=== PATIENT | male | born 1945 | race Caucasian/White ===

== ENCOUNTER 2017-03-04 20:18 | Inpatient (IN) | payer OTHER, MEDICARE ==
[~2017-03-04] VITALS: Ht 177.8 cm; Wt 92.3 kg
[2017-03-04] MEDS ORDERED: CLC100 PO (22:11)
[2017-03-04] MEDS ORDERED: PLV75 PO (22:11)
[2017-03-04] MEDS ORDERED: ALPR-411 PO (22:11)
[2017-03-04] MEDS ORDERED: LSN20 PO (22:11)
[2017-03-04] MEDS ORDERED: BUDE0.5S INH (22:11)
[2017-03-04] MEDS ORDERED: LEVO1INJ IV (22:11)
[2017-03-04] MEDS ORDERED: GUAISYP4 PO (22:11)
[2017-03-04] MEDS ORDERED: ISOS-11 PO (22:11)
[2017-03-04] MEDS ORDERED: HPRIS5M SQ (22:11)
[2017-03-04] MEDS ORDERED: LPR25 PO (22:11)
[2017-03-04] MEDS ORDERED: ATOR-24 PO (22:11)
[2017-03-04] MEDS ORDERED: ALPR-385 PO (22:11)
[2017-03-04] MEDS ORDERED: [UNRECOGNIZED DRUG - CODE] IV (22:11)
[2017-03-04] MEDS ORDERED: SUCR1TAB PO (22:11)
[2017-03-04] MEDS ORDERED: [UNRECOGNIZED DRUG - CODE] IV (22:11)
[2017-03-04] MEDS ORDERED: ACET325T95 PO (22:11)
[2017-03-04] MEDS ORDERED: SODI0.9S IV (22:11)
[2017-03-04] MEDS ORDERED: XPNINS INH (22:11)
[2017-03-04] MEDS ORDERED: [UNRECOGNIZED DRUG - OTHER] IV (22:11)
[2017-03-04] MEDS ORDERED: GFNSR600 PO (22:11)
[2017-03-04] MEDS ORDERED: [UNRECOGNIZED DRUG - REMARK] (22:11)
[2017-03-04] MEDS ORDERED: TAMS0.4C38 PO (22:11)
[2017-03-04] MEDS ORDERED: HYDR-5688 PO (22:11)
[2017-03-04] MEDS ORDERED: PRFINS INH (22:11)
[2017-03-04] MEDS ORDERED: FLV1 PO (22:11)
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
[2017-03-04 22:15] LABS: BASO % 0.1 %; BASO ABS # 0.01 K/uL (0-0.2); COMPLETE YES; IG% 0.3 %; LYMPH % 10.6 %; LYMPH ABS # 1.23 K/uL (1.2-3.4); MEAN CORPUSCULAR HEMOGLOBIN 28.8 pg (25-34); MEAN CORPUSCULAR HGB CONC 32.7 g/dl (32-36); MEAN PLATELET VOLUME 9.2 fL (7.4-10.4); MONO % 9.6 %; NEUT % 79.4 %; PLATELET COUNT 281 K/uL (130-400); RED BLOOD COUNT 3.75 M/uL (4.7-6.1); WHITE BLOOD COUNT 11.62 K/uL (4.8-10.8)
--- NOTE | 2017-03-04 22:16 | DIAGNOSTIC IMAGING REPORT ---
CHEST ONE VIEW PORTABLE CLINICAL HISTORY: pneumonia dyspnea COMPARISON STUDY: None FINDINGS: Parenchymal infiltrate left lung base. PICC catheters. Vena cava. Moderate chronic megaly. Small fixed lateral hernia. Otherwise are clear. IMPRESSION: Infiltrate left base. Moderate cardiomegaly. The above report was generated using voice recognition software. It may contain grammatical, syntax or spelling errors. Electronically signed by: Julien Steele M.D. 03/04/2017 10:15 PM Dictated Date/Time: 03/04/2017 10:14 PM
[2017-03-04 22:33] LABS: ALT/SGPT 12 U/L (12-78); BLOOD UREA NITROGEN 13 mg/dl (7-18); BUN/CREATININE RATIO 17.8 (10-20); CALCIUM 8.5 mg/dl (8.5-10.1); CARBON DIOXIDE 27 mmol/L (21-32); CHLORIDE 103 mmol/L (98-107); CREATININE 0.72 mg/dl (0.60-1.40); GLUCOSE 96 mg/dl (70-99); MAGNESIUM 1.9 mg/dl (1.8-2.4); POTASSIUM 3.8 mmol/L (3.5-5.1); SODIUM 136 mmol/L (136-145)
[2017-03-04 22:34] VITALS: BP 124/81; PULSE 97; TEMP 37.5; O2SAT 99; Ht 177.8 cm; Wt 92.3 kg
[2017-03-04 22:36] LABS: ALB/GLOB RATIO 0.8 (0.9-2); ALKALINE PHOSPHATASE 72 U/L (45-117); AST/SGOT 18 U/L (15-37)
[2017-03-04 22:44] LABS: INR 1.1 (0.9-1.1); PARTIAL THROMBOPLASTIN RATIO 0.9
[2017-03-04] MEDS ORDERED: ACETAMINOPHEN 325 MG TAB PO PRN (22:45)
[2017-03-04] MEDS ORDERED: LEVALBUTEROL 0.63MG/3 ML NEB INH PRN (22:45)
[2017-03-04] MEDS ORDERED: ALPRAZOLAM 0.5 MG TAB PO ONE (23:00)
[2017-03-04] MEDS ORDERED: BUDESONIDE 0.5 MG/2 ML VIAL (PULMICORT) INH ONE (23:00)
[2017-03-04 23:15] VITALS: BP 129/85; PULSE 90; TEMP 37; O2SAT 99
[2017-03-04] MEDS ORDERED: FORMOTEROL FUMA NEBULIZER SOLN 20 MCG/2 ML VIAL INH ONE (23:15)
[2017-03-04] MEDS ORDERED: METOPROLOL TARTRATE 25 MG TAB PO ONE (23:15)
[2017-03-04] MEDS ORDERED: LISINOPRIL 20 MG TAB PO ONE (23:15)
[2017-03-04] MEDS: HYDROCODONE/ACETAMOPHEN 5/325MG TAB PO PRN (23:31)
[2017-03-04] MEDS: ONDANSETRON INJ 2 MG/ML 2 ML VIAL IV PRN (23:31)
[2017-03-04] MEDS: LEVOFLOXACIN IV SCH (23:33)
[2017-03-04] MEDS: D5W IV SCH (23:33)
[2017-03-04] MEDS: [UNRECOGNIZED DRUG - OTHER] IV SCH (23:33)
[2017-03-05] VITALS (9 sets, daily range): BP systolic 110–135; BP diastolic 63–86; PULSE 70–95; TEMP 36.6–37; O2SAT 95–99
[2017-03-05] MEDS ORDERED: AMB10 PO (02:11)
[2017-03-05] MEDS ORDERED: HYDR-4332 PO (02:11)
[2017-03-05] MEDS ORDERED: SPRIN/30 INH (02:11)
[2017-03-05] MEDS ORDERED: FRS/40 PO (02:11)
[2017-03-05] MEDS ORDERED: ALPR-411 PO (02:11)
[2017-03-05] MEDS ORDERED: POTA-74 PO (02:11)
[2017-03-05] MEDS ORDERED: POLY150C4 PO (02:11)
[2017-03-05] MEDS ORDERED: PANT40TA PO (02:11)
[2017-03-05] MEDS ORDERED: RANITIDINE IV 50 MG in DEXTROSE 5% 100ML 100 ML IV SCH (02:15)
[2017-03-05] MEDS: LORAZEPAM INJ 0.5 MG in SYRINGE 0.25 ML IV PRN (03:09)
[2017-03-05] MEDS: HYDROCODONE/ACETAMOPHEN 5/325MG TAB PO PRN ×2 (05:35→14:22)
[2017-03-05 06:45] LABS: HEMATOCRIT 32.7 % (42-52); MEAN CELL VOLUME 87.7 fL (80-100); MEAN CORPUSCULAR HEMOGLOBIN 29.2 pg (25-34); MEAN CORPUSCULAR HGB CONC 33.3 g/dl (32-36); MEAN PLATELET VOLUME 9.2 fL (7.4-10.4); PLATELET COUNT 252 K/uL (130-400); RED BLOOD COUNT 3.73 M/uL (4.7-6.1); WHITE BLOOD COUNT 10.49 K/uL (4.8-10.8)
[2017-03-05] MEDS ORDERED: SUCRALFATE 1 GM TAB PO SCH (07:00)
[2017-03-05] MEDS: BUDESONIDE 0.5 MG/2 ML VIAL (PULMICORT) INH SCH ×2 (07:21→20:11)
[2017-03-05] MEDS: FORMOTEROL FUMA NEBULIZER SOLN 20 MCG/2 ML VIAL INH SCH ×2 (07:21→20:11)
[2017-03-05 07:23] LABS: BUN/CREATININE RATIO 19.4 (10-20); CREATININE 0.6 mg/dl (0.60-1.40); POTASSIUM 3.8 mmol/L (3.5-5.1)
[2017-03-05] MEDS: SUCRALFATE 1 GM TAB PO SCH ×4 (07:55→20:21)
[2017-03-05] MEDS: ONDANSETRON INJ 2 MG/ML 2 ML VIAL IV PRN ×3 (07:56→20:23)
[2017-03-05] MEDS: GUAIFENESIN/CODEINE 200MG/20MG 10ML UDC PO PRN ×2 (07:56→14:16)
[2017-03-05] MEDS: LISINOPRIL 20 MG TAB PO SCH (07:56)
[2017-03-05] MEDS: CLOPIDOGREL BISULFATE 75 MG TAB PO SCH (07:57)
[2017-03-05] MEDS: METOPROLOL TARTRATE 25 MG TAB PO SCH ×2 (07:57→20:21)
[2017-03-05] MEDS: DOCUSATE SODIUM 100 MG CAP PO SCH ×2 (07:57→20:20)
[2017-03-05] MEDS: TAMSULOSIN HCL 0.4 MG CAP PO SCH (07:58)
[2017-03-05] MEDS: ATORVASTATIN 40 MG TAB PO SCH (07:58)
[2017-03-05] MEDS: ALPRAZOLAM 0.5 MG TAB PO SCH ×3 (08:04→20:21)
[2017-03-05] MEDS: HEPARIN SOD 5000 UNIT/0.5 ML CARP SQ SCH ×2 (08:05→20:22)
[2017-03-05] MEDS ORDERED: ISOSORBIDE MONONITRATE 30 MG TABCR PO SCH (09:00)
[2017-03-05] MEDS ORDERED: PANTOprazole SOD 40 MG TAB PO SCH (09:00)
[2017-03-05] MEDS ORDERED: GUAIFENESIN 600 MG TABCR PO SCH (09:00)
[2017-03-05] MEDS ORDERED: LISINOPRIL 20 MG TAB PO SCH (09:00)
[2017-03-05] MEDS: LORAZEPAM 2 MG/ML 1 ML VIAL IV PRN (09:28)
[2017-03-05] MEDS ORDERED: CLOPIDOGREL BISULFATE 75 MG TAB PO ONE (09:30)
[2017-03-05] MEDS ORDERED: ASPEC81 PO (11:38)
[2017-03-05] MEDS ORDERED: PHARMACIST DISCHARGE MED REC CONSULT PRN (12:00)
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
[2017-03-05 13:29] LABS: ESTIMATED AVERAGE GLUCOSE 126 mg/dl; HA1C FLAG Normal (Normal)
--- NOTE | 2017-03-05 14:07 | Progress Note ---
Medicine Progress Note Date & Time of Visit: Mar 05, 2017 at 14:07. Subjective seen resting in bed, comfortable still has epigastric discomfort, nausea still has productive cough, no dyspnea while on o2 via nasal cannula no recurrence of aphasia no other symptoms Objective Last 8 Hrs Date Time Temp Pulse Resp B/P (MAP) Pulse Ox O2 Delivery O2 Flow Rate FiO2 03/05/17 12:20 37.0 88 16 129/63 (85) 95 03/05/17 08:00 Nasal Cannula 2.0 03/05/17 07:52 36.9 81 18 131/69 (89) 95 03/05/17 07:21 82 18 99 Nasal Cannula 4.0 Physical Exam: General- oriented x 3, not in distress, speaks in sentences with no effort Head- atraumatic Eyes- EOMI, anicteric ENT- oropharynx clear Neck- supple, no JVD, no adenopathy Lungs- (+) scattered rhonchi and wheezes bilaterally Heart- regular rhythm; no murmur, normal rate Abdomen- normal bowel sounds, soft, nontender Extremities- no pretibial edema, no calf tenderness; Neuro- alert, oriented x 3; PERRL, EOMI; no facial palsy; no dysarthria; motor 5 /5 bilaterally; sensation 100% Skin- warm & dry Laboratory Results: Last 24 Hours Test 03/04/17 22:03 03/05/17 06:23 03/05/17 11:30 03/05/17 11:46 White Blood Count 11.62 K/uL 10.49 K/uL Red Blood Count 3.75 M/uL 3.73 M/uL Hemoglobin 10.8 g/dL 10.9 g/dL Hematocrit 33.0 % 32.7 % Mean Corpuscular Volume 88.0 fL 87.7 fL Mean Corpuscular Hemoglobin 28.8 pg 29.2 pg Mean Corpuscular Hemoglobin Concent 32.7 g/dl 33.3 g/dl Platelet Count 281 K/uL 252 K/uL Mean Platelet Volume 9.2 fL 9.2 fL Neutrophils (%) (Auto) 79.4 % Lymphocytes (%) (Auto) 10.6 % Monocytes (%) (Auto) 9.6 % Eosinophils (%) (Auto) 0.0 % Basophils (%) (Auto) 0.1 % Neutrophils # (Auto) 9.24 K/uL Lymphocytes # (Auto) 1.23 K/uL Monocytes # (Auto) 1.11 K/uL Eosinophils # (Auto) 0.00 K/uL Basophils # (Auto) 0.01 K/uL RDW Standard Deviation 44.1 fL 44.3 fL RDW Coefficient of Variation 13.6 % 13.8 % Immature Granulocyte % (Auto) 0.3 % Immature Granulocyte # (Auto) 0.03 K/uL Prothrombin Time 12.0 SECONDS Prothromb Time International Ratio 1.1 Activated Partial Thromboplast Time 23.6 SECONDS Partial Thromboplastin Ratio 0.9 Sodium Level 136 mmol/L 137 mmol/L Potassium Level 3.8 mmol/L 3.8 mmol/L Chloride Level 103 mmol/L 105 mmol/L Carbon Dioxide Level 27 mmol/L 26 mmol/L Anion Gap 6.0 mmol/L 6.0 mmol/L Blood Urea Nitrogen 13 mg/dl 12 mg/dl Creatinine 0.72 mg/dl 0.60 mg/dl Estimated GFR () 108.8 117.2 Estimated GFR (Non- 93.9 101.2 BUN/Creatinine Ratio 17.8 19.4 Random Glucose 96 mg/dl 99 mg/dl Calcium Level 8.5 mg/dl 8.0 mg/dl Magnesium Level 1.9 mg/dl Total Bilirubin 0.5 mg/dl Aspartate Amino Transf (AST/SGOT) 18 U/L Alanine Aminotransferase (ALT/SGPT) 12 U/L Alkaline Phosphatase 72 U/L Total Protein 6.2 gm/dl Albumin 2.8 gm/dl Globulin 3.4 gm/dl Albumin/Globulin Ratio 0.8 Hepatitis C Antibody Screen NEG Est Creatinine Clear Calc Drug Dose 127.8 ml/min Estimated Average Glucose 126 mg/dl Hemoglobin A1c 6.0 % Lipase 82 U/L Bedside Glucose 98 mg/dl Assessment & Plan ABDOMINAL PAIN, POSSIBLE GASTRITIS, PUD Severe epigastric pain x several days. No apparent acute findings on CT of abdomen and pelvis at [facility] -- on PPI, Sucralfate GI consulted will need EGD PNEUMONIA, COPD EXACERBATION Episode of vomiting, but no apparent aspiration. CT of abdomen and pelvis suggested bibasilar infiltrates. -- on Levaquin add Solumedrol, Nebs q4h -- monitor NEURO SYMPTOMS 2 episodes of apparent expressive aphasia, one episode possibly associated with left facial palsy. Suspected TIA. Possible seizure (history of seizure disorder, but apparently no longer taking phenytoin). CT head negative at [facility]. MRI cannot be performed (? intrathecal pump). Carotid duplex showed < 50% stenosis of ICA's. echo: pending eeg: pending -- on Plavix avoiding ASA due to GI symptoms -- Neuro consulted CORONARY ARTERY DISEASE No anginal symptoms. No acute EKG changes. Need to get background info. CHF Apparent history of CHF. -- euvolemic Hold furosemide due to decreased oral intake. RESUSCITATION STATUS Discussed with patient. He has a living will; his daughter Buffy is an RN and is durable POA. He would like resuscitation attempted in the event of a cardiopulmonary arrest if there is a reasonable chance of a meaningful recovery, but does not want prolonged extraordinary measures if prognosis is poor. Therefore, code status = "Level 1" (full resuscitation). VTE PROPHYLAXIS High risk for VTE. SQ heparin with caution. INCOMPLETE DATA Home medications uncertain- need to verify. Records from [facility] and [facility] will be requested for background info.-- will follow up DISPOSITION Admit to Telemetry Unit. Discharge disposition to be determined. . VTE Prophylaxis VTE Risk Assessment Done? Y/N: Yes Current Inpatient Medications: Current Inpatient Medications Medications (Trade) Dose Ordered Sig/Marco A Route Start Time Stop Time Status Last Admin Dose Admin Acetaminophen (Tylenol Tab) 650 mg Q4 PRN PO 03/04/17 22:45 04/03/17 22:44 Alprazolam (Xanax Tab) 0.5 mg BID@0900,1600 PO 03/05/17 09:00 04/04/17 08:59 03/05/17 08:04 0.5 MG Alprazolam (Xanax Tab) 1 mg HS PO 03/05/17 21:00 04/04/17 20:59 Atorvastatin Calcium (Lipitor Tab) 40 mg DAILY PO 03/05/17 09:00 04/04/17 08:59 03/05/17 07:58 40 MG Budesonide (Pulmicort Respules 0.5MG/ 2ML Neb Soln) 0.5 mg BID INH 03/05/17 09:00 04/04/17 08:59 03/05/17 07:21 0.5 MG Clopidogrel Bisulfate (plAVix TAB) 75 mg DAILY PO 03/05/17 09:00 04/04/17 08:59 03/05/17 07:57 75 MG Docusate Sodium (coLACE CAP) 100 mg BID PO 03/05/17 09:00 04/04/17 08:59 03/05/17 07:57 100 MG Folic Acid (Folvite Tab) 1 mg DAILY PO 03/05/17 09:00 04/04/17 08:59 03/05/17 07:57 1 MG Formoterol Fumarate (Perforomist 20MCG/2ML Neb Soln) 20 mcg Q12 INH 03/05/17 09:00 04/04/17 08:59 03/05/17 07:21 20 MCG Codeine Phosphate/ Guaifenesin (Robitussin-AC Sugar Free Syrup) 5 ml Q4H PRN PO 03/04/17 22:45 04/03/17 22:44 03/05/17 07:56 5 ML Heparin Sodium (Porcine) (Heparin Sq 5000 Unit/0.5ml) 5,000 unit Q12 SQ 03/05/17 09:00 04/04/17 08:59 03/05/17 08:05 5,000 UNIT Acetaminophen/ Hydrocodone Bitart ([place] 5/325 Tab) 2 tab Q6 PRN PO 03/04/17 22:45 03/18/17 22:44 03/05/17 05:35 2 TAB Levalbuterol (Xopenex 0.63 Mg/ 3 Ml Neb) 0.63 mg Q6 PRN INH 03/04/17 22:45 04/03/17 22:44 Levofloxacin 750 mg/Levofloxacin 150 ml @ 100 mls/hr DAILY@2200 IV 03/04/17 23:30 03/11/17 21:59 03/04/17 23:33 100 MLS/HR Metoprolol Tartrate (Lopressor Tab) 25 mg BID PO 03/05/17 09:00 04/04/17 08:59 03/05/17 07:57 25 MG Ondansetron HCl (Zofran Inj) 4 mg Q6H PRN IV 03/04/17 22:45 04/03/17 22:44 03/05/17 07:56 4 MG Tamsulosin HCl (Flomax Cap) 0.4 mg DAILY PO 03/05/17 09:00 04/04/17 08:59 03/05/17 07:58 0.4 MG Lorazepam 0.5 mg/ Syringe 0.5 ml @ 0.5 mls/min Q6H PRN IV 03/05/17 02:15 04/04/17 02:14 03/05/17 03:09 0.5 MLS/MIN Lisinopril (Zestril Tab) 20 mg DAILY PO 03/05/17 09:00 04/04/17 08:59 03/05/17 07:56 20 MG Sucralfate (Carafate Tab) 1 gm ACHS PO 03/05/17 07:00 04/04/17 06:59 03/05/17 07:55 1 GM Lorazepam (Ativan Inj) 0.5 mg Q6H PRN IV 03/05/17 03:15 04/04/17 03:14 03/05/17 09:28 0.5 MG Tiotropium [place] (Spiriva Handihaler Inhaler) 1 puff DAILY INH 03/06/17 09:00 04/05/17 08:59 Zolpidem Tartrate (Ambien Tab) 10 mg HS PRN PO 03/05/17 09:15 04/04/17 09:14 Pantoprazole Sodium 40 mg/ Syringe 10 ml @ 5 mls/min DAILY@ IV 03/05/17 21:00 04/04/17 20:59 Miscellaneous Information (Pharmacist Discharge Med Rec Consult) 1 ea UD PRN N/A 03/05/17 12:00 04/04/17 11:59
[2017-03-05] MEDS ORDERED: LEVALBUTEROL/IPRATROPIUM NEB INH SCH (14:15)
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
[2017-03-05] MEDS ORDERED: PERFLUTREN LIPID MICROSPHERE (DEFINITY) IV ONE (15:44)
[2017-03-05] MEDS: METHYLPREDNISOLONE IV 40 MG in SYRINGE 0 ML IV SCH (16:01)
[2017-03-05] MEDS: LEVALBUTEROL 1.25MG/0.5ML NEB INH SCH ×3 (16:17→23:47)
[2017-03-05] MEDS: IPRATROPIUM BROMIDE NEB SOLN 0.02% 2.5 ML VIAL INH SCH ×3 (16:18→23:47)
--- NOTE | 2017-03-05 16:21 | ECHOCARDIOGRAM REPORT ---
*NOTICE TO RECEIVING [facility] This information is strictly Confidential and protected under [place] law. [place] law prohibits you from making any further disclosure of this information unless further disclosure is expressly permitted by the written consent of the person to whom it pertains or is authorized by law. A general authorization for the release of medical or other information is not sufficient for this purpose. Hospital accepts no responsibility if the information is made available to any other person, INCLUDING THE PATIENT. Interpretation Summary * Name: MARC ACEVES Study Date: 03/05/2017 02:53 PM BP: 129/63 mmHg * Patient Location: C.2T\S\S238\S\2 HR: 92 * : 1945 (M/d/yyy) Gender: Male Height: 70 in * Age: 71 yrs Ethnicity: DC Weight: 199 lb * Ordering Physician: Wili Rivero * Referring Physician: No Doctor, Assigned * Performed By: Rhina Lowery RCS * * Reason For Study: TIA / H/O CAD / SOB * BSA: 2.1 m2 * The study was technically difficult. * The study was technically limited. * -- Conclusions -- * There is mild concentric left ventricular hypertrophy. * There is a moderate sized septal wall motion abnormality with moderate hypokinesis of the septal segments. * Otherwise there is mild global hypokinesis * Left ventricular systolic function is moderately reduced. * The LV Ejection Fraction = 35-40%. * The right ventricle is grossly normal size. * The right ventricular systolic function is normal. * Grade I diastolic dysfunction, (abnormal relaxation pattern). Procedure Details * A complete two-dimensional transthoracic echocardiogram was performed (2D, M-mode, Doppler and color flow Doppler). * The study was technically difficult. * There were technical limitations due to patient'spoor positioning * A saline contrast injection was performed to assess for cardiac shunting. * The injection was performed through an intravenous line in the left arm. * The attending nurse who injected the saline contrast was ANNA FORTUNE CPL, RN. * A total of 20 cc of agitated saline was given. * A contrast injection of Definity was performed to improve assessment of LV function. * Contrast was injected into an intravenous site in the left arm. * One vial of Definity ultrasound contrast was diluted in normal saline to a total volume of 10 ml. A total of '3' ml of solution was administered during imaging. * Lot # [id number] of Definity utilized for procedure. * Expiration date APR 02. Left Ventricle * The left ventricle is normal in size. * There is mild concentric left ventricular hypertrophy. * Left ventricular systolic function is moderately reduced. * Ejection Fraction = 35-40%. * There is a moderate sized septal wall motion abnormality with moderate hypokinesis of the septal segments. Otherwise there is mild global hypokinesis Right Ventricle * The right ventricle is grossly normal size. * The right ventricular systolic function is normal. Atria * The left atrium is mildly dilated. * Right atrial size is normal. * The interatrial septum is intact with no evidence for an atrial septal defect. Mitral Valve * There is mild mitral annular calcification. * There is no mitral valve stenosis. * Significant mitral regurgitation is absent. Tricuspid Valve * The tricuspid valve is not well visualized, but is grossly normal. * There is no tricuspid stenosis. * Significant tricuspid regurgitation is absent. Aortic Valve * The aortic valve is not well visualized. * Aortic stenosis is absent. * There is no significant aortic regurgitation. Pulmonic Valve * The pulmonary valve is not well seen, but the Doppler examination is normal without significant regurgitation or stenosis. Pericardium/Pleural * There is an echodensity in the anterior pericardial space consistent with pericardial fat. * There is no pericardial effusion. Left Ventricular Diastolic Function * Grade I diastolic dysfunction, (abnormal relaxation pattern). MMode 2D Measurements and Calculations LVAd ap4 35.2 cm\S\2 LVLd ap4 8.1 cm EDV(MOD-sp4) 124.1 ml EDV(sp4-el) 129.6 ml LVAs ap4 19.8 cm\S\2 LVLs ap4 6.2 cm ESV(MOD-sp4) 52.4 ml ESV(sp4-el) 53.6 ml EF(MOD-sp4) 57.8 % EF(sp4-el) 58.6 % SV(MOD-sp4) 71.7 ml SI(MOD-sp4) 34.4 ml/m\S\2 SV(sp4-el) 76.0 ml SI(sp4-el) 36.5 ml/m\S\2 Doppler Measurements and Calculations MV E max ann 64.2 cm/sec MV A max ann 66.3 cm/sec MV E/A 0.97 MV P1/2t max ann 69.2 cm/sec MV P1/2t 42.8 msec MVA(P1/2t) 5.1 cm\S\2 MV dec slope 473.4 cm/sec\S\2 MV dec time 0.18 sec Ao V2 max 51.1 cm/sec Ao max PG 1.0 mmHg Ao max PG (full) -1.27 mmHg LV V1 max PG 2.3 mmHg LV V1 max 76.1 cm/sec
--- NOTE | 2017-03-05 19:39 | DIAGNOSTIC IMAGING REPORT ---
CT HEAD WITHOUT CONTRAST (CT) CLINICAL HISTORY: Stroke like symptoms COMPARISON STUDY: Outside head CT dated 03/04/2017 TECHNIQUE: Axial CT of the brain is performed from the vertex to the skull base. IV contrast was not administered for this examination. A dose lowering technique was utilized adhering to the principles of ALARA. CT DOSE: FINDINGS: No intra or extra-axial mass lesions are visualized. There is no CT evidence of acute cortical infarction. There is no evidence of midline shift. There is no acute hemorrhage. No calvarial fractures are visualized. There are mild white matter hypodensities likely on a small vessel basis. There is no evidence of pathologic ventricular dilatation. There is no evidence of acute sinusitis IMPRESSION: No acute intracranial findings Electronically signed by: Krzysztof Bryant M.D. 03/05/2017 7:38 PM Dictated Date/Time: 03/05/2017 7:37 PM
--- NOTE | 2017-03-05 19:43 | DIAGNOSTIC IMAGING REPORT ---
CT HEAD ANGIO WITH CONTRAST CLINICAL HISTORY: stroke like symptoms TECHNIQUE: CT angiography of the head was performed in a dynamic helical fashion during intravenous administration of 99 cc of Optiray 320. A dose lowering technique was utilized adhering to the principles of ALARA. CT DOSE: COMPARISON STUDY: Noncontrast CT scan dated 03/05/2017, 03/04/2017 FINDINGS: The patient was scanned in a dynamic helical fashion during intravenous administration of 99 cc Optiray 320. MIP imaging was performed. A dose lowering technique was utilized adhering to the principles of ALARA. There are no major intracranial branch occlusions. There is no evidence of significant intracranial stenosis. There are no lesion suspicious for aneurysm. There are no pathologically enhancing masses. The dural venous sinuses appear patent. IMPRESSION: Unremarkable CT angiography of the brain. Electronically signed by: Krzysztof Bryant M.D. 03/05/2017 7:42 PM Dictated Date/Time: 03/05/2017 7:38 PM
[2017-03-05] MEDS: PANTOprazole INJ 40 MG in SYRINGE 0 ML IV SCH (20:21)
[2017-03-05] MEDS: [UNRECOGNIZED DRUG - OTHER] IV SCH (21:33)
[2017-03-05] MEDS: D5W IV SCH (21:33)
[2017-03-05] MEDS: LEVOFLOXACIN IV SCH (21:33)
[2017-03-06] VITALS (12 sets, daily range): BP systolic 118–137; BP diastolic 65–83; PULSE 68–95; TEMP 36.5–37.1; O2SAT 97–99
--- NOTE | 2017-03-06 00:03 | ELECTROENCEPHALOGRAPH REPORT ---
REQUESTING: Dr. Vieyra. CLINICAL DIAGNOSIS: Pneumonia with possible transient ischemic attacks or seizures emanating from the left hemisphere. ELECTROENCEPHALOGRAM DIAGNOSIS: Essentially normal during wakefulness. DESCRIPTION OF TRACING: This EEG was done as a bedside recording and is of reasonable technical quality with a number of head movement artifacts recorded episodically particularly in the frontal leads. Photic stimulation was performed. Video analysis of patient movement and behavior was obtained. Hyperventilation was not performed and drowsiness and light sleep were not recorded. Under these conditions, there is evidence for a normal appearing background rhythm in the alpha range of up to 10 Hz of maximum frequency and of up to 30 microvolts of maximum amplitude. This is maximum posterior head regions bilaterally symmetrical. Polymorphic mid frequency theta activity is seen over all head regions without clear focal or regional predominance. Anterior head region maximum bilaterally symmetrical low voltage fast activity in the beta range is present. Photic stimulation provoked some modest driving response without a photomyogenic or photoparoxysmal component. There is episodically some slower activity over the bifrontal regions. This seems to correlate more with head movement artifacts as established by the video recording of the patient's movement. At no time during the tracing is there evidence for a clearcut potentially epileptogenic activity in the form of polyspike or spike wave bursts, focal sharp waves or focal spikes. INTERPRETATION: This EEG is essentially normal during wakefulness without evidence for focal or generalized encephalopathy and without evidence for potentially epileptogenic activity.
[2017-03-06] MEDS: ONDANSETRON INJ 2 MG/ML 2 ML VIAL IV PRN ×2 (03:00→12:54)
[2017-03-06] MEDS: LEVALBUTEROL 1.25MG/0.5ML NEB INH SCH ×4 (04:00→19:19)
[2017-03-06] MEDS: IPRATROPIUM BROMIDE NEB SOLN 0.02% 2.5 ML VIAL INH SCH ×4 (04:00→19:19)
[2017-03-06] MEDS: LORAZEPAM 2 MG/ML 1 ML VIAL IV PRN ×2 (05:12→14:19)
[2017-03-06] MEDS: METHYLPREDNISOLONE IV 40 MG in SYRINGE 0 ML IV SCH ×2 (05:12→14:21)
[2017-03-06] MEDS: FORMOTEROL FUMA NEBULIZER SOLN 20 MCG/2 ML VIAL INH SCH ×2 (07:08→19:15)
[2017-03-06] MEDS: BUDESONIDE 0.5 MG/2 ML VIAL (PULMICORT) INH SCH ×2 (07:08→19:15)
[2017-03-06 07:29] LABS: CHOLESTEROL/HDL RATIO 2.7
--- NOTE | 2017-03-06 08:56 | Gastroenterology Progress Note ---
Progress Note Date of Service: Mar 06, 2017 Subjective Pt evaluation today including: conversation w/ patient, physical exam, chart review, lab review Pt was seen and evaluated, chart reviewed. No acute events overnight. Pt tells me his abdominal pain is about 50% improved. He has had 3 episodes of emesis since he was evaluated yesterday - per pt he is unsure if this is emesis or if he is coughing up phlegm. Reports it was thick, yellow mucous. No blood. No coffee ground emesis. Denies fever, chills, CP or SOB different from yesterday. Review of Systems Constitutional: No fever, No chills Respiratory: + cough, + sputum, + shortness of breath Abdomen: + pain (improving), + nausea (improving), + vomiting (less frequent), No diarrhea, No constipation, No GI bleeding Medications Current Inpatient Medications Medications (Trade) Dose Ordered Sig/Marco A Route Start Time Stop Time Status Last Admin Dose Admin Acetaminophen (Tylenol Tab) 650 mg Q4 PRN PO 03/04/17 22:45 04/03/17 22:44 Alprazolam (Xanax Tab) 0.5 mg BID@0900,1600 PO 03/05/17 09:00 04/04/17 08:59 03/05/17 16:00 0.5 MG Alprazolam (Xanax Tab) 1 mg HS PO 03/05/17 21:00 04/04/17 20:59 03/05/17 20:21 1 MG Atorvastatin Calcium (Lipitor Tab) 40 mg DAILY PO 03/05/17 09:00 04/04/17 08:59 03/05/17 07:58 40 MG Budesonide (Pulmicort Respules 0.5MG/ 2ML Neb Soln) 0.5 mg BID INH 03/05/17 09:00 04/04/17 08:59 03/05/17 20:11 0.5 MG Clopidogrel Bisulfate (plAVix TAB) 75 mg DAILY PO 03/05/17 09:00 04/04/17 08:59 03/05/17 07:57 75 MG Docusate Sodium (coLACE CAP) 100 mg BID PO 03/05/17 09:00 04/04/17 08:59 03/05/17 20:20 100 MG Folic Acid (Folvite Tab) 1 mg DAILY PO 03/05/17 09:00 04/04/17 08:59 03/05/17 07:57 1 MG Formoterol Fumarate (Perforomist 20MCG/2ML Neb Soln) 20 mcg Q12 INH 03/05/17 09:00 04/04/17 08:59 03/05/17 20:11 20 MCG Codeine Phosphate/ Guaifenesin (Robitussin-AC Sugar Free Syrup) 5 ml Q4H PRN PO 03/04/17 22:45 04/03/17 22:44 03/05/17 14:16 5 ML Heparin Sodium (Porcine) (Heparin Sq 5000 Unit/0.5ml) 5,000 unit Q12 SQ 03/05/17 09:00 04/04/17 08:59 03/05/17 20:22 5,000 UNIT Acetaminophen/ Hydrocodone Bitart ([place] 5/325 Tab) 2 tab Q6 PRN PO 03/04/17 22:45 03/18/17 22:44 03/05/17 14:22 2 TAB Levalbuterol (Xopenex 0.63 Mg/ 3 Ml Neb) 0.63 mg Q6 PRN INH 03/04/17 22:45 04/03/17 22:44 Levofloxacin 750 mg/Levofloxacin 150 ml @ 100 mls/hr DAILY@2200 IV 03/04/17 23:30 03/11/17 21:59 03/05/17 21:33 100 MLS/HR Metoprolol Tartrate (Lopressor Tab) 25 mg BID PO 03/05/17 09:00 04/04/17 08:59 03/05/17 20:21 25 MG Ondansetron HCl (Zofran Inj) 4 mg Q6H PRN IV 03/04/17 22:45 04/03/17 22:44 03/06/17 03:00 4 MG Tamsulosin HCl (Flomax Cap) 0.4 mg DAILY PO 03/05/17 09:00 04/04/17 08:59 03/05/17 07:58 0.4 MG Lorazepam 0.5 mg/ Syringe 0.5 ml @ 0.5 mls/min Q6H PRN IV 03/05/17 02:15 04/04/17 02:14 03/05/17 03:09 0.5 MLS/MIN Lisinopril (Zestril Tab) 20 mg DAILY PO 03/05/17 09:00 04/04/17 08:59 03/05/17 07:56 20 MG Sucralfate (Carafate Tab) 1 gm ACHS PO 03/05/17 07:00 04/04/17 06:59 03/05/17 20:21 1 GM Lorazepam (Ativan Inj) 0.5 mg Q6H PRN IV 03/05/17 03:15 04/04/17 03:14 03/06/17 05:12 0.5 MG Tiotropium [place] (Spiriva Handihaler Inhaler) 1 puff DAILY INH 03/06/17 09:00 04/05/17 08:59 Zolpidem Tartrate (Ambien Tab) 10 mg HS PRN PO 03/05/17 09:15 04/04/17 09:14 Pantoprazole Sodium 40 mg/ Syringe 10 ml @ 5 mls/min DAILY@ IV 03/05/17 21:00 04/04/17 20:59 03/05/17 20:21 5 MLS/MIN Miscellaneous Information (Pharmacist Discharge Med Rec Consult) 1 ea UD PRN N/A 03/05/17 12:00 04/04/17 11:59 Methylprednisolone Sodium Succinate 40 mg/Syringe 0.64 ml @ 1.5 mls/min Q12H IV 03/05/17 15:00 04/04/17 14:14 03/06/17 05:12 1.5 MLS/MIN Ipratropium [place] (Atrovent 0.02% 0.5MG/2.5ML Neb) 0.5 mg Q4R INH 03/05/17 16:00 04/04/17 15:59 03/05/17 16:18 0.5 MG Levalbuterol (Xopenex 1.25MG/ 0.5ML Neb) 1.25 mg Q4R INH 03/05/17 16:00 04/04/17 15:59 03/05/17 16:17 1.25 MG Aspirin (Aspirin Supp) 300 mg DAILY LA 03/06/17 09:00 04/05/17 08:59 Heparin Sodium (Porcine) (Heparin 10 Unit/ ml 5 ml Flush) 5 ml PRN PRN FLUSH 03/05/17 17:15 04/04/17 17:14 Objective Vital Signs Date Time Temp Pulse Resp B/P (MAP) Pulse Ox O2 Delivery O2 Flow Rate FiO2 03/06/17 08:11 37.0 85 16 125/65 (85) 98 03/06/17 04:00 36.7 81 18 137/82 (100) 99 Nasal Cannula 2.0 03/06/17 04:00 Nasal Cannula 2.0 03/06/17 00:00 Nasal Cannula 2.0 03/05/17 23:59 36.6 70 18 119/74 (89) 99 Nasal Cannula 2.0 03/05/17 20:12 95 18 98 Nasal Cannula 2.0 03/05/17 20:11 36.7 94 20 135/86 (102) 98 Nasal Cannula 2.0 03/05/17 20:00 Nasal Cannula 2.0 03/05/17 16:21 85 18 97 Nasal Cannula 2.0 03/05/17 16:00 Nasal Cannula 2.0 03/05/17 15:45 36.9 79 18 110/71 (84) 97 Room Air 03/05/17 12:20 37.0 88 16 129/63 (85) 95 03/05/17 12:00 Nasal Cannula 2.0 95 Physical Exam General Appearance: no apparent distress (pt was sleeping prior to my examination, he woke up to his name) Eyes: PERRL ENT: hearing grossly normal Neck: no adenopathy Respiratory/Chest: lungs clear Cardiovascular: regular rate, rhythm Abdomen: normal bowel sounds, soft Neurologic/Psych: alert, normal mood/affect, oriented x 3 Skin: normal color Laboratory Results Last 24 Hours Test 03/05/17 11:30 03/06/17 06:23 Bedside Glucose 98 mg/dl Triglycerides Level 112 mg/dl Cholesterol Level 81 mg/dl HDL Cholesterol 30 mg/dl LDL Cholesterol, Calculated 29 mg/dl VLDL Cholesterol, Calculated 22 mg/dl Cholesterol/HDL Ratio 2.7 Assessment and Plan Patient is a 71 year old male transferred from [facility] for pneumonia and expressive aphasia/left sided facial palsy being followed by cardiology/ neurology w/ report of severe epigastric pain x several days with associated nausea and vomiting and report of coffee ground emesis a few days ago. He uses ASA daily, no other NSAIDs and has been on inhaled steroids and PO steroids in the past few months for complications stemming from his COPD. VSS. H&H stable, lipase WNL, LFTs WNL. Plan - IV PPI BID - Carafate QID - H.pylori - Antiemetics PRN - suppository if not tolerated PO - Clear liquid diet as tolerated - when nausea/vomiting subsided advance to GERD diet - no spicy acidic foods, smaller more frequent meals, remain upright after meals - No NSAIDs, ok for daily ASA if suggested by cardiology - Trend H&H - Monitor stools for s/s of upper GI bleeding - Transfuse PRN Attg addendum: I interviewed and examined pt, reviewed chart and labs Pt with Left sided facial dropp, aphasia, and nausea/vomiting. Sypmtoms markedly improved, although he still has mild epiagstric pain. Possible that he has dysmotility, related to narcs; acid-peptic disease; thrush ; hiatal hernia. It may also be possible that nausea was related to TIA ( [place] syndrome?). His symptoms have largely resolved. Would consider GB uls, KUB. If symptoms persist, please consider UGIS to look for evidence of hiatal hernia or PUD. Would defer endoscopy - he is a prohibitively high risk for anesthesia given recent TIA. No contra-indication to anti-plt therapy -- he has no evidence of bleeding. Will sign off, but please reconsult as needed.
[2017-03-06] MEDS: LISINOPRIL 20 MG TAB PO SCH (08:59)
[2017-03-06] MEDS ORDERED: CLOPIDOGREL BISULFATE 75 MG TAB PO SCH (09:00)
[2017-03-06] MEDS: PANTOprazole INJ 40 MG in SYRINGE 0 ML IV SCH ×2 (09:00→19:19)
[2017-03-06] MEDS: ASPIRIN 300 MG SUPP PR SCH (09:00)
[2017-03-06] MEDS: TIOTROPIUM BROMIDE 5 PUFF/90 MCG INH INH SCH (09:01)
[2017-03-06] MEDS: SUCRALFATE 1 GM TAB PO SCH ×4 (09:01→19:10)
[2017-03-06] MEDS: CLOPIDOGREL BISULFATE 75 MG TAB PO SCH (09:02)
[2017-03-06] MEDS: ATORVASTATIN 40 MG TAB PO SCH (09:02)
[2017-03-06] MEDS: TAMSULOSIN HCL 0.4 MG CAP PO SCH (09:02)
[2017-03-06] MEDS: DOCUSATE SODIUM 100 MG CAP PO SCH ×2 (09:02→19:10)
[2017-03-06] MEDS: METOPROLOL TARTRATE 25 MG TAB PO SCH ×2 (09:02→19:10)
[2017-03-06] MEDS: HEPARIN SOD 5000 UNIT/0.5 ML CARP SQ SCH ×2 (09:04→21:28)
[2017-03-06] MEDS: HYDROCODONE/ACETAMOPHEN 5/325MG TAB PO PRN ×3 (09:10→23:35)
[2017-03-06] MEDS: ALPRAZOLAM 0.5 MG TAB PO SCH ×3 (09:10→19:19)
--- NOTE | 2017-03-06 11:44 | Progress Note ---
Medicine Progress Note Date & Time of Visit: Mar 06, 2017 at 11:35. Subjective patient seen resting in bed, in good spirits remains at 2 liters NC appears brighter today states abdominal pain, nausea is improved today breathing is about the same, although able to expectorate more denies recurrence of aphasia, unresponsiveness no other symptoms Objective Last 8 Hrs Date Time Temp Pulse Resp B/P (MAP) Pulse Ox O2 Delivery O2 Flow Rate FiO2 03/06/17 11:12 68 18 97 Nasal Cannula 2.0 03/06/17 08:11 37.0 85 16 125/65 (85) 98 03/06/17 08:00 98 Nasal Cannula 2.0 03/06/17 04:00 36.7 81 18 137/82 (100) 99 Nasal Cannula 2.0 03/06/17 04:00 Nasal Cannula 2.0 Physical Exam: General- oriented x 3, not in distress, speaks in sentences with no effort Eyes- anicteric Neck- supple, no JVD Lungs- distant breath sounds bilaterally, but no rales/wheezing today Heart- regular rhythm; no murmur, normal rate Abdomen- normal bowel sounds, non distended soft, nontender Extremities- no pretibial edema, no calf tenderness; Neuro- alert, oriented x 3; PERRL, EOMI; no facial palsy; no dysarthria; motor 5 /5 bilaterally; sensation 100% Skin- warm & dry Laboratory Results: Last 24 Hours Test 03/06/17 06:23 03/06/17 08:56 03/06/17 11:06 Triglycerides Level 112 mg/dl Cholesterol Level 81 mg/dl HDL Cholesterol 30 mg/dl LDL Cholesterol, Calculated 29 mg/dl VLDL Cholesterol, Calculated 22 mg/dl Cholesterol/HDL Ratio 2.7 Date/Time Source Procedure Growth Status 03/06/17 11:08 Sputum Expectorated Sputum Gram Stain Pending Ordered 03/06/17 11:08 Sputum Expectorated Sputum Sputum Culture Pending Ordered Assessment & Plan ABDOMINAL PAIN, POSSIBLE GASTRITIS, PUD Severe epigastric pain x several days. No apparent acute findings on CT of abdomen and pelvis at [facility]. -- on PPI, Sucralfate GI consulted -- improving EGD deferred as patient having pneumonia, TIA symptoms appreciate GI input PNEUMONIA, COPD EXACERBATION Episode of vomiting, but no apparent aspiration. CT of abdomen and pelvis suggested bibasilar infiltrates. -- on Levaquin added Solumedrol, Nebs -- improved today ff up sputum cultures taper Solumedrol to daily, Nebs to q6h -- monitor NEURO SYMPTOMS 2 episodes of apparent expressive aphasia, one episode possibly associated with left facial palsy. Suspected TIA. Possible seizure (history of seizure disorder, but apparently no longer taking phenytoin). CT head negative at [facility]. MRI cannot be performed (? intrathecal pump). Carotid duplex showed < 50% stenosis of ICA's. repeat CT head: no acute process CT angio head: unrevealing Echo: -- Conclusions -- * There is mild concentric left ventricular hypertrophy. * There is a moderate sized septal wall motion abnormality with moderate hypokinesis of the septal segments. * Otherwise there is mild global hypokinesis * Left ventricular systolic function is moderately reduced. * The LV Ejection Fraction = 35-40%. * The right ventricle is grossly normal size. * The right ventricular systolic function is normal. * Grade I diastolic dysfunction, (abnormal relaxation pattern). EEG: unrevealing -- on Plavix, Aspirin monitor as patient having GI symptoms -- Neuro consulted appreciate the input CORONARY ARTERY DISEASE No anginal symptoms. No acute EKG changes. CHF -- euvolemic Hold furosemide due to decreased oral intake. monitor volume status RESUSCITATION STATUS Discussed with patient. He has a living will; his daughter Buffy is an RN and is durable POA. He would like resuscitation attempted in the event of a cardiopulmonary arrest if there is a reasonable chance of a meaningful recovery, but does not want prolonged extraordinary measures if prognosis is poor. Therefore, code status = "Level 1" (full resuscitation). VTE PROPHYLAXIS High risk for VTE. SQ heparin with caution. INCOMPLETE DATA Home medications uncertain- need to verify. Records from PCP and [facility] will be requested for background info.-- will follow up DISPOSITION pending PT/OT evals Current Inpatient Medications: Current Inpatient Medications Medications (Trade) Dose Ordered Sig/Marco A Route Start Time Stop Time Status Last Admin Dose Admin Acetaminophen (Tylenol Tab) 650 mg Q4 PRN PO 03/04/17 22:45 04/03/17 22:44 Alprazolam (Xanax Tab) 0.5 mg BID@0900,1600 PO 03/05/17 09:00 04/04/17 08:59 03/06/17 09:10 0.5 MG Alprazolam (Xanax Tab) 1 mg HS PO 03/05/17 21:00 04/04/17 20:59 03/05/17 20:21 1 MG Atorvastatin Calcium (Lipitor Tab) 40 mg DAILY PO 03/05/17 09:00 04/04/17 08:59 03/06/17 09:02 40 MG Budesonide (Pulmicort Respules 0.5MG/ 2ML Neb Soln) 0.5 mg BID INH 03/05/17 09:00 04/04/17 08:59 03/05/17 20:11 0.5 MG Clopidogrel Bisulfate (plAVix TAB) 75 mg DAILY PO 03/05/17 09:00 04/04/17 08:59 03/06/17 09:02 75 MG Docusate Sodium (coLACE CAP) 100 mg BID PO 03/05/17 09:00 04/04/17 08:59 03/06/17 09:02 100 MG Folic Acid (Folvite Tab) 1 mg DAILY PO 03/05/17 09:00 04/04/17 08:59 03/06/17 09:00 1 MG Formoterol Fumarate (Perforomist 20MCG/2ML Neb Soln) 20 mcg Q12 INH 03/05/17 09:00 04/04/17 08:59 03/05/17 20:11 20 MCG Codeine Phosphate/ Guaifenesin (Robitussin-AC Sugar Free Syrup) 5 ml Q4H PRN PO 03/04/17 22:45 04/03/17 22:44 03/05/17 14:16 5 ML Heparin Sodium (Porcine) (Heparin Sq 5000 Unit/0.5ml) 5,000 unit Q12 SQ 03/05/17 09:00 04/04/17 08:59 03/06/17 09:04 5,000 UNIT Acetaminophen/ Hydrocodone Bitart ([place] 5/325 Tab) 2 tab Q6 PRN PO 03/04/17 22:45 03/18/17 22:44 03/06/17 09:10 2 TAB Levalbuterol (Xopenex 0.63 Mg/ 3 Ml Neb) 0.63 mg Q6 PRN INH 03/04/17 22:45 04/03/17 22:44 Levofloxacin 750 mg/Levofloxacin 150 ml @ 100 mls/hr DAILY@2200 IV 03/04/17 23:30 03/11/17 21:59 03/05/17 21:33 100 MLS/HR Metoprolol Tartrate (Lopressor Tab) 25 mg BID PO 03/05/17 09:00 04/04/17 08:59 03/06/17 09:02 25 MG Ondansetron HCl (Zofran Inj) 4 mg Q6H PRN IV 03/04/17 22:45 04/03/17 22:44 03/06/17 03:00 4 MG Tamsulosin HCl (Flomax Cap) 0.4 mg DAILY PO 03/05/17 09:00 04/04/17 08:59 03/06/17 09:02 0.4 MG Lorazepam 0.5 mg/ Syringe 0.5 ml @ 0.5 mls/min Q6H PRN IV 03/05/17 02:15 04/04/17 02:14 03/05/17 03:09 0.5 MLS/MIN Lisinopril (Zestril Tab) 20 mg DAILY PO 03/05/17 09:00 04/04/17 08:59 03/06/17 08:59 20 MG Sucralfate (Carafate Tab) 1 gm ACHS PO 03/05/17 07:00 04/04/17 06:59 03/06/17 09:01 1 GM Lorazepam (Ativan Inj) 0.5 mg Q6H PRN IV 03/05/17 03:15 04/04/17 03:14 03/06/17 05:12 0.5 MG Tiotropium [place] (Spiriva Handihaler Inhaler) 1 puff DAILY INH 03/06/17 09:00 04/05/17 08:59 03/06/17 09:01 1 PUFF Zolpidem Tartrate (Ambien Tab) 10 mg HS PRN PO 03/05/17 09:15 04/04/17 09:14 Pantoprazole Sodium 40 mg/ Syringe 10 ml @ 5 mls/min DAILY@ IV 03/05/17 21:00 04/04/17 20:59 03/06/17 09:00 5 MLS/MIN Miscellaneous Information (Pharmacist Discharge Med Rec Consult) 1 ea UD PRN N/A 03/05/17 12:00 04/04/17 11:59 Methylprednisolone Sodium Succinate 40 mg/Syringe 0.64 ml @ 1.5 mls/min Q12H IV 03/05/17 15:00 04/04/17 14:14 03/06/17 05:12 1.5 MLS/MIN Ipratropium [place] (Atrovent 0.02% 0.5MG/2.5ML Neb) 0.5 mg Q4R INH 03/05/17 16:00 04/04/17 15:59 03/06/17 11:10 0.5 MG Levalbuterol (Xopenex 1.25MG/ 0.5ML Neb) 1.25 mg Q4R INH 03/05/17 16:00 04/04/17 15:59 03/06/17 11:10 1.25 MG Aspirin (Aspirin Supp) 300 mg DAILY OR 03/06/17 09:00 04/05/17 08:59 03/06/17 09:00 300 MG Heparin Sodium (Porcine) (Heparin 10 Unit/ ml 5 ml Flush) 5 ml PRN PRN FLUSH 03/05/17 17:15 04/04/17 17:14
[2017-03-06 12:29] LABS: BUN/CREATININE RATIO 18.7 (10-20); CALCIUM 8.8 mg/dl (8.5-10.1); CREATININE 0.61 mg/dl (0.60-1.40); POTASSIUM 3.6 mmol/L (3.5-5.1)
--- NOTE | 2017-03-06 13:18 | Clinical Documentation Query ---
QUERY 1 0F [address] SAH, In your clinical opinion is this patient being managed for: ( ) possible/suspected aspiration pneumonia ( ) Not Agree ( X ) Other explanation of clinical findings (Please Explain) Dysphagia Ruled out by Speech Therapist, thus Aspiration Unlikely ( ) Unable to determine (Please Define) ( ) Need to Discuss The medical record reflects the following clinical findings, treatment, and risk factors. Clinical Indicators: 71 yo male presenting with pneumonia. CXR showed L base infiltrate. Pt reportedly has had nausea as well as vomiting. Treatment: IV levaquin, O2 support, tele, consult speech therapy, HOB elevation, aspiration precautions, GI consult Risk Factors: age, vomiting, hx GERD QUERY 2 OF 2 In your clinical opinion is this patient being managed for: ( X ) Chronic combined systolic and diastolic CHF ( ) Not Agree ( ) Other explanation of clinical findings (Please Explain) ( ) Unable to determine (Please Define) ( ) Need to Discuss The medical record reflects the following clinical findings, treatment, and risk factors. Clinical Indicators: 71 yo male presenting with pneumonia and possible TIA. Noted to have CHF. ECHO performed revealed EF of 35-40% with a grade I diastolic dysfunction Treatment: lopressor, zestril, lasix is currently being held due to pt having decreased oral intake and is evolemic, tele monitoring, I/O and daily wts Risk Factors:age, CAD, COPD, Please clarify and document your clinical opinion in the progress notes and discharge summary. Terms such as "probable", "suspected", "likely", "questionable", "possible", or "still to be ruled out" are acceptable. IF IN AGREEMENT, YOU MUST DOCUMENT ABOVE DIAGNOSTIC STATEMENT IN DAILY PROGRESS NOTES AND DISCHARGE SUMMARY. This document is not part of the patient's record. Thank You, Yanni Maloney, SHAUN [phone]
--- NOTE | 2017-03-06 14:31 | Cardiology Follow-Up ---
Subjective General Date of Service: Mar 06, 2017. Chief Complaint: follow up CAD Pt evaluation today including: conversation w/ patient, physical exam History of Present Illness The patient is a 71 year old male seen in follow up. Patient denies chest discomfort. Continues with cough, but perhaps improved to some degree. No additional neurologic complaints. Still with dietary intolerance, vomited again this am. Allergies Coded Allergies: Hydralazine (Verified Allergy, Unknown, unknown, 03/04/17) Social History Smoking Status: Former Smoker Hx Tobacco Use In Past Year?: No Hx Alcohol Use - Type And Amou: No Hx Substance Use - Type And Am: No Problem List Medical Problems: (1) Bronchiectasis Status: Chronic (2) COPD (chronic obstructive pulmonary disease) Status: Chronic Physical Exam Vital Signs Last Vital Signs Documentation Date Time Temp Pulse Resp B/P (MAP) Pulse Ox O2 Delivery O2 Flow Rate FiO2 03/06/17 12:12 36.5 78 16 118/69 (85) 97 03/06/17 12:00 Nasal Cannula 2.0 03/05/17 12:00 95 Physical Exam Constitutional: Level of Distress: NAD Neck: supple Lungs: Auscultation: pertinent finding (milldy decreased BS at the bases) Cardiovascular: Heart Auscultation: RRR, no murmurs Abdomen: Inspection & Palpation: soft, non-distended Extremities: no edema Neurologic: Gait & Station: pertinent finding (no focal deficits ) Assessment and Plan Assessment and Plan Impression: 71-year-old male 1. Poor appetite, epigastric discomfort, diet intolerance 2. Bibasilar pneumonia 3. History of CAD, ischemic CM, LVEF 35-40% well compensated 4. Transient neurologic symptoms, perhaps TIA Discussion/plan: Outside records reviewed. Progress note from [facility] references echo in 2015 with LVEF 35-40% so the LVEF found this admission appears stable compared to prior. Not volume overloaded on exam. Continue clopidogrel, ASA per rectum given vomiting. Continue metoprolol , lisinopril , and atorvastatin. Stable from cardiac perspective for EGD. Would hold of on colonoscopy pending improvement in pneumonia. Pt states he has had multiple EGD procedures at [facility] in the past with "inflamation" found. DVT prophylaxis. SQ heparin. JJB Laboratory Results Last 24 Hours Test 03/06/17 06:23 03/06/17 08:56 03/06/17 11:22 03/06/17 11:30 Triglycerides Level 112 mg/dl Cholesterol Level 81 mg/dl HDL Cholesterol 30 mg/dl LDL Cholesterol, Calculated 29 mg/dl VLDL Cholesterol, Calculated 22 mg/dl Cholesterol/HDL Ratio 2.7 Bedside Glucose 129 mg/dl 183 mg/dl Test 03/06/17 11:40 Sodium Level 139 mmol/L Potassium Level 3.6 mmol/L Chloride Level 105 mmol/L Carbon Dioxide Level 28 mmol/L Anion Gap 6.0 mmol/L Blood Urea Nitrogen 11 mg/dl Creatinine 0.61 mg/dl Est Creatinine Clear Calc Drug Dose 125.7 ml/min Estimated GFR () 116.5 Estimated GFR (Non- 100.5 BUN/Creatinine Ratio 18.7 Random Glucose 122 mg/dl Calcium Level 8.8 mg/dl
--- NOTE | 2017-03-06 15:34 | DIAGNOSTIC IMAGING REPORT ---
ULTRASOUND RIGHT UPPER QUADRANT ABDOMEN CLINICAL HISTORY: Right upper quadrant abdominal pain. COMPARISON STUDY: Abdominal CT dated 03/02/2017. TECHNIQUE: Real-time, grayscale, and color flow sonography of the right upper quadrant of the abdomen was performed. Images are reviewed in the transverse and longitudinal planes. Examination is significantly degraded by poor acoustic window. FINDINGS: Liver: The liver is normal in size and demonstrates heterogeneously increased echotexture suggesting steatosis. There is mild nodularity of the surface contour. There is no intrahepatic biliary ductal dilatation. The main portal vein is patent. Gallbladder: The gallbladder is surgically absent. The common bile duct measures up to 0.5 cm in diameter. Pancreas: Not well visualized due to overlying bowel gas. Right kidney: Survey images of the right kidney demonstrate cortical atrophy. There is no hydronephrosis. Ascites: None. IMPRESSION: 1. No acute sonographic abdomen mild is identified. The gallbladder is surgically absent. 2. The liver appears echogenic suggesting steatosis. Mild nodularity of the hepatic surface contour may represent early change of cirrhosis. Clinical correlation will be required. 3. The pancreas was not visualized. Electronically signed by: Floyd Pedro M.D. 03/06/2017 3:33 PM Dictated Date/Time: 03/06/2017 3:30 PM
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
[2017-03-06] MEDS ORDERED: METOCLOPRAMIDE HCL INJ 5 MG/ML 2 ML VIAL IV PRN (17:45)
[2017-03-06] MEDS ORDERED: METOCLOPRAMIDE HCL INJ 5 MG/ML 2 ML VIAL IV ONE (18:00)
[2017-03-06] MEDS ORDERED: PROMETHAZINE HCL INJ 12.5 MG in SODIUM CHLORIDE 0.9% 50ML 50 ML IV ONE (18:15)
--- NOTE | 2017-03-06 20:00 | DIAGNOSTIC IMAGING REPORT ---
KUB CLINICAL HISTORY: 71 years-old Male presenting with ASSESS FECAL BURDEN. TECHNIQUE: Single supine view of the abdomen was obtained. COMPARISON: CT from 03/02/2017. FINDINGS: Moderate stool burden in the right and proximal half of the transverse colon. Mild gaseous distention of the distal half of the transverse colon. No significant stool burden in the left colon or rectum. Gross pneumoperitoneum. No evidence of obstruction. Distention of the bladder noted. Cholecystectomy clips. Posterior lumbar fusion hardware. Small catheter projects over the L4-5 region, presumed epidural or intrathecal catheter. Lung bases grossly clear. IMPRESSION: 1. Moderate stool burden in the right and proximal half of the transverse colon. No bowel obstruction. Electronically signed by: Boubacar Gerardo M.D. 03/06/2017 7:59 PM Dictated Date/Time: 03/06/2017 7:56 PM
[2017-03-06] MEDS: [UNRECOGNIZED DRUG - OTHER] IV SCH (21:29)
[2017-03-06] MEDS: LEVOFLOXACIN IV SCH (21:29)
[2017-03-06] MEDS: D5W IV SCH (21:29)
[2017-03-06] MEDS: DOCUSATE SODIUM/SENNA 50/8.6MG TAB PO PRN (23:35)
[2017-03-07] VITALS (10 sets, daily range): BP systolic 113–137; BP diastolic 70–88; PULSE 71–92; TEMP 36.7–37.2; O2SAT 94–100
[2017-03-07] MEDS: IPRATROPIUM BROMIDE NEB SOLN 0.02% 2.5 ML VIAL INH SCH ×4 (01:50→19:56)
[2017-03-07] MEDS: LEVALBUTEROL 1.25MG/0.5ML NEB INH SCH ×4 (01:50→19:56)
[2017-03-07] MEDS: METHYLPREDNISOLONE IV 40 MG in SYRINGE 0 ML IV SCH ×2 (03:32→13:04)
[2017-03-07] MEDS: HYDROCODONE/ACETAMOPHEN 5/325MG TAB PO PRN (05:06)
[2017-03-07] MEDS: PROMETHAZINE HCL INJ 12.5 MG in SODIUM CHLORIDE 0.9% 50ML 50 ML IV PRN (05:07)
[2017-03-07] MEDS: FORMOTEROL FUMA NEBULIZER SOLN 20 MCG/2 ML VIAL INH SCH ×2 (07:03→19:57)
[2017-03-07] MEDS: BUDESONIDE 0.5 MG/2 ML VIAL (PULMICORT) INH SCH ×2 (07:03→19:57)
[2017-03-07 07:55] LABS: HEMATOCRIT 33.9 % (42-52); IG% 0.2 %; LYMPH % 7.9 %; MEAN CELL VOLUME 87.4 fL (80-100); MEAN CORPUSCULAR HEMOGLOBIN 29.6 pg (25-34); MEAN CORPUSCULAR HGB CONC 33.9 g/dl (32-36); MEAN PLATELET VOLUME 9.8 fL (7.4-10.4); MONO % 3.9 %; PLATELET COUNT 236 K/uL (130-400); RED BLOOD COUNT 3.88 M/uL (4.7-6.1); WHITE BLOOD COUNT 8.01 K/uL (4.8-10.8)
[2017-03-07 07:56] LABS: COMPLETE YES; LYMPH ABS # 0.63 K/uL (1.2-3.4)
[2017-03-07 08:22] LABS: BUN/CREATININE RATIO 20.7 (10-20); CALCIUM 8.7 mg/dl (8.5-10.1); CREATININE 0.61 mg/dl (0.60-1.40); POTASSIUM 3.3 mmol/L (3.5-5.1)
[2017-03-07] MEDS: TIOTROPIUM BROMIDE 5 PUFF/90 MCG INH INH SCH (08:44)
[2017-03-07] MEDS: SUCRALFATE 1 GM TAB PO SCH ×4 (08:44→19:39)
[2017-03-07] MEDS: PANTOprazole INJ 40 MG in SYRINGE 0 ML IV SCH ×2 (08:45→19:39)
[2017-03-07] MEDS: DOCUSATE SODIUM 100 MG CAP PO SCH (08:45)
[2017-03-07] MEDS: TAMSULOSIN HCL 0.4 MG CAP PO SCH (08:45)
[2017-03-07] MEDS: CLOPIDOGREL BISULFATE 75 MG TAB PO SCH (08:46)
[2017-03-07] MEDS: ATORVASTATIN 40 MG TAB PO SCH (08:46)
[2017-03-07] MEDS: METOPROLOL TARTRATE 25 MG TAB PO SCH ×2 (08:46→19:40)
[2017-03-07] MEDS: LISINOPRIL 20 MG TAB PO SCH (08:46)
[2017-03-07] MEDS: HEPARIN SOD 5000 UNIT/0.5 ML CARP SQ SCH ×2 (08:48→19:41)
--- NOTE | 2017-03-07 08:49 | Gastroenterology Progress Note ---
Progress Note Date of Service: Mar 07, 2017 Subjective Pt was seen and evaluated, no acute changed over night. Pt tells me he continues to feel better from a GI standpoint but this AM with significant increase in his chronic pain, he is requesting additional medication to manage his pain. He tells me he is passing gas, no BM. KUB with moderate fecal retention. Getting a suppository. No fever, chills, CP, SOB. KUB: Moderate stool burden in the right and proximal half of the transverse colon. No bowel obstruction. RUQ US: No acute sonographic abdomen mild is identified. The gallbladder is surgically absent. The liver appears echogenic suggesting steatosis. Mild nodularity of the hepatic surface contour may represent early change of cirrhosis. Clinical correlation will be required. The pancreas was not visualized. Review of Systems Constitutional: No fever, No chills Respiratory: No cough, No shortness of breath Cardiac: No chest pain Abdomen: + nausea, + constipation, No pain, No vomiting Medications Current Inpatient Medications Medications (Trade) Dose Ordered Sig/Marco A Route Start Time Stop Time Status Last Admin Dose Admin Acetaminophen (Tylenol Tab) 650 mg Q4 PRN PO 03/04/17 22:45 04/03/17 22:44 Alprazolam (Xanax Tab) 0.5 mg BID@0900,1600 PO 03/05/17 09:00 04/04/17 08:59 03/06/17 15:27 0.5 MG Alprazolam (Xanax Tab) 1 mg HS PO 03/05/17 21:00 04/04/17 20:59 03/06/17 19:19 1 MG Atorvastatin Calcium (Lipitor Tab) 40 mg DAILY PO 03/05/17 09:00 04/04/17 08:59 03/06/17 09:02 40 MG Budesonide (Pulmicort Respules 0.5MG/ 2ML Neb Soln) 0.5 mg BID INH 03/05/17 09:00 04/04/17 08:59 03/07/17 07:03 0.5 MG Clopidogrel Bisulfate (plAVix TAB) 75 mg DAILY PO 03/05/17 09:00 04/04/17 08:59 03/06/17 09:02 75 MG Docusate Sodium (coLACE CAP) 100 mg BID PO 03/05/17 09:00 04/04/17 08:59 03/06/17 19:10 100 MG Folic Acid (Folvite Tab) 1 mg DAILY PO 03/05/17 09:00 04/04/17 08:59 03/06/17 09:00 1 MG Formoterol Fumarate (Perforomist 20MCG/2ML Neb Soln) 20 mcg Q12 INH 03/05/17 09:00 04/04/17 08:59 03/07/17 07:03 20 MCG Codeine Phosphate/ Guaifenesin (Robitussin-AC Sugar Free Syrup) 5 ml Q4H PRN PO 03/04/17 22:45 04/03/17 22:44 03/05/17 14:16 5 ML Heparin Sodium (Porcine) (Heparin Sq 5000 Unit/0.5ml) 5,000 unit Q12 SQ 03/05/17 09:00 04/04/17 08:59 03/06/17 21:28 5,000 UNIT Acetaminophen/ Hydrocodone Bitart ([place] 5/325 Tab) 2 tab Q6 PRN PO 03/04/17 22:45 03/18/17 22:44 03/07/17 05:06 2 TAB Levalbuterol (Xopenex 0.63 Mg/ 3 Ml Neb) 0.63 mg Q6 PRN INH 03/04/17 22:45 04/03/17 22:44 Levofloxacin 750 mg/Levofloxacin 150 ml @ 100 mls/hr DAILY@2200 IV 03/04/17 23:30 03/11/17 21:59 03/06/17 21:29 100 MLS/HR Metoprolol Tartrate (Lopressor Tab) 25 mg BID PO 03/05/17 09:00 04/04/17 08:59 03/06/17 19:10 25 MG Ondansetron HCl (Zofran Inj) 4 mg Q6H PRN IV 03/04/17 22:45 04/03/17 22:44 03/06/17 12:54 4 MG Tamsulosin HCl (Flomax Cap) 0.4 mg DAILY PO 03/05/17 09:00 04/04/17 08:59 03/06/17 09:02 0.4 MG Lorazepam 0.5 mg/ Syringe 0.5 ml @ 0.5 mls/min Q6H PRN IV 03/05/17 02:15 04/04/17 02:14 03/05/17 03:09 0.5 MLS/MIN Lisinopril (Zestril Tab) 20 mg DAILY PO 03/05/17 09:00 04/04/17 08:59 03/06/17 08:59 20 MG Sucralfate (Carafate Tab) 1 gm ACHS PO 03/05/17 07:00 04/04/17 06:59 03/06/17 19:10 1 GM Lorazepam (Ativan Inj) 0.5 mg Q6H PRN IV 03/05/17 03:15 04/04/17 03:14 03/06/17 14:19 0.5 MG Tiotropium [place] (Spiriva Handihaler Inhaler) 1 puff DAILY INH 03/06/17 09:00 04/05/17 08:59 03/06/17 09:01 1 PUFF Zolpidem Tartrate (Ambien Tab) 10 mg HS PRN PO 03/05/17 09:15 04/04/17 09:14 Pantoprazole Sodium 40 mg/ Syringe 10 ml @ 5 mls/min DAILY@ IV 03/05/17 21:00 04/04/17 20:59 03/06/17 19:19 5 MLS/MIN Miscellaneous Information (Pharmacist Discharge Med Rec Consult) 1 ea UD PRN N/A 03/05/17 12:00 04/04/17 11:59 Methylprednisolone Sodium Succinate 40 mg/Syringe 0.64 ml @ 1.5 mls/min Q12H IV 03/05/17 15:00 04/04/17 14:14 03/07/17 03:32 1.5 MLS/MIN Aspirin (Aspirin Supp) 300 mg DAILY [place] 03/06/17 09:00 04/05/17 08:59 03/06/17 09:00 300 MG Heparin Sodium (Porcine) (Heparin 10 Unit/ ml 5 ml Flush) 5 ml PRN PRN FLUSH 03/05/17 17:15 04/04/17 17:14 Ipratropium [place] (Atrovent 0.02% 0.5MG/2.5ML Neb) 0.5 mg Q6R INH 03/06/17 17:00 10/21/17 16:59 Levalbuterol (Xopenex 1.25MG/ 0.5ML Neb) 1.25 mg Q6R INH 03/06/17 17:00 04/05/17 16:59 Senna/Docusate Sodium (Senokot S Tab) 1 tab DAILY PRN PO 03/06/17 15:45 04/05/17 15:44 03/06/17 23:35 1 TAB Promethazine HCl 12.5 mg/Sodium Chloride 50.5 ml @ 204 mls/hr Q6H PRN IV 03/06/17 18:00 04/05/17 17:59 03/07/17 05:07 204 MLS/HR Objective Vital Signs Date Time Temp Pulse Resp B/P (MAP) Pulse Ox O2 Delivery O2 Flow Rate FiO2 03/07/17 07:46 36.9 76 22 125/85 (98) 100 Nasal Cannula 2.5 03/07/17 07:06 71 18 94 Nasal Cannula 2.5 03/07/17 05:00 98 Nasal Cannula 2.0 03/07/17 05:00 36.7 76 20 123/76 (92) 98 Nasal Cannula 2.0 03/07/17 00:00 98 Nasal Cannula 2.0 03/06/17 23:20 36.5 73 20 125/77 (93) 98 Nasal Cannula 2.0 03/06/17 20:51 98 Nasal Cannula 2.0 03/06/17 19:19 95 18 98 Nasal Cannula 2.5 03/06/17 18:59 37.0 91 20 119/72 (88) 98 Nasal Cannula 3.0 03/06/17 16:01 98 Nasal Cannula 2.0 03/06/17 15:22 37.1 83 21 128/83 (98) 98 Nasal Cannula 2.5 03/06/17 12:12 36.5 78 16 118/69 (85) 97 03/06/17 12:00 97 Nasal Cannula 2.0 03/06/17 11:12 68 18 97 Nasal Cannula 2.0 Physical Exam General Appearance: no apparent distress Eyes: PERRL ENT: hearing grossly normal Neck: supple Respiratory/Chest: lungs clear Cardiovascular: regular rate, rhythm Abdomen: normal bowel sounds, non tender, soft Neurologic/Psych: alert, normal mood/affect, oriented x 3 Laboratory Results Last 24 Hours Test 03/06/17 11:22 03/06/17 11:30 03/06/17 11:40 03/06/17 16:16 Bedside Glucose 129 mg/dl 183 mg/dl 130 mg/dl Sodium Level 139 mmol/L Potassium Level 3.6 mmol/L Chloride Level 105 mmol/L Carbon Dioxide Level 28 mmol/L Anion Gap 6.0 mmol/L Blood Urea Nitrogen 11 mg/dl Creatinine 0.61 mg/dl Est Creatinine Clear Calc Drug Dose 125.7 ml/min Estimated GFR () 116.5 Estimated GFR (Non- 100.5 BUN/Creatinine Ratio 18.7 Random Glucose 122 mg/dl Calcium Level 8.8 mg/dl Test 03/06/17 20:38 03/07/17 07:35 Bedside Glucose 157 mg/dl White Blood Count 8.01 K/uL Red Blood Count 3.88 M/uL Hemoglobin 11.5 g/dL Hematocrit 33.9 % Mean Corpuscular Volume 87.4 fL Mean Corpuscular Hemoglobin 29.6 pg Mean Corpuscular Hemoglobin Concent 33.9 g/dl Platelet Count 236 K/uL Mean Platelet Volume 9.8 fL Neutrophils (%) (Auto) 88.0 % Lymphocytes (%) (Auto) 7.9 % Monocytes (%) (Auto) 3.9 % Eosinophils (%) (Auto) 0.0 % Basophils (%) (Auto) 0.0 % Neutrophils # (Auto) 7.05 K/uL Lymphocytes # (Auto) 0.63 K/uL Monocytes # (Auto) 0.31 K/uL Eosinophils # (Auto) 0.00 K/uL Basophils # (Auto) 0.00 K/uL RDW Standard Deviation 44.0 fL RDW Coefficient of Variation 13.9 % Immature Granulocyte % (Auto) 0.2 % Immature Granulocyte # (Auto) 0.02 K/uL Sodium Level 140 mmol/L Potassium Level 3.3 mmol/L Chloride Level 105 mmol/L Carbon Dioxide Level 29 mmol/L Anion Gap 6.0 mmol/L Blood Urea Nitrogen 13 mg/dl Creatinine 0.61 mg/dl Est Creatinine Clear Calc Drug Dose 125.1 ml/min Estimated GFR () 116.5 Estimated GFR (Non- 100.5 BUN/Creatinine Ratio 20.7 Random Glucose 114 mg/dl Calcium Level 8.7 mg/dl Assessment and Plan Patient is a 71 year old male transferred from [facility] for pneumonia and expressive aphasia/left sided facial palsy being followed by cardiology/ neurology w/ report of severe epigastric pain x several days with associated nausea and vomiting and report of coffee ground emesis a few days ago. He uses ASA daily, no other NSAIDs and has been on inhaled steroids and PO steroids in the past few months for complications stemming from his COPD. VSS. H&H stable, lipase WNL, LFTs WNL. Plan - IV PPI BID - Carafate QID - H.pylori - Antiemetics PRN - suppository if not tolerated PO - Clear liquid diet as tolerated - when nausea/vomiting subsided advance to GERD diet - no spicy acidic foods, smaller more frequent meals, remain upright after meals - No NSAIDs, ok for daily ASA if suggested by cardiology - Trend H&H - Monitor stools for s/s of upper GI bleeding - Transfuse PRN - Outpatient EGD/Colonoscopy - Outpatient GI follow up for RUQ US suggestive of cirrhosis GI to sign off. ATTESTATION: I have performed a history and physical examination of this patient and reviewed the electronic record. Specifically, on physical examination there is no abdominal tenderness. I have discussed the case with CHILANGO Freitas. The above note reflects my findings, conclusions, and recommendations. Elvis Cool MD
[2017-03-07] MEDS: ALPRAZOLAM 0.5 MG TAB PO SCH ×3 (08:54→19:39)
[2017-03-07] MEDS: ASPIRIN 300 MG SUPP PR SCH (09:00)
[2017-03-07] MEDS ORDERED: POLYETHYLENE (MIRALAX) 17 GM PACK PO PRN (09:45)
[2017-03-07] MEDS ORDERED: ASPIRIN 81 MG ECTAB PO ONE (09:45)
[2017-03-07] MEDS ORDERED: POTASSIUM CHLORIDE 20 MEQ TABCR PO SCH (09:45)
--- NOTE | 2017-03-07 12:10 | Progress Note ---
Medicine Progress Note Date & Time of Visit: Mar 07, 2017 at 12:02. Subjective patient seen resting in bed states he is having increased back and generalized pain today abdominal pain and nausea still present, slightly improved breathing and cough is much better denies recurrence of aphasia or any new focal neuro deficits no other symptoms Objective Last 8 Hrs Date Time Temp Pulse Resp B/P (MAP) Pulse Ox O2 Delivery O2 Flow Rate FiO2 03/07/17 08:00 Nasal Cannula 2.5 03/07/17 07:46 36.9 76 22 125/85 (98) 100 Nasal Cannula 2.5 03/07/17 07:06 71 18 94 Nasal Cannula 2.5 03/07/17 05:00 98 Nasal Cannula 2.0 03/07/17 05:00 36.7 76 20 123/76 (92) 98 Nasal Cannula 2.0 Physical Exam: General- oriented x 3, not in distress, speaks in sentences with no effort Neck- no JVD Lungs- distant breath sounds bilaterally, but no rales/wheezing Heart- regular rhythm; no murmur, normal rate Abdomen- normal bowel sounds, non distended soft, nontender Extremities- no pretibial edema, no calf tenderness; Neuro- alert, oriented x 3; PERRL, EOMI; no facial palsy; no dysarthria; motor 5 /5 bilaterally; sensation 100% Skin- warm & dry Laboratory Results: Last 24 Hours Test 03/06/17 16:16 03/06/17 20:38 03/07/17 07:35 Bedside Glucose 130 mg/dl 157 mg/dl White Blood Count 8.01 K/uL Red Blood Count 3.88 M/uL Hemoglobin 11.5 g/dL Hematocrit 33.9 % Mean Corpuscular Volume 87.4 fL Mean Corpuscular Hemoglobin 29.6 pg Mean Corpuscular Hemoglobin Concent 33.9 g/dl Platelet Count 236 K/uL Mean Platelet Volume 9.8 fL Neutrophils (%) (Auto) 88.0 % Lymphocytes (%) (Auto) 7.9 % Monocytes (%) (Auto) 3.9 % Eosinophils (%) (Auto) 0.0 % Basophils (%) (Auto) 0.0 % Neutrophils # (Auto) 7.05 K/uL Lymphocytes # (Auto) 0.63 K/uL Monocytes # (Auto) 0.31 K/uL Eosinophils # (Auto) 0.00 K/uL Basophils # (Auto) 0.00 K/uL RDW Standard Deviation 44.0 fL RDW Coefficient of Variation 13.9 % Immature Granulocyte % (Auto) 0.2 % Immature Granulocyte # (Auto) 0.02 K/uL Sodium Level 140 mmol/L Potassium Level 3.3 mmol/L Chloride Level 105 mmol/L Carbon Dioxide Level 29 mmol/L Anion Gap 6.0 mmol/L Blood Urea Nitrogen 13 mg/dl Creatinine 0.61 mg/dl Est Creatinine Clear Calc Drug Dose 125.1 ml/min Estimated GFR () 116.5 Estimated GFR (Non- 100.5 BUN/Creatinine Ratio 20.7 Random Glucose 114 mg/dl Calcium Level 8.7 mg/dl Date/Time Source Procedure Growth Status 03/07/17 05:15 Sputum Expectorated Sputum Gram Stain - Final Resulted 03/07/17 05:15 Sputum Expectorated Sputum Sputum Culture Pending Resulted Assessment & Plan ABDOMINAL PAIN, POSSIBLE GASTRITIS, PUD Severe epigastric pain x several days. No apparent acute findings on CT of abdomen and pelvis at [facility]. -- on PPI, Sucralfate GI consulted -- improving slowely- advance diet to full liquid COPD exacerbation improved, will discuss with GI re: inpatient EGD PNEUMONIA, COPD EXACERBATION Episode of vomiting, but no apparent aspiration. CT of abdomen and pelvis suggested bibasilar infiltrates. -- on Levaquin added Solumedrol, Nebs -- further improved now 98% on room air ff up sputum cultures Solumedrol BID, Nebs q6h -- monitor NEURO SYMPTOMS 2 episodes of apparent expressive aphasia, one episode possibly associated with left facial palsy. Suspected TIA. Possible seizure (history of seizure disorder, but apparently no longer taking phenytoin). CT head negative at [facility]. MRI cannot be performed (? intrathecal pump). Carotid duplex showed < 50% stenosis of ICA's. repeat CT head: no acute process CT angio head: unrevealing Echo: -- Conclusions -- * There is mild concentric left ventricular hypertrophy. * There is a moderate sized septal wall motion abnormality with moderate hypokinesis of the septal segments. * Otherwise there is mild global hypokinesis * Left ventricular systolic function is moderately reduced. * The LV Ejection Fraction = 35-40%. * The right ventricle is grossly normal size. * The right ventricular systolic function is normal. * Grade I diastolic dysfunction, (abnormal relaxation pattern). EEG: unrevealing -- on Plavix, Aspirin monitor as patient having GI symptoms -- Neuro consulted appreciate the input CHRONIC BACK PAIN -- has an intrathecal pump with Dilaudid, Clonidine and Bupivacaine for years -- (+) breakthrough pain today discussed with Dr. Red- Pain Management SVC of patient per his request recommend PRN Morphine and Dilaudid -- monitor CORONARY ARTERY DISEASE No anginal symptoms. No acute EKG changes. CHF -- euvolemic Hold furosemide due to decreased oral intake. monitor volume status RESUSCITATION STATUS Discussed with patient. He has a living will; his daughter Buffy is an RN and is durable POA. He would like resuscitation attempted in the event of a cardiopulmonary arrest if there is a reasonable chance of a meaningful recovery, but does not want prolonged extraordinary measures if prognosis is poor. Therefore, code status = "Level 1" (full resuscitation). VTE PROPHYLAXIS High risk for VTE. SQ heparin with caution. INCOMPLETE DATA Home medications uncertain- need to verify. Records from PCP and [facility] will be requested for background info.-- will follow up DISPOSITION pending PT/OT evals Current Inpatient Medications: Current Inpatient Medications Medications (Trade) Dose Ordered Sig/Marco A Route Start Time Stop Time Status Last Admin Dose Admin Acetaminophen (Tylenol Tab) 650 mg Q4 PRN PO 03/04/17 22:45 04/03/17 22:44 Alprazolam (Xanax Tab) 0.5 mg BID@0900,1600 PO 03/05/17 09:00 04/04/17 08:59 03/07/17 08:54 0.5 MG Alprazolam (Xanax Tab) 1 mg HS PO 03/05/17 21:00 04/04/17 20:59 03/06/17 19:19 1 MG Atorvastatin Calcium (Lipitor Tab) 40 mg DAILY PO 03/05/17 09:00 04/04/17 08:59 03/07/17 08:46 40 MG Budesonide (Pulmicort Respules 0.5MG/ 2ML Neb Soln) 0.5 mg BID INH 03/05/17 09:00 04/04/17 08:59 03/07/17 07:03 0.5 MG Clopidogrel Bisulfate (plAVix TAB) 75 mg DAILY PO 03/05/17 09:00 04/04/17 08:59 03/07/17 08:46 75 MG Folic Acid (Folvite Tab) 1 mg DAILY PO 03/05/17 09:00 04/04/17 08:59 03/07/17 08:46 1 MG Formoterol Fumarate (Perforomist 20MCG/2ML Neb Soln) 20 mcg Q12 INH 03/05/17 09:00 04/04/17 08:59 03/07/17 07:03 20 MCG Codeine Phosphate/ Guaifenesin (Robitussin-AC Sugar Free Syrup) 5 ml Q4H PRN PO 03/04/17 22:45 04/03/17 22:44 03/05/17 14:16 5 ML Heparin Sodium (Porcine) (Heparin Sq 5000 Unit/0.5ml) 5,000 unit Q12 SQ 03/05/17 09:00 04/04/17 08:59 03/07/17 08:48 5,000 UNIT Acetaminophen/ Hydrocodone Bitart ([place] 5/325 Tab) 2 tab Q6 PRN PO 03/04/17 22:45 03/18/17 22:44 03/07/17 05:06 2 TAB Levalbuterol (Xopenex 0.63 Mg/ 3 Ml Neb) 0.63 mg Q6 PRN INH 03/04/17 22:45 04/03/17 22:44 Levofloxacin 750 mg/Levofloxacin 150 ml @ 100 mls/hr DAILY@2200 IV 03/04/17 23:30 03/11/17 21:59 03/06/17 21:29 100 MLS/HR Metoprolol Tartrate (Lopressor Tab) 25 mg BID PO 03/05/17 09:00 04/04/17 08:59 03/07/17 08:46 25 MG Ondansetron HCl (Zofran Inj) 4 mg Q6H PRN IV 03/04/17 22:45 04/03/17 22:44 03/06/17 12:54 4 MG Tamsulosin HCl (Flomax Cap) 0.4 mg DAILY PO 03/05/17 09:00 04/04/17 08:59 03/07/17 08:45 0.4 MG Lorazepam 0.5 mg/ Syringe 0.5 ml @ 0.5 mls/min Q6H PRN IV 03/05/17 02:15 04/04/17 02:14 03/05/17 03:09 0.5 MLS/MIN Lisinopril (Zestril Tab) 20 mg DAILY PO 03/05/17 09:00 04/04/17 08:59 03/07/17 08:46 20 MG Sucralfate (Carafate Tab) 1 gm ACHS PO 03/05/17 07:00 04/04/17 06:59 03/07/17 10:47 1 GM Lorazepam (Ativan Inj) 0.5 mg Q6H PRN IV 03/05/17 03:15 04/04/17 03:14 03/06/17 14:19 0.5 MG Tiotropium [place] (Spiriva Handihaler Inhaler) 1 puff DAILY INH 03/06/17 09:00 04/05/17 08:59 03/07/17 08:44 1 PUFF Zolpidem Tartrate (Ambien Tab) 10 mg HS PRN PO 03/05/17 09:15 04/04/17 09:14 Pantoprazole Sodium 40 mg/ Syringe 10 ml @ 5 mls/min DAILY@ IV 03/05/17 21:00 04/04/17 20:59 03/07/17 08:45 5 MLS/MIN Heparin Sodium (Porcine) (Heparin 10 Unit/ ml 5 ml Flush) 5 ml PRN PRN FLUSH 03/05/17 17:15 04/04/17 17:14 Ipratropium [place] (Atrovent 0.02% 0.5MG/2.5ML Neb) 0.5 mg Q6R INH 03/06/17 17:00 04/05/17 16:59 Levalbuterol (Xopenex 1.25MG/ 0.5ML Neb) 1.25 mg Q6R INH 03/06/17 17:00 04/05/17 16:59 Senna/Docusate Sodium (Senokot S Tab) 1 tab DAILY PRN PO 03/06/17 15:45 04/05/17 15:44 03/06/17 23:35 1 TAB Promethazine HCl 12.5 mg/Sodium Chloride 50.5 ml @ 204 mls/hr Q6H PRN IV 03/06/17 18:00 04/05/17 17:59 03/07/17 05:07 204 MLS/HR Aspirin (Ecotrin Tab) 81 mg QAM PO 03/08/17 09:00 04/07/17 08:59 Potassium Chloride (Klor-Con Tab) 40 meq ONE PO 03/07/17 09:45 04/06/17 09:44 Polyethylene (Miralax Powder Packet) 17 gm DAILY PRN PO 03/07/17 09:45 04/06/17 09:44 Morphine Sulfate (MoRPHine SULFATE INJ) 4 mg Q4H PRN IV 03/07/17 11:45 03/21/17 11:44 Hydromorphone HCl (Dilaudid Inj) 0.5 mg Q6H PRN IV 03/07/17 11:45 03/21/17 11:44 Senna/Docusate Sodium (Senokot S Tab) 1 tab QAM PO 03/08/17 09:00 04/07/17 08:59
[2017-03-07] MEDS: MoRPHine SULFATE 4 MG/ML 1 ML CARP\\VIAL IV PRN ×2 (12:26→19:36)
--- NOTE | 2017-03-07 15:04 | Cardiology Follow-Up ---
Subjective General Date of Service: Mar 07, 2017. Chief Complaint: follow up CAD Pt evaluation today including: conversation w/ patient, physical exam History of Present Illness The patient is a 71 year old male seen in follow up. Pt feeling well. Cough improving. No additional neuro symptoms. Tolerating liquids but still with upset stomach with attempts to eat. Allergies Coded Allergies: Hydralazine (Verified Allergy, Unknown, unknown, 03/04/17) Social History Smoking Status: Former Smoker Hx Tobacco Use In Past Year?: No Hx Alcohol Use - Type And Amou: No Hx Substance Use - Type And Am: No Problem List Medical Problems: (1) Bronchiectasis Status: Chronic (2) COPD (chronic obstructive pulmonary disease) Status: Chronic Physical Exam Vital Signs Last Vital Signs Documentation Date Time Temp Pulse Resp B/P (MAP) Pulse Ox O2 Delivery O2 Flow Rate FiO2 03/07/17 14:15 79 18 98 Nasal Cannula 2.5 03/07/17 12:45 37.2 125/79 (94) 03/05/17 12:00 95 Physical Exam Constitutional: Level of Distress: NAD Neck: supple Lungs: Auscultation: pertinent finding (milldy decreased BS at the bases) Cardiovascular: Heart Auscultation: RRR, no murmurs Abdomen: Inspection & Palpation: soft, non-distended Extremities: no edema Neurologic: Gait & Station: pertinent finding (no focal deficits ) Assessment and Plan Assessment and Plan Impression: 71-year-old male 1. Poor appetite, epigastric discomfort, diet intolerance 2. Bibasilar pneumonia 3. History of CAD, ischemic CM, LVEF 35-40% well compensated 4. Transient neurologic symptoms, perhaps TIA Discussion/plan: Outside records reviewed. Progress note from [facility] references echo in 2015 with LVEF 35-40% so the LVEF found this admission appears stable compared to prior. Not volume overloaded on exam. Continue clopidogrel, ASA for CAD, TIA. Continue metoprolol , lisinopril , and atorvastatin. Stable from cardiac perspective for EGD if indicated. Would hold of on colonoscopy pending improvement in pneumonia. Pt states he has had multiple EGD procedures at [facility] in the past with "inflamation" found. DVT prophylaxis. SQ heparin. JJB Laboratory Results Last 24 Hours Test 03/06/17 16:16 03/06/17 20:38 03/07/17 07:35 Bedside Glucose 130 mg/dl 157 mg/dl White Blood Count 8.01 K/uL Red Blood Count 3.88 M/uL Hemoglobin 11.5 g/dL Hematocrit 33.9 % Mean Corpuscular Volume 87.4 fL Mean Corpuscular Hemoglobin 29.6 pg Mean Corpuscular Hemoglobin Concent 33.9 g/dl Platelet Count 236 K/uL Mean Platelet Volume 9.8 fL Neutrophils (%) (Auto) 88.0 % Lymphocytes (%) (Auto) 7.9 % Monocytes (%) (Auto) 3.9 % Eosinophils (%) (Auto) 0.0 % Basophils (%) (Auto) 0.0 % Neutrophils # (Auto) 7.05 K/uL Lymphocytes # (Auto) 0.63 K/uL Monocytes # (Auto) 0.31 K/uL Eosinophils # (Auto) 0.00 K/uL Basophils # (Auto) 0.00 K/uL RDW Standard Deviation 44.0 fL RDW Coefficient of Variation 13.9 % Immature Granulocyte % (Auto) 0.2 % Immature Granulocyte # (Auto) 0.02 K/uL Sodium Level 140 mmol/L Potassium Level 3.3 mmol/L Chloride Level 105 mmol/L Carbon Dioxide Level 29 mmol/L Anion Gap 6.0 mmol/L Blood Urea Nitrogen 13 mg/dl Creatinine 0.61 mg/dl Est Creatinine Clear Calc Drug Dose 125.1 ml/min Estimated GFR () 116.5 Estimated GFR (Non- 100.5 BUN/Creatinine Ratio 20.7 Random Glucose 114 mg/dl Calcium Level 8.7 mg/dl
[2017-03-07] MEDS: HYDROmorphone INJ 0.5 MG/0.5 ML SYR IV PRN ×2 (16:06→22:03)
[2017-03-07] MEDS: ONDANSETRON INJ 2 MG/ML 2 ML VIAL IV PRN (17:38)
[2017-03-07] MEDS: D5W IV SCH (22:03)
[2017-03-07] MEDS: [UNRECOGNIZED DRUG - OTHER] IV SCH (22:03)
[2017-03-07] MEDS: LEVOFLOXACIN IV SCH (22:03)
[2017-03-08] VITALS (8 sets, daily range): BP systolic 119–137; BP diastolic 63–83; PULSE 69–89; TEMP 36.6–37; O2SAT 94–100
[2017-03-08] MEDS: METHYLPREDNISOLONE IV 40 MG in SYRINGE 0 ML IV SCH ×2 (00:07→11:51)
[2017-03-08] MEDS: MoRPHine SULFATE 4 MG/ML 1 ML CARP\\VIAL IV PRN ×7 (00:09→20:22)
[2017-03-08] MEDS: LEVALBUTEROL 1.25MG/0.5ML NEB INH SCH ×4 (01:58→19:53)
[2017-03-08] MEDS: IPRATROPIUM BROMIDE NEB SOLN 0.02% 2.5 ML VIAL INH SCH ×4 (01:58→19:53)
[2017-03-08] MEDS: HYDROCODONE/ACETAMOPHEN 5/325MG TAB PO PRN (02:19)
[2017-03-08] MEDS: GUAIFENESIN/CODEINE 200MG/20MG 10ML UDC PO PRN (02:52)
[2017-03-08] MEDS: FORMOTEROL FUMA NEBULIZER SOLN 20 MCG/2 ML VIAL INH SCH ×2 (07:03→19:57)
[2017-03-08] MEDS: BUDESONIDE 0.5 MG/2 ML VIAL (PULMICORT) INH SCH ×2 (07:03→19:57)
[2017-03-08] MEDS: SUCRALFATE 1 GM TAB PO SCH ×4 (08:19→20:23)
[2017-03-08] MEDS: TIOTROPIUM BROMIDE 5 PUFF/90 MCG INH INH SCH (08:19)
[2017-03-08] MEDS: ASPIRIN 81 MG ECTAB PO SCH (08:22)
[2017-03-08] MEDS: PANTOprazole INJ 40 MG in SYRINGE 0 ML IV SCH ×2 (08:22→20:22)
[2017-03-08] MEDS: ATORVASTATIN 40 MG TAB PO SCH (08:23)
[2017-03-08] MEDS: TAMSULOSIN HCL 0.4 MG CAP PO SCH (08:23)
[2017-03-08] MEDS: LISINOPRIL 20 MG TAB PO SCH (08:24)
[2017-03-08] MEDS: CLOPIDOGREL BISULFATE 75 MG TAB PO SCH (08:24)
[2017-03-08] MEDS: METOPROLOL TARTRATE 25 MG TAB PO SCH ×2 (08:24→20:23)
[2017-03-08] MEDS: DOCUSATE SODIUM/SENNA 50/8.6MG TAB PO SCH (08:24)
[2017-03-08] MEDS: ALPRAZOLAM 0.5 MG TAB PO SCH ×3 (08:27→20:22)
[2017-03-08] MEDS: HEPARIN SOD 5000 UNIT/0.5 ML CARP SQ SCH ×2 (08:27→20:27)
[2017-03-08] MEDS: ONDANSETRON INJ 2 MG/ML 2 ML VIAL IV PRN (12:45)
[2017-03-08] MEDS ORDERED: POLYETHYLENE (MIRALAX) 17 GM PACK ONE (12:51)
[2017-03-08] MEDS: DOCUSATE SODIUM/SENNA 50/8.6MG TAB PO PRN (12:55)
[2017-03-08 14:07] LABS: BUN/CREATININE RATIO 12.3 (10-20); CALCIUM 8.4 mg/dl (8.5-10.1); CREATININE 0.78 mg/dl (0.60-1.40); POTASSIUM 3.6 mmol/L (3.5-5.1)
[2017-03-08] MEDS: PROMETHAZINE HCL INJ 12.5 MG in SODIUM CHLORIDE 0.9% 50ML 50 ML IV PRN (18:21)
[2017-03-08] MEDS: D5W IV SCH (22:14)
[2017-03-08] MEDS: [UNRECOGNIZED DRUG - OTHER] IV SCH (22:14)
[2017-03-08] MEDS: LEVOFLOXACIN IV SCH (22:14)
--- NOTE | 2017-03-08 23:36 | Progress Note ---
Medicine Progress Note Date & Time of Visit: Mar 08, 2017 at 23:32. Subjective patient seen resting in bed states he still has abdominal pain and nausea with full liquids, would like clear liquids again no shortness of breath, still has productive cough denies TIA symptoms pain under better control denies other symptoms Objective Last 8 Hrs Date Time Temp Pulse Resp B/P (MAP) Pulse Ox O2 Delivery O2 Flow Rate FiO2 03/08/17 23:22 36.9 80 22 137/83 (101) 99 Nasal Cannula 2.0 03/08/17 20:00 Nasal Cannula 2.5 03/08/17 19:31 36.9 89 18 119/71 (87) 99 Nasal Cannula 3.0 03/08/17 16:00 98 Nasal Cannula 3.0 Physical Exam: General- oriented x 3, not in distress, speaks in sentences with no effort Neck- no JVD Lungs- distant breath sounds bilaterally, no wheezing, no rales Heart- regular rhythm; no murmur, normal rate Abdomen- normal bowel sounds, non distended soft, nontender Extremities- no pretibial edema, no calf tenderness; Neuro- alert, oriented x 3;no gross focal deficits Skin- warm & dry Laboratory Results: Last 24 Hours Test 03/08/17 06:17 03/08/17 13:31 03/08/17 16:29 03/08/17 20:08 Bedside Glucose 154 mg/dl 126 mg/dl 167 mg/dl Sodium Level 141 mmol/L Potassium Level 3.6 mmol/L Chloride Level 106 mmol/L Carbon Dioxide Level 26 mmol/L Anion Gap 9.0 mmol/L Blood Urea Nitrogen 10 mg/dl Creatinine 0.78 mg/dl Est Creatinine Clear Calc Drug Dose 99.0 ml/min Estimated GFR () 105.3 Estimated GFR (Non- 90.8 BUN/Creatinine Ratio 12.3 Random Glucose 134 mg/dl Calcium Level 8.4 mg/dl Assessment & Plan ABDOMINAL PAIN, POSSIBLE GASTRITIS, PUD Severe epigastric pain x several days. No apparent acute findings on CT of abdomen and pelvis at [facility]. -- on PPI, Sucralfate GI consulted -- downgrade to clear liquids as patient still having nausea, abd pain discussed with GI possible EGD on Friday PNEUMONIA, COPD EXACERBATION Episode of vomiting, but no apparent aspiration. CT of abdomen and pelvis suggested bibasilar infiltrates. -- on Levaquin , Solumedrol, Nebs -- further improving now 98%2 L o2 sputum cultures: gram negative bacilli Levaquin, Solumedrol BID, Nebs q6h -- monitor NEURO SYMPTOMS 2 episodes of apparent expressive aphasia, one episode possibly associated with left facial palsy. Suspected TIA. Possible seizure (history of seizure disorder, but apparently no longer taking phenytoin). CT head negative at [facility]. MRI cannot be performed (? intrathecal pump). Carotid duplex showed < 50% stenosis of ICA's. repeat CT head: no acute process CT angio head: unrevealing Echo: -- Conclusions -- * There is mild concentric left ventricular hypertrophy. * There is a moderate sized septal wall motion abnormality with moderate hypokinesis of the septal segments. * Otherwise there is mild global hypokinesis * Left ventricular systolic function is moderately reduced. * The LV Ejection Fraction = 35-40%. * The right ventricle is grossly normal size. * The right ventricular systolic function is normal. * Grade I diastolic dysfunction, (abnormal relaxation pattern). EEG: unrevealing -- on Plavix, Aspirin monitor as patient having GI symptoms -- Neuro consulted appreciate the input -- no recurrence of symptoms CHRONIC BACK PAIN -- has an intrathecal pump with Dilaudid, Clonidine and Bupivacaine for years -- (+) breakthrough pain discussed with Dr. Red- Pain Management SVC of patient per his request recommend PRN Morphine and Dilaudid--> pain much improved -- monitor CORONARY ARTERY DISEASE No anginal symptoms. No acute EKG changes. CHF -- euvolemic Hold furosemide due to decreased oral intake. monitor volume status RESUSCITATION STATUS Discussed with patient. He has a living will; his daughter Buffy is an RN and is durable POA. He would like resuscitation attempted in the event of a cardiopulmonary arrest if there is a reasonable chance of a meaningful recovery, but does not want prolonged extraordinary measures if prognosis is poor. Therefore, code status = "Level 1" (full resuscitation). VTE PROPHYLAXIS High risk for VTE. SQ heparin with caution. INCOMPLETE DATA Home medications uncertain- need to verify. Records from PCP and [facility] will be requested for background info.-- will follow up DISPOSITION pending PT/OT evals Current Inpatient Medications: Current Inpatient Medications Medications (Trade) Dose Ordered Sig/Marco A Route Start Time Stop Time Status Last Admin Dose Admin Acetaminophen (Tylenol Tab) 650 mg Q4 PRN PO 03/04/17 22:45 04/03/17 22:44 Alprazolam (Xanax Tab) 0.5 mg BID@0900,1600 PO 03/05/17 09:00 04/04/17 08:59 03/08/17 15:51 0.5 MG Alprazolam (Xanax Tab) 1 mg HS PO 03/05/17 21:00 04/04/17 20:59 03/08/17 20:22 1 MG Atorvastatin Calcium (Lipitor Tab) 40 mg DAILY PO 03/05/17 09:00 04/04/17 08:59 03/08/17 08:23 40 MG Budesonide (Pulmicort Respules 0.5MG/ 2ML Neb Soln) 0.5 mg BID INH 03/05/17 09:00 04/04/17 08:59 03/08/17 07:03 0.5 MG Clopidogrel Bisulfate (plAVix TAB) 75 mg DAILY PO 03/05/17 09:00 04/04/17 08:59 03/08/17 08:24 75 MG Folic Acid (Folvite Tab) 1 mg DAILY PO 03/05/17 09:00 04/04/17 08:59 03/08/17 08:23 1 MG Formoterol Fumarate (Perforomist 20MCG/2ML Neb Soln) 20 mcg Q12 INH 03/05/17 09:00 04/04/17 08:59 03/08/17 07:03 20 MCG Codeine Phosphate/ Guaifenesin (Robitussin-AC Sugar Free Syrup) 5 ml Q4H PRN PO 03/04/17 22:45 04/03/17 22:44 03/08/17 02:52 5 ML Heparin Sodium (Porcine) (Heparin Sq 5000 Unit/0.5ml) 5,000 unit Q12 SQ 03/05/17 09:00 04/04/17 08:59 03/08/17 20:27 5,000 UNIT Acetaminophen/ Hydrocodone Bitart ([place] 5/325 Tab) 2 tab Q6 PRN PO 03/04/17 22:45 03/18/17 22:44 03/08/17 02:19 2 TAB Levalbuterol (Xopenex 0.63 Mg/ 3 Ml Neb) 0.63 mg Q6 PRN INH 03/04/17 22:45 04/03/17 22:44 Levofloxacin 750 mg/Levofloxacin 150 ml @ 100 mls/hr DAILY@2200 IV 03/04/17 23:30 03/11/17 21:59 03/08/17 22:14 100 MLS/HR Metoprolol Tartrate (Lopressor Tab) 25 mg BID PO 03/05/17 09:00 04/04/17 08:59 03/08/17 20:23 25 MG Ondansetron HCl (Zofran Inj) 4 mg Q6H PRN IV 03/04/17 22:45 04/03/17 22:44 03/08/17 12:45 4 MG Tamsulosin HCl (Flomax Cap) 0.4 mg DAILY PO 03/05/17 09:00 04/04/17 08:59 03/08/17 08:23 0.4 MG Lorazepam 0.5 mg/ Syringe 0.5 ml @ 0.5 mls/min Q6H PRN IV 03/05/17 02:15 04/04/17 02:14 03/05/17 03:09 0.5 MLS/MIN Lisinopril (Zestril Tab) 20 mg DAILY PO 03/05/17 09:00 04/04/17 08:59 03/08/17 08:24 20 MG Sucralfate (Carafate Tab) 1 gm ACHS PO 03/05/17 07:00 04/04/17 06:59 03/08/17 20:23 1 GM Lorazepam (Ativan Inj) 0.5 mg Q6H PRN IV 03/05/17 03:15 04/04/17 03:14 03/06/17 14:19 0.5 MG Tiotropium [place] (Spiriva Handihaler Inhaler) 1 puff DAILY INH 03/06/17 09:00 04/05/17 08:59 03/08/17 08:19 1 PUFF Zolpidem Tartrate (Ambien Tab) 10 mg HS PRN PO 03/05/17 09:15 04/04/17 09:14 Pantoprazole Sodium 40 mg/ Syringe 10 ml @ 5 mls/min DAILY@ IV 03/05/17 21:00 04/04/17 20:59 03/08/17 20:22 5 MLS/MIN Heparin Sodium (Porcine) (Heparin 10 Unit/ ml 5 ml Flush) 5 ml PRN PRN FLUSH 03/05/17 17:15 04/04/17 17:14 Ipratropium [place] (Atrovent 0.02% 0.5MG/2.5ML Neb) 0.5 mg Q6R INH 03/06/17 17:00 04/05/17 16:59 03/07/17 14:13 0.5 MG Levalbuterol (Xopenex 1.25MG/ 0.5ML Neb) 1.25 mg Q6R INH 03/06/17 17:00 04/05/17 16:59 03/07/17 14:13 1.25 MG Senna/Docusate Sodium (Senokot S Tab) 1 tab DAILY PRN PO 03/06/17 15:45 04/05/17 15:44 03/08/17 12:55 1 TAB Promethazine HCl 12.5 mg/Sodium Chloride 50.5 ml @ 204 mls/hr Q6H PRN IV 03/06/17 18:00 04/05/17 17:59 03/08/17 18:21 204 MLS/HR Aspirin (Ecotrin Tab) 81 mg QAM PO 03/08/17 09:00 04/07/17 08:59 03/08/17 08:22 81 MG Potassium Chloride (Klor-Con Tab) 40 meq ONE PO 03/07/17 09:45 04/06/17 09:44 03/07/17 12:22 40 MEQ Polyethylene (Miralax Powder Packet) 17 gm DAILY PRN PO 03/07/17 09:45 04/06/17 09:44 03/07/17 13:04 17 GM Morphine Sulfate (MoRPHine SULFATE INJ) 4 mg Q4H PRN IV 03/07/17 11:45 03/21/17 11:44 03/08/17 20:22 4 MG Hydromorphone HCl (Dilaudid Inj) 0.5 mg Q6H PRN IV 03/07/17 11:45 03/21/17 11:44 03/07/17 22:03 0.5 MG Senna/Docusate Sodium (Senokot S Tab) 1 tab QAM PO 03/08/17 09:00 04/07/17 08:59 03/08/17 08:24 1 TAB Methylprednisolone Sodium Succinate 40 mg/Syringe 0.64 ml @ 1.5 mls/min Q12H IV 03/07/17 13:00 04/06/17 12:59 03/08/17 11:51 1.5 MLS/MIN Lactulose (Chronulac Syrup) 30 gm Q6H PRN PO 03/08/17 14:00 04/07/17 13:59
[2017-03-09] VITALS (11 sets, daily range): BP systolic 117–136; BP diastolic 70–91; PULSE 64–101; TEMP 36.3–36.9; O2SAT 95–100
[2017-03-09] MEDS: MoRPHine SULFATE 4 MG/ML 1 ML CARP\\VIAL IV PRN ×4 (00:19→16:48)
[2017-03-09] MEDS: METHYLPREDNISOLONE IV 40 MG in SYRINGE 0 ML IV SCH ×2 (00:37→13:02)
[2017-03-09] MEDS: LEVALBUTEROL 1.25MG/0.5ML NEB INH SCH ×4 (02:17→19:09)
[2017-03-09] MEDS: IPRATROPIUM BROMIDE NEB SOLN 0.02% 2.5 ML VIAL INH SCH ×4 (02:17→19:09)
[2017-03-09] MEDS: HYDROmorphone INJ 0.5 MG/0.5 ML SYR IV PRN ×2 (05:14→21:26)
[2017-03-09 05:48] LABS: BUN/CREATININE RATIO 13.5 (10-20); CALCIUM 8.2 mg/dl (8.5-10.1); CREATININE 0.69 mg/dl (0.60-1.40); POTASSIUM 3.6 mmol/L (3.5-5.1)
[2017-03-09] MEDS: FORMOTEROL FUMA NEBULIZER SOLN 20 MCG/2 ML VIAL INH SCH ×2 (06:58→19:07)
[2017-03-09] MEDS: BUDESONIDE 0.5 MG/2 ML VIAL (PULMICORT) INH SCH ×2 (06:58→19:08)
[2017-03-09] MEDS: TIOTROPIUM BROMIDE 5 PUFF/90 MCG INH INH SCH (08:00)
[2017-03-09] MEDS: SUCRALFATE 1 GM TAB PO SCH ×4 (08:00→20:14)
[2017-03-09] MEDS: ASPIRIN 81 MG ECTAB PO SCH (08:01)
[2017-03-09] MEDS: PANTOprazole INJ 40 MG in SYRINGE 0 ML IV SCH ×2 (08:01→20:14)
[2017-03-09] MEDS: TAMSULOSIN HCL 0.4 MG CAP PO SCH (08:02)
[2017-03-09] MEDS: ATORVASTATIN 40 MG TAB PO SCH (08:02)
[2017-03-09] MEDS: DOCUSATE SODIUM/SENNA 50/8.6MG TAB PO SCH (08:03)
[2017-03-09] MEDS: CLOPIDOGREL BISULFATE 75 MG TAB PO SCH (08:03)
[2017-03-09] MEDS: METOPROLOL TARTRATE 25 MG TAB PO SCH ×2 (08:03→20:15)
[2017-03-09] MEDS: LISINOPRIL 20 MG TAB PO SCH (08:05)
[2017-03-09] MEDS: HEPARIN SOD 5000 UNIT/0.5 ML CARP SQ SCH ×2 (08:07→20:18)
[2017-03-09] MEDS: ONDANSETRON INJ 2 MG/ML 2 ML VIAL IV PRN ×2 (08:19→16:46)
[2017-03-09] MEDS: ALPRAZOLAM 0.5 MG TAB PO SCH ×3 (08:19→20:16)
--- NOTE | 2017-03-09 08:44 | Progress Note ---
Medicine Progress Note Date & Time of Visit: Mar 09, 2017 at 08:44. Subjective sitting in bed ,in good spirits still having nausea, prefers clear liquids has productive cough, expectorating more, breathing is ok no other symptoms Objective Last 8 Hrs Date Time Temp Pulse Resp B/P (MAP) Pulse Ox O2 Delivery O2 Flow Rate FiO2 03/09/17 07:15 36.7 72 20 136/85 (102) 97 Nasal Cannula 2.0 03/09/17 06:58 79 18 98 Nasal Cannula 2.5 03/09/17 04:30 36.4 70 22 133/82 (99) 99 Nasal Cannula 2.0 03/09/17 04:00 98 Nasal Cannula 2.5 95 Physical Exam: General- oriented x 3, not in distress, speaks in sentences with no effort Neck- no JVD Lungs- (+) crackles left>right Heart- regular rhythm; no murmur, normal rate Abdomen- normal bowel sounds, non distended soft, nontender Extremities- no pretibial edema, no calf tenderness; Neuro- alert, oriented x 3;no gross focal deficits Skin- warm & dry Laboratory Results: Last 24 Hours Test 03/08/17 13:31 03/08/17 16:29 03/08/17 20:08 03/09/17 04:55 Sodium Level 141 mmol/L 141 mmol/L Potassium Level 3.6 mmol/L 3.6 mmol/L Chloride Level 106 mmol/L 107 mmol/L Carbon Dioxide Level 26 mmol/L 28 mmol/L Anion Gap 9.0 mmol/L 6.0 mmol/L Blood Urea Nitrogen 10 mg/dl 9 mg/dl Creatinine 0.78 mg/dl 0.69 mg/dl Est Creatinine Clear Calc Drug Dose 99.0 ml/min 111.9 ml/min Estimated GFR () 105.3 110.7 Estimated GFR (Non- 90.8 95.5 BUN/Creatinine Ratio 12.3 13.5 Random Glucose 134 mg/dl 138 mg/dl Calcium Level 8.4 mg/dl 8.2 mg/dl Bedside Glucose 126 mg/dl 167 mg/dl Test 03/09/17 06:43 Bedside Glucose 143 mg/dl Assessment & Plan ABDOMINAL PAIN, POSSIBLE GASTRITIS, PUD Severe epigastric pain x several days. No apparent acute findings on CT of abdomen and pelvis at [facility]. -- on PPI, Sucralfate GI consulted -- downgraded to clear liquids as patient still having nausea, abd pain discussed with GI possible EGD on Friday NPO post midnight PNEUMONIA, COPD EXACERBATION Episode of vomiting, but no apparent aspiration. CT of abdomen and pelvis suggested bibasilar infiltrates. -- on Levaquin , Solumedrol, Nebs -- further improving now 98%2 L o2 sputum cultures: E COLI, sensitive to Cefti, resistant to Levaquin -- change Levaquin to Ceftri + Azithro Day 1 continue Solumedrol BID, Nebs q6h -- monitor NEURO SYMPTOMS 2 episodes of apparent expressive aphasia, one episode possibly associated with left facial palsy. Suspected TIA. Possible seizure (history of seizure disorder, but apparently no longer taking phenytoin). CT head negative at [facility]. MRI cannot be performed (? intrathecal pump). Carotid duplex showed < 50% stenosis of ICA's. repeat CT head: no acute process CT angio head: unrevealing Echo: -- Conclusions -- * There is mild concentric left ventricular hypertrophy. * There is a moderate sized septal wall motion abnormality with moderate hypokinesis of the septal segments. * Otherwise there is mild global hypokinesis * Left ventricular systolic function is moderately reduced. * The LV Ejection Fraction = 35-40%. * The right ventricle is grossly normal size. * The right ventricular systolic function is normal. * Grade I diastolic dysfunction, (abnormal relaxation pattern). EEG: unrevealing -- on Plavix, Aspirin monitor as patient having GI symptoms -- Neuro consulted appreciate the input -- no recurrence of symptoms CHRONIC BACK PAIN -- has an intrathecal pump with Dilaudid, Clonidine and Bupivacaine for years -- (+) breakthrough pain discussed with Dr. Red- Pain Management SVC of patient per his request recommend PRN Morphine and Dilaudid--> pain much improved -- monitor CORONARY ARTERY DISEASE No anginal symptoms. No acute EKG changes. CHF -- (+) crackles -- resume Lasix monitor volume status RESUSCITATION STATUS Discussed with patient. He has a living will; his daughter Buffy is an RN and is durable POA. He would like resuscitation attempted in the event of a cardiopulmonary arrest if there is a reasonable chance of a meaningful recovery, but does not want prolonged extraordinary measures if prognosis is poor. Therefore, code status = "Level 1" (full resuscitation). VTE PROPHYLAXIS High risk for VTE. SQ heparin with caution. INCOMPLETE DATA Home medications uncertain- need to verify. Records from PCP and [facility] will be requested for background info.-- will follow up DISPOSITION pending PT/OT evals Current Inpatient Medications: Current Inpatient Medications Medications (Trade) Dose Ordered Sig/Marco A Route Start Time Stop Time Status Last Admin Dose Admin Acetaminophen (Tylenol Tab) 650 mg Q4 PRN PO 03/04/17 22:45 04/03/17 22:44 Alprazolam (Xanax Tab) 0.5 mg BID@0900,1600 PO 03/05/17 09:00 04/04/17 08:59 03/09/17 08:19 0.5 MG Alprazolam (Xanax Tab) 1 mg HS PO 03/05/17 21:00 04/04/17 20:59 03/08/17 20:22 1 MG Atorvastatin Calcium (Lipitor Tab) 40 mg DAILY PO 03/05/17 09:00 04/04/17 08:59 03/09/17 08:02 40 MG Budesonide (Pulmicort Respules 0.5MG/ 2ML Neb Soln) 0.5 mg BID INH 03/05/17 09:00 04/04/17 08:59 03/09/17 06:58 0.5 MG Clopidogrel Bisulfate (plAVix TAB) 75 mg DAILY PO 03/05/17 09:00 04/04/17 08:59 03/09/17 08:03 75 MG Folic Acid (Folvite Tab) 1 mg DAILY PO 03/05/17 09:00 04/04/17 08:59 03/09/17 08:02 1 MG Formoterol Fumarate (Perforomist 20MCG/2ML Neb Soln) 20 mcg Q12 INH 03/05/17 09:00 04/04/17 08:59 03/09/17 06:58 20 MCG Codeine Phosphate/ Guaifenesin (Robitussin-AC Sugar Free Syrup) 5 ml Q4H PRN PO 03/04/17 22:45 04/03/17 22:44 03/08/17 02:52 5 ML Heparin Sodium (Porcine) (Heparin Sq 5000 Unit/0.5ml) 5,000 unit Q12 SQ 03/05/17 09:00 04/04/17 08:59 03/09/17 08:07 5,000 UNIT Acetaminophen/ Hydrocodone Bitart ([place] 5/325 Tab) 2 tab Q6 PRN PO 03/04/17 22:45 03/18/17 22:44 03/08/17 02:19 2 TAB Levalbuterol (Xopenex 0.63 Mg/ 3 Ml Neb) 0.63 mg Q6 PRN INH 03/04/17 22:45 04/03/17 22:44 Levofloxacin 750 mg/Levofloxacin 150 ml @ 100 mls/hr DAILY@2200 IV 03/04/17 23:30 03/11/17 21:59 03/08/17 22:14 100 MLS/HR Metoprolol Tartrate (Lopressor Tab) 25 mg BID PO 03/05/17 09:00 04/04/17 08:59 03/09/17 08:03 25 MG Ondansetron HCl (Zofran Inj) 4 mg Q6H PRN IV 03/04/17 22:45 04/03/17 22:44 03/09/17 08:19 4 MG Tamsulosin HCl (Flomax Cap) 0.4 mg DAILY PO 03/05/17 09:00 04/04/17 08:59 03/09/17 08:02 0.4 MG Lorazepam 0.5 mg/ Syringe 0.5 ml @ 0.5 mls/min Q6H PRN IV 03/05/17 02:15 04/04/17 02:14 03/05/17 03:09 0.5 MLS/MIN Lisinopril (Zestril Tab) 20 mg DAILY PO 03/05/17 09:00 04/04/17 08:59 03/09/17 08:05 20 MG Sucralfate (Carafate Tab) 1 gm ACHS PO 03/05/17 07:00 04/04/17 06:59 03/09/17 08:00 1 GM Lorazepam (Ativan Inj) 0.5 mg Q6H PRN IV 03/05/17 03:15 04/04/17 03:14 03/06/17 14:19 0.5 MG Tiotropium [place] (Spiriva Handihaler Inhaler) 1 puff DAILY INH 03/06/17 09:00 04/05/17 08:59 03/09/17 08:00 1 PUFF Zolpidem Tartrate (Ambien Tab) 10 mg HS PRN PO 03/05/17 09:15 04/04/17 09:14 Pantoprazole Sodium 40 mg/ Syringe 10 ml @ 5 mls/min DAILY@ IV 03/05/17 21:00 04/04/17 20:59 03/09/17 08:01 5 MLS/MIN Heparin Sodium (Porcine) (Heparin 10 Unit/ ml 5 ml Flush) 5 ml PRN PRN FLUSH 03/05/17 17:15 04/04/17 17:14 Ipratropium [place] (Atrovent 0.02% 0.5MG/2.5ML Neb) 0.5 mg Q6R INH 03/06/17 17:00 04/05/17 16:59 03/07/17 14:13 0.5 MG Levalbuterol (Xopenex 1.25MG/ 0.5ML Neb) 1.25 mg Q6R INH 03/06/17 17:00 04/05/17 16:59 03/07/17 14:13 1.25 MG Senna/Docusate Sodium (Senokot S Tab) 1 tab DAILY PRN PO 03/06/17 15:45 04/05/17 15:44 03/08/17 12:55 1 TAB Promethazine HCl 12.5 mg/Sodium Chloride 50.5 ml @ 204 mls/hr Q6H PRN IV 03/06/17 18:00 04/05/17 17:59 03/08/17 18:21 204 MLS/HR Aspirin (Ecotrin Tab) 81 mg QAM PO 03/08/17 09:00 04/07/17 08:59 03/09/17 08:01 81 MG Potassium Chloride (Klor-Con Tab) 40 meq ONE PO 03/07/17 09:45 04/06/17 09:44 03/07/17 12:22 40 MEQ Polyethylene (Miralax Powder Packet) 17 gm DAILY PRN PO 03/07/17 09:45 04/06/17 09:44 03/07/17 13:04 17 GM Morphine Sulfate (MoRPHine SULFATE INJ) 4 mg Q4H PRN IV 03/07/17 11:45 03/21/17 11:44 03/09/17 08:20 4 MG Hydromorphone HCl (Dilaudid Inj) 0.5 mg Q6H PRN IV 03/07/17 11:45 03/21/17 11:44 03/09/17 05:14 0.5 MG Senna/Docusate Sodium (Senokot S Tab) 1 tab QAM PO 03/08/17 09:00 04/07/17 08:59 03/09/17 08:03 1 TAB Methylprednisolone Sodium Succinate 40 mg/Syringe 0.64 ml @ 1.5 mls/min Q12H IV 03/07/17 13:00 04/06/17 12:59 03/09/17 00:37 1.5 MLS/MIN Lactulose (Chronulac Syrup) 30 gm Q6H PRN PO 03/08/17 14:00 04/07/17 13:59
[2017-03-09] MEDS: LACTULOSE SYRUP 30 GM/45 ML UDP PO PRN (09:09)
[2017-03-09] MEDS ORDERED: FUROSEMIDE 40 MG TAB PO ONE (10:00)
[2017-03-09] MEDS: CEFTRIAXONE SOD INJ 1 GM in DEXTROSE 5% ADD-VANTAGE 50ML 50 ML IV SCH (10:01)
[2017-03-09] MEDS: AZITHROMYCIN IV 500 MG in DEXTROSE 5% 250ML 250 ML IV SCH (10:46)
[2017-03-09] MEDS: GUAIFENESIN/CODEINE 200MG/20MG 10ML UDC PO PRN (13:31)
[2017-03-09] MEDS: PROMETHAZINE HCL INJ 12.5 MG in SODIUM CHLORIDE 0.9% 50ML 50 ML IV PRN ×3 (13:32→19:56)
[2017-03-10] VITALS (12 sets, daily range): BP systolic 107–135; BP diastolic 67–85; PULSE 65–107; TEMP 36.5–36.8; O2SAT 96–100
[2017-03-10] MEDS: METHYLPREDNISOLONE IV 40 MG in SYRINGE 0 ML IV SCH ×2 (00:25→14:14)
[2017-03-10] MEDS: MoRPHine SULFATE 4 MG/ML 1 ML CARP\\VIAL IV PRN ×4 (01:23→22:27)
[2017-03-10] MEDS: IPRATROPIUM BROMIDE NEB SOLN 0.02% 2.5 ML VIAL INH SCH ×4 (01:51→19:21)
[2017-03-10] MEDS: LEVALBUTEROL 1.25MG/0.5ML NEB INH SCH ×4 (01:52→19:21)
[2017-03-10 05:14] LABS: BUN/CREATININE RATIO 14.6 (10-20); CALCIUM 8.1 mg/dl (8.5-10.1); CREATININE 0.73 mg/dl (0.60-1.40); POTASSIUM 3.7 mmol/L (3.5-5.1)
[2017-03-10] MEDS: HYDROmorphone INJ 0.5 MG/0.5 ML SYR IV PRN ×2 (06:33→14:15)
[2017-03-10] MEDS: FORMOTEROL FUMA NEBULIZER SOLN 20 MCG/2 ML VIAL INH SCH ×2 (07:09→19:19)
[2017-03-10] MEDS: BUDESONIDE 0.5 MG/2 ML VIAL (PULMICORT) INH SCH ×2 (07:09→19:19)
[2017-03-10] MEDS: DOCUSATE SODIUM/SENNA 50/8.6MG TAB PO SCH (07:37)
[2017-03-10] MEDS: METOPROLOL TARTRATE 25 MG TAB PO SCH ×2 (07:38→20:03)
[2017-03-10] MEDS: TAMSULOSIN HCL 0.4 MG CAP PO SCH (07:38)
[2017-03-10] MEDS: ATORVASTATIN 40 MG TAB PO SCH (07:38)
[2017-03-10] MEDS: CLOPIDOGREL BISULFATE 75 MG TAB PO SCH (07:38)
[2017-03-10] MEDS: LISINOPRIL 20 MG TAB PO SCH (07:38)
[2017-03-10] MEDS: ASPIRIN 81 MG ECTAB PO SCH (07:38)
[2017-03-10] MEDS: SUCRALFATE 1 GM TAB PO SCH ×4 (07:39→20:04)
[2017-03-10] MEDS: TIOTROPIUM BROMIDE 5 PUFF/90 MCG INH INH SCH (07:39)
[2017-03-10] MEDS: FUROSEMIDE 40 MG TAB PO SCH (07:39)
[2017-03-10] MEDS: PANTOprazole INJ 40 MG in SYRINGE 0 ML IV SCH ×2 (07:40→20:04)
[2017-03-10] MEDS: AZITHROMYCIN IV 500 MG in DEXTROSE 5% 250ML 250 ML IV SCH (07:42)
[2017-03-10] MEDS: HEPARIN SOD 5000 UNIT/0.5 ML CARP SQ SCH ×2 (07:42→20:08)
[2017-03-10] MEDS: ALPRAZOLAM 0.5 MG TAB PO SCH ×3 (07:47→21:16)
[2017-03-10] MEDS: CEFTRIAXONE SOD INJ 1 GM in DEXTROSE 5% ADD-VANTAGE 50ML 50 ML IV SCH (10:14)
--- NOTE | 2017-03-10 10:59 | Gastroenterology Progress Note ---
Progress Note Date of Service: Mar 10, 2017 Subjective Pt evaluation today including: conversation w/ patient, physical exam, chart review, lab review, review of inpatient medication list GI seen again this AM at request of primary hospitalist (Dr. Vieyra). He had been seen previously for n/v, epigastric pain. Plans for outpt EGD/colonoscopy made. Over the weekend pt continues to have n/v, epigastric pain. Diet was advanced to [place] but he can't tolerate it. He was seen by Neurology for possible TIA, also Cardiology for his chronic cardiac issues. Neurology recommend keeping pt on ASA, Plavix, Cardiology cleared him for EGD eval, but recommend waiting till pneumonia resolved before colonoscopy. Review of Systems Constitutional: No fever Respiratory: + cough, No shortness of breath Cardiac: No chest pain Abdomen: + pain, + nausea, + vomiting Medications Current Inpatient Medications Medications (Trade) Dose Ordered Sig/Marco A Route Start Time Stop Time Status Last Admin Dose Admin Acetaminophen (Tylenol Tab) 650 mg Q4 PRN PO 03/04/17 22:45 04/03/17 22:44 Alprazolam (Xanax Tab) 0.5 mg BID@0900,1600 PO 03/05/17 09:00 04/04/17 08:59 03/10/17 07:47 0.5 MG Alprazolam (Xanax Tab) 1 mg HS PO 03/05/17 21:00 04/04/17 20:59 03/09/17 20:16 1 MG Atorvastatin Calcium (Lipitor Tab) 40 mg DAILY PO 03/05/17 09:00 04/04/17 08:59 03/10/17 07:38 40 MG Budesonide (Pulmicort Respules 0.5MG/ 2ML Neb Soln) 0.5 mg BID INH 03/05/17 09:00 04/04/17 08:59 03/10/17 07:09 0.5 MG Clopidogrel Bisulfate (plAVix TAB) 75 mg DAILY PO 03/05/17 09:00 04/04/17 08:59 03/10/17 07:38 75 MG Folic Acid (Folvite Tab) 1 mg DAILY PO 03/05/17 09:00 04/04/17 08:59 03/10/17 07:38 1 MG Formoterol Fumarate (Perforomist 20MCG/2ML Neb Soln) 20 mcg Q12 INH 03/05/17 09:00 04/04/17 08:59 03/10/17 07:09 20 MCG Codeine Phosphate/ Guaifenesin (Robitussin-AC Sugar Free Syrup) 5 ml Q4H PRN PO 03/04/17 22:45 04/03/17 22:44 03/09/17 13:31 5 ML Heparin Sodium (Porcine) (Heparin Sq 5000 Unit/0.5ml) 5,000 unit Q12 SQ 03/05/17 09:00 04/04/17 08:59 03/10/17 07:42 5,000 UNIT Acetaminophen/ Hydrocodone Bitart ([place] 5/325 Tab) 2 tab Q6 PRN PO 03/04/17 22:45 03/18/17 22:44 03/08/17 02:19 2 TAB Levalbuterol (Xopenex 0.63 Mg/ 3 Ml Neb) 0.63 mg Q6 PRN INH 03/04/17 22:45 04/03/17 22:44 Metoprolol Tartrate (Lopressor Tab) 25 mg BID PO 03/05/17 09:00 04/04/17 08:59 03/10/17 07:38 25 MG Ondansetron HCl (Zofran Inj) 4 mg Q6H PRN IV 03/04/17 22:45 04/03/17 22:44 03/09/17 16:46 4 MG Tamsulosin HCl (Flomax Cap) 0.4 mg DAILY PO 03/05/17 09:00 04/04/17 08:59 03/10/17 07:38 0.4 MG Lorazepam 0.5 mg/ Syringe 0.5 ml @ 0.5 mls/min Q6H PRN IV 03/05/17 02:15 04/04/17 02:14 03/05/17 03:09 0.5 MLS/MIN Lisinopril (Zestril Tab) 20 mg DAILY PO 03/05/17 09:00 04/04/17 08:59 03/10/17 07:38 20 MG Sucralfate (Carafate Tab) 1 gm ACHS PO 03/05/17 07:00 04/04/17 06:59 03/10/17 07:39 1 GM Lorazepam (Ativan Inj) 0.5 mg Q6H PRN IV 03/05/17 03:15 04/04/17 03:14 03/06/17 14:19 0.5 MG Tiotropium [place] (Spiriva Handihaler Inhaler) 1 puff DAILY INH 03/06/17 09:00 04/05/17 08:59 03/10/17 07:39 1 PUFF Zolpidem Tartrate (Ambien Tab) 10 mg HS PRN PO 03/05/17 09:15 04/04/17 09:14 Pantoprazole Sodium 40 mg/ Syringe 10 ml @ 5 mls/min DAILY@ IV 03/05/17 21:00 04/04/17 20:59 03/10/17 07:40 5 MLS/MIN Heparin Sodium (Porcine) (Heparin 10 Unit/ ml 5 ml Flush) 5 ml PRN PRN FLUSH 03/05/17 17:15 04/04/17 17:14 Ipratropium [place] (Atrovent 0.02% 0.5MG/2.5ML Neb) 0.5 mg Q6R INH 03/06/17 17:00 04/05/17 16:59 03/09/17 14:12 0.5 MG Levalbuterol (Xopenex 1.25MG/ 0.5ML Neb) 1.25 mg Q6R INH 03/06/17 17:00 04/05/17 16:59 03/09/17 14:12 1.25 MG Senna/Docusate Sodium (Senokot S Tab) 1 tab DAILY PRN PO 03/06/17 15:45 04/05/17 15:44 03/08/17 12:55 1 TAB Promethazine HCl 12.5 mg/Sodium Chloride 50.5 ml @ 204 mls/hr Q6H PRN IV 03/06/17 18:00 04/05/17 17:59 03/09/17 19:56 204 MLS/HR Aspirin (Ecotrin Tab) 81 mg QAM PO 03/08/17 09:00 04/07/17 08:59 03/10/17 07:38 81 MG Potassium Chloride (Klor-Con Tab) 40 meq ONE PO 03/07/17 09:45 04/06/17 09:44 03/07/17 12:22 40 MEQ Polyethylene (Miralax Powder Packet) 17 gm DAILY PRN PO 03/07/17 09:45 04/06/17 09:44 03/07/17 13:04 17 GM Morphine Sulfate (MoRPHine SULFATE INJ) 4 mg Q4H PRN IV 03/07/17 11:45 03/21/17 11:44 03/10/17 10:14 4 MG Hydromorphone HCl (Dilaudid Inj) 0.5 mg Q6H PRN IV 03/07/17 11:45 03/21/17 11:44 03/10/17 06:33 0.5 MG Senna/Docusate Sodium (Senokot S Tab) 1 tab QAM PO 03/08/17 09:00 04/07/17 08:59 03/10/17 07:37 1 TAB Methylprednisolone Sodium Succinate 40 mg/Syringe 0.64 ml @ 1.5 mls/min Q12H IV 03/07/17 13:00 04/06/17 12:59 03/10/17 00:25 1.5 MLS/MIN Lactulose (Chronulac Syrup) 30 gm Q6H PRN PO 03/08/17 14:00 04/07/17 13:59 03/09/17 09:09 30 GM Ceftriaxone Sodium 1 gm/ Dextrose 50 ml @ 100 mls/hr Q24H IV 03/09/17 10:00 03/16/17 09:59 03/10/17 10:14 100 MLS/HR Azithromycin 500 mg/Dextrose 255 ml @ 125 mls/hr DAILY IV 03/09/17 11:00 03/16/17 10:59 03/10/17 07:42 125 MLS/HR Furosemide (Lasix Tab) 40 mg DAILY PO 03/10/17 09:00 04/09/17 08:59 03/10/17 07:39 40 MG Objective Vital Signs Date Time Temp Pulse Resp B/P (MAP) Pulse Ox O2 Delivery O2 Flow Rate FiO2 03/10/17 08:00 Nasal Cannula 2.5 03/10/17 07:36 76 20 99 Nasal Cannula 2.5 03/10/17 07:29 36.8 65 20 135/74 (94) 99 Nasal Cannula 2.5 03/10/17 06:12 36.5 67 14 133/77 (95) 100 Nasal Cannula 3.0 03/10/17 04:15 96 Nasal Cannula 2.5 95 03/10/17 00:36 96 Nasal Cannula 2.5 95 03/09/17 22:49 36.3 64 18 117/70 (86) 98 Nasal Cannula 2.0 03/09/17 20:00 96 Nasal Cannula 2.5 95 03/09/17 19:08 101 20 96 Nasal Cannula 2.5 03/09/17 16:00 Nasal Cannula 2.5 03/09/17 15:06 36.6 80 19 134/91 (105) 100 Nasal Cannula 3.0 03/09/17 14:22 66 18 95 Nasal Cannula 2.5 03/09/17 12:00 Nasal Cannula 2.5 Physical Exam General Appearance: WD/WN, no apparent distress Eyes: normal inspection, PERRL, EOMI Neck: supple, no JVD, trachea midline Respiratory/Chest: + decreased breath sounds, + rhonchi, + wheezing (scattered) Cardiovascular: regular rate, rhythm, no gallop, no murmur Abdomen: normal bowel sounds, non tender, soft Extremities: + pertinent finding (L BKA) Neurologic/Psych: alert, normal mood/affect, oriented x 3 Skin: normal color, no jaundice, no rash Laboratory Results Last 24 Hours Test 03/09/17 11:19 03/09/17 12:25 03/09/17 20:16 03/10/17 04:43 Bedside Glucose 118 mg/dl 102 mg/dl Sodium Level 142 mmol/L Potassium Level 3.7 mmol/L Chloride Level 106 mmol/L Carbon Dioxide Level 30 mmol/L Anion Gap 6.0 mmol/L Blood Urea Nitrogen 11 mg/dl Creatinine 0.73 mg/dl Est Creatinine Clear Calc Drug Dose 106.3 ml/min Estimated GFR () 108.2 Estimated GFR (Non- 93.3 BUN/Creatinine Ratio 14.6 Random Glucose 109 mg/dl Calcium Level 8.1 mg/dl Assessment and Plan Pt is a 71 y/o male currently admitted for pneumonia, suspected TIA, seen by GI for n/v, epigastric pain. Previously planned for outpt EGD/Colonoscopy evals though over weekend he continues to have epigastric pain, unable to tolerate FL diet w n/v. He already is on Pantoprazole 40mg BID. Discussed case w Dr. Salinas, who is agreeable on EGD evaluation today. Pls keep him NPO, will call down for EGD eval.
--- NOTE | 2017-03-10 12:29 | Endo History and Physical ---
History & Physical Date of Service: Mar 10, 2017. Chief Complaint: nausea, vomiting Referring Physician: History of Present Illness nausea, vomiting Past Surgical History Hx Cardiac Surgery: Yes (CATH WITH 2 STENTS) Hx Abdominal Surgery: No Hx Post-Op Nausea and Vomiting: No Hx Cancer Surgery: No Hx Thoracic Surgery: No Hx Orthopedic: Yes (LT BTK AMPUTATION, 20 BACK SURGERIES T10,11,12 L1) Hx Urinary Tract Surgery: No Social History Smoking Status: Former Smoker Smokeless Tobacco Use: Yes Hx Substance Use: No Hx Alcohol Use: No Allergies Coded Allergies: Hydralazine (Verified Allergy, Unknown, unknown, 03/04/17) Current Medications Reported Home Medications Medications Dose Route/Sig Max Daily Dose Days Date Category Dose Instructions Aspirin EC Low Dose (Aspirin) 81 Mg Ectab 81 Mg PO DAILY 03/05/17 Reported Potassium Chloride Er (Potassium Chloride) 10 Meq Tab 10 Meq PO DAILY 03/05/17 Reported Zolpidem Tartrate 10 Mg Tab 10 Mg PO HS PRN 03/05/17 Reported Spiriva Handihaler (Tiotropium [place]) 30 Puff/540 Mcg Aerp 1 Cap INH DAILY 03/05/17 Reported Ferrex 150 (Polysaccharide Iron Complex) 150 Mg Cap 150 Mg PO DAILY 03/05/17 Reported Alprazolam 0.5 Mg Tab 0 PO UD 03/05/17 Reported Take 1 pill at 9 a.m. and 4 p.m. Take 2 pills at bedtime. LORTAB 10-325 mg (Hydrocodone-Acetaminophen) 1 Tab Tab 1 Tab PO Q6 PRN 03/05/17 Reported Protonix (Pantoprazole Sodium) 40 Mg Tab 40 Mg PO BID 03/05/17 Reported Lasix (Furosemide) 40 Mg Tab 40 Mg PO DAILY 03/05/17 Reported Lisinopril 20 Mg Tab 20 Mg PO DAILY 03/04/17 Reported Folic Acid 1 Mg Tab 1 Mg PO DAILY 03/04/17 Reported Clopidogrel (Clopidogrel Bisulfate) 75 Mg Tab 75 Mg PO DAILY 03/04/17 Reported Lipitor (Atorvastatin Calcium) 40 Mg Tab 40 Mg PO DAILY 03/04/17 Reported Sucralfate 1 Gm Tab 1 Gm PO ACHS 03/04/17 Reported Flomax (Tamsulosin Hcl) 0.4 Mg Cap 0.4 Mg PO DAILY 03/04/17 Reported Vital Signs Weight (Kilograms): 92.000 Height (Feet): 5 Height (Inches): 10.00 Date Time Temp Pulse Resp B/P (MAP) Pulse Ox O2 Delivery O2 Flow Rate FiO2 03/10/17 12:06 37 72 24 140/68 (92) 94 Nasal Cannula 2.5 03/10/17 12:00 Nasal Cannula 2.5 03/10/17 11:21 36.7 75 18 134/85 (101) 99 2.5 03/10/17 08:00 Nasal Cannula 2.5 03/10/17 07:36 76 20 99 Nasal Cannula 2.5 03/10/17 07:29 36.8 65 20 135/74 (94) 99 Nasal Cannula 2.5 03/10/17 06:12 36.5 67 14 133/77 (95) 100 Nasal Cannula 3.0 03/10/17 04:15 96 Nasal Cannula 2.5 95 03/10/17 00:36 96 Nasal Cannula 2.5 95 03/09/17 22:49 36.3 64 18 117/70 (86) 98 Nasal Cannula 2.0 03/09/17 20:00 96 Nasal Cannula 2.5 95 03/09/17 19:08 101 20 96 Nasal Cannula 2.5 03/09/17 16:00 Nasal Cannula 2.5 03/09/17 15:06 36.6 80 19 134/91 (105) 100 Nasal Cannula 3.0 03/09/17 14:22 66 18 95 Nasal Cannula 2.5 Physical Exam General Appearance: no apparent distress Respiratory/Chest: Auscultation: deminished air movement, pertinent finding (milldy decreased BS at the bases) Cardiovascular: Heart Auscultation: RRR Abdomen: Inspection & Palpation: soft Assessment and Plan N/V - EGD
[2017-03-10] MEDS ORDERED: LIDOCAINE HCL 2% 2 ML VIAL (20MG/ML) ONE (12:43)
[2017-03-10] MEDS ORDERED: PROPOFOL IV EMULSION 10 MG/ML 20 ML VIAL IV ONE (12:43)
[2017-03-10] MEDS ORDERED: BENZOCAIN/TETRACA/BUTAM SPRAY 200 APPLN/20 GM SPRY ONE (12:43)
[2017-03-10] MEDS ORDERED: KETAMINE HCL INJ 50 MG/ML 10 ML VIAL ONE (12:44)
--- NOTE | 2017-03-10 13:01 | GI REPORT ---
Procedure Date: 03/10/2017 12:41 PM Procedure: Upper GI endoscopy Indications: Nausea with vomiting Medicines: See the Anesthesia note for documentation of the administered medications Complications: No immediate complications. Estimated Blood Loss: Estimated blood loss: none. Procedure: Pre-Anesthesia Assessment: - ASA Grade Assessment: IV - A patient with severe systemic disease that is a constant threat to life. After obtaining informed consent, the endoscope was passed under direct vision. Throughout the procedure, the patient's blood pressure, pulse, and oxygen saturations were monitored continuously. The scope was introduced through the mouth, and advanced to the second part of duodenum. The upper GI endoscopy was accomplished without difficulty. The patient tolerated the procedure well. Findings: There was a moderate sized hiatal hernia. Esophageal mucosa was normal, without thrush or esophagitis. There was a mild, non-obstructing ring at the GE jxn. There was mild antral erythema. The stomach was otherwise normal. The duodenum was normal. Impression: Hiatal hernia without esophagitis. Mild antral gastritis. Recommendation: Most likely, he has medication induced gastoparesis. Would consider short trial of Reglan 5 IV BID; would also consider Relistor if symptoms persistent. - Discharge patient to floor. Roselia Salinas M.D. Roselia Salinas MD 03/10/2017 1:01:06 PM This report has been signed electronically. Note Initiated On: 03/10/2017 12:41 PM I attest to the content of the Intraoperative Record and orders documented therein, exceptions below
--- NOTE | 2017-03-10 14:06 | Anesthesiology Progress Note ---
Anesthesia Post Op Note Date & Time Mar 10, 2017 at 14:06 Vital Signs Pain Intensity: 5.0 Vital Signs Past 12 Hours Date Time Temp Pulse Resp B/P (MAP) Pulse Ox O2 Delivery O2 Flow Rate FiO2 03/10/17 13:26 70 22 121/59 (79) 97 Nasal Cannula 2.5 03/10/17 13:11 71 24 128/68 (88) 98 Nasal Cannula 2.5 03/10/17 12:56 85 24 117/59 (78) 96 Nasal Cannula 2.5 03/10/17 12:06 37 72 24 140/68 (92) 94 Nasal Cannula 2.5 03/10/17 12:00 Nasal Cannula 2.5 03/10/17 11:21 36.7 75 18 134/85 (101) 99 2.5 03/10/17 08:00 Nasal Cannula 2.5 03/10/17 07:36 76 20 99 Nasal Cannula 2.5 03/10/17 07:29 36.8 65 20 135/74 (94) 99 Nasal Cannula 2.5 03/10/17 06:12 36.5 67 14 133/77 (95) 100 Nasal Cannula 3.0 03/10/17 04:15 96 Nasal Cannula 2.5 95 Notes Mental Status: alert / awake / arousable, participated in evaluation Pt Amnestic to Procedure: Yes Nausea / Vomiting: adequately controlled Pain: adequately controlled Airway Patency, RR, SpO2: stable & adequate BP & HR: stable & adequate Hydration State: stable & adequate Anesthetic Complications: no major complications apparent
[2017-03-10] MEDS: ONDANSETRON INJ 2 MG/ML 2 ML VIAL IV PRN (16:19)
--- NOTE | 2017-03-10 18:41 | Progress Note ---
Medicine Progress Note Date & Time of Visit: Mar 10, 2017 at 18:41. Subjective s/p EGD today continues to have nausea, requests to maintain clear liquid diet, no abdominal pain, no BMs yet states breathing is ok, productive cough improving no recurrence of TIA symptoms pain under control, RN noticed beeping sounds emanating from pain medicine pump no other symptoms Objective Last 8 Hrs Date Time Temp Pulse Resp B/P (MAP) Pulse Ox O2 Delivery O2 Flow Rate FiO2 03/10/17 16:00 Nasal Cannula 2.5 03/10/17 15:38 36.6 94 20 107/67 (80) 100 Room Air 2.0 03/10/17 14:11 78 17 98 Nasal Cannula 2.5 03/10/17 13:26 70 22 121/59 (79) 97 Nasal Cannula 2.5 03/10/17 13:11 71 24 128/68 (88) 98 Nasal Cannula 2.5 03/10/17 12:56 85 24 117/59 (78) 96 Nasal Cannula 2.5 03/10/17 12:06 37 72 24 140/68 (92) 94 Nasal Cannula 2.5 03/10/17 12:00 Nasal Cannula 2.5 03/10/17 11:21 36.7 75 18 134/85 (101) 99 2.5 Physical Exam: General- oriented x 3, not in distress, speaks in sentences with no effort Neck- no JVD Lungs- (+) crackles left>right: improved, no wheezing Heart- regular rhythm; no murmur, normal rate Abdomen- normal bowel sounds, non distended soft, nontender Extremities- no pretibial edema, no calf tenderness; Neuro- alert, oriented x 3;no gross focal deficits Skin- warm & dry Laboratory Results: Last 24 Hours Test 03/09/17 20:16 03/10/17 04:43 03/10/17 15:58 Bedside Glucose 102 mg/dl 114 mg/dl Sodium Level 142 mmol/L Potassium Level 3.7 mmol/L Chloride Level 106 mmol/L Carbon Dioxide Level 30 mmol/L Anion Gap 6.0 mmol/L Blood Urea Nitrogen 11 mg/dl Creatinine 0.73 mg/dl Est Creatinine Clear Calc Drug Dose 106.3 ml/min Estimated GFR () 108.2 Estimated GFR (Non- 93.3 BUN/Creatinine Ratio 14.6 Random Glucose 109 mg/dl Calcium Level 8.1 mg/dl Assessment & Plan ABDOMINAL PAIN, POSSIBLE GASTRITIS, PUD Severe epigastric pain x several days. No apparent acute findings on CT of abdomen and pelvis at [facility]. -- s/p EGD 03/09/[address] Salinas (+) hiatal hernia with gastritis -- on PPI, Sucralfate -- added Reglan IV BID, if with no response trial of Relistor will monitor appreciate GI SVC consult PNEUMONIA, COPD EXACERBATION Episode of vomiting, but no apparent aspiration. CT of abdomen and pelvis suggested bibasilar infiltrates. -- on Levaquin , Solumedrol, Nebs -- further improving now 98%2 L o2 sputum cultures: E COLI, sensitive to Cefti, resistant to Levaquin -- changed Levaquin to Ceftri + Azithro Day 2 taper Solumedrol, Nebs q6h -- monitor NEURO SYMPTOMS 2 episodes of apparent expressive aphasia, one episode possibly associated with left facial palsy. Suspected TIA. Possible seizure (history of seizure disorder, but apparently no longer taking phenytoin). CT head negative at [facility]. MRI cannot be performed (? intrathecal pump). Carotid duplex showed < 50% stenosis of ICA's. repeat CT head: no acute process CT angio head: unrevealing Echo: -- Conclusions -- * There is mild concentric left ventricular hypertrophy. * There is a moderate sized septal wall motion abnormality with moderate hypokinesis of the septal segments. * Otherwise there is mild global hypokinesis * Left ventricular systolic function is moderately reduced. * The LV Ejection Fraction = 35-40%. * The right ventricle is grossly normal size. * The right ventricular systolic function is normal. * Grade I diastolic dysfunction, (abnormal relaxation pattern). EEG: unrevealing -- on Plavix, Aspirin monitor as patient having GI symptoms -- Neuro consulted appreciate the input -- no recurrence of symptoms CHRONIC BACK PAIN -- has an intrathecal pump with Dilaudid, Clonidine and Bupivacaine for years -- few days ago, (+) breakthrough pain discussed with Dr. Red- Pain Management SVC of patient per his request recommend PRN Morphine and Dilaudid--> pain much improved -- (+) alarm sound heard from site of pain medicine pump will consult Pain Management SVC re: possible change of battery CORONARY ARTERY DISEASE No anginal symptoms. No acute EKG changes. CHF -- Lasix resumed euvolemic monitor volume status RESUSCITATION STATUS Discussed with patient. He has a living will; his daughter Buffy is an RN and is durable POA. He would like resuscitation attempted in the event of a cardiopulmonary arrest if there is a reasonable chance of a meaningful recovery, but does not want prolonged extraordinary measures if prognosis is poor. Therefore, code status = "Level 1" (full resuscitation). VTE PROPHYLAXIS High risk for VTE. SQ heparin with caution. INCOMPLETE DATA Home medications uncertain- need to verify. Records from PCP and [facility] will be requested for background info.-- will follow up DISPOSITION pending PT/OT evals Current Inpatient Medications: Current Inpatient Medications Medications (Trade) Dose Ordered Sig/Marco A Route Start Time Stop Time Status Last Admin Dose Admin Acetaminophen (Tylenol Tab) 650 mg Q4 PRN PO 03/04/17 22:45 04/03/17 22:44 Alprazolam (Xanax Tab) 0.5 mg BID@0900,1600 PO 03/05/17 09:00 04/04/17 08:59 03/10/17 14:14 0.5 MG Alprazolam (Xanax Tab) 1 mg HS PO 03/05/17 21:00 04/04/17 20:59 03/09/17 20:16 1 MG Atorvastatin Calcium (Lipitor Tab) 40 mg DAILY PO 03/05/17 09:00 04/04/17 08:59 03/10/17 07:38 40 MG Budesonide (Pulmicort Respules 0.5MG/ 2ML Neb Soln) 0.5 mg BID INH 03/05/17 09:00 04/04/17 08:59 03/10/17 07:09 0.5 MG Clopidogrel Bisulfate (plAVix TAB) 75 mg DAILY PO 03/05/17 09:00 04/04/17 08:59 03/10/17 07:38 75 MG Folic Acid (Folvite Tab) 1 mg DAILY PO 03/05/17 09:00 04/04/17 08:59 03/10/17 07:38 1 MG Formoterol Fumarate (Perforomist 20MCG/2ML Neb Soln) 20 mcg Q12 INH 03/05/17 09:00 04/04/17 08:59 03/10/17 07:09 20 MCG Codeine Phosphate/ Guaifenesin (Robitussin-AC Sugar Free Syrup) 5 ml Q4H PRN PO 03/04/17 22:45 04/03/17 22:44 03/09/17 13:31 5 ML Heparin Sodium (Porcine) (Heparin Sq 5000 Unit/0.5ml) 5,000 unit Q12 SQ 03/05/17 09:00 04/04/17 08:59 03/10/17 07:42 5,000 UNIT Acetaminophen/ Hydrocodone Bitart ([place] 5/325 Tab) 2 tab Q6 PRN PO 03/04/17 22:45 03/18/17 22:44 03/08/17 02:19 2 TAB Levalbuterol (Xopenex 0.63 Mg/ 3 Ml Neb) 0.63 mg Q6 PRN INH 03/04/17 22:45 04/03/17 22:44 Metoprolol Tartrate (Lopressor Tab) 25 mg BID PO 03/05/17 09:00 04/04/17 08:59 03/10/17 07:38 25 MG Ondansetron HCl (Zofran Inj) 4 mg Q6H PRN IV 03/04/17 22:45 04/03/17 22:44 03/10/17 16:19 4 MG Tamsulosin HCl (Flomax Cap) 0.4 mg DAILY PO 03/05/17 09:00 04/04/17 08:59 03/10/17 07:38 0.4 MG Lorazepam 0.5 mg/ Syringe 0.5 ml @ 0.5 mls/min Q6H PRN IV 03/05/17 02:15 04/04/17 02:14 03/05/17 03:09 0.5 MLS/MIN Lisinopril (Zestril Tab) 20 mg DAILY PO 03/05/17 09:00 04/04/17 08:59 03/10/17 07:38 20 MG Sucralfate (Carafate Tab) 1 gm ACHS PO 03/05/17 07:00 04/04/17 06:59 03/10/17 16:19 1 GM Lorazepam (Ativan Inj) 0.5 mg Q6H PRN IV 03/05/17 03:15 04/04/17 03:14 03/06/17 14:19 0.5 MG Tiotropium [place] (Spiriva Handihaler Inhaler) 1 puff DAILY INH 03/06/17 09:00 04/05/17 08:59 03/10/17 07:39 1 PUFF Zolpidem Tartrate (Ambien Tab) 10 mg HS PRN PO 03/05/17 09:15 04/04/17 09:14 Pantoprazole Sodium 40 mg/ Syringe 10 ml @ 5 mls/min DAILY@ IV 03/05/17 21:00 04/04/17 20:59 03/10/17 07:40 5 MLS/MIN Heparin Sodium (Porcine) (Heparin 10 Unit/ ml 5 ml Flush) 5 ml PRN PRN FLUSH 03/05/17 17:15 04/04/17 17:14 03/10/17 13:24 5 ML Ipratropium [place] (Atrovent 0.02% 0.5MG/2.5ML Neb) 0.5 mg Q6R INH 03/06/17 17:00 04/05/17 16:59 03/10/17 14:09 0.5 MG Levalbuterol (Xopenex 1.25MG/ 0.5ML Neb) 1.25 mg Q6R INH 03/06/17 17:00 04/05/17 16:59 03/10/17 14:09 1.25 MG Senna/Docusate Sodium (Senokot S Tab) 1 tab DAILY PRN PO 03/06/17 15:45 04/05/17 15:44 03/08/17 12:55 1 TAB Promethazine HCl 12.5 mg/Sodium Chloride 50.5 ml @ 204 mls/hr Q6H PRN IV 03/06/17 18:00 04/05/17 17:59 03/09/17 19:56 204 MLS/HR Aspirin (Ecotrin Tab) 81 mg QAM PO 03/08/17 09:00 04/07/17 08:59 03/10/17 07:38 81 MG Potassium Chloride (Klor-Con Tab) 40 meq ONE PO 03/07/17 09:45 04/06/17 09:44 03/07/17 12:22 40 MEQ Polyethylene (Miralax Powder Packet) 17 gm DAILY PRN PO 03/07/17 09:45 04/06/17 09:44 03/07/17 13:04 17 GM Morphine Sulfate (MoRPHine SULFATE INJ) 4 mg Q4H PRN IV 03/07/17 11:45 03/21/17 11:44 03/10/17 18:22 4 MG Hydromorphone HCl (Dilaudid Inj) 0.5 mg Q6H PRN IV 03/07/17 11:45 03/21/17 11:44 03/10/17 14:15 0.5 MG Senna/Docusate Sodium (Senokot S Tab) 1 tab QAM PO 03/08/17 09:00 04/07/17 08:59 03/10/17 07:37 1 TAB Methylprednisolone Sodium Succinate 40 mg/Syringe 0.64 ml @ 1.5 mls/min Q12H IV 03/07/17 13:00 04/06/17 12:59 03/10/17 14:14 1.5 MLS/MIN Lactulose (Chronulac Syrup) 30 gm Q6H PRN PO 03/08/17 14:00 04/07/17 13:59 03/09/17 09:09 30 GM Ceftriaxone Sodium 1 gm/ Dextrose 50 ml @ 100 mls/hr Q24H IV 03/09/17 10:00 03/16/17 09:59 03/10/17 10:14 100 MLS/HR Azithromycin 500 mg/Dextrose 255 ml @ 125 mls/hr DAILY IV 03/09/17 11:00 03/16/17 10:59 03/10/17 07:42 125 MLS/HR Furosemide (Lasix Tab) 40 mg DAILY PO 03/10/17 09:00 04/09/17 08:59 03/10/17 07:39 40 MG Metoclopramide HCl (Reglan Inj) 5 mg BID IV. 03/10/17 21:00 04/09/17 20:59
[2017-03-10] MEDS: METOCLOPRAMIDE HCL INJ 5 MG/ML 2 ML VIAL IV. SCH (20:04)
[2017-03-11] VITALS (8 sets, daily range): BP systolic 100–163; BP diastolic 60–81; PULSE 61–102; TEMP 36.4–36.9; O2SAT 95–100
[2017-03-11] MEDS: LEVALBUTEROL 1.25MG/0.5ML NEB INH SCH ×4 (02:06→19:51)
[2017-03-11] MEDS: IPRATROPIUM BROMIDE NEB SOLN 0.02% 2.5 ML VIAL INH SCH ×4 (02:06→19:51)
[2017-03-11] MEDS: MoRPHine SULFATE 4 MG/ML 1 ML CARP\\VIAL IV PRN ×5 (04:32→22:16)
[2017-03-11 04:59] LABS: BUN/CREATININE RATIO 20.4 (10-20); CREATININE 0.66 mg/dl (0.60-1.40); POTASSIUM 3.4 mmol/L (3.5-5.1)
[2017-03-11] MEDS: FORMOTEROL FUMA NEBULIZER SOLN 20 MCG/2 ML VIAL INH SCH ×2 (07:08→19:48)
[2017-03-11] MEDS: BUDESONIDE 0.5 MG/2 ML VIAL (PULMICORT) INH SCH ×2 (07:08→19:48)
[2017-03-11] MEDS: PANTOprazole INJ 40 MG in SYRINGE 0 ML IV SCH ×2 (08:25→20:35)
[2017-03-11] MEDS: METHYLPREDNISOLONE IV 40 MG in SYRINGE 0 ML IV SCH (08:25)
[2017-03-11] MEDS: CLOPIDOGREL BISULFATE 75 MG TAB PO SCH (08:26)
[2017-03-11] MEDS: LISINOPRIL 20 MG TAB PO SCH (08:26)
[2017-03-11] MEDS: TAMSULOSIN HCL 0.4 MG CAP PO SCH (08:26)
[2017-03-11] MEDS: ASPIRIN 81 MG ECTAB PO SCH (08:26)
[2017-03-11] MEDS: METOPROLOL TARTRATE 25 MG TAB PO SCH ×2 (08:26→20:36)
[2017-03-11] MEDS: ATORVASTATIN 40 MG TAB PO SCH (08:26)
[2017-03-11] MEDS: FUROSEMIDE 40 MG TAB PO SCH (08:26)
[2017-03-11] MEDS: DOCUSATE SODIUM/SENNA 50/8.6MG TAB PO SCH (08:27)
[2017-03-11] MEDS: SUCRALFATE 1 GM TAB PO SCH ×4 (08:27→20:36)
[2017-03-11] MEDS: METOCLOPRAMIDE HCL INJ 5 MG/ML 2 ML VIAL IV. SCH ×2 (08:27→20:35)
[2017-03-11] MEDS: HEPARIN SOD 5000 UNIT/0.5 ML CARP SQ SCH ×2 (08:29→20:39)
[2017-03-11] MEDS: ALPRAZOLAM 0.5 MG TAB PO SCH ×3 (08:30→20:35)
[2017-03-11] MEDS: AZITHROMYCIN IV 500 MG in DEXTROSE 5% 250ML 250 ML IV SCH (08:44)
[2017-03-11] MEDS: TIOTROPIUM BROMIDE 5 PUFF/90 MCG INH INH SCH (10:13)
[2017-03-11] MEDS: CEFTRIAXONE SOD INJ 1 GM in DEXTROSE 5% ADD-VANTAGE 50ML 50 ML IV SCH (10:13)
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
[2017-03-11] MEDS: ONDANSETRON INJ 2 MG/ML 2 ML VIAL IV PRN ×2 (11:55→20:35)
--- NOTE | 2017-03-11 12:31 | Gastroenterology Progress Note ---
Progress Note Date of Service: Mar 11, 2017 Subjective Pt evaluation today including: conversation w/ patient, physical exam, chart review, lab review, review of inpatient medication list Review of Systems Constitutional: No fever, No chills Respiratory: No cough, No shortness of breath Abdomen: + nausea, + constipation, No pain, No vomiting Medications Current Inpatient Medications Medications (Trade) Dose Ordered Sig/Marco A Route Start Time Stop Time Status Last Admin Dose Admin Acetaminophen (Tylenol Tab) 650 mg Q4 PRN PO 03/04/17 22:45 04/03/17 22:44 Alprazolam (Xanax Tab) 0.5 mg BID@0900,1600 PO 03/05/17 09:00 04/04/17 08:59 03/11/17 08:30 0.5 MG Alprazolam (Xanax Tab) 1 mg HS PO 03/05/17 21:00 04/04/17 20:59 03/10/17 21:16 1 MG Atorvastatin Calcium (Lipitor Tab) 40 mg DAILY PO 03/05/17 09:00 04/04/17 08:59 03/11/17 08:26 40 MG Budesonide (Pulmicort Respules 0.5MG/ 2ML Neb Soln) 0.5 mg BID INH 03/05/17 09:00 04/04/17 08:59 03/10/17 19:19 0.5 MG Clopidogrel Bisulfate (plAVix TAB) 75 mg DAILY PO 03/05/17 09:00 04/04/17 08:59 03/11/17 08:26 75 MG Folic Acid (Folvite Tab) 1 mg DAILY PO 03/05/17 09:00 04/04/17 08:59 03/11/17 08:26 1 MG Formoterol Fumarate (Perforomist 20MCG/2ML Neb Soln) 20 mcg Q12 INH 03/05/17 09:00 04/04/17 08:59 03/10/17 19:19 20 MCG Codeine Phosphate/ Guaifenesin (Robitussin-AC Sugar Free Syrup) 5 ml Q4H PRN PO 03/04/17 22:45 04/03/17 22:44 03/09/17 13:31 5 ML Heparin Sodium (Porcine) (Heparin Sq 5000 Unit/0.5ml) 5,000 unit Q12 SQ 03/05/17 09:00 04/04/17 08:59 03/11/17 08:29 5,000 UNIT Levalbuterol (Xopenex 0.63 Mg/ 3 Ml Neb) 0.63 mg Q6 PRN INH 03/04/17 22:45 04/03/17 22:44 Metoprolol Tartrate (Lopressor Tab) 25 mg BID PO 03/05/17 09:00 04/04/17 08:59 03/11/17 08:26 25 MG Ondansetron HCl (Zofran Inj) 4 mg Q6H PRN IV 03/04/17 22:45 04/03/17 22:44 03/11/17 11:55 4 MG Tamsulosin HCl (Flomax Cap) 0.4 mg DAILY PO 03/05/17 09:00 04/04/17 08:59 03/11/17 08:26 0.4 MG Lorazepam 0.5 mg/ Syringe 0.5 ml @ 0.5 mls/min Q6H PRN IV 03/05/17 02:15 04/04/17 02:14 03/05/17 03:09 0.5 MLS/MIN Lisinopril (Zestril Tab) 20 mg DAILY PO 03/05/17 09:00 04/04/17 08:59 03/11/17 08:26 20 MG Sucralfate (Carafate Tab) 1 gm ACHS PO 03/05/17 07:00 04/04/17 06:59 03/11/17 11:11 1 GM Lorazepam (Ativan Inj) 0.5 mg Q6H PRN IV 03/05/17 03:15 04/04/17 03:14 03/06/17 14:19 0.5 MG Tiotropium Barnhart (Spiriva Handihaler Inhaler) 1 puff DAILY INH 03/06/17 09:00 04/05/17 08:59 03/11/17 10:13 1 PUFF Zolpidem Tartrate (Ambien Tab) 10 mg HS PRN PO 03/05/17 09:15 04/04/17 09:14 Pantoprazole Sodium 40 mg/ Syringe 10 ml @ 5 mls/min DAILY@ IV 03/05/17 21:00 04/04/17 20:59 03/11/17 08:25 5 MLS/MIN Heparin Sodium (Porcine) (Heparin 10 Unit/ ml 5 ml Flush) 5 ml PRN PRN FLUSH 03/05/17 17:15 04/04/17 17:14 03/11/17 04:31 5 ML Ipratropium Barnhart (Atrovent 0.02% 0.5MG/2.5ML Neb) 0.5 mg Q6R INH 03/06/17 17:00 04/05/17 16:59 03/10/17 14:09 0.5 MG Levalbuterol (Xopenex 1.25MG/ 0.5ML Neb) 1.25 mg Q6R INH 03/06/17 17:00 04/05/17 16:59 03/10/17 14:09 1.25 MG Senna/Docusate Sodium (Senokot S Tab) 1 tab DAILY PRN PO 03/06/17 15:45 04/05/17 15:44 03/08/17 12:55 1 TAB Promethazine HCl 12.5 mg/Sodium Chloride 50.5 ml @ 204 mls/hr Q6H PRN IV 03/06/17 18:00 04/05/17 17:59 03/09/17 19:56 204 MLS/HR Aspirin (Ecotrin Tab) 81 mg QAM PO 03/08/17 09:00 04/07/17 08:59 03/11/17 08:26 81 MG Potassium Chloride (Klor-Con Tab) 40 meq ONE PO 03/07/17 09:45 04/06/17 09:44 03/07/17 12:22 40 MEQ Polyethylene (Miralax Powder Packet) 17 gm DAILY PRN PO 03/07/17 09:45 04/06/17 09:44 03/07/17 13:04 17 GM Morphine Sulfate (MoRPHine SULFATE INJ) 4 mg Q4H PRN IV 03/07/17 11:45 03/21/17 11:44 03/11/17 08:31 4 MG Senna/Docusate Sodium (Senokot S Tab) 1 tab QAM PO 03/08/17 09:00 04/07/17 08:59 03/11/17 08:27 1 TAB Lactulose (Chronulac Syrup) 30 gm Q6H PRN PO 03/08/17 14:00 04/07/17 13:59 03/09/17 09:09 30 GM Ceftriaxone Sodium 1 gm/ Dextrose 50 ml @ 100 mls/hr Q24H IV 03/09/17 10:00 03/16/17 09:59 03/11/17 10:13 100 MLS/HR Azithromycin 500 mg/Dextrose 255 ml @ 125 mls/hr DAILY IV 03/09/17 11:00 03/16/17 10:59 03/11/17 08:44 125 MLS/HR Furosemide (Lasix Tab) 40 mg DAILY PO 03/10/17 09:00 04/09/17 08:59 03/11/17 08:26 40 MG Metoclopramide HCl (Reglan Inj) 5 mg BID IV. 03/10/17 21:00 04/09/17 20:59 03/11/17 08:27 5 MG Methylprednisolone Sodium Succinate 40 mg/Syringe 0.64 ml @ 1.5 mls/min DAILY IV 03/11/17 09:00 04/06/17 12:59 03/11/17 08:25 1.5 MLS/MIN Morphine Sulfate (Ms Contin Tab) 60 mg TID PO 03/11/17 14:00 03/25/17 13:59 Objective Vital Signs Date Time Temp Pulse Resp B/P (MAP) Pulse Ox O2 Delivery O2 Flow Rate FiO2 03/11/17 12:00 Nasal Cannula 3.0 03/11/17 10:52 36.9 75 20 135/76 (95) 97 Nasal Cannula 2.0 03/11/17 08:00 Nasal Cannula 3.0 03/11/17 07:34 36.6 61 19 154/81 (105) 99 Nasal Cannula 2.0 03/11/17 04:00 36.4 67 20 163/79 (107) 100 Nasal Cannula 2.0 03/11/17 04:00 Nasal Cannula 3.0 03/11/17 00:01 Nasal Cannula 3.0 03/10/17 23:43 36.6 107 20 111/69 (83) 97 Nasal Cannula 2.0 03/10/17 20:00 97 Nasal Cannula 3.0 03/10/17 19:21 87 18 98 Nasal Cannula 2.5 03/10/17 19:12 36.7 95 18 133/74 (93) 97 Nasal Cannula 3.0 03/10/17 16:00 Nasal Cannula 2.5 03/10/17 15:38 36.6 94 20 107/67 (80) 100 Room Air 2.0 03/10/17 14:11 78 17 98 Nasal Cannula 2.5 03/10/17 13:26 70 22 121/59 (79) 97 Nasal Cannula 2.5 03/10/17 13:11 71 24 128/68 (88) 98 Nasal Cannula 2.5 03/10/17 12:56 85 24 117/59 (78) 96 Nasal Cannula 2.5 Physical Exam General Appearance: WD/WN, no apparent distress Eyes: normal inspection, PERRL, EOMI Neck: supple, no JVD, trachea midline Respiratory/Chest: no respiratory distress, no accessory muscle use, + decreased breath sounds, + rhonchi Cardiovascular: regular rate, rhythm, no gallop, no murmur Abdomen: normal bowel sounds, non tender, soft Extremities: + pertinent finding (L BKA) Neurologic/Psych: alert, normal mood/affect, oriented x 3 Skin: normal color, no jaundice, no rash Laboratory Results Last 24 Hours Test 03/10/17 15:58 03/10/17 20:00 03/11/17 04:26 Bedside Glucose 114 mg/dl 156 mg/dl Sodium Level 143 mmol/L Potassium Level 3.4 mmol/L Chloride Level 106 mmol/L Carbon Dioxide Level 32 mmol/L Anion Gap 5.0 mmol/L Blood Urea Nitrogen 13 mg/dl Creatinine 0.66 mg/dl Est Creatinine Clear Calc Drug Dose 117.0 ml/min Estimated GFR () 112.7 Estimated GFR (Non- 97.3 BUN/Creatinine Ratio 20.4 Random Glucose 96 mg/dl Calcium Level 8.0 mg/dl Assessment and Plan Pt is a 71 y/o male currently admitted for pneumonia, suspected TIA, seen by GI for n/v, epigastric pain. EGD on 03/10 showed antral gastritis, hiatal hernia. Suspected symptoms related to gastroparesis given meds he's on. He was started on Reglan 5mg IV BID x 2 days. He was also seen by Pain Management yesterday, pain pump interrogated, showed that it's malfunctioned. Suspected he was having narcotic withdrawal symptoms. He is c/o nausea, but no vomiting, on CL diet still, denies abd pain. Is having constipation - Continue Reglan 5mg IV till tomorrow. - Add Relistor 12mg x1 dose Attg addendum: I interviewed and examined pt, reviewed chart and labs. Pt cruz clears, but hadvomiting with advancement of his diet. He otherwise feels well. Suspect narcotic bowel. Management as above.
[2017-03-11] MEDS ORDERED: METHYLNALTREXONE BROMIDE INJ 12 MG/0.6 ML SYR SQ ONE (13:15)
[2017-03-11] MEDS: MoRPHine SULFATE CR 60 MG TAB (MS CONTIN) PO SCH ×2 (13:59→20:35)
--- NOTE | 2017-03-11 17:52 | Progress Note ---
Medicine Progress Note Date & Time of Visit: Mar 11, 2017 at 17:52. Subjective sitting up in bed, having dinner daughter Buffy at bedside states he feels slightly better today tolerating full liquids so far denies dyspnea, still has productive cough but improving denies other symptoms Objective Last 8 Hrs Date Time Temp Pulse Resp B/P (MAP) Pulse Ox O2 Delivery O2 Flow Rate FiO2 03/11/17 16:00 Nasal Cannula 3.0 03/11/17 15:34 36.8 91 22 134/79 (97) 95 Nasal Cannula 3.0 03/11/17 14:23 102 20 98 Nasal Cannula 2.5 03/11/17 12:00 Nasal Cannula 3.0 03/11/17 10:52 36.9 75 20 135/76 (95) 97 Nasal Cannula 2.0 Physical Exam: General- oriented x 3, not in distress, speaks in sentences with no effort Neck- no JVD Lungs- (+) crackles left>right: improving, no wheezing Heart- regular rhythm; no murmur, normal rate Abdomen- normal bowel sounds, non distended soft, nontender Extremities- no pretibial edema, no calf tenderness; Neuro- alert, oriented x 3;no gross focal deficits Skin- warm & dry Laboratory Results: Last 24 Hours Test 03/10/17 20:00 03/11/17 04:26 Bedside Glucose 156 mg/dl Sodium Level 143 mmol/L Potassium Level 3.4 mmol/L Chloride Level 106 mmol/L Carbon Dioxide Level 32 mmol/L Anion Gap 5.0 mmol/L Blood Urea Nitrogen 13 mg/dl Creatinine 0.66 mg/dl Est Creatinine Clear Calc Drug Dose 117.0 ml/min Estimated GFR () 112.7 Estimated GFR (Non- 97.3 BUN/Creatinine Ratio 20.4 Random Glucose 96 mg/dl Calcium Level 8.0 mg/dl Assessment & Plan ABDOMINAL PAIN, POSSIBLE GASTRITIS, PUD Severe epigastric pain x several days. No apparent acute findings on CT of abdomen and pelvis at [facility]. -- s/p EGD 03/10/[address] Salinas (+) hiatal hernia with gastritis -- on PPI, Sucralfate -- added Reglan IV BID 03/10 added Relistor 03/11 -- full liquids ordered will monitor appreciate GI SVC consult PNEUMONIA, COPD EXACERBATION Episode of vomiting, but no apparent aspiration. CT of abdomen and pelvis suggested bibasilar infiltrates. -- further improving now 98%2 L o2 sputum cultures: E COLI, sensitive to Cefti, resistant to Levaquin -- changed Levaquin to Ceftri + Azithro Day 3 taper Solumedrol, Nebs q6h -- patient requesting referral to [facility] upon discharge -- follow Speech therapy evaluation 1. Clear liquids diet. Advance to "slippery" as tolerated. 2. Aspiration and GERD precautions, straws OK. Fully upright for meals and for 30 minutes after meals. Head of bed to be elevated to 30 degrees at all times, to include while asleep. NEURO SYMPTOMS 2 episodes of apparent expressive aphasia, one episode possibly associated with left facial palsy. Suspected TIA. Possible seizure (history of seizure disorder, but apparently no longer taking phenytoin). CT head negative at [facility]. MRI cannot be performed (? intrathecal pump). Carotid duplex showed < 50% stenosis of ICA's. repeat CT head: no acute process CT angio head: unrevealing Echo: -- Conclusions -- * There is mild concentric left ventricular hypertrophy. * There is a moderate sized septal wall motion abnormality with moderate hypokinesis of the septal segments. * Otherwise there is mild global hypokinesis * Left ventricular systolic function is moderately reduced. * The LV Ejection Fraction = 35-40%. * The right ventricle is grossly normal size. * The right ventricular systolic function is normal. * Grade I diastolic dysfunction, (abnormal relaxation pattern). EEG: unrevealing -- on Plavix, Aspirin monitor as patient having GI symptoms -- Neuro consulted appreciate the input -- no recurrence of symptoms CHRONIC BACK PAIN -- has an intrathecal pump with Dilaudid, Clonidine and Bupivacaine for years -- few days ago, (+) breakthrough pain discussed with Dr. 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 Red patient and daughter inquiring with painting department supervisor if they can change battery here, will discuss with pain management SVC CORONARY ARTERY DISEASE No anginal symptoms. No acute EKG changes. CHF -- Lasix resumed euvolemic monitor volume status RESUSCITATION STATUS Discussed with patient. He has a living will; his daughter Buffy is an RN and is durable POA. He would like resuscitation attempted in the event of a cardiopulmonary arrest if there is a reasonable chance of a meaningful recovery, but does not want prolonged extraordinary measures if prognosis is poor. Therefore, code status = "Level 1" (full resuscitation). VTE PROPHYLAXIS High risk for VTE. SQ heparin with caution. MEDICAL RECONCILIATION Home medications uncertain- need to verify. Records from PCP and [facility] requested please confirm medication list prior to discharge DISPOSITION lives at home PT/OT anticipate d/c home when medically stable Current Inpatient Medications: Current Inpatient Medications Medications (Trade) Dose Ordered Sig/Marco A Route Start Time Stop Time Status Last Admin Dose Admin Acetaminophen (Tylenol Tab) 650 mg Q4 PRN PO 03/04/17 22:45 04/03/17 22:44 Alprazolam (Xanax Tab) 0.5 mg BID@0900,1600 PO 03/05/17 09:00 04/04/17 08:59 03/11/17 15:45 0.5 MG Alprazolam (Xanax Tab) 1 mg HS PO 03/05/17 21:00 04/04/17 20:59 03/10/17 21:16 1 MG Atorvastatin Calcium (Lipitor Tab) 40 mg DAILY PO 03/05/17 09:00 04/04/17 08:59 03/11/17 08:26 40 MG Budesonide (Pulmicort Respules 0.5MG/ 2ML Neb Soln) 0.5 mg BID INH 03/05/17 09:00 04/04/17 08:59 03/10/17 19:19 0.5 MG Clopidogrel Bisulfate (plAVix TAB) 75 mg DAILY PO 03/05/17 09:00 04/04/17 08:59 03/11/17 08:26 75 MG Folic Acid (Folvite Tab) 1 mg DAILY PO 03/05/17 09:00 04/04/17 08:59 03/11/17 08:26 1 MG Formoterol Fumarate (Perforomist 20MCG/2ML Neb Soln) 20 mcg Q12 INH 03/05/17 09:00 04/04/17 08:59 03/10/17 19:19 20 MCG Codeine Phosphate/ Guaifenesin (Robitussin-AC Sugar Free Syrup) 5 ml Q4H PRN PO 03/04/17 22:45 04/03/17 22:44 03/09/17 13:31 5 ML Heparin Sodium (Porcine) (Heparin Sq 5000 Unit/0.5ml) 5,000 unit Q12 SQ 03/05/17 09:00 04/04/17 08:59 03/11/17 08:29 5,000 UNIT Levalbuterol (Xopenex 0.63 Mg/ 3 Ml Neb) 0.63 mg Q6 PRN INH 03/04/17 22:45 04/03/17 22:44 Metoprolol Tartrate (Lopressor Tab) 25 mg BID PO 03/05/17 09:00 04/04/17 08:59 03/11/17 08:26 25 MG Ondansetron HCl (Zofran Inj) 4 mg Q6H PRN IV 03/04/17 22:45 04/03/17 22:44 03/11/17 11:55 4 MG Tamsulosin HCl (Flomax Cap) 0.4 mg DAILY PO 03/05/17 09:00 04/04/17 08:59 03/11/17 08:26 0.4 MG Lorazepam 0.5 mg/ Syringe 0.5 ml @ 0.5 mls/min Q6H PRN IV 03/05/17 02:15 04/04/17 02:14 03/05/17 03:09 0.5 MLS/MIN Lisinopril (Zestril Tab) 20 mg DAILY PO 03/05/17 09:00 04/04/17 08:59 03/11/17 08:26 20 MG Sucralfate (Carafate Tab) 1 gm ACHS PO 03/05/17 07:00 04/04/17 06:59 03/11/17 15:43 1 GM Lorazepam (Ativan Inj) 0.5 mg Q6H PRN IV 03/05/17 03:15 04/04/17 03:14 03/06/17 14:19 0.5 MG Tiotropium Carlton (Spiriva Handihaler Inhaler) 1 puff DAILY INH 03/06/17 09:00 04/05/17 08:59 03/11/17 10:13 1 PUFF Zolpidem Tartrate (Ambien Tab) 10 mg HS PRN PO 03/05/17 09:15 04/04/17 09:14 Pantoprazole Sodium 40 mg/ Syringe 10 ml @ 5 mls/min DAILY@ IV 03/05/17 21:00 04/04/17 20:59 03/11/17 08:25 5 MLS/MIN Heparin Sodium (Porcine) (Heparin 10 Unit/ ml 5 ml Flush) 5 ml PRN PRN FLUSH 03/05/17 17:15 04/04/17 17:14 03/11/17 04:31 5 ML Ipratropium Carlton (Atrovent 0.02% 0.5MG/2.5ML Neb) 0.5 mg Q6R INH 03/06/17 17:00 04/05/17 16:59 03/11/17 14:18 0.5 MG Levalbuterol (Xopenex 1.25MG/ 0.5ML Neb) 1.25 mg Q6R INH 03/06/17 17:00 04/05/17 16:59 03/11/17 14:18 1.25 MG Senna/Docusate Sodium (Senokot S Tab) 1 tab DAILY PRN PO 03/06/17 15:45 04/05/17 15:44 03/08/17 12:55 1 TAB Promethazine HCl 12.5 mg/Sodium Chloride 50.5 ml @ 204 mls/hr Q6H PRN IV 03/06/17 18:00 04/05/17 17:59 03/09/17 19:56 204 MLS/HR Aspirin (Ecotrin Tab) 81 mg QAM PO 03/08/17 09:00 04/07/17 08:59 03/11/17 08:26 81 MG Potassium Chloride (Klor-Con Tab) 40 meq ONE PO 03/07/17 09:45 04/06/17 09:44 03/07/17 12:22 40 MEQ Polyethylene (Miralax Powder Packet) 17 gm DAILY PRN PO 03/07/17 09:45 04/06/17 09:44 03/07/17 13:04 17 GM Morphine Sulfate (MoRPHine SULFATE INJ) 4 mg Q4H PRN IV 03/07/17 11:45 03/21/17 11:44 03/11/17 12:45 4 MG Senna/Docusate Sodium (Senokot S Tab) 1 tab QAM PO 03/08/17 09:00 04/07/17 08:59 03/11/17 08:27 1 TAB Lactulose (Chronulac Syrup) 30 gm Q6H PRN PO 03/08/17 14:00 04/07/17 13:59 03/09/17 09:09 30 GM Ceftriaxone Sodium 1 gm/ Dextrose 50 ml @ 100 mls/hr Q24H IV 03/09/17 10:00 03/16/17 09:59 03/11/17 10:13 100 MLS/HR Azithromycin 500 mg/Dextrose 255 ml @ 125 mls/hr DAILY IV 03/09/17 11:00 03/16/17 10:59 03/11/17 08:44 125 MLS/HR Furosemide (Lasix Tab) 40 mg DAILY PO 03/10/17 09:00 04/09/17 08:59 03/11/17 08:26 40 MG Metoclopramide HCl (Reglan Inj) 5 mg BID IV. 03/10/17 21:00 04/09/17 20:59 03/11/17 08:27 5 MG Methylprednisolone Sodium Succinate 40 mg/Syringe 0.64 ml @ 1.5 mls/min DAILY IV 03/11/17 09:00 04/06/17 12:59 03/11/17 08:25 1.5 MLS/MIN Morphine Sulfate (Ms Contin Tab) 60 mg TID PO 03/11/17 14:00 03/25/17 13:59 03/11/17 13:59 60 MG
[2017-03-12] VITALS (9 sets, daily range): BP systolic 120–143; BP diastolic 71–89; PULSE 72–96; TEMP 36.4–36.8; O2SAT 94–99
[2017-03-12] MEDS: LACTULOSE SYRUP 30 GM/45 ML UDP PO PRN (00:23)
[2017-03-12] MEDS: PROMETHAZINE HCL INJ 12.5 MG in SODIUM CHLORIDE 0.9% 50ML 50 ML IV PRN ×2 (00:23→09:04)
[2017-03-12] MEDS: IPRATROPIUM BROMIDE NEB SOLN 0.02% 2.5 ML VIAL INH SCH ×4 (01:57→19:18)
[2017-03-12] MEDS: LEVALBUTEROL 1.25MG/0.5ML NEB INH SCH ×4 (01:57→19:18)
[2017-03-12] MEDS: MoRPHine SULFATE 4 MG/ML 1 ML CARP\\VIAL IV PRN ×5 (02:36→23:58)
[2017-03-12 04:44] LABS: BUN/CREATININE RATIO 16.4 (10-20); CREATININE 0.67 mg/dl (0.60-1.40); POTASSIUM 2.9 mmol/L (3.5-5.1)
[2017-03-12] MEDS ORDERED: POTASSIUM CHLORIDE 10 MEQ TABCR PO STA (05:30)
[2017-03-12] MEDS: BUDESONIDE 0.5 MG/2 ML VIAL (PULMICORT) INH SCH ×2 (07:15→19:18)
[2017-03-12] MEDS: FORMOTEROL FUMA NEBULIZER SOLN 20 MCG/2 ML VIAL INH SCH ×2 (07:16→19:18)
[2017-03-12] MEDS ORDERED: POTASSIUM CHLORIDE 10 MEQ TABCR PO ONE (07:30)
[2017-03-12] MEDS: SUCRALFATE 1 GM TAB PO SCH ×4 (07:47→21:40)
[2017-03-12] MEDS: METOCLOPRAMIDE HCL INJ 5 MG/ML 2 ML VIAL IV. SCH ×2 (07:49→21:40)
[2017-03-12] MEDS: TIOTROPIUM BROMIDE 5 PUFF/90 MCG INH INH SCH (07:50)
[2017-03-12] MEDS: TAMSULOSIN HCL 0.4 MG CAP PO SCH (07:50)
[2017-03-12] MEDS: ASPIRIN 81 MG ECTAB PO SCH (07:50)
[2017-03-12] MEDS: METOPROLOL TARTRATE 25 MG TAB PO SCH ×2 (07:51→21:39)
[2017-03-12] MEDS: ATORVASTATIN 40 MG TAB PO SCH (07:51)
[2017-03-12] MEDS: CLOPIDOGREL BISULFATE 75 MG TAB PO SCH (07:51)
[2017-03-12] MEDS: FUROSEMIDE 40 MG TAB PO SCH (07:51)
[2017-03-12] MEDS: LISINOPRIL 20 MG TAB PO SCH (07:52)
[2017-03-12] MEDS: HEPARIN SOD 5000 UNIT/0.5 ML CARP SQ SCH ×2 (07:53→21:41)
[2017-03-12] MEDS: AZITHROMYCIN IV 500 MG in DEXTROSE 5% 250ML 250 ML IV SCH (07:54)
[2017-03-12] MEDS: METHYLPREDNISOLONE IV 40 MG in SYRINGE 0 ML IV SCH (07:55)
[2017-03-12] MEDS: PANTOprazole INJ 40 MG in SYRINGE 0 ML IV SCH ×2 (07:55→21:38)
[2017-03-12] MEDS: MoRPHine SULFATE CR 60 MG TAB (MS CONTIN) PO SCH ×3 (07:59→21:38)
[2017-03-12] MEDS: ALPRAZOLAM 0.5 MG TAB PO SCH ×3 (07:59→21:46)
[2017-03-12] MEDS ORDERED: BISACODYL 10 MG SUPP PR ONE (09:00)
[2017-03-12] MEDS: DOCUSATE SODIUM/SENNA 50/8.6MG TAB PO SCH (09:04)
[2017-03-12] MEDS: CEFTRIAXONE SOD INJ 1 GM in DEXTROSE 5% ADD-VANTAGE 50ML 50 ML IV SCH (09:09)
[2017-03-12] MEDS: MoRPHine SULFATE IR 15 MG TAB (IMMEDIATE RELEASE) PO PRN ×3 (10:00→21:40)
--- NOTE | 2017-03-12 10:20 | Pain Management Progress Note ---
Pain Management Progress Note Date of Service Mar 12, 2017. Subjective Mr. Sanon is a 71-year-old male who was admitted with initial abdominal pain, diagnosed with pneumonia currently on antibiotic therapy and found to have an alarming intrathecal pump which has been chronic use due to intractable back pain status post multiple surgical procedures with Akhtar rods. Patient likely experienced an acute withdrawal episode potentially leading to his admission at [facility] prior to being transferred to our facility. Patient has been utilizing IV morphine during this admission with moderate pain control and has been transitioned to MS Contin 60 mg 3 times a day yesterday. He is not experiencing any withdrawal type symptoms at this time. His intrathecal pump is in a minimal rate state due to end-of-life battery in which she is receiving hydromorphone 0.062 mg per day compared to his prior dose of 5 mg per day. Case has been discussed with his pain provider who cares for his intrathecal pump-Dr. Red. Patient indicates his axial back pain as ranging between a 4-8/10. He reports intrathecal pump had been providing improved pain control compared to his current oral/IV meds although has only been on MS Contin over the past 12 hours in an attempt to transition away from IV medications. Patient has discussed his care with his daughter and community director yesterday and they're wishing to assume ongoing care of his pump with potential replacement in the [place] area. Patient has no further constitutional complaints at this time. Plan of care discussed with Dr. Michelle Dumont. Objective Vital Signs: Last Vital Signs Documentation Date Time Temp Pulse Resp B/P (MAP) Pulse Ox O2 Delivery O2 Flow Rate FiO2 03/12/17 07:50 36.4 72 18 140/71 (94) 98 2.0 03/12/17 07:16 Nasal Cannula 03/10/17 04:15 95 Physical Exam: Gen.: Patient sitting quietly in exam room upon entering in no acute distress. Speech and thought process appropriate. Mood and affect appropriate. Cognition intact. Abdomen: Pump present in the left lower quadrant. Nontender to palpation. Neurologic: Cranial nerves grossly intact. Laboratory Laboratory Findings 03/07/17 07:35 Red Blood Count 3.88 L, Mean Corpuscular Volume 87.4, Mean Corpuscular Hemoglobin 29.6, Mean Corpuscular Hemoglobin Concent 33.9, Mean Platelet Volume 9.8, Neutrophils (%) (Auto) 88.0, Lymphocytes (%) (Auto) 7.9, Monocytes (%) ( Auto) 3.9, Eosinophils (%) (Auto) 0.0, Basophils (%) (Auto) 0.0, Neutrophils # ( Auto) 7.05 H, Lymphocytes # (Auto) 0.63 L, Monocytes # (Auto) 0.31, Eosinophils # (Auto) 0.00, Basophils # (Auto) 0.00 Assessment 1. Chronic intractable thoracolumbar back pain with history of intrathecal pump and catheter delivery system implantation with current intrathecal pump function 2. History of multiple thoracolumbar back surgeries 20+ with Akhtar luly placement 3. History of opiate dependency 4. Opiate induced constipation 5. Pneumonia/COPD exacerbation 6. CAD 7. Abdominal pain seconded to gastritis/PUD Recommendations 1. Will maintain MS Contin at 60 mg 3 times a day 2. Will initiate MSIR 15 mg every 4 hours for when necessary breakthrough pain and an attempt transition away from IV morphine for discharge planning 3. Will attempt to obtain records from Dr. Red for review. Initial plan would be to have the patient return to Dr. Red for pump implantation once the patient is medically stable. Case will be discussed further with Dr. Dumont/ Yoni prior to definitive decision making process at this time. 4. Will continue to follow
--- NOTE | 2017-03-12 12:38 | Gastroenterology Progress Note ---
Progress Note Date of Service: Mar 12, 2017 Subjective Pt evaluation today including: conversation w/ patient, physical exam, chart review, lab review, review of inpatient medication list Pt is having nausea and some vomiting today. Mild epigastric abd pain. He starting passing more flatus but no BMs yet. He noticed IV medication is helping most w his nausea (checked w RN, it's the phenergan). Review of Systems Constitutional: No fever, No chills Respiratory: No cough, No shortness of breath Abdomen: + see HPI, + pain, + nausea, + vomiting, + constipation Medications Current Inpatient Medications Medications (Trade) Dose Ordered Sig/Marco A Route Start Time Stop Time Status Last Admin Dose Admin Acetaminophen (Tylenol Tab) 650 mg Q4 PRN PO 03/04/17 22:45 04/03/17 22:44 Alprazolam (Xanax Tab) 0.5 mg BID@0900,1600 PO 03/05/17 09:00 04/04/17 08:59 03/12/17 07:59 0.5 MG Alprazolam (Xanax Tab) 1 mg HS PO 03/05/17 21:00 04/04/17 20:59 03/11/17 20:35 1 MG Atorvastatin Calcium (Lipitor Tab) 40 mg DAILY PO 03/05/17 09:00 04/04/17 08:59 03/12/17 07:51 40 MG Budesonide (Pulmicort Respules 0.5MG/ 2ML Neb Soln) 0.5 mg BID INH 03/05/17 09:00 04/04/17 08:59 03/12/17 07:15 0.5 MG Clopidogrel Bisulfate (plAVix TAB) 75 mg DAILY PO 03/05/17 09:00 04/04/17 08:59 03/12/17 07:51 75 MG Folic Acid (Folvite Tab) 1 mg DAILY PO 03/05/17 09:00 04/04/17 08:59 03/12/17 09:04 1 MG Formoterol Fumarate (Perforomist 20MCG/2ML Neb Soln) 20 mcg Q12 INH 03/05/17 09:00 04/04/17 08:59 03/12/17 07:16 20 MCG Codeine Phosphate/ Guaifenesin (Robitussin-AC Sugar Free Syrup) 5 ml Q4H PRN PO 03/04/17 22:45 04/03/17 22:44 03/09/17 13:31 5 ML Heparin Sodium (Porcine) (Heparin Sq 5000 Unit/0.5ml) 5,000 unit Q12 SQ 03/05/17 09:00 04/04/17 08:59 03/12/17 07:53 5,000 UNIT Levalbuterol (Xopenex 0.63 Mg/ 3 Ml Neb) 0.63 mg Q6 PRN INH 03/04/17 22:45 04/03/17 22:44 Metoprolol Tartrate (Lopressor Tab) 25 mg BID PO 03/05/17 09:00 04/04/17 08:59 03/12/17 07:51 25 MG Ondansetron HCl (Zofran Inj) 4 mg Q6H PRN IV 03/04/17 22:45 04/03/17 22:44 03/11/17 20:35 4 MG Tamsulosin HCl (Flomax Cap) 0.4 mg DAILY PO 03/05/17 09:00 04/04/17 08:59 03/12/17 07:50 0.4 MG Lorazepam 0.5 mg/ Syringe 0.5 ml @ 0.5 mls/min Q6H PRN IV 03/05/17 02:15 04/04/17 02:14 03/05/17 03:09 0.5 MLS/MIN Lisinopril (Zestril Tab) 20 mg DAILY PO 03/05/17 09:00 04/04/17 08:59 03/12/17 07:52 20 MG Sucralfate (Carafate Tab) 1 gm ACHS PO 03/05/17 07:00 04/04/17 06:59 03/12/17 11:04 1 GM Lorazepam (Ativan Inj) 0.5 mg Q6H PRN IV 03/05/17 03:15 04/04/17 03:14 03/06/17 14:19 0.5 MG Tiotropium [place] (Spiriva Handihaler Inhaler) 1 puff DAILY INH 03/06/17 09:00 04/05/17 08:59 03/12/17 07:50 1 PUFF Zolpidem Tartrate (Ambien Tab) 10 mg HS PRN PO 03/05/17 09:15 04/04/17 09:14 Pantoprazole Sodium 40 mg/ Syringe 10 ml @ 5 mls/min DAILY@ IV 03/05/17 21:00 04/04/17 20:59 03/12/17 07:55 5 MLS/MIN Heparin Sodium (Porcine) (Heparin 10 Unit/ ml 5 ml Flush) 5 ml PRN PRN FLUSH 03/05/17 17:15 04/04/17 17:14 03/12/17 11:40 10 ML Ipratropium [place] (Atrovent 0.02% 0.5MG/2.5ML Neb) 0.5 mg Q6R INH 03/06/17 17:00 04/05/17 16:59 03/12/17 07:15 0.5 MG Levalbuterol (Xopenex 1.25MG/ 0.5ML Neb) 1.25 mg Q6R INH 03/06/17 17:00 04/05/17 16:59 03/12/17 07:15 1.25 MG Senna/Docusate Sodium (Senokot S Tab) 1 tab DAILY PRN PO 03/06/17 15:45 04/05/17 15:44 03/08/17 12:55 1 TAB Promethazine HCl 12.5 mg/Sodium Chloride 50.5 ml @ 204 mls/hr Q6H PRN IV 03/06/17 18:00 04/05/17 17:59 03/12/17 09:04 204 MLS/HR Aspirin (Ecotrin Tab) 81 mg QAM PO 03/08/17 09:00 04/07/17 08:59 03/12/17 07:50 81 MG Potassium Chloride (Klor-Con Tab) 40 meq ONE PO 03/07/17 09:45 04/06/17 09:44 03/07/17 12:22 40 MEQ Polyethylene (Miralax Powder Packet) 17 gm DAILY PRN PO 03/07/17 09:45 04/06/17 09:44 03/07/17 13:04 17 GM Morphine Sulfate (MoRPHine SULFATE INJ) 4 mg Q4H PRN IV 03/07/17 11:45 03/21/17 11:44 03/12/17 11:42 4 MG Senna/Docusate Sodium (Senokot S Tab) 1 tab QAM PO 03/08/17 09:00 04/07/17 08:59 03/12/17 09:04 1 TAB Lactulose (Chronulac Syrup) 30 gm Q6H PRN PO 03/08/17 14:00 04/07/17 13:59 03/12/17 00:23 30 GM Ceftriaxone Sodium 1 gm/ Dextrose 50 ml @ 100 mls/hr Q24H IV 03/09/17 10:00 03/16/17 09:59 03/12/17 09:09 100 MLS/HR Azithromycin 500 mg/Dextrose 255 ml @ 125 mls/hr DAILY IV 03/09/17 11:00 03/16/17 10:59 03/12/17 07:54 125 MLS/HR Furosemide (Lasix Tab) 40 mg DAILY PO 03/10/17 09:00 04/09/17 08:59 03/12/17 07:51 40 MG Metoclopramide HCl (Reglan Inj) 5 mg BID IV. 03/10/17 21:00 04/09/17 20:59 03/12/17 07:49 5 MG Methylprednisolone Sodium Succinate 40 mg/Syringe 0.64 ml @ 1.5 mls/min DAILY IV 03/11/17 09:00 04/06/17 12:59 03/12/17 07:55 1.5 MLS/MIN Morphine Sulfate (Ms Contin Tab) 60 mg TID PO 03/11/17 14:00 03/25/17 13:59 03/12/17 07:59 60 MG Potassium Chloride (Klor-Con Tab) 20 meq BID17 PO 03/13/17 09:00 04/12/17 08:59 Morphine Sulfate (MoRPHine SULFATE IR TAB) 15 mg Q4H PRN PO 03/12/17 07:45 03/26/17 07:44 03/12/17 10:00 15 MG Objective Vital Signs Date Time Temp Pulse Resp B/P (MAP) Pulse Ox O2 Delivery O2 Flow Rate FiO2 03/12/17 11:37 36.8 82 18 138/72 (94) 96 2.0 03/12/17 08:00 Nasal Cannula 2.5 03/12/17 07:50 36.4 72 18 140/71 (94) 98 2.0 03/12/17 07:16 78 18 99 Nasal Cannula 2.5 03/12/17 04:00 Nasal Cannula 2.0 03/12/17 03:55 36.5 76 20 120/76 (91) 98 Nasal Cannula 2.0 03/11/17 23:59 Nasal Cannula 2.0 03/11/17 23:40 36.5 74 20 120/75 (90) 98 Nasal Cannula 2.0 03/11/17 20:00 Nasal Cannula 3.0 03/11/17 19:52 87 18 98 Nasal Cannula 2.5 03/11/17 19:14 36.6 96 21 100/60 (73) 96 Nasal Cannula 3.0 03/11/17 16:00 Nasal Cannula 3.0 03/11/17 15:34 36.8 91 22 134/79 (97) 95 Nasal Cannula 3.0 03/11/17 14:23 102 20 98 Nasal Cannula 2.5 Physical Exam General Appearance: WD/WN, no apparent distress Eyes: normal inspection, PERRL, EOMI Neck: supple, no JVD, trachea midline Respiratory/Chest: + decreased breath sounds, + rhonchi Cardiovascular: regular rate, rhythm, no gallop, no murmur Abdomen: soft, + abnormal bowel sounds (hypoactive), + tenderness (epigastric ) Extremities: no pedal edema, + pertinent finding (L BKA) Neurologic/Psych: alert, normal mood/affect, oriented x 3 Skin: normal color, no jaundice, no rash Laboratory Results Last 24 Hours Test 03/12/17 04:14 Sodium Level 142 mmol/L Potassium Level 2.9 mmol/L Chloride Level 103 mmol/L Carbon Dioxide Level 34 mmol/L Anion Gap 5.0 mmol/L Blood Urea Nitrogen 11 mg/dl Creatinine 0.67 mg/dl Est Creatinine Clear Calc Drug Dose 115.6 ml/min Estimated GFR () 112.0 Estimated GFR (Non- 96.7 BUN/Creatinine Ratio 16.4 Random Glucose 103 mg/dl Calcium Level 8.0 mg/dl Magnesium Level 2.1 mg/dl Assessment and Plan Pt is a 71 y/o male currently admitted for pneumonia, suspected TIA, seen by GI for n/v, epigastric pain. EGD on 03/10 showed antral gastritis, hiatal hernia. Suspected symptoms related to gastroparesis given meds he's on. He was started on Reglan 5mg IV BID x 2 days. He was also seen by Pain Management yesterday, pain pump interrogated, showed that it's malfunctioned. Suspected he was having narcotic withdrawal symptoms. He is c/o nausea, but no vomiting, on CL diet still, denies abd pain. Is having constipation - Continue Reglan 5mg IV till today - May repeat Relistor again tomorrow if no BMs. Will add Bisacodyl 10mg OH today. - Will sign off, call if new questions/concerns arise. Attg add: I reviewed chart and labs. His nausea is improved, although still present. Suspect narcotic bowel - Cont current regimen as above.
--- NOTE | 2017-03-12 18:54 | Progress Note ---
Subjective Date of Service: Mar 12, 2017. Subjective Pt evaluation today including: conversation w/ patient, physical exam, lab review, review of studies, review of inpatient medication list Saw/examined the patient in room 238 He is doing okay today; pain persists, pain medications adjusted and he is stating that that is helping somewhat Tells me about his pump malfunctioning +constipation Problem List Medical Problems: (1) Bronchiectasis Status: Chronic (2) COPD (chronic obstructive pulmonary disease) Status: Chronic Review of Systems Constitutional: No fever, No chills Abdomen: + constipation, No pain, No nausea, No vomiting, No diarrhea Musculoskeletal: + joint pain, + muscle pain (back pain) Medications Current Inpatient Medications Medications (Trade) Dose Ordered Sig/Marco A Route Start Time Stop Time Status Last Admin Dose Admin Acetaminophen (Tylenol Tab) 650 mg Q4 PRN PO 03/04/17 22:45 04/03/17 22:44 Alprazolam (Xanax Tab) 0.5 mg BID@0900,1600 PO 03/05/17 09:00 04/04/17 08:59 03/12/17 16:33 0.5 MG Alprazolam (Xanax Tab) 1 mg HS PO 03/05/17 21:00 04/04/17 20:59 03/11/17 20:35 1 MG Atorvastatin Calcium (Lipitor Tab) 40 mg DAILY PO 03/05/17 09:00 04/04/17 08:59 03/12/17 07:51 40 MG Budesonide (Pulmicort Respules 0.5MG/ 2ML Neb Soln) 0.5 mg BID INH 03/05/17 09:00 04/04/17 08:59 03/12/17 07:15 0.5 MG Clopidogrel Bisulfate (plAVix TAB) 75 mg DAILY PO 03/05/17 09:00 04/04/17 08:59 03/12/17 07:51 75 MG Folic Acid (Folvite Tab) 1 mg DAILY PO 03/05/17 09:00 04/04/17 08:59 03/12/17 09:04 1 MG Formoterol Fumarate (Perforomist 20MCG/2ML Neb Soln) 20 mcg Q12 INH 03/05/17 09:00 04/04/17 08:59 03/12/17 07:16 20 MCG Codeine Phosphate/ Guaifenesin (Robitussin-AC Sugar Free Syrup) 5 ml Q4H PRN PO 03/04/17 22:45 04/03/17 22:44 03/09/17 13:31 5 ML Heparin Sodium (Porcine) (Heparin Sq 5000 Unit/0.5ml) 5,000 unit Q12 SQ 03/05/17 09:00 04/04/17 08:59 03/12/17 07:53 5,000 UNIT Levalbuterol (Xopenex 0.63 Mg/ 3 Ml Neb) 0.63 mg Q6 PRN INH 03/04/17 22:45 04/03/17 22:44 Metoprolol Tartrate (Lopressor Tab) 25 mg BID PO 03/05/17 09:00 04/04/17 08:59 03/12/17 07:51 25 MG Ondansetron HCl (Zofran Inj) 4 mg Q6H PRN IV 03/04/17 22:45 04/03/17 22:44 03/11/17 20:35 4 MG Tamsulosin HCl (Flomax Cap) 0.4 mg DAILY PO 03/05/17 09:00 04/04/17 08:59 03/12/17 07:50 0.4 MG Lorazepam 0.5 mg/ Syringe 0.5 ml @ 0.5 mls/min Q6H PRN IV 03/05/17 02:15 04/04/17 02:14 03/05/17 03:09 0.5 MLS/MIN Lisinopril (Zestril Tab) 20 mg DAILY PO 03/05/17 09:00 04/04/17 08:59 03/12/17 07:52 20 MG Sucralfate (Carafate Tab) 1 gm ACHS PO 03/05/17 07:00 04/04/17 06:59 03/12/17 16:34 1 GM Lorazepam (Ativan Inj) 0.5 mg Q6H PRN IV 03/05/17 03:15 04/04/17 03:14 03/06/17 14:19 0.5 MG Tiotropium [place] (Spiriva Handihaler Inhaler) 1 puff DAILY INH 03/06/17 09:00 04/05/17 08:59 03/12/17 07:50 1 PUFF Zolpidem Tartrate (Ambien Tab) 10 mg HS PRN PO 03/05/17 09:15 04/04/17 09:14 Pantoprazole Sodium 40 mg/ Syringe 10 ml @ 5 mls/min DAILY@ IV 03/05/17 21:00 04/04/17 20:59 03/12/17 07:55 5 MLS/MIN Heparin Sodium (Porcine) (Heparin 10 Unit/ ml 5 ml Flush) 5 ml PRN PRN FLUSH 03/05/17 17:15 04/04/17 17:14 03/12/17 11:40 10 ML Ipratropium [place] (Atrovent 0.02% 0.5MG/2.5ML Neb) 0.5 mg Q6R INH 03/06/17 17:00 04/05/17 16:59 03/12/17 14:17 0.5 MG Levalbuterol (Xopenex 1.25MG/ 0.5ML Neb) 1.25 mg Q6R INH 03/06/17 17:00 04/05/17 16:59 03/12/17 14:17 1.25 MG Senna/Docusate Sodium (Senokot S Tab) 1 tab DAILY PRN PO 03/06/17 15:45 04/05/17 15:44 03/08/17 12:55 1 TAB Promethazine HCl 12.5 mg/Sodium Chloride 50.5 ml @ 204 mls/hr Q6H PRN IV 03/06/17 18:00 04/05/17 17:59 03/12/17 09:04 204 MLS/HR Aspirin (Ecotrin Tab) 81 mg QAM PO 03/08/17 09:00 04/07/17 08:59 03/12/17 07:50 81 MG Potassium Chloride (Klor-Con Tab) 40 meq ONE PO 03/07/17 09:45 04/06/17 09:44 03/07/17 12:22 40 MEQ Polyethylene (Miralax Powder Packet) 17 gm DAILY PRN PO 03/07/17 09:45 04/06/17 09:44 03/07/17 13:04 17 GM Morphine Sulfate (MoRPHine SULFATE INJ) 4 mg Q4H PRN IV 03/07/17 11:45 03/21/17 11:44 03/12/17 11:42 4 MG Senna/Docusate Sodium (Senokot S Tab) 1 tab QAM PO 03/08/17 09:00 04/07/17 08:59 03/12/17 09:04 1 TAB Lactulose (Chronulac Syrup) 30 gm Q6H PRN PO 03/08/17 14:00 04/07/17 13:59 03/12/17 00:23 30 GM Ceftriaxone Sodium 1 gm/ Dextrose 50 ml @ 100 mls/hr Q24H IV 03/09/17 10:00 03/16/17 09:59 03/12/17 09:09 100 MLS/HR Azithromycin 500 mg/Dextrose 255 ml @ 125 mls/hr DAILY IV 03/09/17 11:00 03/16/17 10:59 03/12/17 07:54 125 MLS/HR Furosemide (Lasix Tab) 40 mg DAILY PO 03/10/17 09:00 04/09/17 08:59 03/12/17 07:51 40 MG Metoclopramide HCl (Reglan Inj) 5 mg BID IV. 03/10/17 21:00 04/09/17 20:59 03/12/17 07:49 5 MG Methylprednisolone Sodium Succinate 40 mg/Syringe 0.64 ml @ 1.5 mls/min DAILY IV 03/11/17 09:00 04/06/17 12:59 03/12/17 07:55 1.5 MLS/MIN Morphine Sulfate (Ms Contin Tab) 60 mg TID PO 03/11/17 14:00 03/25/17 13:59 03/12/17 14:08 60 MG Potassium Chloride (Klor-Con Tab) 20 meq BID17 PO 03/13/17 09:00 04/12/17 08:59 Morphine Sulfate (MoRPHine SULFATE IR TAB) 15 mg Q4H PRN PO 03/12/17 07:45 03/26/17 07:44 03/12/17 16:33 15 MG Objective Vital Signs Date Time Temp Pulse Resp B/P (MAP) Pulse Ox O2 Delivery O2 Flow Rate FiO2 03/12/17 16:00 Nasal Cannula 2.5 03/12/17 15:50 36.8 96 18 143/76 (98) 96 2.0 03/12/17 14:17 78 18 96 Nasal Cannula 2.5 03/12/17 12:00 Nasal Cannula 2.5 03/12/17 11:37 36.8 82 18 138/72 (94) 96 2.0 03/12/17 08:00 Nasal Cannula 2.5 03/12/17 07:50 36.4 72 18 140/71 (94) 98 2.0 03/12/17 07:16 78 18 99 Nasal Cannula 2.5 03/12/17 04:00 Nasal Cannula 2.0 03/12/17 03:55 36.5 76 20 120/76 (91) 98 Nasal Cannula 2.0 03/11/17 23:59 Nasal Cannula 2.0 03/11/17 23:40 36.5 74 20 120/75 (90) 98 Nasal Cannula 2.0 03/11/17 20:00 Nasal Cannula 3.0 03/11/17 19:52 87 18 98 Nasal Cannula 2.5 03/11/17 19:14 36.6 96 21 100/60 (73) 96 Nasal Cannula 3.0 Physical Exam General Appearance: no apparent distress Respiratory/Chest: lungs clear, normal breath sounds, no respiratory distress, no accessory muscle use Cardiovascular: regular rate, rhythm, no edema, no murmur Abdomen: + distended, + pertinent finding Extremities: no pedal edema Laboratory Results Last 24 Hours Test 03/12/17 04:14 Sodium Level 142 mmol/L Potassium Level 2.9 mmol/L Chloride Level 103 mmol/L Carbon Dioxide Level 34 mmol/L Anion Gap 5.0 mmol/L Blood Urea Nitrogen 11 mg/dl Creatinine 0.67 mg/dl Est Creatinine Clear Calc Drug Dose 115.6 ml/min Estimated GFR () 112.0 Estimated GFR (Non- 96.7 BUN/Creatinine Ratio 16.4 Random Glucose 103 mg/dl Calcium Level 8.0 mg/dl Magnesium Level 2.1 mg/dl Assessment and Plan ABDOMINAL PAIN, POSSIBLE GASTRITIS, PUD 03/12 likely narcotic bowel Relistor in AM continue Reglan and other medications as per GI appreciate input from GI Severe epigastric pain x several days. No apparent acute findings on CT of abdomen and pelvis at [facility]. -- s/p EGD 03/10/[address] Salinas (+) hiatal hernia with gastritis -- on PPI, Sucralfate -- added Reglan IV BID 03/10 added Relistor 03/11 -- full liquids ordered will monitor appreciate GI SVC consult PNEUMONIA, COPD EXACERBATION 03/12 continue abx. for now, he feels better, no breathing issues today Episode of vomiting, but no apparent aspiration. CT of abdomen and pelvis suggested bibasilar infiltrates. -- further improving now 98%2 L o2 sputum cultures: E COLI, sensitive to Cefti, resistant to Levaquin -- changed Levaquin to Ceftri + Azithro Day 3 taper Solumedrol, Nebs q6h -- patient requesting referral to [facility] upon discharge -- follow Speech therapy evaluation 1. Clear liquids diet. Advance to "slippery" as tolerated. 2. Aspiration and GERD precautions, straws OK. Fully upright for meals and for 30 minutes after meals. Head of bed to be elevated to 30 degrees at all times, to include while asleep. NEURO SYMPTOMS 2 episodes of apparent expressive aphasia, one episode possibly associated with left facial palsy. Suspected TIA. Possible seizure (history of seizure disorder, but apparently no longer taking phenytoin). CT head negative at [facility]. MRI cannot be performed (? intrathecal pump). Carotid duplex showed < 50% stenosis of ICA's. repeat CT head: no acute process CT angio head: unrevealing Echo: -- Conclusions -- * There is mild concentric left ventricular hypertrophy. * There is a moderate sized septal wall motion abnormality with moderate hypokinesis of the septal segments. * Otherwise there is mild global hypokinesis * Left ventricular systolic function is moderately reduced. * The LV Ejection Fraction = 35-40%. * The right ventricle is grossly normal size. * The right ventricular systolic function is normal. * Grade I diastolic dysfunction, (abnormal relaxation pattern). EEG: unrevealing -- on Plavix, Aspirin monitor as patient having GI symptoms -- Neuro consulted appreciate the input -- no recurrence of symptoms CHRONIC BACK PAIN -- has an intrathecal pump with Dilaudid, Clonidine and Bupivacaine for years -- few days ago, (+) breakthrough pain discussed with Dr. Red- Pain Management SVC of patient per his request recommend PRN Morphine and Dilaudid--> pain much improved -- (+) alarm sound heard from site of pain medicine pump consulted Pain Management SVC pain medicine pump operating on safe mode due to low batter, delivering decreased doses they discussed with patient's spray painter Dr Clark in [place], plan is to transition to MS contin for now, then change battery as an outpatient with Dr. Red patient and daughter inquiring with spray painter if they can change battery here, will discuss with pain management SVC CORONARY ARTERY DISEASE No anginal symptoms. No acute EKG changes. CHF -- Lasix resumed euvolemic monitor volume status RESUSCITATION STATUS Discussed with patient. He has a living will; his daughter Buffy is an RN and is durable POA. He would like resuscitation attempted in the event of a cardiopulmonary arrest if there is a reasonable chance of a meaningful recovery, but does not want prolonged extraordinary measures if prognosis is poor. Therefore, code status = "Level 1" (full resuscitation). VTE PROPHYLAXIS High risk for VTE. SQ heparin with caution. MEDICAL RECONCILIATION Home medications uncertain- need to verify. Records from PCP and [facility] requested please confirm medication list prior to discharge DISPOSITION lives at home PT/OT anticipate d/c home when medically stable
[2017-03-12] MEDS: ZOLPIDEM TARTRATE 10 MG TAB PO PRN (23:57)
[2017-03-13] VITALS (10 sets, daily range): BP systolic 105–172; BP diastolic 58–83; PULSE 81–105; TEMP 36.5–37.1; O2SAT 95–100
[2017-03-13] MEDS: PROMETHAZINE HCL INJ 12.5 MG in SODIUM CHLORIDE 0.9% 50ML 50 ML IV PRN ×3 (03:26→19:01)
[2017-03-13] MEDS: MoRPHine SULFATE 4 MG/ML 1 ML CARP\\VIAL IV PRN ×3 (04:12→16:56)
[2017-03-13 04:32] LABS: HEMATOCRIT 33.9 % (42-52); MEAN CELL VOLUME 88.7 fL (80-100); MEAN CORPUSCULAR HEMOGLOBIN 28.3 pg (25-34); MEAN CORPUSCULAR HGB CONC 31.9 g/dl (32-36); PLATELET COUNT 204 K/uL (130-400); RED BLOOD COUNT 3.82 M/uL (4.7-6.1); WHITE BLOOD COUNT 9.36 K/uL (4.8-10.8)
[2017-03-13 04:47] LABS: BUN/CREATININE RATIO 11.9 (10-20); CALCIUM 7.9 mg/dl (8.5-10.1); CREATININE 0.62 mg/dl (0.60-1.40); POTASSIUM 3.1 mmol/L (3.5-5.1)
[2017-03-13] MEDS ORDERED: POTASSIUM CHLORIDE 10 MEQ TABCR PO STA (05:57)
[2017-03-13] MEDS: FORMOTEROL FUMA NEBULIZER SOLN 20 MCG/2 ML VIAL INH SCH ×2 (07:38→20:20)
[2017-03-13] MEDS: IPRATROPIUM BROMIDE NEB SOLN 0.02% 2.5 ML VIAL INH SCH ×3 (07:38→20:20)
[2017-03-13] MEDS: LEVALBUTEROL 1.25MG/0.5ML NEB INH SCH ×3 (07:38→20:21)
[2017-03-13] MEDS: BUDESONIDE 0.5 MG/2 ML VIAL (PULMICORT) INH SCH ×2 (07:38→20:00)
[2017-03-13] MEDS ORDERED: POTASSIUM CHLR 20 MEQ / WTR 20 MEQ in PREMIXED WATER 100 ML IV STA (07:50)
[2017-03-13] MEDS: SUCRALFATE 1 GM TAB PO SCH ×4 (08:42→20:33)
[2017-03-13] MEDS: PANTOprazole INJ 40 MG in SYRINGE 0 ML IV SCH ×2 (08:42→20:47)
[2017-03-13] MEDS: METHYLPREDNISOLONE IV 40 MG in SYRINGE 0 ML IV SCH (08:42)
[2017-03-13] MEDS: FUROSEMIDE 40 MG TAB PO SCH (08:43)
[2017-03-13] MEDS: POTASSIUM CHLORIDE 20 MEQ TABCR PO SCH ×2 (08:43→16:55)
[2017-03-13] MEDS: CLOPIDOGREL BISULFATE 75 MG TAB PO SCH (08:44)
[2017-03-13] MEDS: TIOTROPIUM BROMIDE 5 PUFF/90 MCG INH INH SCH (08:44)
[2017-03-13] MEDS: TAMSULOSIN HCL 0.4 MG CAP PO SCH (08:44)
[2017-03-13] MEDS: LISINOPRIL 20 MG TAB PO SCH (08:44)
[2017-03-13] MEDS: ASPIRIN 81 MG ECTAB PO SCH (08:45)
[2017-03-13] MEDS: ATORVASTATIN 40 MG TAB PO SCH (08:45)
[2017-03-13] MEDS: DOCUSATE SODIUM/SENNA 50/8.6MG TAB PO SCH (08:45)
[2017-03-13] MEDS: METOPROLOL TARTRATE 25 MG TAB PO SCH ×2 (08:45→20:32)
[2017-03-13] MEDS: LACTULOSE SYRUP 30 GM/45 ML UDP PO PRN (08:46)
[2017-03-13] MEDS: HEPARIN SOD 5000 UNIT/0.5 ML CARP SQ SCH ×2 (08:52→20:58)
[2017-03-13] MEDS: ALPRAZOLAM 0.5 MG TAB PO SCH ×3 (08:55→20:33)
[2017-03-13] MEDS: MoRPHine SULFATE CR 60 MG TAB (MS CONTIN) PO SCH (09:01)
[2017-03-13] MEDS: CEFTRIAXONE SOD INJ 1 GM in DEXTROSE 5% ADD-VANTAGE 50ML 50 ML IV SCH (09:15)
[2017-03-13] MEDS: MoRPHine SULFATE IR 15 MG TAB (IMMEDIATE RELEASE) PO PRN ×2 (09:15→19:08)
[2017-03-13] MEDS: AZITHROMYCIN IV 500 MG in DEXTROSE 5% 250ML 250 ML IV SCH (09:16)
[2017-03-13] MEDS: METOCLOPRAMIDE HCL INJ 5 MG/ML 2 ML VIAL IV. SCH ×2 (09:16→20:32)
--- NOTE | 2017-03-13 10:00 | Pain Management Progress Note ---
Pain Management Progress Note Date of Service Mar 13, 2017. Subjective Mr. Sanon is a 71 year old white male that has been diagnosed with pneumonia and acute intrathecal pump failure. Patient is receiving ABX for pneumonia. He does continue to experience shortness of breath today and occasional coughing. He is still reporting thoracolumbar pain that is not well controlled with the current MS Contin 60mg TID and MS IR 15mg x 4 hrs. He does continue to use IV Morphine as it is providing longer relief than the oral medications. There is difficulty with ambulation due to the pain. Patient denies any leg weakness, bowel/bladder incontinence. + mild nausea this morning. Case discussed with Dr. Dumont Objective Vital Signs: Last Vital Signs Documentation Date Time Temp Pulse Resp B/P (MAP) Pulse Ox O2 Delivery O2 Flow Rate FiO2 03/13/17 07:38 105 18 95 Nasal Cannula 2.5 03/13/17 07:37 36.5 135/71 (92) 03/10/17 04:15 95 Physical Exam: GENERAL: Mr. Sanon is a 78-year-old white male that appears his stated age. Speech and cognition is intact. Mood and affect is appropriate. He is lying in the hospital bed, in no acute distress. NEURO: Cranial nerves grossly intact. Gait not observed. Laboratory Laboratory Findings 03/13/17 04:10 Assessment 1. Chronic intractable thoracolumbar back pain with history of intrathecal pump and catheter delivery system implantation with current intrathecal pump function 2. History of multiple thoracolumbar back surgeries 20+ with Akhtar luly placement 3. History of opiate dependency 4. Opiate induced constipation 5. Pneumonia/COPD exacerbation 6. CAD 7. Abdominal pain seconded to gastritis/PUD Recommendations 1. Will increase MS Contin to 90mg TID for increased pain relief. 2. Maintain MS IR 15mg x 4 hours PRN breakthrough pain. 3. Patient will follow up with Dr. Red on an outpatient basis regarding intrathecal pump replacement. 4. Continue IV Morphine for breakthrough pain relief.
[2017-03-13] MEDS: MoRPHine SULFATE CR 15 MG TAB (MS CONTIN) PO SCH ×2 (13:51→20:33)
--- NOTE | 2017-03-13 14:27 | Progress Note ---
Progress Note Date of Service Mar 13, 2017. Progress Note Chart reviewed - per nursing notes, pt consumed 100% of lunch, currently receiving normal diet. Suspect narcotic bowel. Symptoms appear improved. Please continue Reglan PO twice daily for 2-3 weeks course, then d.c. Please continue bowel regimen. No need for f/u in GI clinic - can f/u with PCP, but please reconsult if needed. Will sign off.
[2017-03-13] MEDS: ZOLPIDEM TARTRATE 10 MG TAB PO PRN (20:33)
[2017-03-14] VITALS (9 sets, daily range): BP systolic 105–154; BP diastolic 61–101; PULSE 73–151; TEMP 36.4–36.8; O2SAT 95–100
[2017-03-14] MEDS: MoRPHine SULFATE 4 MG/ML 1 ML CARP\\VIAL IV PRN (00:17)
[2017-03-14] MEDS: IPRATROPIUM BROMIDE NEB SOLN 0.02% 2.5 ML VIAL INH SCH ×4 (02:06→20:03)
[2017-03-14] MEDS: LEVALBUTEROL 1.25MG/0.5ML NEB INH SCH ×4 (02:06→20:04)
[2017-03-14] MEDS: MoRPHine SULFATE IR 15 MG TAB (IMMEDIATE RELEASE) PO PRN ×2 (02:27→15:28)
[2017-03-14] MEDS: BUDESONIDE 0.5 MG/2 ML VIAL (PULMICORT) INH SCH ×2 (07:01→20:03)
[2017-03-14] MEDS: FORMOTEROL FUMA NEBULIZER SOLN 20 MCG/2 ML VIAL INH SCH ×2 (07:01→20:03)
[2017-03-14] MEDS: SUCRALFATE 1 GM TAB PO SCH ×4 (07:33→21:07)
--- NOTE | 2017-03-14 07:48 | Progress Note ---
Subjective Date of Service: Mar 13, 2017. Subjective Pt evaluation today including: conversation w/ patient, physical exam, lab review, review of studies, review of inpatient medication list Saw/examined the patient in room 238 He's doing okay Pain controlled Nausea persists Problem List Medical Problems: (1) Bronchiectasis Status: Chronic (2) COPD (chronic obstructive pulmonary disease) Status: Chronic Review of Systems Respiratory: No shortness of breath Cardiac: No chest pain Abdomen: + pain, + nausea, + vomiting, No diarrhea, No constipation, No GI bleeding Medications Current Inpatient Medications Medications (Trade) Dose Ordered Sig/Marco A Route Start Time Stop Time Status Last Admin Dose Admin Acetaminophen (Tylenol Tab) 650 mg Q4 PRN PO 03/04/17 22:45 04/03/17 22:44 Alprazolam (Xanax Tab) 0.5 mg BID@0900,1600 PO 03/05/17 09:00 04/04/17 08:59 03/13/17 16:55 0.5 MG Alprazolam (Xanax Tab) 1 mg HS PO 03/05/17 21:00 04/04/17 20:59 03/13/17 20:33 1 MG Atorvastatin Calcium (Lipitor Tab) 40 mg DAILY PO 03/05/17 09:00 04/04/17 08:59 03/13/17 08:45 40 MG Budesonide (Pulmicort Respules 0.5MG/ 2ML Neb Soln) 0.5 mg BID INH 03/05/17 09:00 04/04/17 08:59 03/14/17 07:01 0.5 MG Clopidogrel Bisulfate (plAVix TAB) 75 mg DAILY PO 03/05/17 09:00 04/04/17 08:59 03/13/17 08:44 75 MG Folic Acid (Folvite Tab) 1 mg DAILY PO 03/05/17 09:00 04/04/17 08:59 03/13/17 08:44 1 MG Formoterol Fumarate (Perforomist 20MCG/2ML Neb Soln) 20 mcg Q12 INH 03/05/17 09:00 04/04/17 08:59 03/14/17 07:01 20 MCG Codeine Phosphate/ Guaifenesin (Robitussin-AC Sugar Free Syrup) 5 ml Q4H PRN PO 03/04/17 22:45 04/03/17 22:44 03/09/17 13:31 5 ML Heparin Sodium (Porcine) (Heparin Sq 5000 Unit/0.5ml) 5,000 unit Q12 SQ 03/05/17 09:00 04/04/17 08:59 03/13/17 20:58 5,000 UNIT Levalbuterol (Xopenex 0.63 Mg/ 3 Ml Neb) 0.63 mg Q6 PRN INH 03/04/17 22:45 04/03/17 22:44 Metoprolol Tartrate (Lopressor Tab) 25 mg BID PO 03/05/17 09:00 04/04/17 08:59 03/13/17 20:32 25 MG Ondansetron HCl (Zofran Inj) 4 mg Q6H PRN IV 03/04/17 22:45 04/03/17 22:44 03/11/17 20:35 4 MG Tamsulosin HCl (Flomax Cap) 0.4 mg DAILY PO 03/05/17 09:00 04/04/17 08:59 03/13/17 08:44 0.4 MG Lorazepam 0.5 mg/ Syringe 0.5 ml @ 0.5 mls/min Q6H PRN IV 03/05/17 02:15 04/04/17 02:14 03/05/17 03:09 0.5 MLS/MIN Lisinopril (Zestril Tab) 20 mg DAILY PO 03/05/17 09:00 04/04/17 08:59 03/13/17 08:44 20 MG Sucralfate (Carafate Tab) 1 gm ACHS PO 03/05/17 07:00 04/04/17 06:59 03/14/17 07:33 1 GM Lorazepam (Ativan Inj) 0.5 mg Q6H PRN IV 03/05/17 03:15 04/04/17 03:14 03/06/17 14:19 0.5 MG Tiotropium [place] (Spiriva Handihaler Inhaler) 1 puff DAILY INH 03/06/17 09:00 04/05/17 08:59 03/13/17 08:44 1 PUFF Zolpidem Tartrate (Ambien Tab) 10 mg HS PRN PO 03/05/17 09:15 04/04/17 09:14 03/13/17 20:33 10 MG Pantoprazole Sodium 40 mg/ Syringe 10 ml @ 5 mls/min DAILY@ IV 03/05/17 21:00 04/04/17 20:59 03/13/17 20:47 5 MLS/MIN Heparin Sodium (Porcine) (Heparin 10 Unit/ ml 5 ml Flush) 5 ml PRN PRN FLUSH 03/05/17 17:15 04/04/17 17:14 03/14/17 00:20 5 ML Ipratropium [place] (Atrovent 0.02% 0.5MG/2.5ML Neb) 0.5 mg Q6R INH 03/06/17 17:00 04/05/17 16:59 03/14/17 02:06 0.5 MG Levalbuterol (Xopenex 1.25MG/ 0.5ML Neb) 1.25 mg Q6R INH 03/06/17 17:00 04/05/17 16:59 03/14/17 02:06 1.25 MG Senna/Docusate Sodium (Senokot S Tab) 1 tab DAILY PRN PO 03/06/17 15:45 04/05/17 15:44 03/08/17 12:55 1 TAB Promethazine HCl 12.5 mg/Sodium Chloride 50.5 ml @ 204 mls/hr Q6H PRN IV 03/06/17 18:00 04/05/17 17:59 03/13/17 19:01 204 MLS/HR Aspirin (Ecotrin Tab) 81 mg QAM PO 03/08/17 09:00 04/07/17 08:59 03/13/17 08:45 81 MG Potassium Chloride (Klor-Con Tab) 40 meq ONE PO 03/07/17 09:45 04/06/17 09:44 03/07/17 12:22 40 MEQ Polyethylene (Miralax Powder Packet) 17 gm DAILY PRN PO 03/07/17 09:45 04/06/17 09:44 03/07/17 13:04 17 GM Morphine Sulfate (MoRPHine SULFATE INJ) 4 mg Q4H PRN IV 03/07/17 11:45 03/21/17 11:44 03/14/17 00:17 4 MG Senna/Docusate Sodium (Senokot S Tab) 1 tab QAM PO 03/08/17 09:00 04/07/17 08:59 03/13/17 08:45 1 TAB Lactulose (Chronulac Syrup) 30 gm Q6H PRN PO 03/08/17 14:00 04/07/17 13:59 03/13/17 08:46 30 GM Ceftriaxone Sodium 1 gm/ Dextrose 50 ml @ 100 mls/hr Q24H IV 03/09/17 10:00 03/16/17 09:59 03/13/17 09:15 100 MLS/HR Azithromycin 500 mg/Dextrose 255 ml @ 125 mls/hr DAILY IV 03/09/17 11:00 03/16/17 10:59 03/13/17 09:16 125 MLS/HR Furosemide (Lasix Tab) 40 mg DAILY PO 03/10/17 09:00 04/09/17 08:59 03/13/17 08:43 40 MG Metoclopramide HCl (Reglan Inj) 5 mg BID IV. 03/10/17 21:00 04/09/17 20:59 03/13/17 20:32 5 MG Methylprednisolone Sodium Succinate 40 mg/Syringe 0.64 ml @ 1.5 mls/min DAILY IV 03/11/17 09:00 04/06/17 12:59 03/13/17 08:42 1.5 MLS/MIN Potassium Chloride (Klor-Con Tab) 20 meq BID17 PO 03/13/17 09:00 04/12/17 08:59 03/13/17 16:55 20 MEQ Morphine Sulfate (MoRPHine SULFATE IR TAB) 15 mg Q4H PRN PO 03/12/17 07:45 03/26/17 07:44 03/14/17 02:27 15 MG Morphine Sulfate (Oramorph Sr Tab) 90 mg TID PO 03/13/17 14:00 03/25/17 13:59 03/13/17 20:33 90 MG Objective Vital Signs Date Time Temp Pulse Resp B/P (MAP) Pulse Ox O2 Delivery O2 Flow Rate FiO2 03/14/17 07:03 74 18 95 Nasal Cannula 2.5 03/14/17 02:07 73 18 99 Nasal Cannula 2.5 03/14/17 00:00 Nasal Cannula 2.5 03/13/17 23:20 37.0 81 16 105/68 (80) 98 Nasal Cannula 3.0 03/13/17 20:21 103 18 97 Nasal Cannula 2.5 03/13/17 20:09 37.1 98 20 172/83 (112) 97 Room Air 03/13/17 19:25 36.8 91 20 96 2.0 03/13/17 16:00 Nasal Cannula 2.0 03/13/17 15:30 36.8 91 20 111/58 (75) 96 Nasal Cannula 2.0 03/13/17 14:21 99 18 96 Nasal Cannula 2.5 03/13/17 12:00 Nasal Cannula 2.0 03/13/17 11:16 36.7 84 20 134/75 (94) 98 Nasal Cannula 3.0 03/13/17 08:00 Nasal Cannula 2.0 03/13/17 07:38 105 18 95 Nasal Cannula 2.5 Physical Exam General Appearance: no apparent distress Respiratory/Chest: lungs clear, normal breath sounds, no respiratory distress, no accessory muscle use Cardiovascular: regular rate, rhythm, no edema, no murmur Abdomen: + abnormal bowel sounds (decrease bowel sounds), + hernia Extremities: normal inspection, no pedal edema Assessment and Plan ABDOMINAL PAIN, Narcotic Bowel 03/13 doing okay, nausea persists will try Zofran PRN and Reglan for 2-3 weeks 03/12 likely narcotic bowel Relistor in AM continue Reglan and other medications as per GI appreciate input from GI Severe epigastric pain x several days. No apparent acute findings on CT of abdomen and pelvis at [facility]. -- s/p EGD 03/10/[address] Salinas (+) hiatal hernia with gastritis -- on PPI, Sucralfate -- added Reglan IV BID 03/10 added Relistor 03/11 -- full liquids ordered will monitor appreciate GI SVC consult PNEUMONIA, COPD EXACERBATION 03/13 breathing status is improved continue antibiotics 03/12 continue abx. for now, he feels better, no breathing issues today Episode of vomiting, but no apparent aspiration. CT of abdomen and pelvis suggested bibasilar infiltrates. -- further improving now 98%2 L o2 sputum cultures: E COLI, sensitive to Cefti, resistant to Levaquin -- changed Levaquin to Ceftri + Azithro Day 3 taper Solumedrol, Nebs q6h -- patient requesting referral to [facility] upon discharge -- follow Speech therapy evaluation 1. Clear liquids diet. Advance to "slippery" as tolerated. 2. Aspiration and GERD precautions, straws OK. Fully upright for meals and for 30 minutes after meals. Head of bed to be elevated to 30 degrees at all times, to include while asleep. NEURO SYMPTOMS 2 episodes of apparent expressive aphasia, one episode possibly associated with left facial palsy. Suspected TIA. Possible seizure (history of seizure disorder, but apparently no longer taking phenytoin). CT head negative at [facility]. MRI cannot be performed (? intrathecal pump). Carotid duplex showed < 50% stenosis of ICA's. repeat CT head: no acute process CT angio head: unrevealing Echo: -- Conclusions -- * There is mild concentric left ventricular hypertrophy. * There is a moderate sized septal wall motion abnormality with moderate hypokinesis of the septal segments. * Otherwise there is mild global hypokinesis * Left ventricular systolic function is moderately reduced. * The LV Ejection Fraction = 35-40%. * The right ventricle is grossly normal size. * The right ventricular systolic function is normal. * Grade I diastolic dysfunction, (abnormal relaxation pattern). EEG: unrevealing -- on Plavix, Aspirin monitor as patient having GI symptoms -- Neuro consulted appreciate the input -- no recurrence of symptoms CHRONIC BACK PAIN 03/13 pain seems to be improved with the new regimen continue pain management medications outpatient pain mgt for pump management -- has an intrathecal pump with Dilaudid, Clonidine and Bupivacaine for years -- few days ago, (+) breakthrough pain discussed with Dr. Red- Pain Management SV of patient per his request recommend PRN Morphine and Dilaudid--> pain much improved -- (+) alarm sound heard from site of pain medicine pump consulted Pain Management SVC pain medicine pump operating on safe mode due to low batter, delivering decreased doses they discussed with patient's painter apprentice Dr Clark in [place], plan is to transition to MS contin for now, then change battery as an outpatient with Dr. Red patient and daughter inquiring with painter apprentice if they can change battery here, will discuss with pain management SVC CORONARY ARTERY DISEASE No anginal symptoms. No acute EKG changes. CHF -- Lasix resumed euvolemic monitor volume status RESUSCITATION STATUS Discussed with patient. He has a living will; his daughter Buffy is an RN and is durable POA. He would like resuscitation attempted in the event of a cardiopulmonary arrest if there is a reasonable chance of a meaningful recovery, but does not want prolonged extraordinary measures if prognosis is poor. Therefore, code status = "Level 1" (full resuscitation). VTE PROPHYLAXIS High risk for VTE. SQ heparin with caution. MEDICAL RECONCILIATION Home medications uncertain- need to verify. Records from PCP and [facility] requested please confirm medication list prior to discharge DISPOSITION lives at home PT/OT anticipate d/c home when medically stable
[2017-03-14] MEDS: FUROSEMIDE 40 MG TAB PO SCH (07:54)
[2017-03-14] MEDS: DOCUSATE SODIUM/SENNA 50/8.6MG TAB PO SCH (07:54)
[2017-03-14] MEDS: METOCLOPRAMIDE HCL INJ 5 MG/ML 2 ML VIAL IV. SCH ×2 (07:54→21:07)
[2017-03-14] MEDS: METOPROLOL TARTRATE 25 MG TAB PO SCH ×2 (07:55→21:07)
[2017-03-14] MEDS: TIOTROPIUM BROMIDE 5 PUFF/90 MCG INH INH SCH (07:55)
[2017-03-14] MEDS: ATORVASTATIN 40 MG TAB PO SCH (07:56)
[2017-03-14] MEDS: LISINOPRIL 20 MG TAB PO SCH (07:56)
[2017-03-14] MEDS: CLOPIDOGREL BISULFATE 75 MG TAB PO SCH (07:56)
[2017-03-14] MEDS: ASPIRIN 81 MG ECTAB PO SCH (07:56)
[2017-03-14] MEDS: TAMSULOSIN HCL 0.4 MG CAP PO SCH (07:57)
[2017-03-14] MEDS: MoRPHine SULFATE CR 15 MG TAB (MS CONTIN) PO SCH ×3 (08:13→21:15)
[2017-03-14] MEDS: ALPRAZOLAM 0.5 MG TAB PO SCH ×3 (08:27→21:07)
[2017-03-14] MEDS: HEPARIN SOD 5000 UNIT/0.5 ML CARP SQ SCH ×2 (08:30→21:10)
[2017-03-14] MEDS: PROMETHAZINE HCL INJ 12.5 MG in SODIUM CHLORIDE 0.9% 50ML 50 ML IV PRN ×2 (09:36→17:56)
--- NOTE | 2017-03-14 09:36 | Pain Management Progress Note ---
Pain Management Progress Note Date of Service Mar 14, 2017. Subjective Mr. Sanon is admitted with pneumonia and an acute pump malfunction. Patient has been increased to 90mg TID of MS Contin and states that it is moderately efficacious. He has taken MS IR 15mg tablets twice yesterday. Patient does continue to use Morphine IV for breakthrough pain which is the most effective. He continues to experience low back pain but states that it is getting better controlled today. He c/o increased SOB and cough today. No lethargy or nausea today. Case discussed with Dr. Dumont Objective Vital Signs: Last Vital Signs Documentation Date Time Temp Pulse Resp B/P (MAP) Pulse Ox O2 Delivery O2 Flow Rate FiO2 03/14/17 07:48 36.4 76 22 154/101 (118) 100 Nasal Cannula 2.5 03/10/17 04:15 95 Physical Exam: GENERAL: Mr. Sanon is a 71-year-old white male that appears his stated age. Speech and cognition is intact. Mood and affect is appropriate. He is lying in the hospital bed, in no acute distress. NEURO: Cranial nerves grossly intact. Gait not observed. Laboratory Laboratory Findings 03/13/17 04:10 Assessment 1. Chronic intractable thoracolumbar back pain with history of intrathecal pump and catheter delivery system implantation with current intrathecal pump malfunction 2. History of multiple thoracolumbar back surgeries 20+ with Akhtar luly placement 3. History of opiate dependency 4. Opiate induced constipation 5. Pneumonia/COPD exacerbation 6. CAD Recommendations 1. Continue MS Contin 90mg TID. 2. Continue MS IR 15mg x 4 hours PRN pain. 3. Morphine IV if the above are not effective. 4. I have written down the medication regimen that he is ordered. He will take the MS IR closer to every 4 hours and use the IV Morphine only if the MS Contin and MS IR are not effective. He is understanding. 5. Patient will follow up with Dr. Red' office on an outpatient basis for an intrathecal pump replacement.
[2017-03-14] MEDS: POTASSIUM CHLORIDE 20 MEQ TABCR PO SCH ×2 (09:39→16:17)
[2017-03-14] MEDS: METHYLPREDNISOLONE IV 40 MG in SYRINGE 0 ML IV SCH (09:39)
[2017-03-14] MEDS: PANTOprazole INJ 40 MG in SYRINGE 0 ML IV SCH (09:39)
[2017-03-14] MEDS: CEFTRIAXONE SOD INJ 1 GM in DEXTROSE 5% ADD-VANTAGE 50ML 50 ML IV SCH (09:41)
[2017-03-14] MEDS: AZITHROMYCIN IV 500 MG in DEXTROSE 5% 250ML 250 ML IV SCH (09:42)
[2017-03-14 14:34] LABS: HEMATOCRIT 38.4 % (42-52); MEAN CELL VOLUME 89.9 fL (80-100); MEAN CORPUSCULAR HEMOGLOBIN 28.6 pg (25-34); MEAN CORPUSCULAR HGB CONC 31.8 g/dl (32-36); MEAN PLATELET VOLUME 9.9 fL (7.4-10.4); PLATELET COUNT 222 K/uL (130-400); RED BLOOD COUNT 4.27 M/uL (4.7-6.1); WHITE BLOOD COUNT 12.87 K/uL (4.8-10.8)
[2017-03-14 15:09] LABS: BUN/CREATININE RATIO 12.3 (10-20); CREATININE 0.81 mg/dl (0.60-1.40); MAGNESIUM 1.9 mg/dl (1.8-2.4); POTASSIUM 4.3 mmol/L (3.5-5.1)
--- NOTE | 2017-03-14 18:28 | Progress Note ---
Subjective Date of Service: Mar 14, 2017. Subjective Pt evaluation today including: conversation w/ patient, physical exam, lab review, review of studies, review of inpatient medication list Saw/examined the patient in room 453 He is doing okay - pain controlled some nausea persists Problem List Medical Problems: (1) Bronchiectasis Status: Chronic (2) COPD (chronic obstructive pulmonary disease) Status: Chronic Review of Systems Respiratory: No shortness of breath Cardiac: No chest pain Abdomen: + nausea, + vomiting, No pain, No diarrhea, No constipation, No GI bleeding Medications Current Inpatient Medications Medications (Trade) Dose Ordered Sig/Marco A Route Start Time Stop Time Status Last Admin Dose Admin Acetaminophen (Tylenol Tab) 650 mg Q4 PRN PO 03/04/17 22:45 04/03/17 22:44 Alprazolam (Xanax Tab) 0.5 mg BID@0900,1600 PO 03/05/17 09:00 04/04/17 08:59 03/14/17 16:16 0.5 MG Alprazolam (Xanax Tab) 1 mg HS PO 03/05/17 21:00 04/04/17 20:59 03/13/17 20:33 1 MG Atorvastatin Calcium (Lipitor Tab) 40 mg DAILY PO 03/05/17 09:00 04/04/17 08:59 03/14/17 07:56 40 MG Budesonide (Pulmicort Respules 0.5MG/ 2ML Neb Soln) 0.5 mg BID INH 03/05/17 09:00 04/04/17 08:59 03/14/17 07:01 0.5 MG Clopidogrel Bisulfate (plAVix TAB) 75 mg DAILY PO 03/05/17 09:00 04/04/17 08:59 03/14/17 07:56 75 MG Folic Acid (Folvite Tab) 1 mg DAILY PO 03/05/17 09:00 04/04/17 08:59 03/14/17 07:56 1 MG Formoterol Fumarate (Perforomist 20MCG/2ML Neb Soln) 20 mcg Q12 INH 03/05/17 09:00 04/04/17 08:59 03/14/17 07:01 20 MCG Codeine Phosphate/ Guaifenesin (Robitussin-AC Sugar Free Syrup) 5 ml Q4H PRN PO 03/04/17 22:45 04/03/17 22:44 03/09/17 13:31 5 ML Heparin Sodium (Porcine) (Heparin Sq 5000 Unit/0.5ml) 5,000 unit Q12 SQ 03/05/17 09:00 04/04/17 08:59 03/14/17 08:30 5,000 UNIT Levalbuterol (Xopenex 0.63 Mg/ 3 Ml Neb) 0.63 mg Q6 PRN INH 03/04/17 22:45 04/03/17 22:44 Metoprolol Tartrate (Lopressor Tab) 25 mg BID PO 03/05/17 09:00 04/04/17 08:59 03/14/17 07:55 25 MG Ondansetron HCl (Zofran Inj) 4 mg Q6H PRN IV 03/04/17 22:45 04/03/17 22:44 03/11/17 20:35 4 MG Tamsulosin HCl (Flomax Cap) 0.4 mg DAILY PO 03/05/17 09:00 04/04/17 08:59 03/14/17 07:57 0.4 MG Lorazepam 0.5 mg/ Syringe 0.5 ml @ 0.5 mls/min Q6H PRN IV 03/05/17 02:15 04/04/17 02:14 03/05/17 03:09 0.5 MLS/MIN Lisinopril (Zestril Tab) 20 mg DAILY PO 03/05/17 09:00 04/04/17 08:59 03/14/17 07:56 20 MG Sucralfate (Carafate Tab) 1 gm ACHS PO 03/05/17 07:00 04/04/17 06:59 03/14/17 16:17 1 GM Lorazepam (Ativan Inj) 0.5 mg Q6H PRN IV 03/05/17 03:15 04/04/17 03:14 03/06/17 14:19 0.5 MG Tiotropium [place] (Spiriva Handihaler Inhaler) 1 puff DAILY INH 03/06/17 09:00 04/05/17 08:59 03/14/17 07:55 1 PUFF Zolpidem Tartrate (Ambien Tab) 10 mg HS PRN PO 03/05/17 09:15 04/04/17 09:14 03/13/17 20:33 10 MG Heparin Sodium (Porcine) (Heparin 10 Unit/ ml 5 ml Flush) 5 ml PRN PRN FLUSH 03/05/17 17:15 04/04/17 17:14 03/14/17 13:51 5 ML Ipratropium [place] (Atrovent 0.02% 0.5MG/2.5ML Neb) 0.5 mg Q6R INH 03/06/17 17:00 04/05/17 16:59 03/14/17 14:21 0.5 MG Levalbuterol (Xopenex 1.25MG/ 0.5ML Neb) 1.25 mg Q6R INH 03/06/17 17:00 04/05/17 16:59 03/14/17 14:21 1.25 MG Senna/Docusate Sodium (Senokot S Tab) 1 tab DAILY PRN PO 03/06/17 15:45 04/05/17 15:44 03/08/17 12:55 1 TAB Promethazine HCl 12.5 mg/Sodium Chloride 50.5 ml @ 204 mls/hr Q6H PRN IV 03/06/17 18:00 04/05/17 17:59 03/14/17 17:56 204 MLS/HR Aspirin (Ecotrin Tab) 81 mg QAM PO 03/08/17 09:00 04/07/17 08:59 03/14/17 07:56 81 MG Potassium Chloride (Klor-Con Tab) 40 meq ONE PO 03/07/17 09:45 04/06/17 09:44 03/07/17 12:22 40 MEQ Polyethylene (Miralax Powder Packet) 17 gm DAILY PRN PO 03/07/17 09:45 04/06/17 09:44 03/07/17 13:04 17 GM Morphine Sulfate (MoRPHine SULFATE INJ) 4 mg Q4H PRN IV 03/07/17 11:45 03/21/17 11:44 03/14/17 00:17 4 MG Senna/Docusate Sodium (Senokot S Tab) 1 tab QAM PO 03/08/17 09:00 04/07/17 08:59 03/14/17 07:54 1 TAB Lactulose (Chronulac Syrup) 30 gm Q6H PRN PO 03/08/17 14:00 04/07/17 13:59 03/13/17 08:46 30 GM Ceftriaxone Sodium 1 gm/ Dextrose 50 ml @ 100 mls/hr Q24H IV 03/09/17 10:00 03/16/17 09:59 03/14/17 09:41 100 MLS/HR Furosemide (Lasix Tab) 40 mg DAILY PO 03/10/17 09:00 04/09/17 08:59 03/14/17 07:54 40 MG Metoclopramide HCl (Reglan Inj) 5 mg BID IV. 03/10/17 21:00 04/09/17 20:59 03/14/17 07:54 5 MG Methylprednisolone Sodium Succinate 40 mg/Syringe 0.64 ml @ 1.5 mls/min DAILY IV 03/11/17 09:00 04/06/17 12:59 03/14/17 09:39 1.5 MLS/MIN Potassium Chloride (Klor-Con Tab) 20 meq BID17 PO 03/13/17 09:00 04/12/17 08:59 03/14/17 16:17 20 MEQ Morphine Sulfate (MoRPHine SULFATE IR TAB) 15 mg Q4H PRN PO 03/12/17 07:45 03/26/17 07:44 03/14/17 15:28 15 MG Morphine Sulfate (Oramorph Sr Tab) 90 mg TID PO 03/13/17 14:00 03/25/17 13:59 03/14/17 13:11 90 MG Pantoprazole Sodium (Protonix Tab) 40 mg BID PO 03/14/17 20:00 04/13/17 19:59 Azithromycin (Zithromax Tab) 500 mg DAILY PO 03/15/17 08:00 03/15/17 08:01 Objective Vital Signs Date Time Temp Pulse Resp B/P (MAP) Pulse Ox O2 Delivery O2 Flow Rate FiO2 03/14/17 16:00 Nasal Cannula 2.5 03/14/17 15:41 36.7 151 18 111/61 (78) 96 Nasal Cannula 2.5 03/14/17 14:21 83 18 97 Nasal Cannula 2.5 03/14/17 08:00 Nasal Cannula 2.5 03/14/17 07:48 36.4 76 22 154/101 (118) 100 Nasal Cannula 2.5 03/14/17 07:03 74 18 95 Nasal Cannula 2.5 03/14/17 02:07 73 18 99 Nasal Cannula 2.5 03/14/17 00:00 Nasal Cannula 2.5 03/13/17 23:20 37.0 81 16 105/68 (80) 98 Nasal Cannula 3.0 03/13/17 20:21 103 18 97 Nasal Cannula 2.5 03/13/17 20:09 37.1 98 20 172/83 (112) 97 Room Air 03/13/17 19:25 36.8 91 20 96 2.0 Physical Exam General Appearance: no apparent distress Respiratory/Chest: lungs clear, normal breath sounds, no respiratory distress, no accessory muscle use Cardiovascular: regular rate, rhythm, no murmur Extremities: + pertinent finding (L BKA) Laboratory Results Last 24 Hours Test 03/14/17 14:25 White Blood Count 12.87 K/uL Red Blood Count 4.27 M/uL Hemoglobin 12.2 g/dL Hematocrit 38.4 % Mean Corpuscular Volume 89.9 fL Mean Corpuscular Hemoglobin 28.6 pg Mean Corpuscular Hemoglobin Concent 31.8 g/dl RDW Standard Deviation 48.0 fL RDW Coefficient of Variation 14.6 % Platelet Count 222 K/uL Mean Platelet Volume 9.9 fL Sodium Level 139 mmol/L Potassium Level 4.3 mmol/L Chloride Level 99 mmol/L Carbon Dioxide Level 33 mmol/L Anion Gap 7.0 mmol/L Blood Urea Nitrogen 10 mg/dl Creatinine 0.81 mg/dl Est Creatinine Clear Calc Drug Dose 95.5 ml/min Estimated GFR () 103.6 Estimated GFR (Non- 89.4 BUN/Creatinine Ratio 12.3 Random Glucose 151 mg/dl Calcium Level 9.0 mg/dl Magnesium Level 1.9 mg/dl Assessment and Plan ABDOMINAL PAIN, Narcotic Bowel 03/14 continue Reglan advance diet as tolerated smaller meals would help plan to d/c home in AM 03/13 doing okay, nausea persists will try Zofran PRN and Reglan for 2-3 weeks 03/12 likely narcotic bowel Relistor in AM continue Reglan and other medications as per GI appreciate input from GI Severe epigastric pain x several days. No apparent acute findings on CT of abdomen and pelvis at [facility]. -- s/p EGD 03/10/[address] Salinas (+) hiatal hernia with gastritis -- on PPI, Sucralfate -- added Reglan IV BID 03/10 added Relistor 03/11 -- full liquids ordered will monitor appreciate GI SVC consult PNEUMONIA, COPD EXACERBATION 03/13 breathing status is improved continue antibiotics 03/12 continue abx. for now, he feels better, no breathing issues today Episode of vomiting, but no apparent aspiration. CT of abdomen and pelvis suggested bibasilar infiltrates. -- further improving now 98%2 L o2 sputum cultures: E COLI, sensitive to Cefti, resistant to Levaquin -- changed Levaquin to Ceftri + Azithro Day 3 taper Solumedrol, Nebs q6h -- patient requesting referral to [facility] upon discharge -- follow Speech therapy evaluation 1. Clear liquids diet. Advance to "slippery" as tolerated. 2. Aspiration and GERD precautions, straws OK. Fully upright for meals and for 30 minutes after meals. Head of bed to be elevated to 30 degrees at all times, to include while asleep. NEURO SYMPTOMS 2 episodes of apparent expressive aphasia, one episode possibly associated with left facial palsy. Suspected TIA. Possible seizure (history of seizure disorder, but apparently no longer taking phenytoin). CT head negative at [facility]. MRI cannot be performed (? intrathecal pump). Carotid duplex showed < 50% stenosis of ICA's. repeat CT head: no acute process CT angio head: unrevealing Echo: -- Conclusions -- * There is mild concentric left ventricular hypertrophy. * There is a moderate sized septal wall motion abnormality with moderate hypokinesis of the septal segments. * Otherwise there is mild global hypokinesis * Left ventricular systolic function is moderately reduced. * The LV Ejection Fraction = 35-40%. * The right ventricle is grossly normal size. * The right ventricular systolic function is normal. * Grade I diastolic dysfunction, (abnormal relaxation pattern). EEG: unrevealing -- on Plavix, Aspirin monitor as patient having GI symptoms -- Neuro consulted appreciate the input -- no recurrence of symptoms CHRONIC BACK PAIN 03/13 pain seems to be improved with the new regimen continue pain management medications outpatient pain mgt for pump management -- has an intrathecal pump with Dilaudid, Clonidine and Bupivacaine for years -- few days ago, (+) breakthrough pain discussed with Dr. Red- Pain Management SVC of patient per his request recommend PRN Morphine and Dilaudid--> pain much improved -- (+) alarm sound heard from site of pain medicine pump consulted Pain Management SVC pain medicine pump operating on safe mode due to low batter, delivering decreased doses they discussed with patient's painter hand Dr Clark in [place], plan is to transition to MS contin for now, then change battery as an outpatient with Dr. Red patient and daughter inquiring with painter hand if they can change battery here, will discuss with pain management [facility]ERY [place]EASE No anginal symptoms. No acute EKG changes. CHF -- Lasix resumed euvolemic monitor volume status RESUSCITATION STATUS Discussed with patient. He has a living will; his daughter Buffy is an RN and is durable POA. He would like resuscitation attempted in the event of a cardiopulmonary arrest if there is a reasonable chance of a meaningful recovery, but does not want prolonged extraordinary measures if prognosis is poor. Therefore, code status = "Level 1" (full resuscitation). VTE PROPHYLAXIS High risk for VTE. SQ heparin with caution. MEDICAL RECONCILIATION Home medications uncertain- need to verify. Records from PCP and [facility] requested please confirm medication list prior to discharge DISPOSITION lives at home PT/OT anticipate d/c home when medically stable
[2017-03-14] MEDS: PANTOprazole SOD 40 MG TAB PO SCH (21:07)
[2017-03-14] MEDS: ZOLPIDEM TARTRATE 10 MG TAB PO PRN (23:38)
[2017-03-15] MEDS: LEVALBUTEROL 1.25MG/0.5ML NEB INH SCH ×4 (01:48→20:40)
[2017-03-15] MEDS: IPRATROPIUM BROMIDE NEB SOLN 0.02% 2.5 ML VIAL INH SCH ×4 (01:48→20:40)
[2017-03-15] MEDS: MoRPHine SULFATE IR 15 MG TAB (IMMEDIATE RELEASE) PO PRN ×2 (04:52→12:57)
[2017-03-15] MEDS: SUCRALFATE 1 GM TAB PO SCH ×4 (06:13→21:29)
[2017-03-15] MEDS: MoRPHine SULFATE CR 60 MG TAB (MS CONTIN) PO SCH ×3 (06:14→21:29)
[2017-03-15] MEDS: MoRPHine SULFATE CR 15 MG TAB (MS CONTIN) PO SCH ×3 (06:14→21:30)
[2017-03-15 06:33] LABS: HEMATOCRIT 33.9 % (42-52); MEAN CELL VOLUME 89.4 fL (80-100); MEAN CORPUSCULAR HEMOGLOBIN 28.8 pg (25-34); MEAN CORPUSCULAR HGB CONC 32.2 g/dl (32-36); MEAN PLATELET VOLUME 10.2 fL (7.4-10.4); PLATELET COUNT 193 K/uL (130-400); RED BLOOD COUNT 3.79 M/uL (4.7-6.1); WHITE BLOOD COUNT 10.66 K/uL (4.8-10.8)
[2017-03-15 06:59] VITALS: PULSE 64; O2SAT 99
[2017-03-15] MEDS: BUDESONIDE 0.5 MG/2 ML VIAL (PULMICORT) INH SCH ×2 (06:59→20:43)
[2017-03-15] MEDS: FORMOTEROL FUMA NEBULIZER SOLN 20 MCG/2 ML VIAL INH SCH ×2 (06:59→20:43)
[2017-03-15 07:24] LABS: BUN/CREATININE RATIO 14.7 (10-20); CALCIUM 8.9 mg/dl (8.5-10.1); CREATININE 0.64 mg/dl (0.60-1.40); MAGNESIUM 2.1 mg/dl (1.8-2.4); POTASSIUM 4.1 mmol/L (3.5-5.1)
[2017-03-15 07:46] VITALS: BP 125/66; PULSE 68; TEMP 36.5; O2SAT 98
[2017-03-15] MEDS ORDERED: AZITHROMYCIN 250 MG TAB PO SCH (08:00)
[2017-03-15] MEDS: METHYLPREDNISOLONE IV 40 MG in SYRINGE 0 ML IV SCH (08:41)
[2017-03-15] MEDS: HEPARIN SOD 5000 UNIT/0.5 ML CARP SQ SCH ×2 (08:44→21:33)
[2017-03-15] MEDS: TIOTROPIUM BROMIDE 5 PUFF/90 MCG INH INH SCH (08:45)
[2017-03-15] MEDS: METOCLOPRAMIDE HCL INJ 5 MG/ML 2 ML VIAL IV. SCH ×2 (08:49→19:12)
[2017-03-15] MEDS: PROMETHAZINE HCL INJ 12.5 MG in SODIUM CHLORIDE 0.9% 50ML 50 ML IV PRN ×2 (08:56→17:52)
[2017-03-15] MEDS: FUROSEMIDE 40 MG TAB PO SCH (09:49)
[2017-03-15] MEDS: DOCUSATE SODIUM/SENNA 50/8.6MG TAB PO SCH (09:50)
[2017-03-15] MEDS: METOPROLOL TARTRATE 25 MG TAB PO SCH ×2 (09:50→21:29)
[2017-03-15] MEDS: POTASSIUM CHLORIDE 20 MEQ TABCR PO SCH ×2 (09:50→17:03)
[2017-03-15] MEDS: LISINOPRIL 20 MG TAB PO SCH (09:51)
[2017-03-15] MEDS: ASPIRIN 81 MG ECTAB PO SCH (09:51)
[2017-03-15] MEDS: ATORVASTATIN 40 MG TAB PO SCH (09:51)
[2017-03-15] MEDS: PANTOprazole SOD 40 MG TAB PO SCH ×2 (09:51→21:29)
[2017-03-15] MEDS: TAMSULOSIN HCL 0.4 MG CAP PO SCH (09:52)
[2017-03-15] MEDS: CEFTRIAXONE SOD INJ 1 GM in DEXTROSE 5% ADD-VANTAGE 50ML 50 ML IV SCH (09:53)
[2017-03-15] MEDS: ALPRAZOLAM 0.5 MG TAB PO SCH ×3 (09:56→21:30)
[2017-03-15] MEDS: CLOPIDOGREL BISULFATE 75 MG TAB PO SCH (10:46)
[2017-03-15] MEDS: METHYLNALTREXONE BROMIDE INJ 12 MG/0.6 ML SYR SQ SCH (10:46)
[2017-03-15] MEDS: ONDANSETRON INJ 2 MG/ML 2 ML VIAL IV PRN (12:55)
[2017-03-15 14:17] VITALS: PULSE 75; O2SAT 98
[2017-03-15 15:19] VITALS: BP 108/65; PULSE 72; TEMP 36.7; O2SAT 96
--- NOTE | 2017-03-15 18:05 | Progress Note ---
Subjective Date of Service: Mar 15, 2017. Subjective Pt evaluation today including: conversation w/ patient, physical exam, lab review, review of studies, review of inpatient medication list Saw/examined the patient in room 453 Doing better still on clears would like to advance diet; but nausea persists Problem List Medical Problems: (1) Bronchiectasis Status: Chronic (2) COPD (chronic obstructive pulmonary disease) Status: Chronic Review of Systems Constitutional: No fever, No chills Respiratory: No shortness of breath Cardiac: No chest pain Abdomen: + nausea, + vomiting, + constipation, No pain, No diarrhea Musculoskeletal: + joint pain Medications Current Inpatient Medications Medications (Trade) Dose Ordered Sig/Marco A Route Start Time Stop Time Status Last Admin Dose Admin Acetaminophen (Tylenol Tab) 650 mg Q4 PRN PO 03/04/17 22:45 04/03/17 22:44 Alprazolam (Xanax Tab) 0.5 mg BID@0900,1600 PO 03/05/17 09:00 04/04/17 08:59 03/15/17 17:03 0.5 MG Alprazolam (Xanax Tab) 1 mg HS PO 03/05/17 21:00 04/04/17 20:59 03/14/17 21:07 1 MG Atorvastatin Calcium (Lipitor Tab) 40 mg DAILY PO 03/05/17 09:00 04/04/17 08:59 03/15/17 09:51 40 MG Budesonide (Pulmicort Respules 0.5MG/ 2ML Neb Soln) 0.5 mg BID INH 03/05/17 09:00 04/04/17 08:59 03/15/17 06:59 0.5 MG Clopidogrel Bisulfate (plAVix TAB) 75 mg DAILY PO 03/05/17 09:00 04/04/17 08:59 03/15/17 10:46 75 MG Folic Acid (Folvite Tab) 1 mg DAILY PO 03/05/17 09:00 04/04/17 08:59 03/15/17 09:52 1 MG Formoterol Fumarate (Perforomist 20MCG/2ML Neb Soln) 20 mcg Q12 INH 03/05/17 09:00 04/04/17 08:59 03/15/17 06:59 20 MCG Codeine Phosphate/ Guaifenesin (Robitussin-AC Sugar Free Syrup) 5 ml Q4H PRN PO 03/04/17 22:45 04/03/17 22:44 03/09/17 13:31 5 ML Heparin Sodium (Porcine) (Heparin Sq 5000 Unit/0.5ml) 5,000 unit Q12 SQ 03/05/17 09:00 04/04/17 08:59 03/15/17 08:44 5,000 UNIT Levalbuterol (Xopenex 0.63 Mg/ 3 Ml Neb) 0.63 mg Q6 PRN INH 03/04/17 22:45 04/03/17 22:44 Metoprolol Tartrate (Lopressor Tab) 25 mg BID PO 03/05/17 09:00 04/04/17 08:59 03/15/17 09:50 25 MG Ondansetron HCl (Zofran Inj) 4 mg Q6H PRN IV 03/04/17 22:45 04/03/17 22:44 03/15/17 12:55 4 MG Tamsulosin HCl (Flomax Cap) 0.4 mg DAILY PO 03/05/17 09:00 04/04/17 08:59 03/15/17 09:52 0.4 MG Lorazepam 0.5 mg/ Syringe 0.5 ml @ 0.5 mls/min Q6H PRN IV 03/05/17 02:15 04/04/17 02:14 03/05/17 03:09 0.5 MLS/MIN Lisinopril (Zestril Tab) 20 mg DAILY PO 03/05/17 09:00 04/04/17 08:59 03/15/17 09:51 20 MG Sucralfate (Carafate Tab) 1 gm ACHS PO 03/05/17 07:00 04/04/17 06:59 03/15/17 17:03 1 GM Lorazepam (Ativan Inj) 0.5 mg Q6H PRN IV 03/05/17 03:15 04/04/17 03:14 03/06/17 14:19 0.5 MG Tiotropium [place] (Spiriva Handihaler Inhaler) 1 puff DAILY INH 03/06/17 09:00 04/05/17 08:59 03/15/17 08:45 1 PUFF Zolpidem Tartrate (Ambien Tab) 10 mg HS PRN PO 03/05/17 09:15 04/04/17 09:14 03/14/17 23:38 10 MG Heparin Sodium (Porcine) (Heparin 10 Unit/ ml 5 ml Flush) 5 ml PRN PRN FLUSH 03/05/17 17:15 04/04/17 17:14 03/15/17 13:01 5 ML Ipratropium [place] (Atrovent 0.02% 0.5MG/2.5ML Neb) 0.5 mg Q6R INH 03/06/17 17:00 04/05/17 16:59 03/15/17 14:17 0.5 MG Levalbuterol (Xopenex 1.25MG/ 0.5ML Neb) 1.25 mg Q6R INH 03/06/17 17:00 04/05/17 16:59 03/15/17 14:17 1.25 MG Senna/Docusate Sodium (Senokot S Tab) 1 tab DAILY PRN PO 03/06/17 15:45 04/05/17 15:44 03/08/17 12:55 1 TAB Promethazine HCl 12.5 mg/Sodium Chloride 50.5 ml @ 204 mls/hr Q6H PRN IV 03/06/17 18:00 04/05/17 17:59 03/15/17 08:56 204 MLS/HR Aspirin (Ecotrin Tab) 81 mg QAM PO 03/08/17 09:00 04/07/17 08:59 03/15/17 09:51 81 MG Polyethylene (Miralax Powder Packet) 17 gm DAILY PRN PO 03/07/17 09:45 04/06/17 09:44 03/07/17 13:04 17 GM Morphine Sulfate (MoRPHine SULFATE INJ) 4 mg Q4H PRN IV 03/07/17 11:45 03/21/17 11:44 03/14/17 00:17 4 MG Senna/Docusate Sodium (Senokot S Tab) 1 tab QAM PO 03/08/17 09:00 04/07/17 08:59 03/15/17 09:50 1 TAB Lactulose (Chronulac Syrup) 30 gm Q6H PRN PO 03/08/17 14:00 04/07/17 13:59 03/13/17 08:46 30 GM Ceftriaxone Sodium 1 gm/ Dextrose 50 ml @ 100 mls/hr Q24H IV 03/09/17 10:00 03/16/17 09:59 03/15/17 09:53 100 MLS/HR Furosemide (Lasix Tab) 40 mg DAILY PO 03/10/17 09:00 04/09/17 08:59 03/15/17 09:49 40 MG Metoclopramide HCl (Reglan Inj) 5 mg BID IV. 03/10/17 21:00 04/09/17 20:59 03/15/17 08:49 5 MG Methylprednisolone Sodium Succinate 40 mg/Syringe 0.64 ml @ 1.5 mls/min DAILY IV 03/11/17 09:00 04/06/17 12:59 03/15/17 08:41 1.5 MLS/MIN Potassium Chloride (Klor-Con Tab) 20 meq BID17 PO 03/13/17 09:00 04/12/17 08:59 03/15/17 17:03 20 MEQ Morphine Sulfate (MoRPHine SULFATE IR TAB) 15 mg Q4H PRN PO 03/12/17 07:45 03/26/17 07:44 03/15/17 12:57 15 MG Pantoprazole Sodium (Protonix Tab) 40 mg BID PO 03/14/17 20:00 04/13/17 19:59 03/15/17 09:51 40 MG Morphine Sulfate (Oramorph Sr Tab) 30 mg Q8H PO 03/15/17 06:00 03/29/17 05:59 03/15/17 15:03 30 MG Morphine Sulfate (Ms Contin Tab) 60 mg Q8H PO 03/15/17 06:00 03/29/17 05:59 03/15/17 15:03 60 MG Methylnaltrexone [place] (Relistor Inj) 12 mg Q2D SQ 03/15/17 11:00 04/14/17 10:59 03/15/17 10:46 12 MG Objective Vital Signs Date Time Temp Pulse Resp B/P (MAP) Pulse Ox O2 Delivery O2 Flow Rate FiO2 03/15/17 16:00 Nasal Cannula 2.5 03/15/17 15:19 36.7 72 18 108/65 (79) 96 Nasal Cannula 2.5 03/15/17 14:17 75 18 98 Nasal Cannula 2.5 03/15/17 08:00 Nasal Cannula 2.5 03/15/17 07:46 36.5 68 18 125/66 (85) 98 Nasal Cannula 2.5 03/15/17 06:59 64 18 99 Nasal Cannula 2.5 03/15/17 00:53 Nasal Cannula 2.5 03/14/17 23:29 36.8 86 18 105/68 (80) 97 Room Air 03/14/17 22:03 97 Nasal Cannula 2.5 95 03/14/17 20:07 83 18 97 Nasal Cannula 2.5 Physical Exam General Appearance: no apparent distress Respiratory/Chest: lungs clear, normal breath sounds, no respiratory distress, no accessory muscle use Cardiovascular: regular rate, rhythm, no edema, no murmur Extremities: + pertinent finding (L BKA) Laboratory Results Last 24 Hours Test 03/15/17 05:45 White Blood Count 10.66 K/uL Red Blood Count 3.79 M/uL Hemoglobin 10.9 g/dL Hematocrit 33.9 % Mean Corpuscular Volume 89.4 fL Mean Corpuscular Hemoglobin 28.8 pg Mean Corpuscular Hemoglobin Concent 32.2 g/dl RDW Standard Deviation 48.2 fL RDW Coefficient of Variation 14.7 % Platelet Count 193 K/uL Mean Platelet Volume 10.2 fL Sodium Level 140 mmol/L Potassium Level 4.1 mmol/L Chloride Level 99 mmol/L Carbon Dioxide Level 34 mmol/L Anion Gap 7.0 mmol/L Blood Urea Nitrogen 9 mg/dl Creatinine 0.64 mg/dl Est Creatinine Clear Calc Drug Dose 120.9 ml/min Estimated GFR () 114.2 Estimated GFR (Non- 98.5 BUN/Creatinine Ratio 14.7 Random Glucose 83 mg/dl Calcium Level 8.9 mg/dl Magnesium Level 2.1 mg/dl Assessment and Plan ABDOMINAL PAIN, Narcotic Bowel 03/15 one dose of Relistor today Reglan PRN advance diet; smaller meals d/c planning in 1-2 days 03/14 continue Reglan advance diet as tolerated smaller meals would help plan to d/c home in AM 03/13 doing okay, nausea persists will try Zofran PRN and Reglan for 2-3 weeks 03/12 likely narcotic bowel Relistor in AM continue Reglan and other medications as per GI appreciate input from GI Severe epigastric pain x several days. No apparent acute findings on CT of abdomen and pelvis at [facility]. -- s/p EGD 03/10/[address] Salinas (+) hiatal hernia with gastritis -- on PPI, Sucralfate -- added Reglan IV BID 03/10 added Relistor 03/11 -- full liquids ordered will monitor appreciate GI SVC consult PNEUMONIA, COPD EXACERBATION 03/13 breathing status is improved continue antibiotics 03/12 continue abx. for now, he feels better, no breathing issues today Episode of vomiting, but no apparent aspiration. CT of abdomen and pelvis suggested bibasilar infiltrates. -- further improving now 98%2 L o2 sputum cultures: E COLI, sensitive to Cefti, resistant to Levaquin -- changed Levaquin to Ceftri + Azithro Day 3 taper Solumedrol, Nebs q6h -- patient requesting referral to [facility] upon discharge -- follow Speech therapy evaluation 1. Clear liquids diet. Advance to "slippery" as tolerated. 2. Aspiration and GERD precautions, straws OK. Fully upright for meals and for 30 minutes after meals. Head of bed to be elevated to 30 degrees at all times, to include while asleep. NEURO SYMPTOMS 2 episodes of apparent expressive aphasia, one episode possibly associated with left facial palsy. Suspected TIA. Possible seizure (history of seizure disorder, but apparently no longer taking phenytoin). CT head negative at [facility]. MRI cannot be performed (? intrathecal pump). Carotid duplex showed < 50% stenosis of ICA's. repeat CT head: no acute process CT angio head: unrevealing Echo: -- Conclusions -- * There is mild concentric left ventricular hypertrophy. * There is a moderate sized septal wall motion abnormality with moderate hypokinesis of the septal segments. * Otherwise there is mild global hypokinesis * Left ventricular systolic function is moderately reduced. * The LV Ejection Fraction = 35-40%. * The right ventricle is grossly normal size. * The right ventricular systolic function is normal. * Grade I diastolic dysfunction, (abnormal relaxation pattern). EEG: unrevealing -- on Plavix, Aspirin monitor as patient having GI symptoms -- Neuro consulted appreciate the input -- no recurrence of symptoms CHRONIC BACK PAIN 03/13 pain seems to be improved with the new regimen continue pain management medications outpatient pain mgt for pump management -- has an intrathecal pump with Dilaudid, Clonidine and Bupivacaine for years -- few days ago, (+) breakthrough pain discussed with Dr. 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 Red patient and daughter inquiring with paint striping machine operator if they can change battery here, will discuss with pain management SV CORONARY ARTERY DISEASE No anginal symptoms. No acute EKG changes. CHF -- Lasix resumed euvolemic monitor volume status RESUSCITATION STATUS Discussed with patient. He has a living will; his daughter Buffy is an RN and is durable POA. He would like resuscitation attempted in the event of a cardiopulmonary arrest if there is a reasonable chance of a meaningful recovery, but does not want prolonged extraordinary measures if prognosis is poor. Therefore, code status = "Level 1" (full resuscitation). VTE PROPHYLAXIS High risk for VTE. SQ heparin with caution. MEDICAL RECONCILIATION Home medications uncertain- need to verify. Records from PCP and [facility] requested please confirm medication list prior to discharge DISPOSITION lives at home PT/OT anticipate d/c home when medically stable
[2017-03-15 20:44] VITALS: PULSE 101; O2SAT 94
[2017-03-15] MEDS: LACTULOSE SYRUP 30 GM/45 ML UDP PO PRN (21:29)
[2017-03-16] VITALS (7 sets, daily range): BP systolic 101–116; BP diastolic 65–71; PULSE 75–98; TEMP 36.3–36.6; O2SAT 91–99
[2017-03-16] MEDS: ZOLPIDEM TARTRATE 10 MG TAB PO PRN (00:05)
[2017-03-16] MEDS: IPRATROPIUM BROMIDE NEB SOLN 0.02% 2.5 ML VIAL INH SCH ×4 (01:42→19:00)
[2017-03-16] MEDS: LEVALBUTEROL 1.25MG/0.5ML NEB INH SCH ×4 (01:42→19:00)
[2017-03-16] MEDS: MoRPHine SULFATE IR 15 MG TAB (IMMEDIATE RELEASE) PO PRN (01:47)
[2017-03-16] MEDS: SUCRALFATE 1 GM TAB PO SCH ×4 (06:04→20:50)
[2017-03-16] MEDS: MoRPHine SULFATE CR 60 MG TAB (MS CONTIN) PO SCH ×3 (06:04→20:51)
[2017-03-16] MEDS: MoRPHine SULFATE CR 15 MG TAB (MS CONTIN) PO SCH ×3 (06:05→20:51)
[2017-03-16] MEDS: BUDESONIDE 0.5 MG/2 ML VIAL (PULMICORT) INH SCH ×2 (07:16→19:00)
[2017-03-16] MEDS: FORMOTEROL FUMA NEBULIZER SOLN 20 MCG/2 ML VIAL INH SCH ×2 (07:16→19:00)
[2017-03-16] MEDS: POTASSIUM CHLORIDE 20 MEQ TABCR PO SCH ×2 (08:14→17:39)
[2017-03-16] MEDS: METOPROLOL TARTRATE 25 MG TAB PO SCH ×2 (08:14→20:52)
[2017-03-16] MEDS: CLOPIDOGREL BISULFATE 75 MG TAB PO SCH (08:14)
[2017-03-16] MEDS: DOCUSATE SODIUM/SENNA 50/8.6MG TAB PO SCH (08:14)
[2017-03-16] MEDS: METHYLPREDNISOLONE IV 40 MG in SYRINGE 0 ML IV SCH (08:14)
[2017-03-16] MEDS: ASPIRIN 81 MG ECTAB PO SCH (08:14)
[2017-03-16] MEDS: PANTOprazole SOD 40 MG TAB PO SCH ×2 (08:14→20:50)
[2017-03-16] MEDS: LISINOPRIL 20 MG TAB PO SCH (08:15)
[2017-03-16] MEDS: FUROSEMIDE 40 MG TAB PO SCH (08:15)
[2017-03-16] MEDS: ATORVASTATIN 40 MG TAB PO SCH (08:15)
[2017-03-16] MEDS: TAMSULOSIN HCL 0.4 MG CAP PO SCH (08:16)
[2017-03-16] MEDS: TIOTROPIUM BROMIDE 5 PUFF/90 MCG INH INH SCH (08:16)
[2017-03-16] MEDS: ALPRAZOLAM 0.5 MG TAB PO SCH ×3 (08:22→20:51)
[2017-03-16] MEDS: METOCLOPRAMIDE HCL INJ 5 MG/ML 2 ML VIAL IV. SCH ×2 (08:23→20:50)
[2017-03-16] MEDS: HEPARIN SOD 5000 UNIT/0.5 ML CARP SQ SCH ×2 (08:26→20:40)
[2017-03-16] MEDS: PROMETHAZINE HCL INJ 12.5 MG in SODIUM CHLORIDE 0.9% 50ML 50 ML IV PRN ×2 (08:33→17:44)
[2017-03-16] MEDS: LACTULOSE SYRUP 30 GM/45 ML UDP PO PRN (10:08)
--- NOTE | 2017-03-16 10:52 | Progress Note ---
Subjective Date of Service: Mar 16, 2017. Subjective Pt evaluation today including: conversation w/ patient, physical exam, lab review, review of studies, review of inpatient medication list Saw/examined the patient in room 453 He states his pain is controlled Nausea and vomiting are still present, but improving He is tolerating small amounts of solids now No fevers/chills +cough, sputum Problem List Medical Problems: (1) Bronchiectasis Status: Chronic (2) COPD (chronic obstructive pulmonary disease) Status: Chronic Review of Systems Constitutional: No fever, No chills Respiratory: + cough, + sputum, No wheezing, No shortness of breath, No dyspnea on exertion, No dyspnea at rest, No hemoptysis Cardiac: No chest pain Abdomen: + nausea, + vomiting, No pain, No diarrhea, No constipation, No GI bleeding Medications Current Inpatient Medications Medications (Trade) Dose Ordered Sig/Marco A Route Start Time Stop Time Status Last Admin Dose Admin Acetaminophen (Tylenol Tab) 650 mg Q4 PRN PO 03/04/17 22:45 04/03/17 22:44 Alprazolam (Xanax Tab) 0.5 mg BID@0900,1600 PO 03/05/17 09:00 04/04/17 08:59 03/16/17 08:22 0.5 MG Alprazolam (Xanax Tab) 1 mg HS PO 03/05/17 21:00 04/04/17 20:59 03/15/17 21:30 1 MG Atorvastatin Calcium (Lipitor Tab) 40 mg DAILY PO 03/05/17 09:00 04/04/17 08:59 03/16/17 08:15 40 MG Budesonide (Pulmicort Respules 0.5MG/ 2ML Neb Soln) 0.5 mg BID INH 03/05/17 09:00 04/04/17 08:59 03/16/17 07:16 0.5 MG Clopidogrel Bisulfate (plAVix TAB) 75 mg DAILY PO 03/05/17 09:00 04/04/17 08:59 03/16/17 08:14 75 MG Folic Acid (Folvite Tab) 1 mg DAILY PO 03/05/17 09:00 04/04/17 08:59 03/16/17 08:16 1 MG Formoterol Fumarate (Perforomist 20MCG/2ML Neb Soln) 20 mcg Q12 INH 03/05/17 09:00 04/04/17 08:59 03/16/17 07:16 20 MCG Codeine Phosphate/ Guaifenesin (Robitussin-AC Sugar Free Syrup) 5 ml Q4H PRN PO 03/04/17 22:45 04/03/17 22:44 03/09/17 13:31 5 ML Heparin Sodium (Porcine) (Heparin Sq 5000 Unit/0.5ml) 5,000 unit Q12 SQ 03/05/17 09:00 04/04/17 08:59 03/16/17 08:26 5,000 UNIT Levalbuterol (Xopenex 0.63 Mg/ 3 Ml Neb) 0.63 mg Q6 PRN INH 03/04/17 22:45 04/03/17 22:44 Metoprolol Tartrate (Lopressor Tab) 25 mg BID PO 03/05/17 09:00 04/04/17 08:59 03/16/17 08:14 25 MG Ondansetron HCl (Zofran Inj) 4 mg Q6H PRN IV 03/04/17 22:45 04/03/17 22:44 03/15/17 12:55 4 MG Tamsulosin HCl (Flomax Cap) 0.4 mg DAILY PO 03/05/17 09:00 04/04/17 08:59 03/16/17 08:16 0.4 MG Lorazepam 0.5 mg/ Syringe 0.5 ml @ 0.5 mls/min Q6H PRN IV 03/05/17 02:15 04/04/17 02:14 03/05/17 03:09 0.5 MLS/MIN Lisinopril (Zestril Tab) 20 mg DAILY PO 03/05/17 09:00 04/04/17 08:59 03/16/17 08:15 20 MG Sucralfate (Carafate Tab) 1 gm ACHS PO 03/05/17 07:00 04/04/17 06:59 03/16/17 06:04 1 GM Lorazepam (Ativan Inj) 0.5 mg Q6H PRN IV 03/05/17 03:15 04/04/17 03:14 03/06/17 14:19 0.5 MG Tiotropium [place] (Spiriva Handihaler Inhaler) 1 puff DAILY INH 03/06/17 09:00 04/05/17 08:59 03/16/17 08:16 1 PUFF Zolpidem Tartrate (Ambien Tab) 10 mg HS PRN PO 03/05/17 09:15 04/04/17 09:14 03/16/17 00:05 10 MG Heparin Sodium (Porcine) (Heparin 10 Unit/ ml 5 ml Flush) 5 ml PRN PRN FLUSH 03/05/17 17:15 04/04/17 17:14 03/16/17 08:30 5 ML Ipratropium [place] (Atrovent 0.02% 0.5MG/2.5ML Neb) 0.5 mg Q6R INH 03/06/17 17:00 04/05/17 16:59 03/16/17 01:42 0.5 MG Levalbuterol (Xopenex 1.25MG/ 0.5ML Neb) 1.25 mg Q6R INH 03/06/17 17:00 04/05/17 16:59 03/16/17 01:42 1.25 MG Senna/Docusate Sodium (Senokot S Tab) 1 tab DAILY PRN PO 03/06/17 15:45 04/05/17 15:44 03/08/17 12:55 1 TAB Promethazine HCl 12.5 mg/Sodium Chloride 50.5 ml @ 204 mls/hr Q6H PRN IV 03/06/17 18:00 04/05/17 17:59 03/16/17 08:33 204 MLS/HR Aspirin (Ecotrin Tab) 81 mg QAM PO 03/08/17 09:00 04/07/17 08:59 03/16/17 08:14 81 MG Polyethylene (Miralax Powder Packet) 17 gm DAILY PRN PO 03/07/17 09:45 04/06/17 09:44 03/07/17 13:04 17 GM Morphine Sulfate (MoRPHine SULFATE INJ) 4 mg Q4H PRN IV 03/07/17 11:45 03/21/17 11:44 03/14/17 00:17 4 MG Senna/Docusate Sodium (Senokot S Tab) 1 tab QAM PO 03/08/17 09:00 04/07/17 08:59 03/16/17 08:14 1 TAB Lactulose (Chronulac Syrup) 30 gm Q6H PRN PO 03/08/17 14:00 04/07/17 13:59 03/16/17 10:08 30 GM Furosemide (Lasix Tab) 40 mg DAILY PO 03/10/17 09:00 04/09/17 08:59 03/16/17 08:15 40 MG Metoclopramide HCl (Reglan Inj) 5 mg BID IV. 03/10/17 21:00 04/09/17 20:59 03/16/17 08:23 5 MG Methylprednisolone Sodium Succinate 40 mg/Syringe 0.64 ml @ 1.5 mls/min DAILY IV 03/11/17 09:00 04/06/17 12:59 03/16/17 08:14 1.5 MLS/MIN Potassium Chloride (Klor-Con Tab) 20 meq BID17 PO 03/13/17 09:00 04/12/17 08:59 03/16/17 08:14 20 MEQ Morphine Sulfate (MoRPHine SULFATE IR TAB) 15 mg Q4H PRN PO 03/12/17 07:45 03/26/17 07:44 03/16/17 01:47 15 MG Pantoprazole Sodium (Protonix Tab) 40 mg BID PO 03/14/17 20:00 04/13/17 19:59 03/16/17 08:14 40 MG Morphine Sulfate (Oramorph Sr Tab) 30 mg Q8H PO 03/15/17 06:00 03/29/17 05:59 03/16/17 06:05 30 MG Morphine Sulfate (Ms Contin Tab) 60 mg Q8H PO 03/15/17 06:00 03/29/17 05:59 03/16/17 06:04 60 MG Methylnaltrexone [place] (Relistor Inj) 12 mg Q2D SQ 03/15/17 11:00 04/14/17 10:59 03/15/17 10:46 12 MG Objective Vital Signs Date Time Temp Pulse Resp B/P (MAP) Pulse Ox O2 Delivery O2 Flow Rate FiO2 03/16/17 08:00 Nasal Cannula 2.5 03/16/17 07:17 36.3 80 18 116/71 (86) 99 Nasal Cannula 2.0 03/16/17 07:16 75 18 98 Nasal Cannula 2.5 03/16/17 01:42 88 18 98 Nasal Cannula 2.5 03/16/17 00:23 36.6 97 20 101/65 (77) 91 Room Air 03/16/17 00:16 Nasal Cannula 2.5 03/15/17 20:44 101 18 94 Room Air 03/15/17 20:41 Nasal Cannula 2.5 03/15/17 16:00 Nasal Cannula 2.5 03/15/17 15:19 36.7 72 18 108/65 (79) 96 Nasal Cannula 2.5 03/15/17 14:17 75 18 98 Nasal Cannula 2.5 Physical Exam General Appearance: no apparent distress Respiratory/Chest: lungs clear, normal breath sounds, no respiratory distress, no accessory muscle use Cardiovascular: regular rate, rhythm, no edema, no murmur Abdomen: normal bowel sounds, non tender, soft Assessment and Plan ABDOMINAL PAIN, Narcotic Bowel 03/16 Reglan PRN continue to advance diet Relistor q2 days likely d/c home on 03/17 03/15 one dose of Relistor today Reglan PRN advance diet; smaller meals d/c planning in 1-2 days 03/14 continue Reglan advance diet as tolerated smaller meals would help plan to d/c home in AM 03/13 doing okay, nausea persists will try Zofran PRN and Reglan for 2-3 weeks 03/12 likely narcotic bowel Relistor in AM continue Reglan and other medications as per GI appreciate input from GI Severe epigastric pain x several days. No apparent acute findings on CT of abdomen and pelvis at [facility]. -- s/p EGD 03/10/[address] Salinas (+) hiatal hernia with gastritis -- on PPI, Sucralfate -- added Reglan IV BID 03/10 added Relistor 03/11 -- full liquids ordered will monitor appreciate GI SVC consult PNEUMONIA, COPD EXACERBATION 03/16 check CXR to f/u on PNA 03/13 breathing status is improved continue antibiotics 03/12 continue abx. for now, he feels better, no breathing issues today Episode of vomiting, but no apparent aspiration. CT of abdomen and pelvis suggested bibasilar infiltrates. -- further improving now 98%2 L o2 sputum cultures: E COLI, sensitive to Cefti, resistant to Levaquin -- changed Levaquin to Ceftri + Azithro Day 3 taper Solumedrol, Nebs q6h -- patient requesting referral to [facility] upon discharge -- follow Speech therapy evaluation 1. Clear liquids diet. Advance to "slippery" as tolerated. 2. Aspiration and GERD precautions, straws OK. Fully upright for meals and for 30 minutes after meals. Head of bed to be elevated to 30 degrees at all times, to include while asleep. NEURO SYMPTOMS 2 episodes of apparent expressive aphasia, one episode possibly associated with left facial palsy. Suspected TIA. Possible seizure (history of seizure disorder, but apparently no longer taking phenytoin). CT head negative at [facility]. MRI cannot be performed (? intrathecal pump). Carotid duplex showed < 50% stenosis of ICA's. repeat CT head: no acute process CT angio head: unrevealing Echo: -- Conclusions -- * There is mild concentric left ventricular hypertrophy. * There is a moderate sized septal wall motion abnormality with moderate hypokinesis of the septal segments. * Otherwise there is mild global hypokinesis * Left ventricular systolic function is moderately reduced. * The LV Ejection Fraction = 35-40%. * The right ventricle is grossly normal size. * The right ventricular systolic function is normal. * Grade I diastolic dysfunction, (abnormal relaxation pattern). EEG: unrevealing -- on Plavix, Aspirin monitor as patient having GI symptoms -- Neuro consulted appreciate the input -- no recurrence of symptoms CHRONIC BACK PAIN 03/13 pain seems to be improved with the new regimen continue pain management medications outpatient pain mgt for pump management -- has an intrathecal pump with Dilaudid, Clonidine and Bupivacaine for years -- few days ago, (+) breakthrough pain discussed with Dr. 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 Red patient and daughter inquiring with painter apprentice if they can change battery here, will discuss with pain management SV CORONARY ARTERY DISEASE No anginal symptoms. No acute EKG changes. CHF -- Lasix resumed euvolemic monitor volume status RESUSCITATION STATUS Discussed with patient. He has a living will; his daughter Buffy is an RN and is durable POA. He would like resuscitation attempted in the event of a cardiopulmonary arrest if there is a reasonable chance of a meaningful recovery, but does not want prolonged extraordinary measures if prognosis is poor. Therefore, code status = "Level 1" (full resuscitation). VTE PROPHYLAXIS High risk for VTE. SQ heparin with caution. MEDICAL RECONCILIATION Home medications uncertain- need to verify. Records from PCP and [facility] requested please confirm medication list prior to discharge DISPOSITION lives at home PT/OT anticipate d/c home when medically stable
--- NOTE | 2017-03-16 12:14 | DIAGNOSTIC IMAGING REPORT ---
CHEST ONE VIEW PORTABLE HISTORY: 71 years-old Male +cough, congestion; r/o PNA acute cough and congestion. COMPARISON: Chest radiograph 03/04/2017 TECHNIQUE: Portable upright AP view of the chest FINDINGS: Cardiac silhouette is moderately enlarged, unchanged. There is no pneumothorax or pleural effusion. Subsegmental bibasilar opacities appear somewhat linear suggesting atelectasis. Left-sided PICC is seen with distal tip terminating within the region of the superior cavoatrial junction. Fusion hardware of the thoracolumbar spine is noted. Patient obesity noted. IMPRESSION: 1. Cardiomegaly and subsegmental bibasilar atelectasis/scarring without acute cardiopulmonary process. 2. Left-sided PICC terminates in the region of the superior cavoatrial junction. The above report was generated using voice recognition software. It may contain grammatical, syntax or spelling errors. Electronically signed by: Eric Maddox M.D. 03/16/2017 12:13 PM Dictated Date/Time: 03/16/2017 12:10 PM
[2017-03-17] VITALS (9 sets, daily range): BP systolic 94–118; BP diastolic 61–76; PULSE 76–108; TEMP 36.4–36.8; O2SAT 95–98
[2017-03-17] MEDS: ZOLPIDEM TARTRATE 10 MG TAB PO PRN ×2 (00:03→23:20)
[2017-03-17] MEDS: LEVALBUTEROL 1.25MG/0.5ML NEB INH SCH ×4 (01:55→19:54)
[2017-03-17] MEDS: IPRATROPIUM BROMIDE NEB SOLN 0.02% 2.5 ML VIAL INH SCH ×4 (01:55→19:54)
[2017-03-17] MEDS: MoRPHine SULFATE IR 15 MG TAB (IMMEDIATE RELEASE) PO PRN (02:40)
[2017-03-17] MEDS: LACTULOSE SYRUP 30 GM/45 ML UDP PO PRN ×2 (05:02→19:25)
[2017-03-17 05:49] LABS: HEMATOCRIT 36.6 % (42-52); RED BLOOD COUNT 4.06 M/uL (4.7-6.1); WHITE BLOOD COUNT 16.81 K/uL (4.8-10.8)
[2017-03-17 05:50] LABS: MEAN CELL VOLUME 90.1 fL (80-100); MEAN CORPUSCULAR HEMOGLOBIN 29.3 pg (25-34); MEAN CORPUSCULAR HGB CONC 32.5 g/dl (32-36); MEAN PLATELET VOLUME 9.9 fL (7.4-10.4); PLATELET COUNT 227 K/uL (130-400)
[2017-03-17] MEDS: SUCRALFATE 1 GM TAB PO SCH ×4 (05:58→21:41)
[2017-03-17] MEDS: MoRPHine SULFATE CR 60 MG TAB (MS CONTIN) PO SCH ×3 (05:58→21:37)
[2017-03-17] MEDS: MoRPHine SULFATE CR 15 MG TAB (MS CONTIN) PO SCH ×3 (05:58→21:37)
[2017-03-17 06:23] LABS: BUN/CREATININE RATIO 26.2 (10-20); CALCIUM 9.2 mg/dl (8.5-10.1); CREATININE 0.9 mg/dl (0.60-1.40); POTASSIUM 4.2 mmol/L (3.5-5.1)
[2017-03-17] MEDS: FORMOTEROL FUMA NEBULIZER SOLN 20 MCG/2 ML VIAL INH SCH ×2 (07:07→19:54)
[2017-03-17] MEDS: BUDESONIDE 0.5 MG/2 ML VIAL (PULMICORT) INH SCH ×2 (07:07→19:54)
[2017-03-17] MEDS: LISINOPRIL 20 MG TAB PO SCH (08:00)
[2017-03-17] MEDS: METOPROLOL TARTRATE 25 MG TAB PO SCH ×2 (08:00→21:43)
[2017-03-17] MEDS: METHYLPREDNISOLONE IV 40 MG in SYRINGE 0 ML IV SCH (08:08)
[2017-03-17] MEDS: TIOTROPIUM BROMIDE 5 PUFF/90 MCG INH INH SCH (08:08)
[2017-03-17] MEDS: POTASSIUM CHLORIDE 20 MEQ TABCR PO SCH ×2 (08:09→16:36)
[2017-03-17] MEDS: CLOPIDOGREL BISULFATE 75 MG TAB PO SCH (08:10)
[2017-03-17] MEDS: ATORVASTATIN 40 MG TAB PO SCH (08:10)
[2017-03-17] MEDS: PANTOprazole SOD 40 MG TAB PO SCH ×2 (08:10→21:38)
[2017-03-17] MEDS: ASPIRIN 81 MG ECTAB PO SCH (08:11)
[2017-03-17] MEDS: TAMSULOSIN HCL 0.4 MG CAP PO SCH (08:12)
[2017-03-17] MEDS: DOCUSATE SODIUM/SENNA 50/8.6MG TAB PO SCH (08:14)
[2017-03-17] MEDS: ALPRAZOLAM 0.5 MG TAB PO SCH ×3 (08:17→21:38)
[2017-03-17] MEDS: METOCLOPRAMIDE HCL INJ 5 MG/ML 2 ML VIAL IV. SCH ×2 (08:17→21:37)
[2017-03-17] MEDS: HEPARIN SOD 5000 UNIT/0.5 ML CARP SQ SCH ×2 (08:21→21:39)
[2017-03-17] MEDS: PROMETHAZINE HCL INJ 12.5 MG in SODIUM CHLORIDE 0.9% 50ML 50 ML IV PRN ×2 (08:22→16:25)
[2017-03-17] MEDS: FUROSEMIDE 40 MG TAB PO SCH (08:32)
[2017-03-17] MEDS: METHYLNALTREXONE BROMIDE INJ 12 MG/0.6 ML SYR SQ SCH (10:28)
[2017-03-17] MEDS ORDERED: BISACODYL 5 MG TABEC PO ONE (11:30)
[2017-03-17] MEDS ORDERED: MAGNESIUM HYDROXIDE SUSP 30 ML UDC PO ONE (11:30)
[2017-03-17] MEDS ORDERED: INFLUENZA VACCINE HIGH DOSE 65+ 0.5 ML SYR IM. ONE (12:00)
[2017-03-17] MEDS ORDERED: INFLUENZA ADMINISTRATION CHARGE ONE (12:00)
[2017-03-17] MEDS: MoRPHine SULFATE 4 MG/ML 1 ML CARP\\VIAL IV PRN (16:40)
--- NOTE | 2017-03-17 16:44 | Progress Note ---
Subjective Date of Service: Mar 17, 2017. Subjective Pt evaluation today including: conversation w/ patient, physical exam, lab review, review of studies, review of inpatient medication list Saw/examined the patient in room 453 He's doing okay, +nausea, +vomiting persists Pain improved Problem List Medical Problems: (1) Bronchiectasis Status: Chronic (2) COPD (chronic obstructive pulmonary disease) Status: Chronic Review of Systems Constitutional: No fever, No chills Respiratory: No shortness of breath Cardiac: No chest pain Abdomen: + nausea, + vomiting, No pain, No diarrhea Musculoskeletal: + joint pain Medications Current Inpatient Medications Medications (Trade) Dose Ordered Sig/Marco A Route Start Time Stop Time Status Last Admin Dose Admin Acetaminophen (Tylenol Tab) 650 mg Q4 PRN PO 03/04/17 22:45 04/03/17 22:44 Alprazolam (Xanax Tab) 0.5 mg BID@0900,1600 PO 03/05/17 09:00 04/04/17 08:59 03/17/17 16:31 0.5 MG Alprazolam (Xanax Tab) 1 mg HS PO 03/05/17 21:00 04/04/17 20:59 03/16/17 20:51 1 MG Atorvastatin Calcium (Lipitor Tab) 40 mg DAILY PO 03/05/17 09:00 04/04/17 08:59 03/17/17 08:10 40 MG Budesonide (Pulmicort Respules 0.5MG/ 2ML Neb Soln) 0.5 mg BID INH 03/05/17 09:00 04/04/17 08:59 03/17/17 07:07 0.5 MG Clopidogrel Bisulfate (plAVix TAB) 75 mg DAILY PO 03/05/17 09:00 04/04/17 08:59 03/17/17 08:10 75 MG Folic Acid (Folvite Tab) 1 mg DAILY PO 03/05/17 09:00 04/04/17 08:59 03/17/17 08:12 1 MG Formoterol Fumarate (Perforomist 20MCG/2ML Neb Soln) 20 mcg Q12 INH 03/05/17 09:00 04/04/17 08:59 03/17/17 07:07 20 MCG Codeine Phosphate/ Guaifenesin (Robitussin-AC Sugar Free Syrup) 5 ml Q4H PRN PO 03/04/17 22:45 04/03/17 22:44 03/09/17 13:31 5 ML Heparin Sodium (Porcine) (Heparin Sq 5000 Unit/0.5ml) 5,000 unit Q12 SQ 03/05/17 09:00 04/04/17 08:59 03/17/17 08:21 5,000 UNIT Levalbuterol (Xopenex 0.63 Mg/ 3 Ml Neb) 0.63 mg Q6 PRN INH 03/04/17 22:45 04/03/17 22:44 Metoprolol Tartrate (Lopressor Tab) 25 mg BID PO 03/05/17 09:00 04/04/17 08:59 03/16/17 20:52 25 MG Ondansetron HCl (Zofran Inj) 4 mg Q6H PRN IV 03/04/17 22:45 04/03/17 22:44 03/15/17 12:55 4 MG Tamsulosin HCl (Flomax Cap) 0.4 mg DAILY PO 03/05/17 09:00 04/04/17 08:59 03/17/17 08:12 0.4 MG Lorazepam 0.5 mg/ Syringe 0.5 ml @ 0.5 mls/min Q6H PRN IV 03/05/17 02:15 04/04/17 02:14 03/05/17 03:09 0.5 MLS/MIN Lisinopril (Zestril Tab) 20 mg DAILY PO 03/05/17 09:00 04/04/17 08:59 03/16/17 08:15 20 MG Sucralfate (Carafate Tab) 1 gm ACHS PO 03/05/17 07:00 04/04/17 06:59 03/17/17 16:36 1 GM Lorazepam (Ativan Inj) 0.5 mg Q6H PRN IV 03/05/17 03:15 04/04/17 03:14 03/06/17 14:19 0.5 MG Tiotropium Locust (Spiriva Handihaler Inhaler) 1 puff DAILY INH 03/06/17 09:00 04/05/17 08:59 03/17/17 08:08 1 PUFF Zolpidem Tartrate (Ambien Tab) 10 mg HS PRN PO 03/05/17 09:15 04/04/17 09:14 03/17/17 00:03 10 MG Heparin Sodium (Porcine) (Heparin 10 Unit/ ml 5 ml Flush) 5 ml PRN PRN FLUSH 03/05/17 17:15 04/04/17 17:14 03/17/17 10:28 5 ML Ipratropium Locust (Atrovent 0.02% 0.5MG/2.5ML Neb) 0.5 mg Q6R INH 03/06/17 17:00 04/05/17 16:59 03/17/17 13:56 0.5 MG Levalbuterol (Xopenex 1.25MG/ 0.5ML Neb) 1.25 mg Q6R INH 03/06/17 17:00 04/05/17 16:59 03/17/17 13:56 1.25 MG Senna/Docusate Sodium (Senokot S Tab) 1 tab DAILY PRN PO 03/06/17 15:45 04/05/17 15:44 03/08/17 12:55 1 TAB Promethazine HCl 12.5 mg/Sodium Chloride 50.5 ml @ 204 mls/hr Q6H PRN IV 03/06/17 18:00 04/05/17 17:59 03/17/17 16:25 204 MLS/HR Aspirin (Ecotrin Tab) 81 mg QAM PO 03/08/17 09:00 04/07/17 08:59 03/17/17 08:11 81 MG Polyethylene (Miralax Powder Packet) 17 gm DAILY PRN PO 03/07/17 09:45 04/06/17 09:44 03/07/17 13:04 17 GM Morphine Sulfate (MoRPHine SULFATE INJ) 4 mg Q4H PRN IV 03/07/17 11:45 03/21/17 11:44 03/17/17 16:40 4 MG Senna/Docusate Sodium (Senokot S Tab) 1 tab QAM PO 03/08/17 09:00 04/07/17 08:59 03/17/17 08:14 1 TAB Lactulose (Chronulac Syrup) 30 gm Q6H PRN PO 03/08/17 14:00 04/07/17 13:59 03/17/17 05:02 30 GM Furosemide (Lasix Tab) 40 mg DAILY PO 03/10/17 09:00 04/09/17 08:59 03/17/17 08:32 40 MG Metoclopramide HCl (Reglan Inj) 5 mg BID IV. 03/10/17 21:00 04/09/17 20:59 03/17/17 08:17 5 MG Potassium Chloride (Klor-Con Tab) 20 meq BID17 PO 03/13/17 09:00 04/12/17 08:59 03/17/17 16:36 20 MEQ Morphine Sulfate (MoRPHine SULFATE IR TAB) 15 mg Q4H PRN PO 03/12/17 07:45 03/26/17 07:44 03/17/17 02:40 15 MG Pantoprazole Sodium (Protonix Tab) 40 mg BID PO 03/14/17 20:00 04/13/17 19:59 03/17/17 08:10 40 MG Morphine Sulfate (Oramorph Sr Tab) 30 mg Q8H PO 03/15/17 06:00 03/29/17 05:59 03/17/17 13:26 30 MG Morphine Sulfate (Ms Contin Tab) 60 mg Q8H PO 03/15/17 06:00 03/29/17 05:59 03/17/17 13:26 60 MG Methylnaltrexone Locust (Relistor Inj) 12 mg Q2D SQ 03/15/17 11:00 04/14/17 10:59 03/17/17 10:28 12 MG Prednisone (PredniSONE TAB) 40 mg DAILY PO 03/18/17 08:00 04/17/17 07:59 Objective Vital Signs Date Time Temp Pulse Resp B/P (MAP) Pulse Ox O2 Delivery O2 Flow Rate FiO2 03/17/17 15:14 36.4 101 18 108/75 (86) 95 3.0 03/17/17 13:56 104 16 97 Nasal Cannula 2.5 03/17/17 08:30 86 118/73 (88) 03/17/17 08:00 Nasal Cannula 2.5 03/17/17 07:05 36.5 77 20 94/61 (72) 98 Nasal Cannula 2.5 03/17/17 07:05 76 16 98 Nasal Cannula 2.5 03/17/17 00:23 Nasal Cannula 2.5 03/17/17 00:11 36.8 108 20 109/70 (83) 98 Nasal Cannula 2.5 03/16/17 19:52 Nasal Cannula 2.5 03/16/17 19:04 98 18 95 Nasal Cannula 2.5 Physical Exam General Appearance: no apparent distress Respiratory/Chest: lungs clear, normal breath sounds, no respiratory distress, no accessory muscle use Extremities: + pertinent finding (L BKA) Laboratory Results Last 24 Hours Test 03/17/17 05:41 White Blood Count 16.81 K/uL Red Blood Count 4.06 M/uL Hemoglobin 11.9 g/dL Hematocrit 36.6 % Mean Corpuscular Volume 90.1 fL Mean Corpuscular Hemoglobin 29.3 pg Mean Corpuscular Hemoglobin Concent 32.5 g/dl RDW Standard Deviation 50.0 fL RDW Coefficient of Variation 15.2 % Platelet Count 227 K/uL Mean Platelet Volume 9.9 fL Sodium Level 138 mmol/L Potassium Level 4.2 mmol/L Chloride Level 98 mmol/L Carbon Dioxide Level 33 mmol/L Anion Gap 7.0 mmol/L Blood Urea Nitrogen 24 mg/dl Creatinine 0.90 mg/dl Est Creatinine Clear Calc Drug Dose 86.0 ml/min Estimated GFR () 99.2 Estimated GFR (Non- 85.6 BUN/Creatinine Ratio 26.2 Random Glucose 104 mg/dl Calcium Level 9.2 mg/dl Assessment and Plan ABDOMINAL PAIN, Narcotic Bowel 03/17 continue Reglan and Relistor 03/16 Reglan PRN continue to advance diet Relistor q2 days likely d/c home on 03/17 03/15 one dose of Relistor today Reglan PRN advance diet; smaller meals d/c planning in 1-2 days 03/14 continue Reglan advance diet as tolerated smaller meals would help plan to d/c home in AM 03/13 doing okay, nausea persists will try Zofran PRN and Reglan for 2-3 weeks 03/12 likely narcotic bowel Relistor in AM continue Reglan and other medications as per GI appreciate input from GI Severe epigastric pain x several days. No apparent acute findings on CT of abdomen and pelvis at [facility]. -- s/p EGD 03/10/[address] Salinas (+) hiatal hernia with gastritis -- on PPI, Sucralfate -- added Reglan IV BID 03/10 added Relistor 03/11 -- full liquids ordered will monitor appreciate GI SVC consult PNEUMONIA, COPD EXACERBATION 03/16 check CXR to f/u on PNA 03/13 breathing status is improved continue antibiotics 03/12 continue abx. for now, he feels better, no breathing issues today Episode of vomiting, but no apparent aspiration. CT of abdomen and pelvis suggested bibasilar infiltrates. -- further improving now 98%2 L o2 sputum cultures: E COLI, sensitive to Cefti, resistant to Levaquin -- changed Levaquin to Ceftri + Azithro Day 3 taper Solumedrol, Nebs q6h -- patient requesting referral to [facility] upon discharge -- follow Speech therapy evaluation 1. Clear liquids diet. Advance to "slippery" as tolerated. 2. Aspiration and GERD precautions, straws OK. Fully upright for meals and for 30 minutes after meals. Head of bed to be elevated to 30 degrees at all times, to include while asleep. NEURO SYMPTOMS 2 episodes of apparent expressive aphasia, one episode possibly associated with left facial palsy. Suspected TIA. Possible seizure (history of seizure disorder, but apparently no longer taking phenytoin). CT head negative at [facility]. MRI cannot be performed (? intrathecal pump). Carotid duplex showed < 50% stenosis of ICA's. repeat CT head: no acute process CT angio head: unrevealing Echo: -- Conclusions -- * There is mild concentric left ventricular hypertrophy. * There is a moderate sized septal wall motion abnormality with moderate hypokinesis of the septal segments. * Otherwise there is mild global hypokinesis * Left ventricular systolic function is moderately reduced. * The LV Ejection Fraction = 35-40%. * The right ventricle is grossly normal size. * The right ventricular systolic function is normal. * Grade I diastolic dysfunction, (abnormal relaxation pattern). EEG: unrevealing -- on Plavix, Aspirin monitor as patient having GI symptoms -- Neuro consulted appreciate the input -- no recurrence of symptoms CHRONIC BACK PAIN 03/13 pain seems to be improved with the new regimen continue pain management medications outpatient pain mgt for pump management -- has an intrathecal pump with Dilaudid, Clonidine and Bupivacaine for years -- few days ago, (+) breakthrough pain discussed with Dr. Red- Pain Management [facility] of patient per his request recommend PRN Morphine and Dilaudid--> pain much improved -- (+) alarm sound heard from site of pain medicine pump consulted Pain Management [facility] operating on safe mode due to low batter, delivering decreased doses they discussed with patient's sign painter helper Dr Clark in [place], plan is to transition to MS contin for now, then change battery as an outpatient with Dr. Red patient and daughter inquiring with sign painter helper if they can change battery here, will discuss with pain management [facility] CORONARY ARTERY DISEASE No anginal symptoms. No acute EKG changes. CHF -- Lasix resumed euvolemic monitor volume status RESUSCITATION STATUS Discussed with patient. He has a living will; his daughter Buffy is an RN and is durable POA. He would like resuscitation attempted in the event of a cardiopulmonary arrest if there is a reasonable chance of a meaningful recovery, but does not want prolonged extraordinary measures if prognosis is poor. Therefore, code status = "Level 1" (full resuscitation). VTE PROPHYLAXIS High risk for VTE. SQ heparin with caution. MEDICAL RECONCILIATION Home medications uncertain- need to verify. Records from PCP and [facility] requested please confirm medication list prior to discharge DISPOSITION lives at home PT/OT anticipate d/c home when medically stable
[2017-03-17] MEDS: ONDANSETRON INJ 2 MG/ML 2 ML VIAL IV PRN (18:04)
[2017-03-18] VITALS (7 sets, daily range): BP systolic 105–119; BP diastolic 67–78; PULSE 68–114; TEMP 36.3–36.7; O2SAT 94–99
[2017-03-18] MEDS: IPRATROPIUM BROMIDE NEB SOLN 0.02% 2.5 ML VIAL INH SCH ×4 (02:06→19:35)
[2017-03-18] MEDS: LEVALBUTEROL 1.25MG/0.5ML NEB INH SCH ×4 (02:07→19:35)
[2017-03-18] MEDS: GUAIFENESIN/CODEINE 200MG/20MG 10ML UDC PO PRN ×2 (02:09→23:28)
[2017-03-18] MEDS: LACTULOSE SYRUP 30 GM/45 ML UDP PO PRN (04:49)
[2017-03-18 05:39] LABS: HEMATOCRIT 39.8 % (42-52); MEAN CELL VOLUME 90.7 fL (80-100); MEAN CORPUSCULAR HEMOGLOBIN 28.5 pg (25-34); MEAN CORPUSCULAR HGB CONC 31.4 g/dl (32-36); MEAN PLATELET VOLUME 9.8 fL (7.4-10.4); PLATELET COUNT 238 K/uL (130-400); RED BLOOD COUNT 4.39 M/uL (4.7-6.1); WHITE BLOOD COUNT 22.75 K/uL (4.8-10.8)
[2017-03-18] MEDS: MoRPHine SULFATE CR 15 MG TAB (MS CONTIN) PO SCH ×3 (05:56→22:13)
[2017-03-18] MEDS: MoRPHine SULFATE CR 60 MG TAB (MS CONTIN) PO SCH ×3 (05:57→22:13)
[2017-03-18] MEDS: SUCRALFATE 1 GM TAB PO SCH ×4 (05:57→22:13)
[2017-03-18 06:05] LABS: CALCIUM 9.1 mg/dl (8.5-10.1); CREATININE 0.88 mg/dl (0.60-1.40); MAGNESIUM 2.1 mg/dl (1.8-2.4); POTASSIUM 4.3 mmol/L (3.5-5.1)
[2017-03-18] MEDS: FORMOTEROL FUMA NEBULIZER SOLN 20 MCG/2 ML VIAL INH SCH ×2 (06:54→19:35)
[2017-03-18] MEDS: BUDESONIDE 0.5 MG/2 ML VIAL (PULMICORT) INH SCH ×2 (06:54→19:36)
[2017-03-18] MEDS: METOCLOPRAMIDE HCL INJ 5 MG/ML 2 ML VIAL IV. SCH ×2 (08:12→21:05)
[2017-03-18] MEDS: PROMETHAZINE HCL INJ 12.5 MG in SODIUM CHLORIDE 0.9% 50ML 50 ML IV PRN ×2 (08:12→16:26)
[2017-03-18] MEDS: ALPRAZOLAM 0.5 MG TAB PO SCH ×3 (08:14→22:13)
[2017-03-18] MEDS: METOPROLOL TARTRATE 25 MG TAB PO SCH ×2 (08:21→21:14)
[2017-03-18] MEDS: PANTOprazole SOD 40 MG TAB PO SCH ×2 (08:21→21:15)
[2017-03-18] MEDS: FUROSEMIDE 40 MG TAB PO SCH (08:22)
[2017-03-18] MEDS: ASPIRIN 81 MG ECTAB PO SCH (08:22)
[2017-03-18] MEDS: TAMSULOSIN HCL 0.4 MG CAP PO SCH (08:22)
[2017-03-18] MEDS: POTASSIUM CHLORIDE 20 MEQ TABCR PO SCH ×2 (08:22→16:22)
[2017-03-18] MEDS: TIOTROPIUM BROMIDE 5 PUFF/90 MCG INH INH SCH (08:23)
[2017-03-18] MEDS: HEPARIN SOD 5000 UNIT/0.5 ML CARP SQ SCH ×2 (08:32→21:17)
[2017-03-18] MEDS: CLOPIDOGREL BISULFATE 75 MG TAB PO SCH (09:16)
[2017-03-18] MEDS: LISINOPRIL 20 MG TAB PO SCH (09:16)
[2017-03-18] MEDS: DOCUSATE SODIUM/SENNA 50/8.6MG TAB PO SCH (09:16)
[2017-03-18] MEDS: ATORVASTATIN 40 MG TAB PO SCH (10:03)
[2017-03-18] MEDS ORDERED: SOD PHOSPHATE/SOD BIPHOSPHATE ENEMA 132 ML BTL PR STA (10:44)
[2017-03-18] MEDS: MoRPHine SULFATE 4 MG/ML 1 ML CARP\\VIAL IV PRN ×2 (16:24→23:28)
[2017-03-18] MEDS: ONDANSETRON INJ 2 MG/ML 2 ML VIAL IV PRN (21:05)
[2017-03-18] MEDS: ZOLPIDEM TARTRATE 10 MG TAB PO PRN (23:17)
[2017-03-19 01:39] VITALS: PULSE 96; O2SAT 96
[2017-03-19] MEDS: IPRATROPIUM BROMIDE NEB SOLN 0.02% 2.5 ML VIAL INH SCH ×4 (01:39→19:25)
[2017-03-19] MEDS: LEVALBUTEROL 1.25MG/0.5ML NEB INH SCH ×4 (01:39→19:25)
[2017-03-19] MEDS: SUCRALFATE 1 GM TAB PO SCH ×4 (05:47→21:55)
[2017-03-19] MEDS: MoRPHine SULFATE CR 60 MG TAB (MS CONTIN) PO SCH ×3 (05:47→21:54)
[2017-03-19] MEDS: MoRPHine SULFATE CR 15 MG TAB (MS CONTIN) PO SCH ×3 (05:47→21:54)
[2017-03-19 07:07] VITALS: BP 106/72; PULSE 69; TEMP 36.3; O2SAT 93
[2017-03-19] MEDS: BUDESONIDE 0.5 MG/2 ML VIAL (PULMICORT) INH SCH ×2 (07:17→19:25)
[2017-03-19] MEDS: FORMOTEROL FUMA NEBULIZER SOLN 20 MCG/2 ML VIAL INH SCH ×2 (07:17→19:25)
[2017-03-19 07:20] VITALS: PULSE 97; O2SAT 98
[2017-03-19] MEDS: TIOTROPIUM BROMIDE 5 PUFF/90 MCG INH INH SCH (08:40)
[2017-03-19] MEDS: PANTOprazole SOD 40 MG TAB PO SCH ×2 (08:40→21:55)
[2017-03-19] MEDS: DOCUSATE SODIUM/SENNA 50/8.6MG TAB PO SCH (08:41)
[2017-03-19] MEDS: FUROSEMIDE 40 MG TAB PO SCH (08:42)
[2017-03-19] MEDS: LISINOPRIL 20 MG TAB PO SCH (08:42)
[2017-03-19] MEDS: POTASSIUM CHLORIDE 20 MEQ TABCR PO SCH ×2 (08:42→16:29)
[2017-03-19] MEDS: TAMSULOSIN HCL 0.4 MG CAP PO SCH (08:42)
[2017-03-19] MEDS: ASPIRIN 81 MG ECTAB PO SCH (08:43)
[2017-03-19] MEDS: METOPROLOL TARTRATE 25 MG TAB PO SCH ×2 (08:43→20:00)
[2017-03-19] MEDS: ATORVASTATIN 40 MG TAB PO SCH (08:43)
[2017-03-19] MEDS: CLOPIDOGREL BISULFATE 75 MG TAB PO SCH (08:43)
[2017-03-19] MEDS: ALPRAZOLAM 0.5 MG TAB PO SCH ×3 (08:45→21:54)
[2017-03-19] MEDS: MoRPHine SULFATE IR 15 MG TAB (IMMEDIATE RELEASE) PO PRN ×2 (08:46→16:31)
[2017-03-19] MEDS: METOCLOPRAMIDE HCL INJ 5 MG/ML 2 ML VIAL IV. SCH ×2 (08:46→21:54)
[2017-03-19] MEDS: HEPARIN SOD 5000 UNIT/0.5 ML CARP SQ SCH ×2 (08:49→22:06)
[2017-03-19] MEDS: PROMETHAZINE HCL INJ 12.5 MG in SODIUM CHLORIDE 0.9% 50ML 50 ML IV PRN ×2 (08:53→18:15)
[2017-03-19] MEDS ORDERED: SOD PHOSPHATE/SOD BIPHOSPHATE ENEMA 132 ML BTL PR STA ×2 (11:10→14:09)
--- NOTE | 2017-03-19 11:19 | Progress Note ---
Internal Med Progress Note Date of Service: Mar 19, 2017. Provider Documentation: This is a bill for 03/18/17 SUBJECTIVE: The patient was seen and examined Bowel not moved for the last week or so Abdominal discomfort with nausea ,no vomiting OBJECTIVE: Vital Signs-as noted below Exam: General-Moderate distress at rest Eyes-normal ENT-normal Neck-supple Lungs-clear to ausucltate bilaterally Heart-Regular,no murmur Abdomen-Benign,mildly tender Bowel sound sluggish Extremities-Negative for any edema on right Neuro-AAOx3 Lab data as noted below. ASSESSMENT & PLAN: ABDOMINAL PAIN, Narcotic Bowel Admitted with severe epigastric pain x several days. No apparent acute findings on CT of abdomen and pelvis at [facility]. S/p EGD 03/10/[address] Salinas (+) hiatal hernia with gastritis On PPI, Sucralfate Added Reglan IV BID 03/10 And later on Relistor 03/11 Bowel moved yesterday Will give more Fleet Enema PNEUMONIA, COPD EXACERBATION CT of abdomen and pelvis suggested bibasilar infiltrates. Sputum cultures: E COLI, sensitive to Cefti, resistant to Levaquin Patient requesting referral to [facility] upon discharge Follow Speech therapy evaluation 1. Clear liquids diet. Advance to "slippery" as tolerated. 2. Aspiration and GERD precautions, straws OK. Fully upright for meals and for 30 minutes after meals. Head of bed to be elevated to 30 degrees at all times, to include while asleep. NEURO SYMPTOMS 2 episodes of apparent expressive aphasia, one episode possibly associated with left facial palsy. Suspected TIA. Possible seizure (history of seizure disorder, but apparently no longer taking phenytoin). CT head negative at [facility]. MRI cannot be performed (? intrathecal pump). Carotid duplex showed < 50% stenosis of ICA's. Repeat CT head: no acute process CT angio head: unrevealing Echo: -- Conclusions -- * There is mild concentric left ventricular hypertrophy. * There is a moderate sized septal wall motion abnormality with moderate hypokinesis of the septal segments. * Otherwise there is mild global hypokinesis * Left ventricular systolic function is moderately reduced. * The LV Ejection Fraction = 35-40%. * The right ventricle is grossly normal size. * The right ventricular systolic function is normal. * Grade I diastolic dysfunction, (abnormal relaxation pattern). EEG: unrevealing On Plavix, Aspirin monitor as patient having GI symptoms Neuro consulted appreciate the input No recurrence of symptoms CHRONIC BACK PAIN Has an intrathecal pump with Dilaudid, Clonidine and Bupivacaine for years A few days ago, (+) breakthrough pain ,the case was discussed with Dr. Red- Pain Management [facility] per his request Consulted Pain Management [facility] pain medicine pump operating on safe mode due to low batter, delivering decreased doses they discussed with patient's size painter Dr Clark in [place], plan is to transition to MS contin for now, then change battery as an outpatient with Dr. Red patient and daughter inquiring with size painter if they can change battery here, will discuss with pain management [facility] [place] CORONARY ARTERY DISEASE No anginal symptoms. No acute EKG changes. CHF -- Lasix resumed euvolemic monitor volume status RESUSCITATION STATUS Discussed with patient. He has a living will; his daughter Buffy is an RN and is durable POA. He would like resuscitation attempted in the event of a cardiopulmonary arrest if there is a reasonable chance of a meaningful recovery, but does not want prolonged extraordinary measures if prognosis is poor. Therefore, code status = "Level 1" (full resuscitation). VTE PROPHYLAXIS High risk for VTE. SQ heparin with caution. DISPOSITION lives at home PT/OT anticipate d/c home when medically stable Vital Signs: Date Time Temp Pulse Resp B/P (MAP) Pulse Ox O2 Delivery O2 Flow Rate FiO2 03/19/17 09:00 Nasal Cannula 2.5 03/19/17 07:20 97 20 98 Nasal Cannula 2.5 03/19/17 07:07 36.3 69 20 106/72 (83) 93 03/19/17 01:39 96 20 96 Nasal Cannula 2.5 03/19/17 00:35 Nasal Cannula 2.5 03/18/17 23:05 36.7 97 20 113/77 (89) 95 Nasal Cannula 2.5 03/18/17 21:04 68 105/76 (86) 03/18/17 16:00 94 Nasal Cannula 2.5 03/18/17 14:47 36.5 85 16 106/67 (80) 94 2.0
[2017-03-19] MEDS: METHYLNALTREXONE BROMIDE INJ 12 MG/0.6 ML SYR SQ SCH (11:30)
[2017-03-19] MEDS: MoRPHine SULFATE 4 MG/ML 1 ML CARP\\VIAL IV PRN (11:32)
[2017-03-19 13:54] VITALS: PULSE 82; O2SAT 97
--- NOTE | 2017-03-19 14:02 | Progress Note ---
Internal Med Progress Note Date of Service: Mar 19, 2017. Provider Documentation: SUBJECTIVE: The patient was seen and examined Bowel not moved for the last week or so Abdominal discomfort with nausea ,no vomiting Continues to have abdominal discomfort OBJECTIVE: Vital Signs-as noted below Exam: General-Moderate distress at rest Eyes-normal ENT-normal Neck-supple Lungs-clear to ausucltate bilaterally Heart-Regular,no murmur Abdomen-Benign,mildly tender Bowel sound sluggish Extremities-Negative for any edema on right Neuro-AAOx3 Lab data as noted below. ASSESSMENT & PLAN: ABDOMINAL PAIN, Narcotic Bowel Admitted with severe epigastric pain x several days. No apparent acute findings on CT of abdomen and pelvis at [facility]. S/p EGD 03/10/[address] Salinas (+) hiatal hernia with gastritis On PPI, Sucralfate Added Reglan IV BID 03/10 And later on Relistor 03/11 Bowel moved yesterday Will give more Fleet Enema again today PNEUMONIA, COPD EXACERBATION CT of abdomen and pelvis suggested bibasilar infiltrates. Sputum cultures: E COLI, sensitive to Cefti, resistant to Levaquin Patient requesting referral to [facility] upon discharge Follow Speech therapy evaluation 1. Clear liquids diet. Advance to "slippery" as tolerated. 2. Aspiration and GERD precautions, straws OK. Fully upright for meals and for 30 minutes after meals. Head of bed to be elevated to 30 degrees at all times, to include while asleep. Finished Antibiotic NEURO SYMPTOMS 2 episodes of apparent expressive aphasia, one episode possibly associated with left facial palsy. Suspected TIA. Possible seizure (history of seizure disorder, but apparently no longer taking phenytoin). CT head negative at [facility]. MRI cannot be performed (? intrathecal pump). Carotid duplex showed < 50% stenosis of ICA's. Repeat CT head: no acute process CT angio head: unrevealing Echo: -- Conclusions -- * There is mild concentric left ventricular hypertrophy. * There is a moderate sized septal wall motion abnormality with moderate hypokinesis of the septal segments. * Otherwise there is mild global hypokinesis * Left ventricular systolic function is moderately reduced. * The LV Ejection Fraction = 35-40%. * The right ventricle is grossly normal size. * The right ventricular systolic function is normal. * Grade I diastolic dysfunction, (abnormal relaxation pattern). EEG: unrevealing On Plavix, Aspirin monitor as patient having GI symptoms Neuro consulted,appreciate the input No recurrence of symptoms CHRONIC BACK PAIN Has an intrathecal pump with Dilaudid, Clonidine and Bupivacaine for years A few days ago, (+) breakthrough pain ,the case was discussed with Dr. Red- Pain Management [facility] of patient per his request Consulted Pain Management [facility] Pain medicine pump operating on safe mode due to low batter, delivering decreased doses They discussed with patient's painter plate Dr Clark in [place], plan is to transition to MS contin,for now, then change battery as an outpatient with Dr. Red Patient and daughter inquiring with painter plate if they can change battery here, will discuss with pain management [facility] CORONARY ARTERY DISEASE No anginal symptoms. No acute EKG changes. CHF -- Lasix resumed euvolemic monitor volume status RESUSCITATION STATUS Discussed with patient. He has a living will; his daughter Buffy is an RN and is durable POA. He would like resuscitation attempted in the event of a cardiopulmonary arrest if there is a reasonable chance of a meaningful recovery, but does not want prolonged extraordinary measures if prognosis is poor. Therefore, code status = "Level 1" (full resuscitation). VTE PROPHYLAXIS High risk for VTE. SQ heparin with caution. DISPOSITION lives at home PT/OT-continue Anticipate d/c home when medically stable Vital Signs: Date Time Temp Pulse Resp B/P (MAP) Pulse Ox O2 Delivery O2 Flow Rate FiO2 03/19/17 13:54 82 22 97 Nasal Cannula 2.5 03/19/17 09:00 Nasal Cannula 2.5 03/19/17 07:20 97 20 98 Nasal Cannula 2.5 03/19/17 07:07 36.3 69 20 106/72 (83) 93 03/19/17 01:39 96 20 96 Nasal Cannula 2.5 03/19/17 00:35 Nasal Cannula 2.5 03/18/17 23:05 36.7 97 20 113/77 (89) 95 Nasal Cannula 2.5 03/18/17 21:04 68 105/76 (86) 03/18/17 16:00 94 Nasal Cannula 2.5 03/18/17 14:47 36.5 85 16 106/67 (80) 94 2.0
[2017-03-19 15:13] VITALS: BP 90/61; PULSE 91; TEMP 36.4; O2SAT 98
[2017-03-19] MEDS: ONDANSETRON INJ 2 MG/ML 2 ML VIAL IV PRN (19:05)
[2017-03-19 20:00] VITALS: O2SAT 98
[2017-03-19] MEDS: ALUM HYDROX/MAG TRISILICATE CHEW PO PRN (21:51)
[2017-03-19] MEDS: LORAZEPAM INJ 0.5 MG in SYRINGE 0.25 ML IV PRN (21:53)
[2017-03-19] MEDS: ZOLPIDEM TARTRATE 10 MG TAB PO PRN (23:33)
[2017-03-20] VITALS (8 sets, daily range): BP systolic 91–117; BP diastolic 58–64; PULSE 75–88; TEMP 36.5–36.7; O2SAT 94–98
[2017-03-20] MEDS: LEVALBUTEROL 1.25MG/0.5ML NEB INH SCH ×4 (01:56→19:24)
[2017-03-20] MEDS: IPRATROPIUM BROMIDE NEB SOLN 0.02% 2.5 ML VIAL INH SCH ×4 (01:56→19:24)
[2017-03-20] MEDS: MoRPHine SULFATE CR 60 MG TAB (MS CONTIN) PO SCH ×3 (05:09→21:21)
[2017-03-20] MEDS: MoRPHine SULFATE CR 15 MG TAB (MS CONTIN) PO SCH ×3 (05:09→21:21)
[2017-03-20] MEDS: SUCRALFATE 1 GM TAB PO SCH ×4 (05:11→21:20)
[2017-03-20] MEDS: MoRPHine SULFATE IR 15 MG TAB (IMMEDIATE RELEASE) PO PRN ×2 (06:45→15:57)
[2017-03-20] MEDS: BUDESONIDE 0.5 MG/2 ML VIAL (PULMICORT) INH SCH ×2 (07:13→19:24)
[2017-03-20] MEDS: FORMOTEROL FUMA NEBULIZER SOLN 20 MCG/2 ML VIAL INH SCH ×2 (07:13→19:24)
[2017-03-20] MEDS: ALPRAZOLAM 0.5 MG TAB PO SCH ×3 (07:47→21:22)
[2017-03-20] MEDS: CLOPIDOGREL BISULFATE 75 MG TAB PO SCH (07:48)
[2017-03-20] MEDS: LISINOPRIL 20 MG TAB PO SCH (07:48)
[2017-03-20] MEDS: ASPIRIN 81 MG ECTAB PO SCH (07:48)
[2017-03-20] MEDS: METOPROLOL TARTRATE 25 MG TAB PO SCH ×2 (07:48→21:20)
[2017-03-20] MEDS: PANTOprazole SOD 40 MG TAB PO SCH ×2 (07:48→21:20)
[2017-03-20] MEDS: TIOTROPIUM BROMIDE 5 PUFF/90 MCG INH INH SCH (07:49)
[2017-03-20] MEDS: ALUM HYDROX/MAG TRISILICATE CHEW PO PRN (07:49)
[2017-03-20] MEDS: FUROSEMIDE 40 MG TAB PO SCH (07:50)
[2017-03-20] MEDS: DOCUSATE SODIUM/SENNA 50/8.6MG TAB PO SCH (07:50)
[2017-03-20] MEDS: ATORVASTATIN 40 MG TAB PO SCH (07:51)
[2017-03-20] MEDS: TAMSULOSIN HCL 0.4 MG CAP PO SCH (07:51)
[2017-03-20] MEDS: POTASSIUM CHLORIDE 20 MEQ TABCR PO SCH ×2 (07:51→16:23)
[2017-03-20] MEDS: METOCLOPRAMIDE HCL INJ 5 MG/ML 2 ML VIAL IV. SCH ×3 (07:52→21:15)
[2017-03-20] MEDS: HEPARIN SOD 5000 UNIT/0.5 ML CARP SQ SCH ×2 (07:59→21:14)
[2017-03-20] MEDS: PROMETHAZINE HCL INJ 12.5 MG in SODIUM CHLORIDE 0.9% 50ML 50 ML IV PRN ×2 (10:20→19:58)
[2017-03-20] MEDS ORDERED: MoRPHine SULFATE 4 MG/ML 1 ML CARP\\VIAL IV PRN (13:30)
--- NOTE | 2017-03-20 15:05 | Progress Note ---
Internal Med Progress Note Date of Service: Mar 20, 2017. Provider Documentation: SUBJECTIVE: The patient was seen and examined Bowel not moved for the last week or so Abdominal discomfort with nausea ,no vomiting Continues to have abdominal discomfort Has had some issue last night Has had diarrhea Feels better now OBJECTIVE: Vital Signs-as noted below Exam: General-Moderate distress at rest Eyes-normal ENT-normal Neck-supple Lungs-clear to ausucltate bilaterally Heart-Regular,no murmur Abdomen-Benign,mildly tender Bowel sound sluggish Extremities-Negative for any edema on right Neuro-AAOx3 Lab data as noted below. ASSESSMENT & PLAN: Diarrhea One episode Check C Diff toxin ABDOMINAL PAIN, Narcotic Bowel Admitted with severe epigastric pain x several days. No apparent acute findings on CT of abdomen and pelvis at [facility]. S/p EGD 03/10/[address] Salinas (+) hiatal hernia with gastritis On PPI, Sucralfate Added Reglan IV BID 03/10 And later on Relistor 03/11 Bowel moved yesterday Will give more Fleet Enema again today Has had Diarrhea-will send stool for C Diff toxin PNEUMONIA, COPD EXACERBATION CT of abdomen and pelvis suggested bibasilar infiltrates. Sputum cultures: E COLI, sensitive to Cefti, resistant to Levaquin Patient requesting referral to [facility] upon discharge Follow Speech therapy evaluation 1. Clear liquids diet. Advance to "slippery" as tolerated. 2. Aspiration and GERD precautions, straws OK. Fully upright for meals and for 30 minutes after meals. Head of bed to be elevated to 30 degrees at all times, to include while asleep. Finished Antibiotic No more symptoms NEURO SYMPTOMS 2 episodes of apparent expressive aphasia, one episode possibly associated with left facial palsy. Suspected TIA. Possible seizure (history of seizure disorder, but apparently no longer taking phenytoin). CT head negative at [facility]. MRI cannot be performed (? intrathecal pump). Carotid duplex showed < 50% stenosis of ICA's. Repeat CT head: no acute process CT angio head: unrevealing Echo: -- Conclusions -- * There is mild concentric left ventricular hypertrophy. * There is a moderate sized septal wall motion abnormality with moderate hypokinesis of the septal segments. * Otherwise there is mild global hypokinesis * Left ventricular systolic function is moderately reduced. * The LV Ejection Fraction = 35-40%. * The right ventricle is grossly normal size. * The right ventricular systolic function is normal. * Grade I diastolic dysfunction, (abnormal relaxation pattern). EEG: unrevealing On Plavix, Aspirin Neuro consulted,appreciate the input No recurrence of symptoms CHRONIC BACK PAIN Has an intrathecal pump with Dilaudid, Clonidine and Bupivacaine for years A few days ago, (+) breakthrough pain ,the case was discussed with Dr. Red- Pain Management SVC of patient per his request Consulted Pain Management SVC Pain medicine pump operating on safe mode due to low batter, delivering decreased doses They discussed with patient's animated cartoons painter Dr Clark in [place], plan is to transition to MS contin,for now, then change battery as an outpatient with Dr. Red Patient and daughter inquiring with animated cartoons painter if they can change battery here, will discuss with pain management SVC OP appointment with Dr Red to change the Pain pump CORONARY ARTERY DISEASE No anginal symptoms. No acute EKG changes. CHF -- Lasix resumed euvolemic monitor volume status RESUSCITATION STATUS Discussed with patient. He has a living will; his daughter Buffy is an RN and is durable POA. He would like resuscitation attempted in the event of a cardiopulmonary arrest if there is a reasonable chance of a meaningful recovery, but does not want prolonged extraordinary measures if prognosis is poor. Therefore, code status = "Level 1" (full resuscitation). VTE PROPHYLAXIS High risk for VTE. SQ heparin with caution. DISPOSITION lives at home PT/OT-continue Awaiting to go to rehab Vital Signs: Date Time Temp Pulse Resp B/P (MAP) Pulse Ox O2 Delivery O2 Flow Rate FiO2 03/20/17 14:21 83 20 98 Nasal Cannula 2.5 03/20/17 08:00 Room Air 03/20/17 07:29 36.7 76 18 117/61 (79) 98 Room Air 03/20/17 07:16 75 20 94 Nasal Cannula 2.5 03/20/17 00:04 36.7 88 20 91/64 (73) 97 Nasal Cannula 2.5 03/20/17 00:00 98 Nasal Cannula 2.5 03/19/17 20:00 98 Nasal Cannula 2.5 03/19/17 16:00 Nasal Cannula 2.5 03/19/17 15:13 36.4 91 18 90/61 (71) 98 2.0
[2017-03-20] MEDS: ZOLPIDEM TARTRATE 10 MG TAB PO PRN (23:06)
[2017-03-21] VITALS (11 sets, daily range): BP systolic 84–121; BP diastolic 51–69; PULSE 77–89; TEMP 36.4–36.7; O2SAT 95–100
[2017-03-21] MEDS: MoRPHine SULFATE IR 15 MG TAB (IMMEDIATE RELEASE) PO PRN ×2 (01:42→06:35)
[2017-03-21] MEDS: IPRATROPIUM BROMIDE NEB SOLN 0.02% 2.5 ML VIAL INH SCH ×4 (01:45→19:07)
[2017-03-21] MEDS: LEVALBUTEROL 1.25MG/0.5ML NEB INH SCH ×4 (01:45→19:07)
[2017-03-21] MEDS: MoRPHine SULFATE CR 15 MG TAB (MS CONTIN) PO SCH ×3 (05:25→21:52)
[2017-03-21] MEDS: MoRPHine SULFATE CR 60 MG TAB (MS CONTIN) PO SCH ×3 (05:25→21:53)
[2017-03-21] MEDS: SUCRALFATE 1 GM TAB PO SCH ×4 (05:27→21:57)
[2017-03-21] MEDS: BUDESONIDE 0.5 MG/2 ML VIAL (PULMICORT) INH SCH ×2 (07:04→19:06)
[2017-03-21] MEDS: FORMOTEROL FUMA NEBULIZER SOLN 20 MCG/2 ML VIAL INH SCH ×2 (07:04→19:07)
[2017-03-21] MEDS: TAMSULOSIN HCL 0.4 MG CAP PO SCH (07:30)
[2017-03-21] MEDS: POTASSIUM CHLORIDE 20 MEQ TABCR PO SCH ×2 (07:31→17:06)
[2017-03-21] MEDS: METOPROLOL TARTRATE 25 MG TAB PO SCH ×3 (07:31→20:45)
[2017-03-21] MEDS: PANTOprazole SOD 40 MG TAB PO SCH ×2 (07:32→20:38)
[2017-03-21] MEDS: FUROSEMIDE 40 MG TAB PO SCH (07:32)
[2017-03-21] MEDS: ASPIRIN 81 MG ECTAB PO SCH (07:32)
[2017-03-21] MEDS: CLOPIDOGREL BISULFATE 75 MG TAB PO SCH (07:32)
[2017-03-21] MEDS: ATORVASTATIN 40 MG TAB PO SCH (07:32)
[2017-03-21] MEDS: DOCUSATE SODIUM/SENNA 50/8.6MG TAB PO SCH (07:32)
[2017-03-21] MEDS: ALUM HYDROX/MAG TRISILICATE CHEW PO PRN (07:33)
[2017-03-21] MEDS: LISINOPRIL 20 MG TAB PO SCH (07:34)
[2017-03-21] MEDS: ALPRAZOLAM 0.5 MG TAB PO SCH ×3 (07:45→21:54)
[2017-03-21] MEDS: HEPARIN SOD 5000 UNIT/0.5 ML CARP SQ SCH ×2 (07:46→22:00)
[2017-03-21] MEDS: TIOTROPIUM BROMIDE 5 PUFF/90 MCG INH INH SCH (07:53)
[2017-03-21] MEDS: METOCLOPRAMIDE HCL INJ 5 MG/ML 2 ML VIAL IV. SCH ×2 (07:54→21:55)
[2017-03-21] MEDS: METHYLNALTREXONE BROMIDE INJ 12 MG/0.6 ML SYR SQ SCH (13:46)
[2017-03-21] MEDS ORDERED: SOD PHOSPHATE/SOD BIPHOSPHATE ENEMA 132 ML BTL PR STA (17:11)
--- NOTE | 2017-03-21 17:14 | Progress Note ---
Internal Med Progress Note Date of Service: Mar 21, 2017. Provider Documentation: SUBJECTIVE: The patient was seen and examined Bowel not moved for the last week or so Abdominal discomfort with nausea ,no vomiting Continues to have abdominal discomfort Has had some issue last night Has had diarrhea Feels better now Awaiting placement OBJECTIVE: Vital Signs-as noted below Exam: General-Moderate distress at rest Eyes-normal ENT-normal Neck-supple Lungs-clear to ausucltate bilaterally Heart-Regular,no murmur Abdomen-Benign,mildly tender Bowel sound sluggish Extremities-Negative for any edema on right Neuro-AAOx3 Lab data as noted below. ASSESSMENT & PLAN: Diarrhea One episode Check C Diff toxin No more diarrhea ABDOMINAL PAIN, Narcotic Bowel Admitted with severe epigastric pain x several days. No apparent acute findings on CT of abdomen and pelvis at [facility]. S/p EGD 03/10/[address] Salinas (+) hiatal hernia with gastritis On PPI, Sucralfate Added Reglan IV BID 03/10 And later on Relistor 03/11 Bowel moved yesterday Will give more Fleet Enema again today Has had Diarrhea-will send stool for C Diff toxin Pain is reasonably controlled PNEUMONIA, COPD EXACERBATION CT of abdomen and pelvis suggested bibasilar infiltrates. Sputum cultures: E COLI, sensitive to Cefti, resistant to Levaquin Patient requesting referral to [facility] upon discharge Follow Speech therapy evaluation 1. Clear liquids diet. Advance to "slippery" as tolerated. 2. Aspiration and GERD precautions, straws OK. Fully upright for meals and for 30 minutes after meals. Head of bed to be elevated to 30 degrees at all times, to include while asleep. Finished Antibiotic No more symptoms NEURO SYMPTOMS 2 episodes of apparent expressive aphasia, one episode possibly associated with left facial palsy. Suspected TIA. Possible seizure (history of seizure disorder, but apparently no longer taking phenytoin). CT head negative at [facility]. MRI cannot be performed (? intrathecal pump). Carotid duplex showed < 50% stenosis of ICA's. Repeat CT head: no acute process CT angio head: unrevealing Echo: -- Conclusions -- * There is mild concentric left ventricular hypertrophy. * There is a moderate sized septal wall motion abnormality with moderate hypokinesis of the septal segments. * Otherwise there is mild global hypokinesis * Left ventricular systolic function is moderately reduced. * The LV Ejection Fraction = 35-40%. * The right ventricle is grossly normal size. * The right ventricular systolic function is normal. * Grade I diastolic dysfunction, (abnormal relaxation pattern). EEG: unrevealing On Plavix, Aspirin Neuro consulted,appreciate the input No recurrence of symptoms CHRONIC BACK PAIN Has an intrathecal pump with Dilaudid, Clonidine and Bupivacaine for years A few days ago, (+) breakthrough pain ,the case was discussed with Dr. Red- Pain Management SVC of patient per his request Consulted Pain Management SVC Pain medicine pump operating on safe mode due to low batter, delivering decreased doses They discussed with patient's maintenance painter Dr Clark in [place], plan is to transition to MS contin,for now, then change battery as an outpatient with Dr. Red Patient and daughter inquiring with maintenance painter if they can change battery here, will discuss with pain management SVC OP appointment with Dr Red to change the Pain pump CORONARY ARTERY DISEASE No anginal symptoms. No acute EKG changes. CHF -- Lasix resumed euvolemic monitor volume status RESUSCITATION STATUS Discussed with patient. He has a living will; his daughter Buffy is an RN and is durable POA. He would like resuscitation attempted in the event of a cardiopulmonary arrest if there is a reasonable chance of a meaningful recovery, but does not want prolonged extraordinary measures if prognosis is poor. Therefore, code status = "Level 1" (full resuscitation). VTE PROPHYLAXIS High risk for VTE. SQ heparin with caution. DISPOSITION lives at home PT/OT-continue Awaiting to go to rehab Awaiting placement -remains stable Vital Signs: Date Time Temp Pulse Resp B/P (MAP) Pulse Ox O2 Delivery O2 Flow Rate FiO2 03/21/17 16:48 Nasal Cannula 2.0 03/21/17 15:56 36.6 82 18 114/69 (84) 96 2.0 03/21/17 14:25 79 16 98 Nasal Cannula 2.5 03/21/17 10:50 95 03/21/17 08:00 Nasal Cannula 2.0 03/21/17 07:46 36.4 77 22 98/61 (73) 100 03/21/17 07:05 79 16 97 Room Air 03/21/17 01:47 81 16 98 Nasal Cannula 2.5 03/21/17 00:57 36.5 89 18 114/69 (84) 98 03/21/17 00:00 Nasal Cannula 2.0 03/20/17 21:18 84 18 101/63 (76) 97 Room Air 03/20/17 20:00 Nasal Cannula 2.0 03/20/17 19:27 86 18 98 Nasal Cannula 2.5
[2017-03-21] MEDS: PROMETHAZINE HCL INJ 12.5 MG in SODIUM CHLORIDE 0.9% 50ML 50 ML IV PRN (19:40)
[2017-03-21] MEDS ORDERED: SOD PHOSPHATE/SOD BIPHOSPHATE ENEMA 132 ML BTL PR SCH (22:30)
[2017-03-22] VITALS (8 sets, daily range): BP systolic 94–111; BP diastolic 62–71; PULSE 80–97; TEMP 36.4–36.5; O2SAT 95–98
[2017-03-22] MEDS: ZOLPIDEM TARTRATE 10 MG TAB PO PRN (00:13)
[2017-03-22] MEDS: LEVALBUTEROL 1.25MG/0.5ML NEB INH SCH ×4 (01:46→19:00)
[2017-03-22] MEDS: IPRATROPIUM BROMIDE NEB SOLN 0.02% 2.5 ML VIAL INH SCH ×4 (01:46→18:59)
[2017-03-22] MEDS: MoRPHine SULFATE IR 15 MG TAB (IMMEDIATE RELEASE) PO PRN ×3 (02:39→16:26)
[2017-03-22] MEDS: MoRPHine SULFATE CR 15 MG TAB (MS CONTIN) PO SCH ×3 (06:06→22:09)
[2017-03-22] MEDS: MoRPHine SULFATE CR 60 MG TAB (MS CONTIN) PO SCH ×3 (06:06→22:09)
[2017-03-22] MEDS: SUCRALFATE 1 GM TAB PO SCH ×4 (06:08→22:14)
[2017-03-22 06:16] LABS: HEMATOCRIT 32.4 % (42-52); MEAN CELL VOLUME 88.5 fL (80-100); MEAN CORPUSCULAR HGB CONC 32.7 g/dl (32-36); MEAN PLATELET VOLUME 9.7 fL (7.4-10.4); PLATELET COUNT 180 K/uL (130-400); RED BLOOD COUNT 3.66 M/uL (4.7-6.1); WHITE BLOOD COUNT 12.22 K/uL (4.8-10.8)
[2017-03-22 06:53] LABS: BUN/CREATININE RATIO 32.9 (10-20); CALCIUM 9.2 mg/dl (8.5-10.1); CREATININE 0.89 mg/dl (0.60-1.40); MAGNESIUM 1.9 mg/dl (1.8-2.4); PHOSPHORUS 3.2 mg/dl (2.5-4.9); POTASSIUM 3.9 mmol/L (3.5-5.1)
[2017-03-22] MEDS: FORMOTEROL FUMA NEBULIZER SOLN 20 MCG/2 ML VIAL INH SCH ×2 (07:31→18:59)
[2017-03-22] MEDS: BUDESONIDE 0.5 MG/2 ML VIAL (PULMICORT) INH SCH ×2 (07:31→19:00)
[2017-03-22] MEDS: HEPARIN SOD 5000 UNIT/0.5 ML CARP SQ SCH ×2 (09:00→20:44)
[2017-03-22] MEDS: ASPIRIN 81 MG ECTAB PO SCH (09:36)
[2017-03-22] MEDS: TAMSULOSIN HCL 0.4 MG CAP PO SCH (09:37)
[2017-03-22] MEDS: METOPROLOL TARTRATE 25 MG TAB PO SCH ×2 (09:39→20:00)
[2017-03-22] MEDS: FUROSEMIDE 40 MG TAB PO SCH (09:39)
[2017-03-22] MEDS: ATORVASTATIN 40 MG TAB PO SCH (09:39)
[2017-03-22] MEDS: CLOPIDOGREL BISULFATE 75 MG TAB PO SCH (09:40)
[2017-03-22] MEDS: LISINOPRIL 20 MG TAB PO SCH (09:41)
[2017-03-22] MEDS: PANTOprazole SOD 40 MG TAB PO SCH ×2 (09:41→20:44)
[2017-03-22] MEDS: DOCUSATE SODIUM/SENNA 50/8.6MG TAB PO SCH (09:41)
[2017-03-22] MEDS: POTASSIUM CHLORIDE 20 MEQ TABCR PO SCH ×2 (09:42→16:28)
[2017-03-22] MEDS: PROMETHAZINE HCL INJ 12.5 MG in SODIUM CHLORIDE 0.9% 50ML 50 ML IV PRN ×2 (09:49→18:56)
[2017-03-22] MEDS: ALPRAZOLAM 0.5 MG TAB PO SCH ×3 (09:52→22:13)
[2017-03-22] MEDS: METOCLOPRAMIDE HCL INJ 5 MG/ML 2 ML VIAL IV. SCH ×2 (09:56→20:44)
[2017-03-22] MEDS: TIOTROPIUM BROMIDE 5 PUFF/90 MCG INH INH SCH (11:43)
[2017-03-22] MEDS: ALUM HYDROX/MAG TRISILICATE CHEW PO PRN (13:16)
--- NOTE | 2017-03-22 14:44 | Progress Note ---
Internal Med Progress Note Date of Service: Mar 22, 2017. Provider Documentation: SUBJECTIVE: The patient was seen and examined Feeling a lot better Bowel moved last night Denies any complaints OBJECTIVE: Vital Signs-as noted below Exam: General-Moderate distress at rest Eyes-normal ENT-normal Neck-supple Lungs-clear to ausucltate bilaterally Heart-Regular,no murmur Abdomen-Benign,mildly tender Bowel sound sluggish Extremities-Negative for any edema on right Neuro-AAOx3 Lab data as noted below. ASSESSMENT & PLAN: Diarrhea One episode Check C Diff toxin No more diarrhea Usually constipated and will need occasional Fleet Enema to move bowel ABDOMINAL PAIN, Narcotic Bowel Admitted with severe epigastric pain x several days. No apparent acute findings on CT of abdomen and pelvis at [facility]. S/p EGD 03/10/[address] Salinas (+) hiatal hernia with gastritis On PPI, Sucralfate Added Reglan IV BID 03/10 And later on Relistor 03/11 Bowel moved yesterday Will give more Fleet Enema again today Has had Diarrhea-will send stool for C Diff toxin Pain is reasonably controlled with current medication PNEUMONIA, COPD EXACERBATION CT of abdomen and pelvis suggested bibasilar infiltrates. Sputum cultures: E COLI, sensitive to Cefti, resistant to Levaquin Patient requesting referral to [facility] upon discharge Follow Speech therapy evaluation 1. Clear liquids diet. Advance to "slippery" as tolerated. 2. Aspiration and GERD precautions, straws OK. Fully upright for meals and for 30 minutes after meals. Head of bed to be elevated to 30 degrees at all times, to include while asleep. Finished Antibiotic No more symptoms NEURO SYMPTOMS 2 episodes of apparent expressive aphasia, one episode possibly associated with left facial palsy. Suspected TIA. Possible seizure (history of seizure disorder, but apparently no longer taking phenytoin). CT head negative at [facility]. MRI cannot be performed (? intrathecal pump). Carotid duplex showed < 50% stenosis of ICA's. Repeat CT head: no acute process CT angio head: unrevealing Echo: -- Conclusions -- * There is mild concentric left ventricular hypertrophy. * There is a moderate sized septal wall motion abnormality with moderate hypokinesis of the septal segments. * Otherwise there is mild global hypokinesis * Left ventricular systolic function is moderately reduced. * The LV Ejection Fraction = 35-40%. * The right ventricle is grossly normal size. * The right ventricular systolic function is normal. * Grade I diastolic dysfunction, (abnormal relaxation pattern). EEG: unrevealing On Plavix, Aspirin Neuro consulted,appreciate the input No recurrence of symptoms CHRONIC BACK PAIN Has an intrathecal pump with Dilaudid, Clonidine and Bupivacaine for years A few days ago, (+) breakthrough pain ,the case was discussed with Dr. Red- Pain Management SVC of patient per his request Consulted Pain Management SVC Pain medicine pump operating on safe mode due to low batter, delivering decreased doses They discussed with patient's paint prep technician Dr Clark in [place], plan is to transition to MS contin,for now, then change battery as an outpatient with Dr. Red Patient and daughter inquiring with paint prep technician if they can change battery here, will discuss with pain management SVC OP appointment with Dr Red to change the Pain pump-patient is aware CORONARY ARTERY DISEASE No anginal symptoms. No acute EKG changes. CHF -- Lasix resumed euvolemic monitor volume status RESUSCITATION STATUS Discussed with patient. He has a living will; his daughter Buffy is an RN and is durable POA. He would like resuscitation attempted in the event of a cardiopulmonary arrest if there is a reasonable chance of a meaningful recovery, but does not want prolonged extraordinary measures if prognosis is poor. Therefore, code status = "Level 1" (full resuscitation). VTE PROPHYLAXIS High risk for VTE. SQ heparin with caution. DISPOSITION lives at home PT/OT-continue Awaiting to go to rehab Awaiting placement -remains stable Vital Signs: Date Time Temp Pulse Resp B/P (MAP) Pulse Ox O2 Delivery O2 Flow Rate FiO2 03/22/17 08:30 98 Nasal Cannula 2.0 95 03/22/17 08:01 36.4 93 18 102/66 (78) 98 2.0 03/22/17 07:33 97 16 95 Nasal Cannula 2.5 03/22/17 01:47 80 16 98 Nasal Cannula 2.5 03/22/17 00:00 Nasal Cannula 2.0 03/21/17 23:54 80 100/62 (75) 03/21/17 23:06 36.7 88 18 84/51 (62) 98 Nasal Cannula 3.0 03/21/17 21:00 82 121/68 (85) 03/21/17 19:07 80 16 98 Nasal Cannula 2.5 03/21/17 16:48 Nasal Cannula 2.0 03/21/17 15:56 36.6 82 18 114/69 (36) 96 2.0 Lab Results: Results Past 24 Hours Test 03/22/17 05:31 Range/Units White Blood Count 12.22 4.8-10.8 K/uL Red Blood Count 3.66 4.7-6.1 M/uL Hemoglobin 10.6 14.0-18.0 g/dL Hematocrit 32.4 42-52 % Mean Corpuscular Volume 88.5 80-100 fL Mean Corpuscular Hemoglobin 29.0 25-34 pg Mean Corpuscular Hemoglobin Concent 32.7 32-36 g/dl RDW Standard Deviation 50.3 36.4-46.3 fL RDW Coefficient of Variation 15.4 11.5-14.5 % Platelet Count 180 130-400 K/uL Mean Platelet Volume 9.7 7.4-10.4 fL Sodium Level 136 136-145 mmol/L Potassium Level 3.9 3.5-5.1 mmol/L Chloride Level 98 98-107 mmol/L Carbon Dioxide Level 30 21-32 mmol/L Anion Gap 7.0 3-11 mmol/L Blood Urea Nitrogen 29 7-18 mg/dl Creatinine 0.89 0.60-1.40 mg/dl Est Creatinine Clear Calc Drug Dose 86.9 ml/min Estimated GFR () 99.7 Estimated GFR (Non- 86.0 BUN/Creatinine Ratio 32.9 10-20 Random Glucose 93 70-99 mg/dl Calcium Level 9.2 8.5-10.1 mg/dl Phosphorus Level 3.2 2.5-4.9 mg/dl Magnesium Level 1.9 1.8-2.4 mg/dl
[2017-03-22] MEDS: LACTULOSE SYRUP 30 GM/45 ML UDP PO PRN (16:33)
[2017-03-23] MEDS: ZOLPIDEM TARTRATE 10 MG TAB PO PRN ×2 (00:03→23:07)
[2017-03-23] MEDS: MoRPHine SULFATE IR 15 MG TAB (IMMEDIATE RELEASE) PO PRN ×4 (00:03→15:43)
[2017-03-23] MEDS: IPRATROPIUM BROMIDE NEB SOLN 0.02% 2.5 ML VIAL INH SCH ×4 (01:18→19:03)
[2017-03-23] MEDS: LEVALBUTEROL 1.25MG/0.5ML NEB INH SCH ×3 (01:18→19:02)
[2017-03-23 01:19] VITALS: PULSE 78; O2SAT 96
[2017-03-23] MEDS: MoRPHine SULFATE CR 60 MG TAB (MS CONTIN) PO SCH ×3 (06:11→21:44)
[2017-03-23] MEDS: SUCRALFATE 1 GM TAB PO SCH ×4 (06:12→21:44)
[2017-03-23] MEDS: MoRPHine SULFATE CR 15 MG TAB (MS CONTIN) PO SCH ×3 (06:12→21:44)
[2017-03-23 07:16] VITALS: BP 105/60; PULSE 79; TEMP 36.6; O2SAT 97
[2017-03-23 07:35] VITALS: PULSE 75; O2SAT 97
[2017-03-23] MEDS: BUDESONIDE 0.5 MG/2 ML VIAL (PULMICORT) INH SCH ×2 (07:35→19:03)
[2017-03-23] MEDS: FORMOTEROL FUMA NEBULIZER SOLN 20 MCG/2 ML VIAL INH SCH ×2 (07:35→19:03)
[2017-03-23] MEDS: TIOTROPIUM BROMIDE 5 PUFF/90 MCG INH INH SCH (07:42)
[2017-03-23] MEDS: ASPIRIN 81 MG ECTAB PO SCH (07:42)
[2017-03-23] MEDS: CLOPIDOGREL BISULFATE 75 MG TAB PO SCH (07:43)
[2017-03-23] MEDS: LISINOPRIL 20 MG TAB PO SCH (07:43)
[2017-03-23] MEDS: ATORVASTATIN 40 MG TAB PO SCH (07:43)
[2017-03-23] MEDS: PANTOprazole SOD 40 MG TAB PO SCH ×2 (07:43→20:24)
[2017-03-23] MEDS: FUROSEMIDE 40 MG TAB PO SCH (07:44)
[2017-03-23] MEDS: DOCUSATE SODIUM/SENNA 50/8.6MG TAB PO SCH (07:44)
[2017-03-23] MEDS: METOPROLOL TARTRATE 25 MG TAB PO SCH ×2 (07:45→20:00)
[2017-03-23] MEDS: POTASSIUM CHLORIDE 20 MEQ TABCR PO SCH ×2 (07:46→16:38)
[2017-03-23] MEDS: TAMSULOSIN HCL 0.4 MG CAP PO SCH (07:46)
[2017-03-23] MEDS: ALPRAZOLAM 0.5 MG TAB PO SCH ×3 (07:51→21:45)
[2017-03-23] MEDS: METOCLOPRAMIDE HCL INJ 5 MG/ML 2 ML VIAL IV. SCH ×2 (07:52→20:27)
[2017-03-23] MEDS: HEPARIN SOD 5000 UNIT/0.5 ML CARP SQ SCH ×2 (07:53→20:25)
[2017-03-23] MEDS: LACTULOSE SYRUP 30 GM/45 ML UDP PO PRN (07:58)
[2017-03-23] MEDS: PROMETHAZINE HCL INJ 12.5 MG in SODIUM CHLORIDE 0.9% 50ML 50 ML IV PRN ×2 (09:11→18:29)
[2017-03-23] MEDS: METHYLNALTREXONE BROMIDE INJ 12 MG/0.6 ML SYR SQ SCH (11:38)
[2017-03-23 14:18] VITALS: PULSE 85; O2SAT 95
[2017-03-23 15:22] VITALS: BP 94/58; PULSE 85; TEMP 36.6; O2SAT 97
[2017-03-23] MEDS ORDERED: SOD PHOSPHATE/SOD BIPHOSPHATE ENEMA 132 ML BTL PR STA (15:29)
[2017-03-23] MEDS: ALUM HYDROX/MAG TRISILICATE CHEW PO PRN (16:39)
--- NOTE | 2017-03-23 17:42 | Progress Note ---
Internal Med Progress Note Date of Service: Mar 23, 2017. Provider Documentation: SUBJECTIVE: The patient was seen and examined Feeling a lot better Bowel moved last night Denies any complaints Complains of more productive cough OBJECTIVE: Vital Signs-as noted below Exam: General-Moderate distress at rest Eyes-normal ENT-normal Neck-supple Lungs-clear to ausucltate bilaterally Minimal crackles at the bases Heart-Regular,no murmur Abdomen-Benign,mildly tender Bowel sound sluggish Extremities-Negative for any edema on right Neuro-AAOx3 Lab data as noted below. ASSESSMENT & PLAN: Diarrhea-One episode Check C Diff toxin No more diarrhea Usually constipated and will need occasional Fleet Enema to move bowel Needs Fleet Enema for bowel movement ABDOMINAL PAIN, Narcotic Bowel Admitted with severe epigastric pain x several days. No apparent acute findings on CT of abdomen and pelvis at [facility]. S/p EGD 03/10/[address] Salinas (+) hiatal hernia with gastritis On PPI, Sucralfate Added Reglan IV BID 03/10 And later on Relistor 03/11 Bowel moved with Fleet Enema Minimal discomfort in Abdomen PNEUMONIA, COPD EXACERBATION CT of abdomen and pelvis suggested bibasilar infiltrates. Sputum cultures: E COLI, sensitive to Cefti, resistant to Levaquin Patient requesting referral to [facility] upon discharge Follow Speech therapy evaluation 1. Clear liquids diet. Advance to "slippery" as tolerated. 2. Aspiration and GERD precautions, straws OK. Fully upright for meals and for 30 minutes after meals. Head of bed to be elevated to 30 degrees at all times, to include while asleep. Finished Antibiotic No more symptoms except some cough NEURO SYMPTOMS 2 episodes of apparent expressive aphasia, one episode possibly associated with left facial palsy. Suspected TIA. Possible seizure (history of seizure disorder, but apparently no longer taking phenytoin). CT head negative at [facility]. MRI cannot be performed (? intrathecal pump). Carotid duplex showed < 50% stenosis of ICA's. Repeat CT head: no acute process CT angio head: unrevealing Echo: -- Conclusions -- * There is mild concentric left ventricular hypertrophy. * There is a moderate sized septal wall motion abnormality with moderate hypokinesis of the septal segments. * Otherwise there is mild global hypokinesis * Left ventricular systolic function is moderately reduced. * The LV Ejection Fraction = 35-40%. * The right ventricle is grossly normal size. * The right ventricular systolic function is normal. * Grade I diastolic dysfunction, (abnormal relaxation pattern). EEG: unrevealing On Plavix, Aspirin Neuro consulted,appreciate the input No recurrence of symptoms CHRONIC BACK PAIN Has an intrathecal pump with Dilaudid, Clonidine and Bupivacaine for years A few days ago, (+) breakthrough pain ,the case was discussed with Dr. Red- Pain Management SVC of patient per his request Consulted Pain Management -appreciate Input Pain medicine pump operating on safe mode due to low batter, delivering decreased doses They discussed with patient's pain coordinator Dr Clark in [place], plan is to transition to [place] [facility] [place],for now, then change battery as an outpatient with Dr. Red Patient and daughter inquiring with pain coordinator if they can change battery here, will discuss with pain management SVC OP appointment with Dr Red to change the Pain pump-patient is aware Pain is controlled with the current regimen CORONARY ARTERY DISEASE No anginal symptoms. No acute EKG changes. CHF -- Lasix resumed euvolemic monitor volume status RESUSCITATION STATUS Discussed with patient. He has a living will; his daughter Buffy is an RN and is durable POA. He would like resuscitation attempted in the event of a cardiopulmonary arrest if there is a reasonable chance of a meaningful recovery, but does not want prolonged extraordinary measures if prognosis is poor. Therefore, code status = "Level 1" (full resuscitation). VTE PROPHYLAXIS High risk for VTE. SQ heparin with caution. DISPOSITION lives at home PT/OT-continue Awaiting to go to rehab Awaiting placement -remains stable Vital Signs: Date Time Temp Pulse Resp B/P (MAP) Pulse Ox O2 Delivery O2 Flow Rate FiO2 03/23/17 15:22 36.6 85 18 94/58 (70) 97 Nasal Cannula 2.0 03/23/17 14:18 85 16 95 Nasal Cannula 2.5 03/23/17 08:00 Nasal Cannula 2.0 03/23/17 07:35 75 16 97 Nasal Cannula 2.5 03/23/17 07:16 36.6 79 18 105/60 (75) 97 Nasal Cannula 2.0 03/23/17 01:19 78 16 96 Nasal Cannula 2.5 03/23/17 00:00 Nasal Cannula 2.0 10/7/17 23:15 36.5 82 18 98/64 (75) 96 Nasal Cannula 2.0 03/22/17 21:00 88 94/62 (73) 03/22/17 20:00 Nasal Cannula 2.0
[2017-03-23 20:20] VITALS: BP 99/65; PULSE 82
[2017-03-24 00:03] VITALS: BP 118/80; PULSE 98; TEMP 36.7; O2SAT 97
[2017-03-24 01:39] VITALS: PULSE 88; O2SAT 97
[2017-03-24] MEDS: IPRATROPIUM BROMIDE NEB SOLN 0.02% 2.5 ML VIAL INH SCH ×3 (01:39→14:27)
[2017-03-24] MEDS: LEVALBUTEROL 1.25MG/0.5ML NEB INH SCH ×3 (01:39→14:28)
[2017-03-24] MEDS: ALUM HYDROX/MAG TRISILICATE CHEW PO PRN (02:35)
[2017-03-24] MEDS: MoRPHine SULFATE IR 15 MG TAB (IMMEDIATE RELEASE) PO PRN ×2 (02:37→10:30)
[2017-03-24] MEDS: MoRPHine SULFATE CR 60 MG TAB (MS CONTIN) PO SCH ×2 (06:00→13:32)
[2017-03-24] MEDS: MoRPHine SULFATE CR 15 MG TAB (MS CONTIN) PO SCH ×2 (06:00→13:32)
[2017-03-24] MEDS: SUCRALFATE 1 GM TAB PO SCH ×2 (06:00→11:00)
[2017-03-24] MEDS: FORMOTEROL FUMA NEBULIZER SOLN 20 MCG/2 ML VIAL INH SCH (07:01)
[2017-03-24 07:02] VITALS: PULSE 95; O2SAT 98
[2017-03-24] MEDS: BUDESONIDE 0.5 MG/2 ML VIAL (PULMICORT) INH SCH (07:02)
[2017-03-24 07:19] VITALS: BP 116/67; PULSE 90; TEMP 36.7; O2SAT 97
[2017-03-24] MEDS: LISINOPRIL 20 MG TAB PO SCH (07:38)
[2017-03-24] MEDS: METOPROLOL TARTRATE 25 MG TAB PO SCH (07:38)
[2017-03-24] MEDS: ATORVASTATIN 40 MG TAB PO SCH (07:39)
[2017-03-24] MEDS: ASPIRIN 81 MG ECTAB PO SCH (07:39)
[2017-03-24] MEDS: POTASSIUM CHLORIDE 20 MEQ TABCR PO SCH (07:39)
[2017-03-24] MEDS: CLOPIDOGREL BISULFATE 75 MG TAB PO SCH (07:39)
[2017-03-24] MEDS: FUROSEMIDE 40 MG TAB PO SCH (07:40)
[2017-03-24] MEDS: PANTOprazole SOD 40 MG TAB PO SCH (07:40)
[2017-03-24] MEDS: DOCUSATE SODIUM/SENNA 50/8.6MG TAB PO SCH (07:40)
[2017-03-24] MEDS: TIOTROPIUM BROMIDE 5 PUFF/90 MCG INH INH SCH (07:41)
[2017-03-24] MEDS: TAMSULOSIN HCL 0.4 MG CAP PO SCH (07:43)
[2017-03-24] MEDS: HEPARIN SOD 5000 UNIT/0.5 ML CARP SQ SCH (07:43)
[2017-03-24] MEDS: ALPRAZOLAM 0.5 MG TAB PO SCH (07:46)
[2017-03-24] MEDS: METOCLOPRAMIDE HCL INJ 5 MG/ML 2 ML VIAL IV. SCH (07:47)
[2017-03-24] MEDS: PROMETHAZINE HCL INJ 12.5 MG in SODIUM CHLORIDE 0.9% 50ML 50 ML IV PRN (09:44)
--- NOTE | 2017-03-24 14:37 | Progress Note ---
Internal Med Progress Note Date of Service: Mar 24, 2017. Provider Documentation: SUBJECTIVE: The patient was seen and examined Feeling a lot better Bowel has been moving with enema at times Denies any complaints OBJECTIVE: Vital Signs-as noted below Exam: General-Moderate distress at rest Eyes-normal ENT-normal Neck-supple Lungs-clear to ausucltate bilaterally Minimal crackles at the bases Heart-Regular,no murmur Abdomen-Benign,mildly tender Bowel sound sluggish Extremities-Negative for any edema on right Neuro-AAOx3 Lab data as noted below. ASSESSMENT & PLAN: Diarrhea-One episode Check C Diff toxin No more diarrhea Usually constipated and will need occasional Fleet Enema to move bowel Needs Fleet Enema for bowel movement ABDOMINAL PAIN, Narcotic Bowel Admitted with severe epigastric pain x several days. No apparent acute findings on CT of abdomen and pelvis at [facility]. S/p EGD 03/10/[address] Salinas (+) hiatal hernia with gastritis On PPI, Sucralfate Added Reglan IV BID 03/10 And later on Relistor 03/11 Bowel is moving with Fleet enema PNEUMONIA, COPD EXACERBATION CT of abdomen and pelvis suggested bibasilar infiltrates. Sputum cultures: E COLI, sensitive to Cefti, resistant to Levaquin Patient requesting referral to [facility] upon discharge Follow Speech therapy evaluation 1. Clear liquids diet. Advance to "slippery" as tolerated. 2. Aspiration and GERD precautions, straws OK. Fully upright for meals and for 30 minutes after meals. Head of bed to be elevated to 30 degrees at all times, to include while asleep. Finished Antibiotic No more symptoms except some cough no signs of Pneumonia NEURO SYMPTOMS 2 episodes of apparent expressive aphasia, one episode possibly associated with left facial palsy. Suspected TIA. Possible seizure (history of seizure disorder, but apparently no longer taking phenytoin). CT head negative at [facility]. MRI cannot be performed (? intrathecal pump). Carotid duplex showed < 50% stenosis of ICA's. Repeat CT head: no acute process CT angio head: unrevealing Echo: -- Conclusions -- * There is mild concentric left ventricular hypertrophy. * There is a moderate sized septal wall motion abnormality with moderate hypokinesis of the septal segments. * Otherwise there is mild global hypokinesis * Left ventricular systolic function is moderately reduced. * The LV Ejection Fraction = 35-40%. * The right ventricle is grossly normal size. * The right ventricular systolic function is normal. * Grade I diastolic dysfunction, (abnormal relaxation pattern). EEG: unrevealing On Plavix, Aspirin Neuro consulted,appreciate the input No recurrence of symptoms CHRONIC BACK PAIN Has an intrathecal pump with Dilaudid, Clonidine and Bupivacaine for years A few days ago, (+) breakthrough pain ,the case was discussed with Dr. Red- Pain Management SVC of patient per his request Consulted Pain Management -appreciate Input Pain medicine pump operating on safe mode due to low batter, delivering decreased doses They discussed with patient's painter barrel Dr Clark in [place], plan is to transition to [facility],for now, then change battery as an outpatient with Dr. Red Patient and daughter inquiring with painter barrel if they can change battery here, will discuss with pain management SVC OP appointment with Dr Red to change the Pain pump-patient is aware Pain is controlled with the current regimen Discussed with Dr Red --will change the pump as an OP As Soon As feasible [facility] will need to contact him CORONARY ARTERY DISEASE No anginal symptoms. No acute EKG changes. CHF -- Lasix resumed euvolemic monitor volume status RESUSCITATION STATUS Discussed with patient. He has a living will; his daughter Buffy is an RN and is durable POA. He would like resuscitation attempted in the event of a cardiopulmonary arrest if there is a reasonable chance of a meaningful recovery, but does not want prolonged extraordinary measures if prognosis is poor. Therefore, code status = "Level 1" (full resuscitation). VTE PROPHYLAXIS High risk for VTE. SQ heparin with caution. DISPOSITION lives at home PT/OT-continue Awaiting to go to rehab Awaiting placement -remains stable Will go to [facility] today Discussed with the Daughter Vital Signs: Date Time Temp Pulse Resp B/P (MAP) Pulse Ox O2 Delivery O2 Flow Rate FiO2 03/24/17 08:00 Nasal Cannula 2.0 03/24/17 07:19 36.7 90 20 116/67 (83) 97 Nasal Cannula 3.0 03/24/17 07:02 95 16 98 Nasal Cannula 2.5 03/24/17 01:39 88 16 97 Nasal Cannula 2.5 03/24/17 00:03 36.7 98 16 118/80 (93) 97 Nasal Cannula 3.0 03/24/17 00:00 Nasal Cannula 2.0 03/23/17 20:20 82 99/65 (76) 03/23/17 20:00 Nasal Cannula 2.0 03/23/17 16:00 Nasal Cannula 2.0 03/23/17 15:22 36.6 85 18 94/58 (70) 97 Nasal Cannula 2.0
[2017-03-24] MEDS ORDERED: SENN8.6T7 PO (14:46)
[2017-03-24] MEDS ORDERED: MRPSR15 PO (14:46)
[2017-03-24] MEDS ORDERED: PRED10TA PO (14:46)
[2017-03-24] MEDS ORDERED: LPR25 PO (14:46)
[2017-03-24] MEDS ORDERED: LCTL45 PO (14:46)
[2017-03-24] MEDS ORDERED: MRPSR60 PO (14:46)
[2017-03-24] MEDS ORDERED: MRP15 PO (14:46)
[2017-03-24] MEDS ORDERED: PLMINS INH (14:46)
--- NOTE | 2017-03-24 14:54 | Discharge Instructions ---
Discharge Instructions Date of Service Mar 24, 2017. Admission Reason for Admission: Pneumonia, Possible Tia Discharge Discharge Diagnosis / Problem: Chronic back pain,COPD with Pneumpnia,Narcotic bowel Discharge Goals Goal(s): Prevent Disease Progression Activity Recommendations Activity Level: Assistance Required Therapies: Physical Therapy, Occupational Therapy . Additional Information Patient informed of condition: Yes Advance Directives: No DNR: No Level of Care: Skilled Communicable Disease: No Prognosis: Stable Oxygen at (LPM): 2 liters via [place] Catheter: No Instructions / Follow-Up Instructions / Follow-Up Please Call Dr Red ,Pain therapist in [place] to make an appointment to change the pain pump.I spoke to him on 03/24/17.PCP follow up in 1 week following discharge from the facility.The PICC line can be removed in 1 to 2 week(kept in place as per patient request) Current Hospital Diet Patient's current hospital diet: AHA Diet (Heart Healthy) Discharge Diet Recommended Diet: AHA Diet (Heart Healthy) Procedures Procedures Performed: EGD Pending Studies Studies pending at discharge: no Laboratory Results Hemoglobin A1c Test 03/05/17 06:23 Range/Units Estimated Average Glucose 126 mg/dl Hemoglobin A1c 6.0 H 4.5-5.6 % Lipid Panel Test 03/06/17 06:23 Range/Units Triglycerides Level 112 0-150 mg/dl Cholesterol Level 81 0-200 mg/dl HDL Cholesterol 30 mg/dl Cholesterol/HDL Ratio 2.7 LDL Cholesterol, Calculated 29 mg/dl Medical Emergencies . Who to Call and When: Medical Emergencies: If at any time you feel your situation is an emergency, please call 911 immediately. . Non-Emergent Contact Non-Emergency issues call your: Primary Care Provider . Past History Medical & Surgical History: (1) Opioid dependence (2) COPD (chronic obstructive pulmonary disease) (3) Bronchiectasis (4) Coronary artery disease (5) Depression (6) Hypertension (7) Paraplegia (8) Seizure disorder (9) Abdominal pain (10) Altered mental status (11) Pneumonia (12) Status post below knee amputation of left lower extremity (13) Status post cholecystectomy (14) Status post insertion of intrathecal pump . "Provider Documentation" section prepared by Maggie Manzo. . Core Measure Problem Core Measures: None
[2017-03-24 15:00] VITALS: BP 116/67; PULSE 90; TEMP 36.7; O2SAT 97
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
== END 2017-03-24 15:35 | DRG 190 ==
LOC: UNDOADMIN 21:24 → C.2T 21:24 → ENRESERV 03-13 19:07 → C.MS4W 03-13 19:35
PROVIDERS: ADMIT Hospitalist; ATTEND Internal Medicine
PROC: 0DJ08ZZ Inspection of Upper Intestinal Tract, Via Natural or Artificial Opening Endoscopic (ICD-10-PCS; principal; 2017-03-10 11:59)
DX: J44.1 Chronic obstructive pulmonary disease with (acute) exacerbation (principal); J18.9 Pneumonia, unspecified organism; G82.20 Paraplegia, unspecified; G45.9 Transient cerebral ischemic attack, unspecified; T85.610A Breakdown (mechanical) of cranial or spinal infusion catheter, initial encounter; I11.0 Hypertensive heart disease with heart failure; I25.10 Atherosclerotic heart disease of native coronary artery without angina pectoris; F32.9 Major depressive disorder, single episode, unspecified; E78.5 Hyperlipidemia, unspecified; G40.909 Epilepsy, unspecified, not intractable, without status epilepticus; G89.29 Other chronic pain; M54.9 Dorsalgia, unspecified; K31.84 Gastroparesis; Z87.891 Personal history of nicotine dependence; Z90.49 Acquired absence of other specified parts of digestive tract; G51.0 Bell's palsy; Z82.49 Family history of ischemic heart disease and other diseases of the circulatory system; Z79.82 Long term (current) use of aspirin; T40.605A Adverse effect of unspecified narcotics, initial encounter

== ENCOUNTER 2022-06-24 15:10 | Inpatient (IN) ==
[2022-06-24] MEDS ORDERED: SODIUM CHLORIDE 0.9% 1000ML 1,000 ML IV SCH (15:15)
[2022-06-24] MEDS ORDERED: CEFEPIME 2,000 MG/20 ML VIAL IV STA (15:27)
--- NOTE | 2022-06-24 15:27 | Emergency Department Note ---
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 06/24/22 19:38 Dose: 0 mls/hr Documented By: Infusion: 06/24/22 16:31 Dose: 100 mls/hr Documented By: Admin: 06/24/22 15:57 Dose: 999 mls/hr Documented By: ROMMEL Cefepime HCl (Maxipime) 2,000 mg in 20 mls @ 5 mls/min IV NOW STA; Protocol Stop: 06/24/22 15:30 Last Admin: 06/24/22 15:57 Dose: 5 mls/min Documented By: ROMMEL Vancomycin HCl 2,000 mg/ (Sodium Chloride) 540 mls @ 200 mls/hr IV NOW ONE; Protocol Stop: 06/26/22 17:41 Last Infusion: 06/26/22 18:10 Dose: 0 mls/hr Documented By: Admin: 06/26/22 15:25 Dose: 200 mls/hr Documented By: VILMA Vancomycin HCl 1,000 mg/ (Sodium Chloride) 270 mls @ 200 mls/hr IV Q12H [facility]; Protocol Stop: 07/02/22 07:59 Last Infusion: 06/28/22 10:37 Dose: 0 mls/hr Documented By: Admin: 06/28/22 09:16 Dose: 200 mls/hr Documented By: Infusion: 06/27/22 23:01 Dose: 0 mls/hr Documented By: Admin: 06/27/22 21:37 Dose: 200 mls/hr Documented By: Infusion: 06/27/22 11:10 Dose: 0 mls/hr Documented By: Admin: 06/27/22 09:03 Dose: 200 mls/hr Documented By: DEONDRE Cefepime HCl 2,000 mg/ Syringe 20 mls @ 5 mls/min IV Q8H [facility]; Protocol Stop: 07/04/22 13:59 Last Admin: 06/28/22 14:41 Dose: 5 mls/min Documented By: Admin: 06/28/22 05:26 Dose: 5 mls/min Documented By: Admin: 06/27/22 21:14 Dose: 5 mls/min Documented By: Admin: 06/27/22 15:27 Dose: 5 mls/min Documented By: DEONDRE Lorazepam (Lorazepam 1 Mg Tab) 1 mg PO Q4 [facility] Stop: 06/26/22 07:00 Last Admin: 06/26/22 04:48 Dose: 1 mg Documented By: Admin: 06/26/22 00:38 Dose: 1 mg Documented By: Admin: 06/25/22 20:24 Dose: 1 mg Documented By: Admin: 06/25/22 17:58 Dose: 1 mg Documented By: Admin: 06/25/22 13:07 Dose: 1 mg Documented By: Admin: 06/25/22 08:52 Dose: 1 mg Documented By: Admin: 06/25/22 03:30 Dose: 1 mg Documented By: Admin: 06/24/22 22:15 Dose: 1 mg Documented By: OO Lorazepam (Lorazepam 1 Mg Tab) 1 mg PO TID [facility] Stop: 07/26/22 08:59 Last Admin: 06/28/22 14:41 Dose: 1 mg Documented By: Admin: 06/28/22 09:16 Dose: 1 mg Documented By: Admin: 06/27/22 21:14 Dose: 1 mg Documented By: AMJoan Admin: 06/27/22 15:35 Dose: 1 mg Documented By: Admin: 06/27/22 09:03 Dose: 1 mg Documented By: Admin: 06/26/22 20:09 Dose: 1 mg Documented By: Admin: 06/26/22 13:31 Dose: 1 mg Documented By: Admin: 06/26/22 09:10 Dose: 1 mg Documented By: JILLIAN Magnesium Oxide (Magnesium Oxide 400 Mg Tab) 400 mg PO QAM [facility] Stop: 07/26/22 08:59 Last Admin: 06/28/22 09:22 Dose: 400 mg Documented By: Admin: 06/27/22 09:00 Dose: 400 mg Documented By: Admin: 06/26/22 09:04 Dose: 400 mg Documented By: JILLIAN Metoprolol Succinate (Metoprolol Succ 25mg Ext Rel Tab) [facility] Stop: 07/27/22 14:29 Last Admin: 06/28/22 09:21 Dose: 12.5 mg Documented By: Admin: 06/27/22 15:31 Dose: 12.5 mg Documented By: DEONDRE Mirabegron (Mirabegron Er 25 Mg Tab) 50 mg PO DAILY [facility] Stop: 07/25/22 08:59 Last Admin: 06/28/22 09:24 Dose: 50 mg Documented By: Admin: 06/27/22 09:00 Dose: 50 mg Documented By: Admin: 06/26/22 09:04 Dose: 50 mg Documented By: Admin: 06/25/22 08:54 Dose: 50 mg Documented By: GARCIA Ondansetron HCl (Ondansetron Inj 2 Mg/Ml 2 Ml Vial) 4 mg IV Q4H PRN PRN Reason: Nausea Stop: 07/28/22 08:21 Last Admin: 06/28/22 08:33 Dose: 4 mg Documented By: TIRSO Pantoprazole Sodium (Pantoprazole 40 Mg Tab) 40 mg PO BID [facility] Stop: 07/24/22 21:00 Last Admin: 06/28/22 09:21 Dose: 40 mg Documented By: Admin: 06/27/22 21:15 Dose: 40 mg Documented By: AMJoan Admin: 06/27/22 11:07 Dose: 40 mg Documented By: Admin: 06/26/22 20:05 Dose: 40 mg Documented By: Admin: 06/26/22 09:03 Dose: 40 mg Documented By: Admin: 06/25/22 20:24 Dose: 40 mg Documented By: Admin: 06/25/22 08:53 Dose: 40 mg Documented By: Admin: 06/24/22 22:12 Dose: 40 mg Documented By: OJud Potassium Chloride (Potassium Chloride Pwd 20 Meq Pack) 20 meq PO BID [facility] Stop: 07/27/22 20:59 Last Admin: 06/28/22 09:26 Dose: 20 meq Documented By: Admin: 06/27/22 21:15 Dose: 20 meq Documented By: BLANCA Quetiapine Fumarate (Quetiapine Fumarate 25 Mg Tablet) 50 mg PO HS [facility] Stop: 07/24/22 21:00 Last Admin: 06/27/22 21:13 Dose: 50 mg Documented By: AMJoan Admin: 06/26/22 20:08 Dose: 50 mg Documented By: Admin: 06/25/22 20:25 Dose: 50 mg Documented By: Admin: 06/24/22 22:13 Dose: 50 mg Documented By: KIANNA Roflumilast (Roflumilast 500 Mcg Tab) 500 mcg PO QAM [facility] Stop: 07/27/22 14:29 Last Admin: 06/28/22 09:23 Dose: 500 mcg Documented By: Admin: 06/27/22 15:30 Dose: 500 mcg Documented By: DEONDRE Sacubitril/Valsartan (Valsartan/Sacubitril 26/24mg Tab) 1 tab PO BID [facility] Stop: 07/27/22 20:59 Last Admin: 06/28/22 09:23 Dose: 1 tab Documented By: Admin: 06/27/22 21:14 Dose: 1 tab Documented By: BLANCA Sertraline HCl (Sertraline Hcl 50 Mg Tablet) 75 mg PO DAILY [facility] Stop: 07/25/22 08:59 Last Admin: 06/25/22 08:53 Dose: 75 mg Documented By: GARCIA Sertraline HCl (Sertraline Hcl 100 Mg Tablet) 100 mg PO DAILY [facility] Stop: 07/26/22 08:59 Last Admin: 06/28/22 09:23 Dose: 100 mg Documented By: Admin: 06/27/22 09:00 Dose: 100 mg Documented By: Admin: 06/26/22 09:03 Dose: 100 mg Documented By: JILLIAN Imaging Data Radiologist's Impression: Chest X-Ray 06/24/22 15:14 XR chest 1V portable HISTORY: Sepsis COMPARISON: Chest 07/14/2021. FINDINGS: There are low lung volumes. No pneumothorax. The heart remains enlarged. There is mild central pulmonary vascular congestion without overt edema. Trace left pleural effusion and left basilar densities persist. Thoracolumbar spinal rods are again noted. IMPRESSION: 1. Cardiomegaly with mild congestive change. 2. Trace left pleural effusion and left basilar densities persist. ACT 112: Negative or not required by law. Electronically signed by: Sven Mantilla M.D. 06/24/2022 3:42 PM Blood Pressure Blood Pressure Findings: Low blood pressure Blood Pressure Disposition: further management by hospitalist Discharge Plan Visit Data Chief Complaint: Illness ED Provider: Ann Marie Rowley Discharge Problem: Acute hypotension, Suprapubic catheter, Tachycardia, Acute UTI Patient Disposition: Admitted As Inpatient Discharge Instructions Interventions: ED Discharge Assessment Last Done: 06/24/22 20:32
--- NOTE | 2022-06-24 15:43 | XRay Report ---
XR chest 1V portable HISTORY: Sepsis COMPARISON: Chest 07/14/2021. FINDINGS: There are low lung volumes. No pneumothorax. The heart remains enlarged. There is mild cent ral pulmonary vascular congestion without overt edema. Trace left pleural effusion and left basilar d ensities persist. Thoracolumbar spinal rods are again noted. IMPRESSION: 1. Cardiomegaly with mild congestive change. 2. Trace left pleural effusion and left basilar densities persist. ACT 112: Negative or not required by law. Electronically signed by: Sven Mantilla M.D. 06/24/2022 3:42 PM
[2022-06-24 16:16] LABS: Troponin I High Sensitivity 12.4 pg/ml (0-20)
[2022-06-24 16:18] LABS: Hematocrit (blood only) 36.3 % (40.1-51.0); Hemoglobin 11.2 g/dl (14.0-18.0); Mean Corpuscular Hemoglobin 28.3 pg (25.0-34.0); Mean Corpuscular Hgb Conc 30.9 g/dL (32.0-36.0); Mean Corpuscular Volume 91.7 fL (80.0-100.0); Mean Platelet Volume 9.9 fL (9.4-12.4); Platelet Count 269 K/uL (130-400); RDW Coefficient of Variation 15.1 % (11.5-14.5); RDW Standard Deviation 50.6 fL (36.4-46.3); Red Blood Count 3.96 M/uL (4.63-6.08)
[2022-06-24 16:22] LABS: Basophils # (auto) 0.03 K/uL (0-0.2); Basophils % (auto) 0.3 %; Eosinophils # (auto) 0.22 K/uL (0-0.50); Eosinophils % (auto) 2.2 %; Immature Granulocytes # (auto) 0.03 K/uL (0.00-0.02); Immature Granulocytes % (auto) 0.3 %; Lymphocytes # (auto) 0.96 K/uL (1.2-3.4); Lymphocytes % (auto) 9.5 %; Monocytes # (auto) 0.67 K/uL (0.24-0.82); Monocytes % (auto) 6.6 %; Neutrophils # (auto) 8.19 K/uL (1.4-6.5); Neutrophils % (auto) 81.1 %
[2022-06-24 16:31] LABS: Albumin Level 3.4 gm/dl (3.4-5.0); BUN Creatinine Ratio 25.5 (10-20); Bilirubin Direct 0.1 mg/dl (0-0.2); Bilirubin,Total 0.4 mg/dl (0.2-1.0); Creatinine Clr Calc Pharmacy 73.8 ml/min; Est GFR (African American) 85.8 ml/min; Est GFR (Non-African American) 74.1 ml/min; Magnesium 1.6 mg/dl (1.7-2.4); Phosphorus 5.7 mg/dl (2.5-4.9); Potassium 4.7 mmol/L (3.5-5.1); Total Protein 8.1 gm/dl (6.0-8.3)
[2022-06-24 16:32] LABS: Influenza A virus by PCR Negative (Neg); Influenza B virus by PCR Negative (Neg); RSV by PCR Negative (Neg); SARS CoV2 RNA(COVID-19) Ceph NEGATIVE (Negative)
--- NOTE | 2022-06-24 16:37 | Electrocardiogram Report ---
Test Reason : Blood Pressure : / mmHG Vent. Rate : 111 BPM Atrial Rate : 111 BPM P-R Int : 198 ms QRS Dur : 068 ms QT Int : 318 ms P-R-T Axes : 001 007 053 degrees QTc Int : 432 ms Poor data quality, interpretation may be adversely affected Sinus tachycardia Possible Old Inferior infarct , age undetermined Possible Old Anteroseptal infarct (cited on or before 01-MAR-2018) Abnormal ECG When compared with ECG of 14-JUL-2021 11:31, Borderline criteria for Inferior infarct are now Present Confirmed by Yordy Mcginnis ([id number]) on 06/24/2022 4:37:24 PM Referred By: REFERRED SELF Confirmed By:Yordy Mcginnis
[2022-06-24 16:45] LABS: Appearance Urine Clear (Clear); Bacteria Urine Automated Negative (Negative); Bilirubin Urine Negative (Negative); Blood Urine 3+ (Negative); Color Urine Yellow; Epithelial Cell Urine Auto >30 /lpf (0-5); Glucose Urine UA Negative (Negative); Ketones Urine Negative (Negative); Leukocyte Esterase Urine 2+ (Negative); Nitrite Urine Negative (Negative); Protein Urine Trace (Negative); RBC Urine Automated >30 /hpf (0-4); Specific Gravity Urine 1.007 (1.000-1.030); Urobilinogen Urine Negative (Negative); WBC Urine Automated >30 /hpf (0-5)
[2022-06-24 17:07] LABS: Calcium Oxalate Crystals Urine Present (None Prsent)
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
[2022-06-24] MEDS ORDERED: LORazepam 2 MG/1 ML VIAL IV PRN (19:07)
[2022-06-24] MEDS ORDERED: bisacodyL 10 MG SUPP PR PRN (21:01)
[2022-06-24] MEDS ORDERED: ACETAMINOPHEN 325 MG TAB PO PRN (21:01)
[2022-06-24] MEDS ORDERED: MICONAZOLE NITRATE POWDER 43 GM EXT PRN (21:32)
[2022-06-24] MEDS: busPIRone 5 MG TAB PO SCH (22:12)
[2022-06-24] MEDS: PANTOprazole 40 MG TAB PO SCH (22:12)
[2022-06-24] MEDS: ATORVASTATIN 40 MG TAB PO SCH (22:12)
[2022-06-24] MEDS: CALCIUM 600MG + VIT D 400 IU TAB PO SCH (22:13)
[2022-06-24] MEDS: HEPARIN SOD 5,000 UNIT/0.5 ML VIAL SQ SCH (22:13)
[2022-06-24] MEDS: QUEtiapine FUMARATE 25 MG TABLET PO SCH (22:13)
[2022-06-24] MEDS: LORazepam 1 MG TAB PO SCH (22:15)
[2022-06-25] MEDS: LORazepam 1 MG TAB PO SCH ×5 (03:30→20:24)
[2022-06-25] MEDS: HEPARIN SOD 5,000 UNIT/0.5 ML VIAL SQ SCH ×3 (05:56→20:24)
[2022-06-25 07:28] LABS: Basophils # (auto) 0.03 K/uL (0-0.2); Basophils % (auto) 0.5 %; Eosinophils # (auto) 0.18 K/uL (0-0.50); Eosinophils % (auto) 2.8 %; Hematocrit (blood only) 29.8 % (40.1-51.0); Hemoglobin 9.3 g/dl (14.0-18.0); Immature Granulocytes # (auto) 0.02 K/uL (0.00-0.02); Immature Granulocytes % (auto) 0.3 %; Lymphocytes # (auto) 1.15 K/uL (1.2-3.4); Mean Corpuscular Hemoglobin 28.3 pg (25.0-34.0); Mean Corpuscular Hgb Conc 31.2 g/dL (32.0-36.0); Mean Corpuscular Volume 90.6 fL (80.0-100.0); Mean Platelet Volume 9.9 fL (9.4-12.4); Monocytes # (auto) 0.54 K/uL (0.24-0.82); Monocytes % (auto) 8.5 %; Neutrophils # (auto) 4.47 K/uL (1.4-6.5); Neutrophils % (auto) 69.9 %; Platelet Count 212 K/uL (130-400); RDW Coefficient of Variation 15.3 % (11.5-14.5); RDW Standard Deviation 50.8 fL (36.4-46.3); Red Blood Count 3.29 M/uL (4.63-6.08); White Blood Count 6.39 K/ul (4.8-10.8)
[2022-06-25] MEDS ORDERED: GABAPENTIN 300 MG CAP PO SCH (08:00)
[2022-06-25 08:01] LABS: BUN Creatinine Ratio 23.8 (10-20); Creatinine Clr Calc Pharmacy 58.4 ml/min; Est GFR (African American) 65.9 ml/min; Est GFR (Non-African American) 56.8 ml/min; Magnesium 1.6 mg/dl (1.7-2.4); Potassium 3.9 mmol/L (3.5-5.1)
[2022-06-25] MEDS: busPIRone 5 MG TAB PO SCH ×2 (08:52→13:07)
[2022-06-25] MEDS: PANTOprazole 40 MG TAB PO SCH ×2 (08:53→20:24)
[2022-06-25] MEDS: CETIRIZINE HCL 10 MG TABLET PO SCH (08:54)
[2022-06-25] MEDS: MIRABEGRON ER 25 MG TAB PO SCH (08:54)
[2022-06-25] MEDS: CALCIUM 600MG + VIT D 400 IU TAB PO SCH ×2 (08:55→20:25)
[2022-06-25] MEDS: FLUTICASONE/VILANTEROL 100/25MCG 14 PUFFS/INHALER INH SCH (08:55)
[2022-06-25] MEDS ORDERED: SERTRALINE HCL 50 MG TABLET PO SCH (09:00)
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
[2022-06-25] MEDS: GABAPENTIN 600 MG TAB PO SCH ×2 (13:07→17:58)
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
--- NOTE | 2022-06-25 15:22 | XRay Report ---
XR chest 1V portable CLINICAL HISTORY: hypoxia, ?pulm edema TECHNIQUE: Single frontal radiograph of the chest was obtained. Comparison: Comparison is made to chest radiograph 06/24/[address] abdomen pelvis 08/27/2020 FINDINGS: Posterior fixation hardware is seen in the spine. Calcified aortic knob is seen. Atelectasis is seen in the lower lobes bilaterally and interstitial thickening is comparable to prior exams.. No evidence of pleural effusion or pneumothorax. IMPRESSION: No significant pulmonary edema is seen. ACT 112: Negative or not required by law. Electronically signed by: Irvin Rangel M.D. 06/25/2022 3:21 PM
[2022-06-25] MEDS: ATORVASTATIN 40 MG TAB PO SCH (20:25)
[2022-06-25] MEDS: QUEtiapine FUMARATE 25 MG TABLET PO SCH (20:25)
[2022-06-26] MEDS: LORazepam 1 MG TAB PO SCH ×5 (00:38→20:09)
[2022-06-26] MEDS: HEPARIN SOD 5,000 UNIT/0.5 ML VIAL SQ SCH ×3 (04:47→20:09)
[2022-06-26 08:21] LABS: Basophils # (auto) 0.02 K/uL (0-0.2); Basophils % (auto) 0.4 %; Eosinophils # (auto) 0.23 K/uL (0-0.50); Eosinophils % (auto) 4.1 %; Hematocrit (blood only) 30.5 % (40.1-51.0); Hemoglobin 9.5 g/dl (14.0-18.0); Immature Granulocytes # (auto) 0.01 K/uL (0.00-0.02); Immature Granulocytes % (auto) 0.2 %; Lymphocytes # (auto) 1.02 K/uL (1.2-3.4); Lymphocytes % (auto) 18.1 %; Mean Corpuscular Hgb Conc 31.1 g/dL (32.0-36.0); Monocytes # (auto) 0.43 K/uL (0.24-0.82); Monocytes % (auto) 7.6 %; Neutrophils # (auto) 3.94 K/uL (1.4-6.5); Neutrophils % (auto) 69.6 %; Platelet Count 211 K/uL (130-400); RDW Coefficient of Variation 15.1 % (11.5-14.5); RDW Standard Deviation 49.3 fL (36.4-46.3); Red Blood Count 3.39 M/uL (4.63-6.08); White Blood Count 5.65 K/ul (4.8-10.8)
[2022-06-26] MEDS: CETIRIZINE HCL 10 MG TABLET PO SCH (09:03)
[2022-06-26] MEDS: SERTRALINE HCL 100 MG TABLET PO SCH (09:03)
[2022-06-26] MEDS: CALCIUM 600MG + VIT D 400 IU TAB PO SCH ×2 (09:03→20:08)
[2022-06-26] MEDS: PANTOprazole 40 MG TAB PO SCH ×2 (09:03→20:05)
[2022-06-26] MEDS: GABAPENTIN 600 MG TAB PO SCH ×3 (09:03→16:25)
[2022-06-26] MEDS: MAGNESIUM OXIDE 400 MG TAB PO SCH (09:04)
[2022-06-26] MEDS: FLUTICASONE/VILANTEROL 100/25MCG 14 PUFFS/INHALER INH SCH (09:04)
[2022-06-26] MEDS: MIRABEGRON ER 25 MG TAB PO SCH (09:04)
[2022-06-26 09:08] LABS: BUN Creatinine Ratio 29.4 (10-20); Calcium 9.2 mg/dl (8.5-10.1); Creatinine Clr Calc Pharmacy 70.3 ml/min; Est GFR (African American) 81.8 ml/min; Est GFR (Non-African American) 70.6 ml/min; Potassium 4.1 mmol/L (3.5-5.1)
[2022-06-26] MEDS ORDERED: VANCOMYCIN CONSULT ACTIVE PRN (14:44)
[2022-06-26] MEDS ORDERED: VANCOMYCIN HCL 2,000 MG in SODIUM CHLORIDE 0.9% 500 ML IV ONE ×2 (14:44→15:00)
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
--- NOTE | 2022-06-26 16:08 | Pharmacy Report ---
Pharmacy PK ABX Note - Date of Service June 26, 2022 - Assessment and Plan Assessment 77 year old M with a suprapubic catheter receiving vancomycin for treatment of urinary infection. Blood cultures - NGTD. Urine culture (+) staph spp (UA contaminated 06/24). Renal function stable. Day # 1 of antimicrobial therapy. Plan Vancomycin * Loading dose: 2000 mg IV x 1 * Maintenance dose: 1000 mg IV every 12 hours * Regimen is predicted to achieve target AUC/ALTON of 400-600 mg/L.hr * Level will be obtained around steady state, or sooner if clinically indicated Pharmacy will continue to follow and will adjust dose/frequency as necessary. Thank you. Pharmacy has transitioned to AUC monitoring for vancomycin. AUC/ALTON is the preferred PK/PD target and is associated with decreased risk of nephrotoxicity compared to traditional trough targets.
[2022-06-26] MEDS: ATORVASTATIN 40 MG TAB PO SCH (20:05)
[2022-06-26] MEDS: QUEtiapine FUMARATE 25 MG TABLET PO SCH (20:08)
[2022-06-27] MEDS: HEPARIN SOD 5,000 UNIT/0.5 ML VIAL SQ SCH ×3 (06:05→21:14)
[2022-06-27 06:15] LABS: Basophils # (auto) 0.03 K/uL (0-0.2); Basophils % (auto) 0.6 %; Eosinophils # (auto) 0.27 K/uL (0-0.50); Hematocrit (blood only) 28.3 % (40.1-51.0); Immature Granulocytes # (auto) 0.01 K/uL (0.00-0.02); Immature Granulocytes % (auto) 0.2 %; Lymphocytes # (auto) 1.27 K/uL (1.2-3.4); Lymphocytes % (auto) 23.3 %; Mean Corpuscular Hemoglobin 28.5 pg (25.0-34.0); Mean Corpuscular Hgb Conc 31.8 g/dL (32.0-36.0); Mean Corpuscular Volume 89.6 fL (80.0-100.0); Mean Platelet Volume 10.1 fL (9.4-12.4); Monocytes # (auto) 0.48 K/uL (0.24-0.82); Monocytes % (auto) 8.8 %; Neutrophils # (auto) 3.38 K/uL (1.4-6.5); Neutrophils % (auto) 62.1 %; Platelet Count 198 K/uL (130-400); RDW Coefficient of Variation 14.9 % (11.5-14.5); RDW Standard Deviation 47.9 fL (36.4-46.3); Red Blood Count 3.16 M/uL (4.63-6.08); White Blood Count 5.44 K/ul (4.8-10.8)
[2022-06-27 06:43] LABS: BUN Creatinine Ratio 44.9 (10-20); Calcium 9.9 mg/dl (8.5-10.1); Creatinine Clr Calc Pharmacy 148.2 ml/min; Est GFR (African American) 122.2 ml/min; Est GFR (Non-African American) 105.4 ml/min; Potassium 3.8 mmol/L (3.5-5.1)
[2022-06-27] MEDS: SERTRALINE HCL 100 MG TABLET PO SCH (09:00)
[2022-06-27] MEDS: CALCIUM 600MG + VIT D 400 IU TAB PO SCH ×2 (09:00→21:13)
[2022-06-27] MEDS: MAGNESIUM OXIDE 400 MG TAB PO SCH (09:00)
[2022-06-27] MEDS: FLUTICASONE/VILANTEROL 100/25MCG 14 PUFFS/INHALER INH SCH (09:00)
[2022-06-27] MEDS: CETIRIZINE HCL 10 MG TABLET PO SCH (09:00)
[2022-06-27] MEDS: GABAPENTIN 600 MG TAB PO SCH ×3 (09:00→17:22)
[2022-06-27] MEDS: MIRABEGRON ER 25 MG TAB PO SCH (09:00)
[2022-06-27] MEDS: VANCOMYCIN HCL 1,000 MG in SODIUM CHLORIDE 0.9% 250 ML IV SCH ×2 (09:03→21:37)
[2022-06-27] MEDS: LORazepam 1 MG TAB PO SCH ×3 (09:03→21:14)
[2022-06-27] MEDS ORDERED: ALBUT/IPRATROP 3MG/0.5MG NEB 3 ML VIAL ONE (10:20)
--- NOTE | 2022-06-27 10:46 | XRay Report ---
XR chest 1V portable HISTORY: Shortness of breath. COMPARISON: Chest 06/25/2022. FINDINGS: No pneumothorax. The heart remains mildly enlarged. There is mild central pulmonary vascula r congestion without overt edema. Patchy left basilar densities and a trace left pleural effusion per sist. Thoracolumbar spinal rods are again noted. There are low lung volumes. IMPRESSION: 1. Cardiomegaly and mild pulmonary vascular congestion, unchanged. 2. Patchy left basilar densities and a trace left pleural effusion persist. ACT 112: Negative or not required by law. Electronically signed by: Sven Mantilla M.D. 06/27/2022 10:45 AM
[2022-06-27] MEDS: PANTOprazole 40 MG TAB PO SCH ×2 (11:07→21:15)
[2022-06-27] MEDS: ALBUT/IPRATROP 3MG/0.5MG NEB 3 ML VIAL NEB SCH ×4 (11:30→23:09)
[2022-06-27] MEDS ORDERED: FUROSEMIDE 40 MG/4 ML VIAL IV ONE (13:55)
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
--- NOTE | 2022-06-27 14:26 | Pharmacy Report ---
Pharmacy Vanc AUC Short Note - Date of Service June 27, 2022 - Assessment & Plan Assessment 77 year old M with a suprapubic catheter receiving vancomycin for treatment of urinary infection. Blood cultures - NGTD. Urine culture with MRSA. Today is day 2 of therapy Plan Vancomycin * Ordered random vancomycin level this afternoon due to changing renal function. Level drawn ~4 hours after previous dose and came back at ~24 mcg/ml. Based upon this level this current vancomycin regimen is estimated to produce a vancomycin trough of ~14 mcg/ml, AUC of 400-600 and is associated with a toxicity of 9% * Therefore reasonable to continue with current vancomycin regimen for now Pharmacy will continue to follow and will adjust dose/frequency as necessary. Thank you.
[2022-06-27] MEDS ORDERED: dilTIAZem HCL 120 MG CAPCR PO SCH (14:30)
[2022-06-27] MEDS: CEFEPIME 2,000 MG in SYRINGE 0 ML IV SCH ×2 (15:27→21:14)
[2022-06-27] MEDS: guaiFENesin/DEXTROM SYRUP 200MG/20MG 10ML UDC PO PRN ×2 (15:28→21:14)
[2022-06-27] MEDS: FINASTERIDE 5 MG TAB PO SCH (15:29)
[2022-06-27] MEDS: ROFLUMILAST 500 MCG TAB PO SCH (15:30)
[2022-06-27] MEDS: METOPROLOL SUCC 25MG EXT REL TAB PO SCH (15:31)
[2022-06-27] MEDS: FERROUS SULFATE 325 MG TAB PO SCH (21:13)
[2022-06-27] MEDS: QUEtiapine FUMARATE 25 MG TABLET PO SCH (21:13)
[2022-06-27] MEDS: VALSARTAN/SACUBITRIL 26/24MG TAB PO SCH (21:14)
[2022-06-27] MEDS: ATORVASTATIN 40 MG TAB PO SCH (21:14)
[2022-06-27] MEDS: POTASSIUM CHLORIDE PWD 20 MEQ PACK PO SCH (21:15)
[2022-06-28] MEDS: ALBUT/IPRATROP 3MG/0.5MG NEB 3 ML VIAL NEB SCH ×4 (02:59→15:36)
[2022-06-28] MEDS: CEFEPIME 2,000 MG in SYRINGE 0 ML IV SCH ×2 (05:26→14:41)
[2022-06-28] MEDS: HEPARIN SOD 5,000 UNIT/0.5 ML VIAL SQ SCH ×2 (05:27→14:39)
[2022-06-28] MEDS ORDERED: ONDANSETRON INJ 2 MG/ML 2 ML VIAL IV PRN (08:22)
[2022-06-28] MEDS ORDERED: dilTIAZem HCL 120 MG CAPCR PO SCH (09:00)
[2022-06-28] MEDS ORDERED: FUROSEMIDE 40 MG TAB PO SCH (09:00)
[2022-06-28] MEDS: VANCOMYCIN HCL 1,000 MG in SODIUM CHLORIDE 0.9% 250 ML IV SCH (09:16)
[2022-06-28] MEDS: LORazepam 1 MG TAB PO SCH ×2 (09:16→14:41)
[2022-06-28] MEDS: GABAPENTIN 600 MG TAB PO SCH ×2 (09:17→12:31)
[2022-06-28] MEDS: PANTOprazole 40 MG TAB PO SCH (09:21)
[2022-06-28] MEDS: FINASTERIDE 5 MG TAB PO SCH (09:21)
[2022-06-28] MEDS: METOPROLOL SUCC 25MG EXT REL TAB PO SCH (09:21)
[2022-06-28] MEDS: MAGNESIUM OXIDE 400 MG TAB PO SCH (09:22)
[2022-06-28] MEDS: FERROUS SULFATE 325 MG TAB PO SCH (09:23)
[2022-06-28] MEDS: VALSARTAN/SACUBITRIL 26/24MG TAB PO SCH (09:23)
[2022-06-28] MEDS: SERTRALINE HCL 100 MG TABLET PO SCH (09:23)
[2022-06-28] MEDS: ROFLUMILAST 500 MCG TAB PO SCH (09:23)
[2022-06-28] MEDS: CALCIUM 600MG + VIT D 400 IU TAB PO SCH (09:23)
[2022-06-28] MEDS: CETIRIZINE HCL 10 MG TABLET PO SCH (09:23)
[2022-06-28] MEDS: MIRABEGRON ER 25 MG TAB PO SCH (09:24)
[2022-06-28] MEDS: POTASSIUM CHLORIDE PWD 20 MEQ PACK PO SCH (09:26)
[2022-06-28] MEDS: FLUTICASONE/VILANTEROL 100/25MCG 14 PUFFS/INHALER INH SCH (09:27)
[2022-06-28 11:16] LABS: Creatinine Clr Calc Pharmacy 124.4 ml/min; Est GFR (African American) 113.2 ml/min; Est GFR (Non-African American) 97.7 ml/min
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
== END 2022-06-28 16:10 | DRG 314 ==
LOC: ED 15:10 → 4W 19:07 → SUATTDRO 19:07 → 4W 20:32